=== PATIENT | female | born 1935 | race Two or more races ===

== ENCOUNTER 2018-06-14 17:21 | Inpatient (IN) | payer MEDICARE, OTHER ==
[~2018-06-14] VITALS: Ht 165.1 cm; Wt 88.5 kg
[2018-06-14] VITALS (10 sets, daily range): BP systolic 94–133; BP diastolic 38–110
[2018-06-14] MEDS ORDERED: ACETAMINOPHEN325 M1 ORAL (17:32)
[2018-06-14] MEDS ORDERED: TAMSULOSIN HCL0.4 MG ORAL (17:38)
[2018-06-14] MEDS ORDERED: ASPIR 8181 MG ORAL (17:38)
[2018-06-14] MEDS ORDERED: COLACE100 MG ORAL (17:38)
[2018-06-14] MEDS ORDERED: CATAPRES0.1 MG ORAL (17:38)
[2018-06-14] MEDS ORDERED: FLONASE ALLERG9.9 ML NS (17:38)
[2018-06-14] MEDS ORDERED: DICLOFENAC SODI75 MG ORAL (17:38)
[2018-06-14] MEDS ORDERED: AMLODIPINE-BEN1 EAC4 ORAL (17:38)
[2018-06-14] MEDS ORDERED: GABAPENTIN300 MG ORAL (17:38)
[2018-06-14] MEDS ORDERED: FOSAMAX70 MG ORAL (17:38)
[2018-06-14] MEDS ORDERED: PRILOSEC OTC20 MG ORAL (17:42)
[2018-06-14] MEDS ORDERED: TRAMADOL HCL50 MG ORAL (17:42)
[2018-06-14] MEDS ORDERED: GLUCOSAMINE CH1 EAC2 PO (17:42)
[2018-06-14] MEDS ORDERED: REQUIP0.25 MG ORAL (17:42)
[2018-06-14] MEDS ORDERED: MIRALAX17 G2 ORAL (17:42)
[2018-06-14] MEDS ORDERED: SIMETHICONE80 MG ORAL (17:42)
[2018-06-14 17:51] LABS: HEMATOCRIT 40.8 % (37.0-47.0); HEMOGLOBIN 12.9 G/DL (12.0-16.0); MEAN CORPUSCULAR VOLUME 91 FL (80-99); PLATELET COUNT 473 K/UL (150-450); RED BLOOD COUNT 4.46 M/UL (4.20-5.40); RED CELL DISTRIBUTION WIDTH 16.2 % (11.6-14.8)
[2018-06-14 17:54] LABS: WHITE BLOOD COUNT 25.4 K/UL (4.8-10.8)
[2018-06-14 17:59] LABS: APPEARANCE,URINE CLEAR; BILIRUBIN, URINE NEGATIVE (NEGATIVE); GLUCOSE, URINE (UA) NEGATIVE (NEGATIVE); KETONES,URINE NEGATIVE (NEGATIVE); LEUKOCYTE ESTERASE ,URINE 1+ (NEGATIVE); NITRITE,URINE NEGATIVE (NEGATIVE); PH,URINE 6 (4.5-8.0); PROTEIN,URINE NEGATIVE (NEGATIVE); UROBILINOGEN,URINE NORMAL MG/DL (0.0-1.0)
[2018-06-14] MEDS ORDERED: Albuterol/Ipratropium 3ml neb HHN ONE (18:00)
[2018-06-14 18:01] LABS: COLOR,URINE YELLOW
[2018-06-14] MEDS ORDERED: SENOKOT8.6 MG PO (18:36)
[2018-06-14 18:53] LABS: ALANINE AMINOTRANSFERASE 29 U/L (12-78); ALBUMIN 3.5 G/DL (3.4-5.0); ALBUMIN/GLOBULIN RATIO 0.9 (1.0-2.7); ALKALINE PHOSPHATASE 125 U/L (46-116); ANION GAP 1 mmol/L (5-15); ASPARTATE AMINO TRANSFERASE 16 U/L (15-37); BILIRUBIN,TOTAL 0.2 MG/DL (0.2-1.0); BLOOD UREA NITROGEN 50 mg/dL (7-18); CALCIUM 9.2 MG/DL (8.5-10.1); CARBON DIOXIDE 35 MMOL/L (21-32); CHLORIDE 102 MMOL/L (98-107); CKMB 1.6 NG/ML (0.0-3.6); CREATINE KINASE 51 U/L (26-308); CREATININE 1.1 MG/DL (0.55-1.30); SODIUM 139 MMOL/L (136-145)
[2018-06-14 18:56] LABS: POTASSIUM 6.4 MMOL/L (3.5-5.1)
[2018-06-14] MEDS ORDERED: Lidocaine 1% MPF 10mg/ml 5ml ONE ×2 (19:11→19:15)
[2018-06-14] MEDS ORDERED: Midazolam/D5W 100ml 100 ML IVPB SCH (19:15)
[2018-06-14] MEDS ORDERED: Isovue-370 150ml vial INJ PRN (19:15)
--- NOTE | 2018-06-14 19:41 | Emergency Room Report ---
History of Present Illness General Chief Complaint: Dyspnea/Respdistress Source: Family Member, EMS Present Illness HPI Patient is an 83-year-old female who presented after increased shortness of breath. The patient noted have desaturation nursing facility. Patient prior history of pulmonary fibrosis. She also had prior recent hospitalization at [facility]. Patient had been noted have increased respiratory distress was started on CPAP by EMS.The patient had recent hospitalization in which she had to receive epidural treatment for the cervical spine stenosis as well as back pain. The patient been hospitalized for approximately one week after a fall Allergies: Coded Allergies: ACETAMINOPHEN (Verified Allergy, Unknown, 06/14/18) CHLORPHENIRAMINE (Verified Allergy, Unknown, 06/14/18) CODEINE (Verified Allergy, Unknown, 06/14/18) HYDROCODONE (Verified Allergy, Unknown, 06/14/18) PENICILLINS (Verified Allergy, Unknown, 06/14/18) Patient History Past Medical History: see triage record Reviewed Nursing Documentation: PMH: Agreed; PSxH: Agreed Nursing Documentation-PMH Hx Hypertension: Yes Hx COPD: Yes - pulmonary Fibrosis Hx Cerebrovascular Accident: Yes Review of Systems All Other Systems: limited - by acuity Physical Exam Vital Signs Date Time Temp Pulse Resp B/P (MAP) Pulse Ox O2 Delivery O2 Flow Rate FiO2 06/14/18 17:23 104 28 136/84 88 Bi-pap 15.0 06/14/18 17:25 97.5 70 97.5 Sp02 EP Interpretation: reviewed, normal General Appearance: normal inspection, alert, lethargic, Chronically Ill Head: atraumatic ENT: normal ENT inspection, hearing grossly normal, normal voice Neck: normal inspection, supple, no bony tend, limited range of motion Respiratory: normal inspection, no retraction, respiratory distress, crackles Cardiovascular #1: regular rate, rhythm, no edema Gastrointestinal: normal inspection, normal bowel sounds, non tender, soft, no guarding, no hernia Genitourinary: no CVA tenderness Musculoskeletal: normal inspection, back normal, normal range of motion Neurologic: responsive, speech normal Psychiatric: judgement/insight normal, mood/affect normal Skin: normal inspection, normal color, no rash Procedures Critical Care Time Critical Care Time Patient had a critical medical condition which untreated could potentially result in life or limb threatening injury. Total critical care time excluding procedures approximately 45 minutes. Central Line Central Line : Consent: Emergent Central Line Lumen: triple Maximal Sterile Barrier Tech: yes cap, yes mask, yes sterile gown, yes sterile gloves, yes large sterile sheet, yes hand hygiene, yes chlorhexidine prep Central Line Postion: internal jugular (R) Anesthesia: Lidocaine cc's of anesthesia: 3 Complications: none Central Line Post Position: sutured, good blood return, position confirmed w / CXR Attempts: One Patient Tolerated: Well Complications: None Intubation Intubation : Consent: Emergent Intubation Method: orotracheal Tube Size (cm): 7.0 Medications: Etomidate, Rocuronium Breath Sounds after Intubation: equal Intubation Complications: no complications Post Intubation Xray: Yes Attempts: One Patient Tolerated: Well Complications: None Medical Decision Making Diagnostic Impression: Primary Impression: Pulmonary embolism Additional Impression: Pulmonary fibrosis, unspecified ER Course Patient presented for shortness of breath. Differential included but was not limited to anemia, pneumonia, pneumothorax, myocardial infarction, pericardial effusion, congestive heart failure, acidosis. Because of complexity of patient' s case laboratory testing and imaging studies were ordered. The patient was noted to have the severe shortness of breath. She was started on BiPAP.The patient was noted to have elevated white blood count. The patient initially had noted to have some elevation of her CO2 on BiPAP. The patient was supplied started on mechanical ventilation after discussion with family. Per my discussion with the family the patient will be given a trial of the mechanical ventilation. The patient reportedly did not want to remain on a ventilator in a prolonged vegetative state. The patient will be made DO NOT RESUSCITATE but other interventions are currently okay by family. The patient was intubated for the respiratory failure.The placenta intubation chest x-ray showed adequate line placement with the bilateral infiltrates. The CT chest read by radiology showed large right-sided pulmonary embolism. The CT imaging of the chest read by radiology showed the right-sided pulmonary embolism. The patient was noted to be normotensive. Dr. Umang Contreras was contacted for inpatient management. Repeat blood gas showed persistent hypoxia. Dr. Piedra was contacted for pulmonary consult and stated he would inform his partner is covering Labs Test 06/14/18 17:30 06/14/18 17:50 06/14/18 17:59 White Blood Count 25.4 K/UL (4.8-10.8) Red Blood Count 4.46 M/UL (4.20-5.40) Hemoglobin 12.9 G/DL (12.0-16.0) Hematocrit 40.8 % (37.0-47.0) Mean Corpuscular Volume 91 FL (80-99) Mean Corpuscular Hemoglobin 29.0 PG (27.0-31.0) Mean Corpuscular Hemoglobin Concent 31.7 G/DL (32.0-36.0) Red Cell Distribution Width 16.2 % (11.6-14.8) Platelet Count 473 K/UL (150-450) Mean Platelet Volume 8.6 FL (6.5-10.1) Neutrophils (%) (Auto) % (45.0-75.0) Lymphocytes (%) (Auto) % (20.0-45.0) Monocytes (%) (Auto) % (1.0-10.0) Eosinophils (%) (Auto) % (0.0-3.0) Basophils (%) (Auto) % (0.0-2.0) Differential Total Cells Counted 100 Neutrophils % (Manual) 84 % (45-75) Lymphocytes % (Manual) 3 % (20-45) Monocytes % (Manual) 13 % (1-10) Eosinophils % (Manual) 0 % (0-3) Basophils % (Manual) 0 % (0-2) Band Neutrophils 0 % (0-8) Platelet Estimate Increased Platelet Morphology Normal Hypochromasia 1+ Anisocytosis 1+ Activated Partial Thromboplast Time 28 SEC (23-33) Sodium Level 139 MMOL/L (136-145) Potassium Level 6.4 MMOL/L (3.5-5.1) Chloride Level 102 MMOL/L (98-107) Carbon Dioxide Level 35 MMOL/L (21-32) Anion Gap 1 mmol/L (5-15) Blood Urea Nitrogen 50 mg/dL (7-18) Creatinine 1.1 MG/DL (0.55-1.30) Estimat Glomerular Filtration Rate mL/min (>60) Glucose Level 176 MG/DL (74-106) Lactic Acid Level 1.30 mmol/L (0.4-2.0) Calcium Level 9.2 MG/DL (8.5-10.1) Total Bilirubin 0.2 MG/DL (0.2-1.0) Aspartate Amino Transf (AST/SGOT) 16 U/L (15-37) Alanine Aminotransferase (ALT/SGPT) 29 U/L (12-78) Alkaline Phosphatase 125 U/L (46-116) Total Creatine Kinase 51 U/L (26-308) Creatine Kinase MB 1.6 NG/ML (0.0-3.6) Creatine Kinase MB Relative Index 3.1 Troponin I 0.209 ng/mL (0.000-0.056) Pro-B-Type Natriuretic Peptide 574 pg/mL (0-125) Total Protein 7.5 G/DL (6.4-8.2) Albumin 3.5 G/DL (3.4-5.0) Globulin 4.0 g/dL Albumin/Globulin Ratio 0.9 (1.0-2.7) Urine Color Yellow Urine Appearance Clear Urine pH 6 (4.5-8.0) Urine Specific Hanna 1.010 (1.005-1.035) Urine Protein Negative (NEGATIVE) Urine Glucose (UA) Negative (NEGATIVE) Urine Ketones Negative (NEGATIVE) Urine Blood Negative (NEGATIVE) Urine Nitrite Negative (NEGATIVE) Urine Bilirubin Negative (NEGATIVE) Urine Urobilinogen Normal MG/DL (0.0-1.0) Urine Leukocyte Esterase 1+ (NEGATIVE) Urine RBC 0 /HPF (0 - 2) Urine WBC 0-2 /HPF (0 - 2) Urine Squamous Epithelial Cells Occasional /LPF Urine Bacteria Few /HPF (NONE) Arterial Blood pH 7.210 (7.350-7.450) Arterial Blood Partial Pressure CO2 94.0 mmHg (35.0-45.0) Arterial Blood Partial Pressure O2 60.6 mmHg (75.0-100.0) Arterial Blood HCO3 37.0 mmol/L (22.0-26.0) Arterial Blood Oxygen Saturation 86.7 % (95-100) Arterial Blood Base Excess 5.9 (-2-2) Zane Test Positive EKG Diagnostic Results Rate: normal Rhythm: NSR ST Segments: no acute changes Rhythm Strip Diag. Results EP Interpretation: yes Rhythm: NSR, no PVC's, no ectopy Last Vital Signs Date Time Temp Pulse Resp B/P (MAP) Pulse Ox O2 Delivery O2 Flow Rate FiO2 06/14/18 19:12 105 20 100 06/14/18 18:38 89 Bi-pap 06/14/18 17:25 97.5 102/38 15.0 97.5 Status: unchanged Disposition: ADMITTED INPATIENT Condition: Critical Referrals: Umang Contreras MD (PCP) Cory Nunez MD Jun 14, 2018 19:41
[2018-06-14] MEDS ORDERED: Lidocaine 1% MPF 10mg/ml 5ml IM ONE ×2 (19:45)
[2018-06-14] MEDS ORDERED: Heparin 5000 units/ml inj IV ONE (20:45)
[2018-06-14] MEDS ORDERED: Heparin 25,000u/D5W 500ml 500 ML IV SCH (20:45)
[2018-06-14] MEDS ORDERED: Precose 50mg tab ORAL SCH (23:30)
--- NOTE | 2018-06-14 23:30 | History & Physical ---
History and Physical History & Physicial H&P dictated [id number] Code status -0 DNR/ ok to intubate Umang Contreras MD Jun 14, 2018 23:30
[2018-06-14] MEDS ORDERED: Precose 50mg tab ORAL ONE (23:45)
[2018-06-15] VITALS (33 sets, daily range): BP systolic 87–152; BP diastolic 51–93
--- NOTE | 2018-06-15 02:45 | History and Physical Report ---
DATE OF ADMISSION: 06/14/2018 CHIEF COMPLAINT: Shortness of breath. HISTORY OF PRESENT ILLNESS: This is an 83-year-old female with past medical history significant for pulmonary fibrosis on two liters of oxygen when lying down and four liters of oxygen with exertion, cervical disk degenerative disease status post interbody fusion C3-C4, C4-C5, C5-C6 and C6-C7, bilateral shoulder osteoarthritis, who was recently hospitalized at [facility] from 05/24/2018 to 06/01/2018 with findings of severe central spinal stenosis of L3-L4 and T5/L2 compression fractures, who was discharged to a long term facility, and earlier today found to be hypoxic. She was found to have altered mental status earlier today. Her O2 sats are 77% on two liters earlier today. She was then put on non-rebreather with oxygen going up to 92%. Upon arrival to the emergency room, the patient was taken for CT angiogram of her lungs with findings of a right pulmonary artery embolism. The patient was not intubated in the field. PAST MEDICAL HISTORY: Includes pulmonary fibrosis, severe central stenosis L3-L4 and L4-L5, old compression fracture of T5 and L2, thrombocytosis, leukocytosis likely secondary to prednisone, interbody fusion at C3-C4, C4-C5 and, C5-C6 and C6-C7, and mechanical falls. PAST SURGICAL HISTORY: Interbody fusion at C3-C4, C4-C5, C5-C6, and C6-C7. SOCIAL HISTORY: The patient is not a smoker. She does not use any drugs. She does not drink alcohol. She is currently living in the rehab center at [facility]. ALLERGIES: To penicillin, Cosamax, codeine, and [place]. MEDICATIONS: Reviewed in [place]. REVIEW OF SYSTEMS: Not possible as the patient is intubated. PHYSICAL EXAMINATION: VITAL SIGNS: Temperature is 98.1, pulse 86, respiratory rate 20, and blood pressure 116/58. O2 saturation is 99% on 100% FiO2. GENERAL: The patient is intubated. She is sedated. HEENT: Normocephalic/atraumatic. NECK: Patient has a right IJ. There is no JVD noted. LUNGS: Decreased breath sounds bilaterally. Some crackles. CARDIOVASCULAR: Tachycardic. Regular rhythm. ABDOMEN: Soft, nontender. EXTREMITIES: No clubbing, cyanosis, or edema. LABORATORY DATA: CBC - white count of 25.4, hemoglobin 12.9, and platelet count 473,000. BMP - sodium 139, potassium 6.4, chloride 102, CO2 35, BUN 50, creatinine is 1.1. Glucose 176. Alkaline phosphatase 125. Troponin is 0.209. BNP is 574. ABG - pH 7.2, pCO2 94, pO2 60, bicarb 37, and O2 saturation 86%. Repeat ABG after intubation 7.3/58/52/32. CT chest shows right pulmonary artery embolism. ASSESSMENT AND PLAN: 1. Acute hypoxic/hypercapnic respiratory failure secondary to right pulmonary artery embolism. 2. Pulmonary fibrosis. 3. Severe central spinal stenosis of L3-L4 and L4-L5. 4. Leukocytosis-unclear etiology. The patient was being tapered off prednisone recently. 5. History of old compression fractures of T5 and L2. 6. History of thrombocytosis. PLAN: 1. Patient is admitted to ICU. 2. We will titrate FiO2 to keep O2 saturation 92% or higher. 3. Started on heparin drip. 4. TTE ordered. 5. Pulmonary consult with . . 6. NG tube placed and can start tube feeds tomorrow. 7. Versed drip for sedation. 8. Follow up blood cultures. Umang Contreras MD DR: JENN JOB#: [id number] CC:
[2018-06-15 04:29] LABS: HEMATOCRIT 38.9 % (37.0-47.0); HEMOGLOBIN 12.4 G/DL (12.0-16.0); MEAN CORPUSCULAR VOLUME 88 FL (80-99); PLATELET COUNT 484 K/UL (150-450); RED BLOOD COUNT 4.44 M/UL (4.20-5.40)
[2018-06-15 04:33] LABS: WHITE BLOOD COUNT 25.1 K/UL (4.8-10.8)
[2018-06-15 04:36] LABS: ALANINE AMINOTRANSFERASE 29 U/L (12-78); ALBUMIN 3.3 G/DL (3.4-5.0); ALBUMIN/GLOBULIN RATIO 0.9 (1.0-2.7); ALKALINE PHOSPHATASE 109 U/L (46-116); ANION GAP 3 mmol/L (5-15); ASPARTATE AMINO TRANSFERASE 28 U/L (15-37); BILIRUBIN,TOTAL 0.2 MG/DL (0.2-1.0); BLOOD UREA NITROGEN 48 mg/dL (7-18); CALCIUM 8.6 MG/DL (8.5-10.1); CARBON DIOXIDE 33 MMOL/L (21-32); CHLORIDE 100 MMOL/L (98-107); CREATININE 1.2 MG/DL (0.55-1.30); POTASSIUM 5.7 MMOL/L (3.5-5.1); SODIUM 136 MMOL/L (136-145)
[2018-06-15] MEDS ORDERED: Heparin 25,000u/D5W 500ml 500 ML IV SCH ×4 (05:00→21:00)
--- NOTE | 2018-06-15 08:26 | Diagnostic Imaging Report ---
Indication: Shortness of breath Technique: One view of the chest Comparison: none Findings: Patient is slightly rotated to the left. The heart is borderline enlarged. There is equivocal mild interstitial congestion. There may be some retrocardiac consolidation and/or atelectasis. Aorta is elongated tortuous and calcified Impression: Borderline cardiomegaly with equivocal mild interstitial congestion. Correlate with clinical findings
--- NOTE | 2018-06-15 08:46 | Diagnostic Imaging Report ---
Indication: Status post endotracheal intubation and central line placement Technique: One view of the chest Comparison: 2 hours earlier Findings: Interim endotracheal intubation, endotracheal tube tip in good position projecting approximately 3 cm above the johnna. Right jugular central venous catheter is in place, tip at the cavoatrial junction. There is equivocally some parenchymal disease at the left lateral lung base and retrocardiac region. Lungs and pleural spaces are otherwise largely clear. There is no evidence of pneumothorax. Unusual metallic densities project over the anterior neck. Impression: Satisfactory endotracheal intubation Satisfactory right jugular central venous catheter placement. No radiographically evident complication Possible retrocardiac and left lateral basilar parenchymal disease
--- NOTE | 2018-06-15 09:01 | Diagnostic Imaging Report ---
ndication: Chest pain Technique: IV administration nonionic contrast. Spiral acquisitions obtained from the lung bases to the lung apices. Multiplanar and 3-D reconstructions were generated. Total dose length product 838.48 mGycm. CTDIvol(s) 24.7 mGy. Dose reduction achieved using automated exposure control Comparison: none Findings: Large pulmonary embolus is seen in the distal right main pulmonary artery, extending into the upper and lower lobe branches. Smaller linear emboli are also seen in the middle lobe branches. There is equivocal evidence of some isolated dilatation of the right ventricle. The main pulmonary arteries are not dilated, however. No evidence of thoracic aortic aneurysm or dissection. Normal classic branching anatomy of the great neck vessels. Patent nonstenotic proximal abdominal visceral vessels. There is considerable volume loss of the left lung, with atelectatic changes of both the upper and lower lobes. There may be some consolidation as well. Generalized interstitial septal thickening is seen in the aerated left lung, as well as throughout the right lung. There are some posterior atelectatic changes of the right lower lobe as well as linear scarring or atelectasis at the right lung base. No effusions. There is a right jugular venous catheter in good position. Small amount of gas around the insertion site presumably relates to the placement procedure. There is an endotracheal tube in good position in the distal trachea above the johnna. No mediastinal or hilar mass or adenopathy. The heart is mildly enlarged. The included upper abdominal anatomy demonstrates multiple left renal cysts which are incompletely visualized. There is an 8 mm left adrenal nodule which demonstrates low-attenuation The bones demonstrate degenerative spondylosis changes. There is a wedge compression fracture deformity of the T5 vertebral body. This demonstrates considerable sclerosis. There is also minimal loss of height of T6.. Surgical hardware is seen in the lower cervical spine on the highest cuts Impression: Extensive right lung pulmonary emboli. Equivocal right ventricular dilatation in the setting of generalized cardiomegaly could indicate right heart strain although this is uncertain Extensive left lung volume loss and possible consolidation Nonspecific bilateral interstitial septal thickening Right jugular venous catheter and endotracheal tube in good position Multiple vertebral body compression fractures. Age indeterminate 8 millimeter left adrenal adenoma This agrees with the preliminary interpretation provided overnight by Dr. Dye The CT scanner at [facility] is accredited by the [employer] and the scans are performed using protocols designed to limit radiation exposure to as low as reasonably achievable to attain images of sufficient resolution adequate for diagnostic evaluation.
--- NOTE | 2018-06-15 10:17 | Consultation ---
History of Present Illness General Date patient seen: Jun 15, 2018 Time patient seen: 09:00 Chief Complaint: Dyspnea/Respdistress Referring physician: Dr. Umang Contreras Reason for Consultation: Respiratory failure Present Illness HPI 83 y/o female w/ hx of pulmonary fibrosis on chronic oyxgen therapy, cervical disk degenerative disease status post interbody fusion C3-C4, C4-C5, C5-C6 and C6-C7, bilateral shoulder osteoarthritis, who was recently hospitalized at [facility] from 05/24/2018 to 06/01/2018 with findings of severe central spinal stenosis of L3-L4 and T5/L2 compression fractures, who was discharged to a fpc facility, and yesterday found to be hypoxic. She was found to have altered mental status as well and taken to [place] for further evaluation. Noted to need nonrebreather and was noted with respiratory acidosis. She was intubated. CT angio reveled extensive R-sided pulmonary emboli. She was started on a heparin gtt and transferred to the ICU. Hemodynamics have been stable with low PO2. Noted leukocytosis but no fevers. There is questionable consolidation on CT chest but unclear etiology. No secretions per RN. No further history is available. Allergies: Coded Allergies: ACETAMINOPHEN (Verified Allergy, Unknown, 06/14/18) CHLORPHENIRAMINE (Verified Allergy, Unknown, 06/14/18) CODEINE (Verified Allergy, Unknown, 06/14/18) HYDROCODONE (Verified Allergy, Unknown, 06/14/18) PENICILLINS (Verified Allergy, Unknown, 06/14/18) Medication History Scheduled Alendronate Sodium* (Fosamax*), 70 MG ORAL ONCE A WEEK, (Reported) Amlodipine Besylate/Benazepril 5-20 Mg* (Amlodipine-Benazepril 5-20 Mg*), 1 CAP ORAL DAILY, (Reported) Aspirin* (Aspir 81*), 81 MG ORAL DAILY, (Reported) Diclofenac Sod* (Voltaren*), 75 MG ORAL BID, (Reported) Fluticasone Propionate (Flonase Allergy Relief), 50 MCG NS DAILY, (Reported) Gabapentin* (Gabapentin*), 300 MG ORAL THREE TIMES A DAY, (Reported) Gluc Perez/Chondro Perez A/Vit C/Mn (Glucosamine Chondroitin Tab), 2 EACH PO BID, ( Reported) Omeprazole Magnesium (Prilosec Otc), 20 MG ORAL BEFORE LUNCH, (Reported) Ropinirole Hcl* (Requip*), 0.25 MG ORAL HS, (Reported) Sennosides (Senokot), 17.2 MG PO BEDTIME, (Reported) Tamsulosin Hcl (Tamsulosin Hcl*), 0.4 MG ORAL DAILY, (Reported) Scheduled PRN Acetaminophen* (Acetaminophen 325MG Tablet*), 1,000 MG ORAL Q8HR PRN for Prn Headache/Temp > 101, (Reported) Clonidine Hcl* (Catapres*), 0.1 MG ORAL EVERY 6 HOURS PRN for SBP>160, (Reported ) Docusate Sodium* (Colace*), 100 MG ORAL DAILY PRN for Constipation, (Reported) Polyethylene Glycol 3350* (Miralax*), 17 GM ORAL DAILY PRN for Constipation, ( Reported) Simethicone* (Simethicone*), 80 MG ORAL Q8H PRN for GAS PAIN, (Reported) Tramadol Hcl* (Ultram*), 50 MG ORAL Q6H PRN for For Pain, (Reported) Patient History Limited by: medical condition History Provided By: Medical Record, PMD Healthcare decision maker Daughter, Deven Bertrand Resuscitation status Do Not Resuscitate Advanced Directive on File No Patient History Narrative PAST MEDICAL HISTORY: Includes pulmonary fibrosis, severe central stenosis L3-L4 and L4-L5, old compression fracture of T5 and L2, thrombocytosis, interbody fusion at C3-C4, C4-C5 and, C5-C6 and C6-C7, and mechanical falls. PAST SURGICAL HISTORY: Interbody fusion at C3-C4, C4-C5, C5-C6, and C6-C7. Review of Systems ROS Narrative Unable to obtain due to patient factors: Intubated, sedated Physical Exam General Appearance: no apparent distress, other - intubated, sedated Lines, tubes and drains: central line, endotracheal tube HEENT: atraumatic, mucous membranes moist Neck: normal inspection Respiratory/Chest: other - Rales bilateral bases Cardiovascular/Chest: normal rate, regular rhythm Abdomen: non tender, soft Extremities: no edema Neurologic: unresponsiveness Last 24 Hour Vital Signs Date Time Temp Pulse Resp B/P (MAP) Pulse Ox O2 Delivery O2 Flow Rate FiO2 06/15/18 10:00 78 20 134/64 (87) 95 06/15/18 09:24 76 20 60 06/15/18 09:00 82 20 127/65 (85) 95 06/15/18 08:00 70 06/15/18 08:00 98.0 87 18 121/67 (85) 96 98.0 06/15/18 08:00 Mechanical Ventilator 06/15/18 08:00 82 06/15/18 07:28 84 20 70 06/15/18 07:00 80 20 130/55 (80) 95 06/15/18 06:30 78 20 137/59 (85) 95 06/15/18 06:00 77 20 146/56 (86) 96 06/15/18 06:00 20 Mechanical Ventilator 70 06/15/18 05:30 75 20 148/58 (88) 95 06/15/18 05:27 73 20 70 06/15/18 05:00 80 20 131/58 (82) 95 06/15/18 05:00 20 Mechanical Ventilator 70 06/15/18 04:30 83 20 133/62 (85) 98 06/15/18 04:00 Mechanical Ventilator 06/15/18 04:00 98.0 87 18 132/67 (88) 96 98.0 06/15/18 04:00 18 Mechanical Ventilator 06/15/18 04:00 87 06/15/18 04:00 70 06/15/18 03:30 81 20 135/52 (79) 97 06/15/18 03:23 78 20 70 06/15/18 03:00 83 19 87/56 (66) 96 06/15/18 03:00 19 Mechanical Ventilator 06/15/18 02:30 82 20 116/71 (86) 95 06/15/18 02:00 78 20 120/62 (81) 96 06/15/18 02:00 20 Mechanical Ventilator 06/15/18 01:30 76 20 113/63 (80) 96 06/15/18 01:01 75 21 70 06/15/18 01:00 20 Mechanical Ventilator 70 06/15/18 01:00 79 20 122/67 (85) 96 06/15/18 00:30 98.0 76 20 117/51 (73) 95 98.0 06/15/18 00:00 Mechanical Ventilator 06/15/18 00:00 70 06/15/18 00:00 76 20 118/55 (76) 93 06/15/18 00:00 20 Mechanical Ventilator 70 06/15/18 00:00 80 06/14/18 23:30 78 20 115/54 (74) 95 06/14/18 23:03 77 20 70 06/14/18 23:00 80 20 109/56 (73) 98 06/14/18 23:00 20 Mechanical Ventilator 70 06/14/18 22:30 84 20 94/65 (75) 96 06/14/18 22:16 100 06/14/18 22:11 98.1 86 20 116/58 (77) 99 98.1 06/14/18 22:10 86 06/14/18 22:10 97.5 84 20 116/65 92 Mechanical Ventilator 100 97.5 06/14/18 22:08 98.1 92 20 110/56 92 Mechanical Ventilator 15.0 100 98.1 06/14/18 22:08 100 06/14/18 22:00 Mechanical Ventilator 06/14/18 22:00 20 Mechanical Ventilator 100 06/14/18 21:38 20 Mechanical Ventilator 100 06/14/18 21:25 97 20 101/54 94 Mechanical Ventilator 100 06/14/18 21:23 20 Mechanical Ventilator 100 06/14/18 21:08 20 Mechanical Ventilator 100 06/14/18 20:54 96 20 100 06/14/18 20:53 20 Mechanical Ventilator 93 06/14/18 20:38 20 Mechanical Ventilator 100 06/14/18 20:25 99 20 126/66 95 Mechanical Ventilator 100 06/14/18 20:23 20 Mechanical Ventilator 97 06/14/18 20:08 20 Mechanical Ventilator 97 06/14/18 20:08 98.1 06/14/18 19:53 17 Mechanical Ventilator 100 06/14/18 19:38 22 Mechanical Ventilator 100 06/14/18 19:25 101 17 133/110 97 Mechanical Ventilator 100 06/14/18 19:12 105 20 100 06/14/18 19:00 100 06/14/18 18:38 95 25 89 Bi-pap 70 06/14/18 18:25 98 21 131/85 96 Bi-pap 15.0 70 06/14/18 18:18 98 30 93 Bi-pap 70 06/14/18 18:13 70 06/14/18 17:45 98 30 Bi-pap 70 06/14/18 17:40 98 30 93 Facial 70 06/14/18 17:25 97 28 Bi-pap 70 06/14/18 17:25 97.5 97 26 102/38 92 Bi-pap 15.0 70 97.5 06/14/18 17:23 104 28 136/84 88 Bi-pap 15.0 Intake and Output 06/14/18 06/15/18 19:00 07:00 Intake Total 691.950 ml Output Total 1440 ml Balance -748.050 ml Intake Oral 0 ml IV Total 691.950 ml Output Urine Total 1440 ml Laboratory Tests Test 06/14/18 17:30 06/14/18 17:50 06/14/18 17:59 06/14/18 21:33 White Blood Count 25.4 K/UL (4.8-10.8) *H Red Blood Count 4.46 M/UL (4.20-5.40) Hemoglobin 12.9 G/DL (12.0-16.0) Hematocrit 40.8 % (37.0-47.0) Mean Corpuscular Volume 91 FL (80-99) Mean Corpuscular Hemoglobin 29.0 PG (27.0-31.0) Mean Corpuscular Hemoglobin Concent 31.7 G/DL (32.0-36.0) L Red Cell Distribution Width 16.2 % (11.6-14.8) H Platelet Count 473 K/UL (150-450) H Mean Platelet Volume 8.6 FL (6.5-10.1) Neutrophils (%) (Auto) % (45.0-75.0) Lymphocytes (%) (Auto) % (20.0-45.0) Monocytes (%) (Auto) % (1.0-10.0) Eosinophils (%) (Auto) % (0.0-3.0) Basophils (%) (Auto) % (0.0-2.0) Differential Total Cells Counted 100 Neutrophils % (Manual) 84 % (45-75) H Lymphocytes % (Manual) 3 % (20-45) L Monocytes % (Manual) 13 % (1-10) H Eosinophils % (Manual) 0 % (0-3) Basophils % (Manual) 0 % (0-2) Band Neutrophils 0 % (0-8) Platelet Estimate Increased H Platelet Morphology Normal Hypochromasia 1+ Anisocytosis 1+ Activated Partial Thromboplast Time 28 SEC (23-33) Sodium Level 139 MMOL/L (136-145) Potassium Level 6.4 MMOL/L (3.5-5.1) *H Chloride Level 102 MMOL/L (98-107) Carbon Dioxide Level 35 MMOL/L (21-32) H Anion Gap 1 mmol/L (5-15) L Blood Urea Nitrogen 50 mg/dL (7-18) H Creatinine 1.1 MG/DL (0.55-1.30) Estimat Glomerular Filtration Rate mL/min (>60) Glucose Level 176 MG/DL (74-106) H Lactic Acid Level 1.30 mmol/L (0.4-2.0) Calcium Level 9.2 MG/DL (8.5-10.1) Total Bilirubin 0.2 MG/DL (0.2-1.0) Aspartate Amino Transf (AST/SGOT) 16 U/L (15-37) Alanine Aminotransferase (ALT/SGPT) 29 U/L (12-78) Alkaline Phosphatase 125 U/L (46-116) H Total Creatine Kinase 51 U/L (26-308) Creatine Kinase MB 1.6 NG/ML (0.0-3.6) Creatine Kinase MB Relative Index 3.1 Troponin I 0.209 ng/mL (0.000-0.056) Pro-B-Type Natriuretic Peptide 574 pg/mL (0-125) H Total Protein 7.5 G/DL (6.4-8.2) Albumin 3.5 G/DL (3.4-5.0) Globulin 4.0 g/dL Albumin/Globulin Ratio 0.9 (1.0-2.7) L Urine Color Yellow Urine Appearance Clear Urine pH 6 (4.5-8.0) Urine Specific [place] 1.010 (1.005-1.035) Urine Protein Negative (NEGATIVE) Urine Glucose (UA) Negative (NEGATIVE) Urine Ketones Negative (NEGATIVE) Urine Blood Negative (NEGATIVE) Urine Nitrite Negative (NEGATIVE) Urine Bilirubin Negative (NEGATIVE) Urine Urobilinogen Normal MG/DL (0.0-1.0) Urine Leukocyte Esterase 1+ (NEGATIVE) H Urine RBC 0 /HPF (0 - 2) Urine WBC 0-2 /HPF (0 - 2) Urine Squamous Epithelial Cells Occasional /LPF Urine Bacteria Few /HPF (NONE) Arterial Blood pH 7.210 (7.350-7.450) 7.364 (7.350-7.450) Arterial Blood Partial Pressure CO2 94.0 mmHg (35.0-45.0) *H 58.2 mmHg (35.0-45.0) *H Arterial Blood Partial Pressure O2 60.6 mmHg (75.0-100.0) L 52.5 mmHg (75.0-100.0) L Arterial Blood HCO3 37.0 mmol/L (22.0-26.0) H 32.4 mmol/L (22.0-26.0) H Arterial Blood Oxygen Saturation 86.7 % (95-100) *L 87.2 % (95-100) *L Arterial Blood Base Excess 5.9 (-2-2) H 5.5 (-2-2) H Zane Test Positive Positive Test 06/15/18 03:00 06/15/18 08:05 White Blood Count 25.1 K/UL (4.8-10.8) *H Red Blood Count 4.44 M/UL (4.20-5.40) Hemoglobin 12.4 G/DL (12.0-16.0) Hematocrit 38.9 % (37.0-47.0) Mean Corpuscular Volume 88 FL (80-99) Mean Corpuscular Hemoglobin 28.0 PG (27.0-31.0) Mean Corpuscular Hemoglobin Concent 31.9 G/DL (32.0-36.0) L Red Cell Distribution Width 16.0 % (11.6-14.8) H Platelet Count 484 K/UL (150-450) H Mean Platelet Volume 8.6 FL (6.5-10.1) Neutrophils (%) (Auto) % (45.0-75.0) Lymphocytes (%) (Auto) % (20.0-45.0) Monocytes (%) (Auto) % (1.0-10.0) Eosinophils (%) (Auto) % (0.0-3.0) Basophils (%) (Auto) % (0.0-2.0) Differential Total Cells Counted 100 Neutrophils % (Manual) 64 % (45-75) Lymphocytes % (Manual) 9 % (20-45) L Monocytes % (Manual) 27 % (1-10) H Eosinophils % (Manual) 0 % (0-3) Basophils % (Manual) 0 % (0-2) Band Neutrophils 0 % (0-8) Platelet Estimate Adequate Platelet Morphology Normal Red Blood Cell Morphology Normal Activated Partial Thromboplast Time 121 SEC (23-33) H Sodium Level 136 MMOL/L (136-145) Potassium Level 5.7 MMOL/L (3.5-5.1) H Chloride Level 100 MMOL/L (98-107) Carbon Dioxide Level 33 MMOL/L (21-32) H Anion Gap 3 mmol/L (5-15) L Blood Urea Nitrogen 48 mg/dL (7-18) H Creatinine 1.2 MG/DL (0.55-1.30) Estimat Glomerular Filtration Rate mL/min (>60) Glucose Level 201 MG/DL (74-106) H Calcium Level 8.6 MG/DL (8.5-10.1) Total Bilirubin 0.2 MG/DL (0.2-1.0) Aspartate Amino Transf (AST/SGOT) 28 U/L (15-37) Alanine Aminotransferase (ALT/SGPT) 29 U/L (12-78) Alkaline Phosphatase 109 U/L (46-116) Troponin I 0.896 ng/mL (0.000-0.056) Total Protein 6.9 G/DL (6.4-8.2) Albumin 3.3 G/DL (3.4-5.0) L Globulin 3.6 g/dL Albumin/Globulin Ratio 0.9 (1.0-2.7) L Arterial Blood pH 7.467 (7.350-7.450) Arterial Blood Partial Pressure CO2 47.6 mmHg (35.0-45.0) H Arterial Blood Partial Pressure O2 77.3 mmHg (75.0-100.0) Arterial Blood HCO3 33.6 mmol/L (22.0-26.0) H Arterial Blood Oxygen Saturation 95.6 % (95-100) Arterial Blood Base Excess 8.7 (-2-2) H Zane Test Positive Height (Feet): 5 Height (Inches): 5.00 Weight (Pounds): 189 Medications Current Medications Medications (Trade) Dose Ordered Sig/Missy Route PRN Reason Start Time Stop Time Status Last Admin Dose Admin Acetaminophen (Tylenol) 650 mg Q4H PRN ORAL Mild Pain (Pain Scale 1-3) 06/14/18 23:15 07/14/18 23:14 Dextrose 1,000 ml @ 75 mls/hr [id number] IV 06/15/18 10:00 07/15/18 09:59 06/14/18 23:41 Dextrose (Dextrose 50%) 25 ml Q30M PRN IV Hypoglycemia 06/14/18 23:15 07/14/18 23:14 Dextrose (Dextrose 50%) 50 ml Q30M PRN IV Hypoglycemia 06/14/18 23:15 07/14/18 23:14 Heparin Sodium/ Dextrose 500 ml @ 25.175 mls/ hr ADJUST PER PROTOCOL IV 06/15/18 05:00 07/14/18 20:44 06/15/18 06:23 Iopamidol (Isovue-370 150ml) 150 ml NOW PRN INJ Radiology Procedure 06/14/18 19:15 06/16/18 19:02 Midazolam HCl 100 ml @ 0 mls/hr Q24H IVPB 06/14/18 19:15 06/21/18 19:14 06/14/18 19:38 Sodium Polystyrene Sulfonate (Kayexalate) 30 gm ONCE ORAL 06/15/18 10:30 06/15/18 12:00 Objective Narrative Findings: Large pulmonary embolus is seen in the distal right main pulmonary artery, extending into the upper and lower lobe branches. Smaller linear emboli are also seen in the middle lobe branches. There is equivocal evidence of some isolated dilatation of the right ventricle. The main pulmonary arteries are not dilated, however. No evidence of thoracic aortic aneurysm or dissection. Normal classic branching anatomy of the great neck vessels. Patent nonstenotic proximal abdominal visceral vessels. There is considerable volume loss of the left lung, with atelectatic changes of both the upper and lower lobes. There may be some consolidation as well. Generalized interstitial septal thickening is seen in the aerated left lung, as well as throughout the right lung. There are some posterior atelectatic changes of the right lower lobe as well as linear scarring or atelectasis at the right lung base. No effusions. There is a right jugular venous catheter in good position. Small amount of gas around the insertion site presumably relates to the placement procedure. There is an endotracheal tube in good position in the distal trachea above the johnna. No mediastinal or hilar mass or adenopathy. The heart is mildly enlarged. The included upper abdominal anatomy demonstrates multiple left renal cysts which are incompletely visualized. There is an 8 mm left adrenal nodule which demonstrates low-attenuation The bones demonstrate degenerative spondylosis changes. There is a wedge compression fracture deformity of the T5 vertebral body. This demonstrates considerable sclerosis. There is also minimal loss of height of T6.. Surgical hardware is seen in the lower cervical spine on the highest cuts Impression: Extensive right lung pulmonary emboli. Equivocal right ventricular dilatation in the setting of generalized cardiomegaly could indicate right heart strain although this is uncertain Extensive left lung volume loss and possible consolidation Nonspecific bilateral interstitial septal thickening Right jugular venous catheter and endotracheal tube in good position Multiple vertebral body compression fractures. Age indeterminate 8 millimeter left adrenal adenoma Assessment/Plan Assessment/Plan Assessment: 83 y/o female w/ pulmonary fibrosis, cervical spinal stenosis with compression fractures and hx of fusion admitted with acute on chronic hypoxemic respiratory failure and acute hypercapnic respiratory failure due to large R- sided pulmonary embolism. Noted leukocytosis and potential consolidation on CT but may be difficult to ascertain from her pulmonary fibrosis. No fevers. Will need respiratory support and close monitoring of hemodynamics and low threshold to treat with antibiotics. Problem List: 1. Acute on chronic hypoxemic and acute hypercapnic respiratory failure 2. Large R-sided pulmonary emboli 3. Potential consolidation LLL 4. Leukocytosis 5. Idiopathic pulmonary fibrosis 6. Hyperkalemia 7. Cervical spinal stenosis with compression fractures Plan: -cont mechanical ventilatory support -lower tidal volume to 450 cc -ABG in AM -wean sedation as tolerated -wean Fio2 and PEEP as tolerated -Heparin gtt for now, monitor hemodynamics, currently stable -2D Echo -Check duplex b/l LE eval for DVT -Monitor leukocytosis, low threshold to start antibiotics -Monitor volumes -kayexelate for hyperkalemia -code status has now been changed to DNAR CC Time: 95 minutes Case d/w Gautam Ventura MD Jun 15, 2018 10:17
[2018-06-15] MEDS ORDERED: Sodium Polystyrene Sulfonate 15gm Powder ORAL SCH (10:30)
[2018-06-15] MEDS ORDERED: Midazolam/D5W 100ml 100 ML IVPB PRN (11:45)
[2018-06-15] MEDS: Morphine Sulfate 2mg/ml Inj IVP PRN (13:34)
--- NOTE | 2018-06-15 14:24 | Cardiology Report ---
APPROVED REPORT EXAM: Two-dimensional and M-mode echocardiogram with Doppler and color Doppler. INDICATION STABLE ANGINA M-Mode DIMENSIONS IVSd0.9 (0.7-1.1cm)Left Atrium (MM)2.8 (1.6-4.0cm) LVDd5.5 (3.5-5.6cm)Aortic Root3.6 (2.0-3.7cm) PWd1.3 (0.7-1.1cm)Aortic Cusp Exc.2.0 (1.5-2.0cm) IVSs1.4 cm LVDs3.5 (2.5-4.0cm) PWs2.0 cm Technically difficult study due to pts position . Normal left ventricular chamber size, systolic function and wall motion as well visualized Left ventricular ejection fraction estimated to be 60-65%. Mild left ventricular hypertrophy by 2-D. No evidence of pericardial effusion. Large pleural efuusion present . All other cardiac chamber sizes are within normal limits. Focal aortic valve sclerosis with adequate cusp excursion. Thickened mitral valve leaflets with normal excursion. Mitral annulus and aortic root calcification. Pulmonic valve not well visualized. Normal tricuspid valve structure. IVC at size 1.8 cm without physiologic collapse, suggestive of increased RA pressure. A color flow and spectral Doppler study was performed and revealed: No aortic regurgitation. Trace mitral regurgitation. Mitral diastolic velocities suggest reduced left ventricular relaxation c/w mild LV diastolic dysfunction (Grade I ). Mild tricuspid regurgitation. Tricuspid systolic velocities suggests peak right ventricular systolic pressure of 33mmHg.
--- NOTE | 2018-06-15 16:18 | Consultation ---
History of Present Illness General Chief Complaint: Dyspnea/Respdistress Referring physician: Dr. Umang Contreras Reason for Consultation: Respiratory failure Present Illness Allergies: Coded Allergies: ACETAMINOPHEN (Verified Allergy, Unknown, 06/14/18) CHLORPHENIRAMINE (Verified Allergy, Unknown, 06/14/18) CODEINE (Verified Allergy, Unknown, 06/14/18) HYDROCODONE (Verified Allergy, Unknown, 06/14/18) PENICILLINS (Verified Allergy, Unknown, 06/14/18) Medication History Scheduled Alendronate Sodium* (Fosamax*), 70 MG ORAL ONCE A WEEK, (Reported) Amlodipine Besylate/Benazepril 5-20 Mg* (Amlodipine-Benazepril 5-20 Mg*), 1 CAP ORAL DAILY, (Reported) Aspirin* (Aspir 81*), 81 MG ORAL DAILY, (Reported) Diclofenac Sod* (Voltaren*), 75 MG ORAL BID, (Reported) Fluticasone Propionate (Flonase Allergy Relief), 50 MCG NS DAILY, (Reported) Gabapentin* (Gabapentin*), 300 MG ORAL THREE TIMES A DAY, (Reported) Gluc Perez/Chondro Perez A/Vit C/Mn (Glucosamine Chondroitin Tab), 2 EACH PO BID, ( Reported) Omeprazole Magnesium (Prilosec Otc), 20 MG ORAL BEFORE LUNCH, (Reported) Ropinirole Hcl* (Requip*), 0.25 MG ORAL HS, (Reported) Sennosides (Senokot), 17.2 MG PO BEDTIME, (Reported) Tamsulosin Hcl (Tamsulosin Hcl*), 0.4 MG ORAL DAILY, (Reported) Scheduled PRN Acetaminophen* (Acetaminophen 325MG Tablet*), 1,000 MG ORAL Q8HR PRN for Prn Headache/Temp > 101, (Reported) Clonidine Hcl* (Catapres*), 0.1 MG ORAL EVERY 6 HOURS PRN for SBP>160, (Reported ) Docusate Sodium* (Colace*), 100 MG ORAL DAILY PRN for Constipation, (Reported) Polyethylene Glycol 3350* (Miralax*), 17 GM ORAL DAILY PRN for Constipation, ( Reported) Simethicone* (Simethicone*), 80 MG ORAL Q8H PRN for GAS PAIN, (Reported) Tramadol Hcl* (Ultram*), 50 MG ORAL Q6H PRN for For Pain, (Reported) Patient History Healthcare decision maker Daughter, Deven Bertrand Resuscitation status Do Not Resuscitate Advanced Directive on File No Physical Exam Last 24 Hour Vital Signs Date Time Temp Pulse Resp B/P (MAP) Pulse Ox O2 Delivery O2 Flow Rate FiO2 06/15/18 15:01 85 20 55 06/15/18 14:04 98.2 06/15/18 13:34 98.2 06/15/18 12:53 89 21 55 06/15/18 12:30 88 20 152/89 (110) 94 06/15/18 12:00 87 20 146/74 (98) 94 06/15/18 12:00 80 06/15/18 11:00 80 20 135/66 (89) 94 06/15/18 10:49 85 21 55 06/15/18 10:30 86 20 152/75 (100) 94 06/15/18 10:00 78 20 134/64 (87) 95 06/15/18 09:24 76 20 60 06/15/18 09:00 82 20 127/65 (85) 95 06/15/18 08:00 70 06/15/18 08:00 98.0 87 18 121/67 (85) 96 98.0 06/15/18 08:00 Mechanical Ventilator 06/15/18 08:00 82 06/15/18 07:28 84 20 70 06/15/18 07:00 80 20 130/55 (80) 95 06/15/18 06:30 78 20 137/59 (85) 95 06/15/18 06:00 77 20 146/56 (86) 96 06/15/18 06:00 20 Mechanical Ventilator 70 06/15/18 05:30 75 20 148/58 (88) 95 06/15/18 05:27 73 20 70 06/15/18 05:00 80 20 131/58 (82) 95 06/15/18 05:00 20 Mechanical Ventilator 70 06/15/18 04:30 83 20 133/62 (85) 98 06/15/18 04:00 Mechanical Ventilator 06/15/18 04:00 98.0 87 18 132/67 (88) 96 98.0 06/15/18 04:00 18 Mechanical Ventilator 06/15/18 04:00 87 06/15/18 04:00 70 06/15/18 03:30 81 20 135/52 (79) 97 06/15/18 03:23 78 20 70 06/15/18 03:00 83 19 87/56 (66) 96 06/15/18 03:00 19 Mechanical Ventilator 06/15/18 02:30 82 20 116/71 (86) 95 06/15/18 02:00 78 20 120/62 (81) 96 06/15/18 02:00 20 Mechanical Ventilator 06/15/18 01:30 76 20 113/63 (80) 96 06/15/18 01:01 75 21 70 06/15/18 01:00 20 Mechanical Ventilator 70 06/15/18 01:00 79 20 122/67 (85) 96 06/15/18 00:30 98.0 76 20 117/51 (73) 95 98.0 06/15/18 00:00 Mechanical Ventilator 06/15/18 00:00 70 06/15/18 00:00 76 20 118/55 (76) 93 06/15/18 00:00 20 Mechanical Ventilator 70 06/15/18 00:00 80 06/14/18 23:30 78 20 115/54 (74) 95 06/14/18 23:03 77 20 70 06/14/18 23:00 80 20 109/56 (73) 98 06/14/18 23:00 20 Mechanical Ventilator 70 06/14/18 22:30 84 20 94/65 (75) 96 06/14/18 22:16 100 06/14/18 22:11 98.1 86 20 116/58 (77) 99 98.1 06/14/18 22:10 86 06/14/18 22:10 97.5 84 20 116/65 92 Mechanical Ventilator 100 97.5 06/14/18 22:08 98.1 92 20 110/56 92 Mechanical Ventilator 15.0 100 98.1 06/14/18 22:08 100 06/14/18 22:00 Mechanical Ventilator 06/14/18 22:00 20 Mechanical Ventilator 100 06/14/18 21:38 20 Mechanical Ventilator 100 06/14/18 21:25 97 20 101/54 94 Mechanical Ventilator 100 06/14/18 21:23 20 Mechanical Ventilator 100 06/14/18 21:08 20 Mechanical Ventilator 100 06/14/18 20:54 96 20 100 06/14/18 20:53 20 Mechanical Ventilator 93 06/14/18 20:38 20 Mechanical Ventilator 100 06/14/18 20:25 99 20 126/66 95 Mechanical Ventilator 100 06/14/18 20:23 20 Mechanical Ventilator 97 06/14/18 20:08 20 Mechanical Ventilator 97 06/14/18 20:08 98.1 06/14/18 19:53 17 Mechanical Ventilator 100 06/14/18 19:38 22 Mechanical Ventilator 100 06/14/18 19:25 101 17 133/110 97 Mechanical Ventilator 100 06/14/18 19:12 105 20 100 06/14/18 19:00 100 06/14/18 18:38 95 25 89 Bi-pap 70 06/14/18 18:25 98 21 131/85 96 Bi-pap 15.0 70 06/14/18 18:18 98 30 93 Bi-pap 70 06/14/18 18:13 70 06/14/18 17:45 98 30 Bi-pap 70 06/14/18 17:40 98 30 93 Facial 70 06/14/18 17:25 97 28 Bi-pap 70 06/14/18 17:25 97.5 97 26 102/38 92 Bi-pap 15.0 70 97.5 06/14/18 17:23 104 28 136/84 88 Bi-pap 15.0 Intake and Output 06/14/18 06/15/18 19:00 07:00 Intake Total 691.950 ml Output Total 1440 ml Balance -748.050 ml Intake Oral 0 ml IV Total 691.950 ml Output Urine Total 1440 ml Laboratory Tests Test 06/14/18 17:30 06/14/18 17:50 06/14/18 17:59 06/14/18 21:33 White Blood Count 25.4 K/UL (4.8-10.8) *H Red Blood Count 4.46 M/UL (4.20-5.40) Hemoglobin 12.9 G/DL (12.0-16.0) Hematocrit 40.8 % (37.0-47.0) Mean Corpuscular Volume 91 FL (80-99) Mean Corpuscular Hemoglobin 29.0 PG (27.0-31.0) Mean Corpuscular Hemoglobin Concent 31.7 G/DL (32.0-36.0) L Red Cell Distribution Width 16.2 % (11.6-14.8) H Platelet Count 473 K/UL (150-450) H Mean Platelet Volume 8.6 FL (6.5-10.1) Neutrophils (%) (Auto) % (45.0-75.0) Lymphocytes (%) (Auto) % (20.0-45.0) Monocytes (%) (Auto) % (1.0-10.0) Eosinophils (%) (Auto) % (0.0-3.0) Basophils (%) (Auto) % (0.0-2.0) Differential Total Cells Counted 100 Neutrophils % (Manual) 84 % (45-75) H Lymphocytes % (Manual) 3 % (20-45) L Monocytes % (Manual) 13 % (1-10) H Eosinophils % (Manual) 0 % (0-3) Basophils % (Manual) 0 % (0-2) Band Neutrophils 0 % (0-8) Platelet Estimate Increased H Platelet Morphology Normal Hypochromasia 1+ Anisocytosis 1+ Activated Partial Thromboplast Time 28 SEC (23-33) Sodium Level 139 MMOL/L (136-145) Potassium Level 6.4 MMOL/L (3.5-5.1) *H Chloride Level 102 MMOL/L (98-107) Carbon Dioxide Level 35 MMOL/L (21-32) H Anion Gap 1 mmol/L (5-15) L Blood Urea Nitrogen 50 mg/dL (7-18) H Creatinine 1.1 MG/DL (0.55-1.30) Estimat Glomerular Filtration Rate mL/min (>60) Glucose Level 176 MG/DL (74-106) H Lactic Acid Level 1.30 mmol/L (0.4-2.0) Calcium Level 9.2 MG/DL (8.5-10.1) Total Bilirubin 0.2 MG/DL (0.2-1.0) Aspartate Amino Transf (AST/SGOT) 16 U/L (15-37) Alanine Aminotransferase (ALT/SGPT) 29 U/L (12-78) Alkaline Phosphatase 125 U/L (46-116) H Total Creatine Kinase 51 U/L (26-308) Creatine Kinase MB 1.6 NG/ML (0.0-3.6) Creatine Kinase MB Relative Index 3.1 Troponin I 0.209 ng/mL (0.000-0.056) Pro-B-Type Natriuretic Peptide 574 pg/mL (0-125) H Total Protein 7.5 G/DL (6.4-8.2) Albumin 3.5 G/DL (3.4-5.0) Globulin 4.0 g/dL Albumin/Globulin Ratio 0.9 (1.0-2.7) L Urine Color Yellow Urine Appearance Clear Urine pH 6 (4.5-8.0) Urine Specific Hardy 1.010 (1.005-1.035) Urine Protein Negative (NEGATIVE) Urine Glucose (UA) Negative (NEGATIVE) Urine Ketones Negative (NEGATIVE) Urine Blood Negative (NEGATIVE) Urine Nitrite Negative (NEGATIVE) Urine Bilirubin Negative (NEGATIVE) Urine Urobilinogen Normal MG/DL (0.0-1.0) Urine Leukocyte Esterase 1+ (NEGATIVE) H Urine RBC 0 /HPF (0 - 2) Urine WBC 0-2 /HPF (0 - 2) Urine Squamous Epithelial Cells Occasional /LPF Urine Bacteria Few /HPF (NONE) Arterial Blood pH 7.210 (7.350-7.450) 7.364 (7.350-7.450) Arterial Blood Partial Pressure CO2 94.0 mmHg (35.0-45.0) *H 58.2 mmHg (35.0-45.0) *H Arterial Blood Partial Pressure O2 60.6 mmHg (75.0-100.0) L 52.5 mmHg (75.0-100.0) L Arterial Blood HCO3 37.0 mmol/L (22.0-26.0) H 32.4 mmol/L (22.0-26.0) H Arterial Blood Oxygen Saturation 86.7 % (95-100) *L 87.2 % (95-100) *L Arterial Blood Base Excess 5.9 (-2-2) H 5.5 (-2-2) H Zane Test Positive Positive Test 06/15/18 03:00 06/15/18 08:05 06/15/18 12:30 White Blood Count 25.1 K/UL (4.8-10.8) *H Red Blood Count 4.44 M/UL (4.20-5.40) Hemoglobin 12.4 G/DL (12.0-16.0) Hematocrit 38.9 % (37.0-47.0) Mean Corpuscular Volume 88 FL (80-99) Mean Corpuscular Hemoglobin 28.0 PG (27.0-31.0) Mean Corpuscular Hemoglobin Concent 31.9 G/DL (32.0-36.0) L Red Cell Distribution Width 16.0 % (11.6-14.8) H Platelet Count 484 K/UL (150-450) H Mean Platelet Volume 8.6 FL (6.5-10.1) Neutrophils (%) (Auto) % (45.0-75.0) Lymphocytes (%) (Auto) % (20.0-45.0) Monocytes (%) (Auto) % (1.0-10.0) Eosinophils (%) (Auto) % (0.0-3.0) Basophils (%) (Auto) % (0.0-2.0) Differential Total Cells Counted 100 Neutrophils % (Manual) 64 % (45-75) Lymphocytes % (Manual) 9 % (20-45) L Monocytes % (Manual) 27 % (1-10) H Eosinophils % (Manual) 0 % (0-3) Basophils % (Manual) 0 % (0-2) Band Neutrophils 0 % (0-8) Platelet Estimate Adequate Platelet Morphology Normal Red Blood Cell Morphology Normal Activated Partial Thromboplast Time 121 SEC (23-33) H 104 SEC (23-33) H Sodium Level 136 MMOL/L (136-145) Potassium Level 5.7 MMOL/L (3.5-5.1) H Chloride Level 100 MMOL/L (98-107) Carbon Dioxide Level 33 MMOL/L (21-32) H Anion Gap 3 mmol/L (5-15) L Blood Urea Nitrogen 48 mg/dL (7-18) H Creatinine 1.2 MG/DL (0.55-1.30) Estimat Glomerular Filtration Rate mL/min (>60) Glucose Level 201 MG/DL (74-106) H Calcium Level 8.6 MG/DL (8.5-10.1) Total Bilirubin 0.2 MG/DL (0.2-1.0) Aspartate Amino Transf (AST/SGOT) 28 U/L (15-37) Alanine Aminotransferase (ALT/SGPT) 29 U/L (12-78) Alkaline Phosphatase 109 U/L (46-116) Troponin I 0.896 ng/mL (0.000-0.056) 1.231 ng/mL (0.000-0.056) Total Protein 6.9 G/DL (6.4-8.2) Albumin 3.3 G/DL (3.4-5.0) L Globulin 3.6 g/dL Albumin/Globulin Ratio 0.9 (1.0-2.7) L Arterial Blood pH 7.467 (7.350-7.450) Arterial Blood Partial Pressure CO2 47.6 mmHg (35.0-45.0) H Arterial Blood Partial Pressure O2 77.3 mmHg (75.0-100.0) Arterial Blood HCO3 33.6 mmol/L (22.0-26.0) H Arterial Blood Oxygen Saturation 95.6 % (95-100) Arterial Blood Base Excess 8.7 (-2-2) H Zane Test Positive Height (Feet): 5 Height (Inches): 5.00 Weight (Pounds): 189 Medications Current Medications Medications (Trade) Dose Ordered Sig/Missy Route PRN Reason Start Time Stop Time Status Last Admin Dose Admin Acetaminophen (Tylenol) 650 mg Q4H PRN ORAL Mild Pain (Pain Scale 1-3) 06/14/18 23:15 07/14/18 23:14 Dextrose 1,000 ml @ 75 mls/hr [id number] IV 06/15/18 10:00 07/15/18 09:59 06/14/18 23:41 Dextrose (Dextrose 50%) 25 ml Q30M PRN IV Hypoglycemia 06/14/18 23:15 07/14/18 23:14 Dextrose (Dextrose 50%) 50 ml Q30M PRN IV Hypoglycemia 06/14/18 23:15 07/14/18 23:14 Heparin Sodium/ Dextrose 500 ml @ 22.356 mls/ hr ADJUST PER PROTOCOL IV 06/15/18 13:15 07/15/18 13:14 06/15/18 13:19 Iopamidol (Isovue-370 150ml) 150 ml NOW PRN INJ Radiology Procedure 06/14/18 19:15 06/16/18 19:02 Midazolam HCl 100 ml @ 0 mls/hr Q24H PRN IVPB Restlessness 06/15/18 11:45 06/22/18 11:44 Morphine Sulfate (Morphine Sulfate) 2 mg Q4H PRN IVP Severe Pain (Pain Scale 7-10) 06/15/18 11:45 06/22/18 11:44 06/15/18 13:34 Tramadol HCl (Ultram) 50 mg Q6H PRN ORAL Moderate Pain (Pain Scale 4-6) 06/15/18 11:45 06/22/18 11:44 Christine Vela MD Jun 15, 2018 16:18
[2018-06-15] MEDS: traMADol 50mg tab ORAL PRN (18:58)
--- NOTE | 2018-06-15 19:17 | Internal Med Progress Note ---
Subjective Physician Name Umang Contreras Attending Physician Umang Contreras MD Current Medications Medications (Trade) Dose Ordered Sig/Missy Route PRN Reason Start Time Stop Time Status Last Admin Dose Admin Acetaminophen (Tylenol) 650 mg Q4H PRN ORAL Mild Pain (Pain Scale 1-3) 06/14/18 23:15 07/14/18 23:14 Dextrose 1,000 ml @ 75 mls/hr [id number] IV 06/15/18 10:00 07/15/18 09:59 06/14/18 23:41 Dextrose (Dextrose 50%) 25 ml Q30M PRN IV Hypoglycemia 06/14/18 23:15 07/14/18 23:14 Dextrose (Dextrose 50%) 50 ml Q30M PRN IV Hypoglycemia 06/14/18 23:15 07/14/18 23:14 Heparin Sodium/ Dextrose 500 ml @ 22.356 mls/ hr ADJUST PER PROTOCOL IV 06/15/18 13:15 07/15/18 13:14 06/15/18 13:19 Iopamidol (Isovue-370 150ml) 150 ml NOW PRN INJ Radiology Procedure 06/14/18 19:15 06/16/18 19:02 Lorazepam (Ativan 2mg/ml 1ml) 1 mg Q4H PRN IV for agitation 06/15/18 19:13 06/22/18 19:12 Morphine Sulfate (Morphine Sulfate) 2 mg Q4H PRN IVP Severe Pain (Pain Scale 7-10) 06/15/18 11:45 06/22/18 11:44 06/15/18 13:34 Tramadol HCl (Ultram) 50 mg Q6H PRN ORAL Moderate Pain (Pain Scale 4-6) 06/15/18 11:45 06/22/18 11:44 06/15/18 18:58 Allergies: Coded Allergies: ACETAMINOPHEN (Verified Allergy, Unknown, 06/14/18) CHLORPHENIRAMINE (Verified Allergy, Unknown, 06/14/18) CODEINE (Verified Allergy, Unknown, 06/14/18) HYDROCODONE (Verified Allergy, Unknown, 06/14/18) PENICILLINS (Verified Allergy, Unknown, 06/14/18) Objective Last Vital Signs Date Time Temp Pulse Resp B/P (MAP) Pulse Ox O2 Delivery O2 Flow Rate FiO2 06/15/18 19:00 80 20 135/70 (91) 94 06/15/18 18:58 98.2 06/15/18 17:24 55 06/15/18 16:00 Mechanical Ventilator 06/14/18 22:08 15.0 Laboratory Tests Test 06/14/18 21:33 06/15/18 03:00 06/15/18 08:05 06/15/18 12:30 Arterial Blood pH 7.364 (7.350-7.450) 7.467 (7.350-7.450) Arterial Blood Partial Pressure CO2 58.2 mmHg (35.0-45.0) *H 47.6 mmHg (35.0-45.0) H Arterial Blood Partial Pressure O2 52.5 mmHg (75.0-100.0) L 77.3 mmHg (75.0-100.0) Arterial Blood HCO3 32.4 mmol/L (22.0-26.0) H 33.6 mmol/L (22.0-26.0) H Arterial Blood Oxygen Saturation 87.2 % (95-100) *L 95.6 % (95-100) Arterial Blood Base Excess 5.5 (-2-2) H 8.7 (-2-2) H Zane Test Positive Positive White Blood Count 25.1 K/UL (4.8-10.8) *H Red Blood Count 4.44 M/UL (4.20-5.40) Hemoglobin 12.4 G/DL (12.0-16.0) Hematocrit 38.9 % (37.0-47.0) Mean Corpuscular Volume 88 FL (80-99) Mean Corpuscular Hemoglobin 28.0 PG (27.0-31.0) Mean Corpuscular Hemoglobin Concent 31.9 G/DL (32.0-36.0) L Red Cell Distribution Width 16.0 % (11.6-14.8) H Platelet Count 484 K/UL (150-450) H Mean Platelet Volume 8.6 FL (6.5-10.1) Neutrophils (%) (Auto) % (45.0-75.0) Lymphocytes (%) (Auto) % (20.0-45.0) Monocytes (%) (Auto) % (1.0-10.0) Eosinophils (%) (Auto) % (0.0-3.0) Basophils (%) (Auto) % (0.0-2.0) Differential Total Cells Counted 100 Neutrophils % (Manual) 64 % (45-75) Lymphocytes % (Manual) 9 % (20-45) L Monocytes % (Manual) 27 % (1-10) H Eosinophils % (Manual) 0 % (0-3) Basophils % (Manual) 0 % (0-2) Band Neutrophils 0 % (0-8) Platelet Estimate Adequate Platelet Morphology Normal Red Blood Cell Morphology Normal Activated Partial Thromboplast Time 121 SEC (23-33) H 104 SEC (23-33) H Sodium Level 136 MMOL/L (136-145) Potassium Level 5.7 MMOL/L (3.5-5.1) H Chloride Level 100 MMOL/L (98-107) Carbon Dioxide Level 33 MMOL/L (21-32) H Anion Gap 3 mmol/L (5-15) L Blood Urea Nitrogen 48 mg/dL (7-18) H Creatinine 1.2 MG/DL (0.55-1.30) Estimat Glomerular Filtration Rate mL/min (>60) Glucose Level 201 MG/DL (74-106) H Calcium Level 8.6 MG/DL (8.5-10.1) Total Bilirubin 0.2 MG/DL (0.2-1.0) Aspartate Amino Transf (AST/SGOT) 28 U/L (15-37) Alanine Aminotransferase (ALT/SGPT) 29 U/L (12-78) Alkaline Phosphatase 109 U/L (46-116) Troponin I 0.896 ng/mL (0.000-0.056) 1.231 ng/mL (0.000-0.056) Total Protein 6.9 G/DL (6.4-8.2) Albumin 3.3 G/DL (3.4-5.0) L Globulin 3.6 g/dL Albumin/Globulin Ratio 0.9 (1.0-2.7) L Test 06/15/18 17:23 Activated Partial Thromboplast Time 59 SEC (23-33) H Intake and Output 06/14/18 06/15/18 19:00 07:00 Intake Total 691.950 ml Output Total 1440 ml Balance -748.050 ml Intake Oral 0 ml IV Total 691.950 ml Output Urine Total 1440 ml Assessment/Plan Assessment/Plan ASSESSMENT AND PLAN: 1. Acute hypoxic/hypercapnic respiratory failure secondary to right pulmonary artery embolism. 2. Pulmonary fibrosis. 3. Severe central spinal stenosis of L3-L4 and L4-L5. 4. Leukocytosis-unclear etiology. The patient was being tapered off prednisone recently. 5. History of old compression fractures of T5 and L2. 6. History of thrombocytosis. 7. elevated troponin 2/2 R ventricular strain 8. Leukocytosis - no infectious source identified PLAN: 1. ICU 2. We will titrate FiO2 and PEEP to keep O2 saturation 92% or higher. 3. heparin drip. 4. TTE reviewed. no R ventricular dilation 5. Pulmonary consult 6. NG tube 7. Weaning per ICU team 8. Follow up blood cultures. check procalcitonin Umang Contreras MD Jun 15, 2018 19:17
[2018-06-15] MEDS: LORazepam Inj 2mg/ml 1ml IV PRN (20:06)
[2018-06-15] MEDS ORDERED: Heparin 5000 units/ml inj IV SCH (20:52)
[2018-06-16] VITALS (24 sets, daily range): BP systolic 107–158; BP diastolic 52–126
[2018-06-16 03:38] LABS: ANION GAP 4 mmol/L (5-15); BLOOD UREA NITROGEN 26 mg/dL (7-18); CALCIUM 8.1 MG/DL (8.5-10.1); CARBON DIOXIDE 31 MMOL/L (21-32); CHLORIDE 97 MMOL/L (98-107); CREATININE 0.7 MG/DL (0.55-1.30); POTASSIUM 4.2 MMOL/L (3.5-5.1); SODIUM 132 MMOL/L (136-145)
[2018-06-16] MEDS ORDERED: Heparin 25,000u/D5W 500ml 500 ML IV SCH (04:00)
[2018-06-16] MEDS ORDERED: Heparin 5000 units/ml inj IV ONE (04:00)
[2018-06-16 06:47] LABS: HEMOGLOBIN 11.4 G/DL (12.0-16.0); MEAN CORPUSCULAR VOLUME 85 FL (80-99); PLATELET COUNT 521 K/UL (150-450); RED BLOOD COUNT 4.11 M/UL (4.20-5.40)
[2018-06-16 06:51] LABS: WHITE BLOOD COUNT 29.2 K/UL (4.8-10.8)
[2018-06-16] MEDS ORDERED: NS 275ml ONE (10:49)
[2018-06-16] MEDS ORDERED: Tubing IV Secondary IV ONE (10:49)
[2018-06-16] MEDS: Vancomycin 1gm/D5W 275ml IVPB SCH ×2 (11:05)
[2018-06-16] MEDS: Heparin 25,000u/D5W 500ml 500 ML IV SCH (11:35)
--- NOTE | 2018-06-16 11:45 | Infectious Diseases Prog Note ---
Assessment/Plan Assessment/Plan Full consult to follow: possible sepsis and gram + bacteremia possible pna PE leukocytosis respiratory failure vancomycin, cefepime and flagyl check cultures monitor labs monitor chest x-ray thank you Subjective Allergies: Coded Allergies: ACETAMINOPHEN (Verified Allergy, Unknown, 06/14/18) CHLORPHENIRAMINE (Verified Allergy, Unknown, 06/14/18) CODEINE (Verified Allergy, Unknown, 06/14/18) HYDROCODONE (Verified Allergy, Unknown, 06/14/18) PENICILLINS (Verified Allergy, Unknown, 06/14/18) Objective Vital Signs Last 24 Hour Vital Signs Date Time Temp Pulse Resp B/P (MAP) Pulse Ox O2 Delivery O2 Flow Rate FiO2 06/16/18 11:15 81 34 50 06/16/18 11:00 97 24 158/78 (104) 95 06/16/18 10:00 82 21 112/94 (100) 95 06/16/18 09:55 98 06/16/18 09:52 82 19 50 06/16/18 09:00 80 21 115/89 (98) 95 06/16/18 08:00 55 06/16/18 08:00 73 06/16/18 08:00 99.1 85 25 133/66 (88) 96 99.1 06/16/18 08:00 Mechanical Ventilator 06/16/18 07:51 80 20 55 06/16/18 07:00 68 20 130/59 (82) 96 06/16/18 06:00 84 20 135/80 (98) 96 06/16/18 05:05 76 20 55 06/16/18 05:00 75 20 128/53 (78) 96 06/16/18 04:00 84 06/16/18 04:00 98.9 84 21 139/77 (97) 95 98.9 06/16/18 04:00 55 06/16/18 04:00 Mechanical Ventilator 06/16/18 03:05 82 21 55 06/16/18 03:00 85 21 144/79 (100) 96 06/16/18 02:00 75 20 123/61 (81) 95 06/16/18 01:11 78 20 55 06/16/18 01:00 75 20 115/55 (75) 95 06/16/18 00:00 99.8 80 20 116/58 (77) 96 99.8 06/16/18 00:00 55 06/16/18 00:00 Mechanical Ventilator 06/16/18 00:00 80 06/15/18 23:15 85 20 55 06/15/18 23:00 89 21 125/81 (96) 94 06/15/18 22:00 85 21 112/93 (99) 94 06/15/18 21:15 80 20 55 06/15/18 21:00 80 24 119/57 (77) 94 06/15/18 20:00 55 06/15/18 20:00 99.1 91 21 143/78 (99) 94 99.1 06/15/18 20:00 99.1 91 21 143/78 (99) 94 99.1 06/15/18 20:00 84 06/15/18 20:00 Mechanical Ventilator 06/15/18 19:29 98.2 06/15/18 19:15 86 20 55 06/15/18 19:00 80 20 135/70 (91) 94 06/15/18 18:58 98.2 06/15/18 18:00 85 20 145/71 (95) 94 06/15/18 17:24 88 20 55 06/15/18 17:00 79 20 142/73 (96) 94 06/15/18 16:00 55 06/15/18 16:00 Mechanical Ventilator 06/15/18 16:00 87 06/15/18 16:00 88 20 140/70 (93) 94 06/15/18 15:01 85 20 55 06/15/18 15:00 80 20 129/80 (96) 94 06/15/18 14:04 98.2 06/15/18 14:00 88 20 137/77 (97) 94 06/15/18 13:34 98.2 06/15/18 13:00 98.0 85 18 133/67 (89) 96 98.0 06/15/18 12:53 89 21 55 06/15/18 12:30 88 20 152/89 (110) 94 06/15/18 12:00 Mechanical Ventilator 06/15/18 12:00 87 20 146/74 (98) 94 06/15/18 12:00 80 06/15/18 12:00 55 Height (Feet): 5 Height (Inches): 5.00 Weight (Pounds): 190 Microbiology Date/Time Source Procedure Growth Status 06/14/18 17:30 Blood Blood Culture - Preliminary NO GROWTH AFTER 24 HOURS Resulted 06/14/18 17:30 Blood Blood Culture - Preliminary Gram Positive Cocci Resulted 06/14/18 21:00 Nasal Nares MRSA Culture - Final NO METHICILLIN RESISTANT STAPH AUREUS... Complete 06/14/18 21:00 Rectum VRE Culture - Final NO VANCOMYCIN RESISTANT ENTEROCOCCUS ... Resulted 06/14/18 21:00 Rectum Pending Resulted Laboratory Tests Test 06/15/18 12:30 06/15/18 17:23 06/15/18 20:08 06/16/18 03:15 Activated Partial Thromboplast Time 104 SEC (23-33) H 59 SEC (23-33) H 52 SEC (23-33) H 56 SEC (23-33) H Troponin I 1.231 ng/mL (0.000-0.056) Sodium Level 132 MMOL/L (136-145) L Potassium Level 4.2 MMOL/L (3.5-5.1) Chloride Level 97 MMOL/L (98-107) L Carbon Dioxide Level 31 MMOL/L (21-32) Anion Gap 4 mmol/L (5-15) L Blood Urea Nitrogen 26 mg/dL (7-18) H Creatinine 0.7 MG/DL (0.55-1.30) Estimat Glomerular Filtration Rate mL/min (>60) Glucose Level 136 MG/DL (74-106) H Calcium Level 8.1 MG/DL (8.5-10.1) L Test 06/16/18 06:12 06/16/18 08:18 06/16/18 10:30 06/16/18 11:10 White Blood Count 29.2 K/UL (4.8-10.8) *H Red Blood Count 4.11 M/UL (4.20-5.40) L Hemoglobin 11.4 G/DL (12.0-16.0) L Hematocrit 35.0 % (37.0-47.0) L Mean Corpuscular Volume 85 FL (80-99) Mean Corpuscular Hemoglobin 27.7 PG (27.0-31.0) Mean Corpuscular Hemoglobin Concent 32.5 G/DL (32.0-36.0) Red Cell Distribution Width 16.0 % (11.6-14.8) H Platelet Count 521 K/UL (150-450) H Mean Platelet Volume 8.5 FL (6.5-10.1) Neutrophils (%) (Auto) % (45.0-75.0) Lymphocytes (%) (Auto) % (20.0-45.0) Monocytes (%) (Auto) % (1.0-10.0) Eosinophils (%) (Auto) % (0.0-3.0) Basophils (%) (Auto) % (0.0-2.0) Differential Total Cells Counted 100 Neutrophils % (Manual) 57 % (45-75) Lymphocytes % (Manual) 15 % (20-45) L Monocytes % (Manual) 28 % (1-10) H Eosinophils % (Manual) 0 % (0-3) Basophils % (Manual) 0 % (0-2) Band Neutrophils 0 % (0-8) Platelet Estimate Adequate Platelet Morphology Normal Hypochromasia 1+ Anisocytosis 1+ Arterial Blood pH 7.482 (7.350-7.450) 7.406 (7.350-7.450) Arterial Blood Partial Pressure CO2 42.3 mmHg (35.0-45.0) 56.1 mmHg (35.0-45.0) *H Arterial Blood Partial Pressure O2 74.9 mmHg (75.0-100.0) L 56.1 mmHg (75.0-100.0) L Arterial Blood HCO3 30.9 mmol/L (22.0-26.0) H 80.1 mmol/L (22.0-26.0) *H Arterial Blood Oxygen Saturation 95.1 % (95-100) 94.9 % (95-100) L Arterial Blood Base Excess 6.8 (-2-2) H 8.1 (-2-2) H Zane Test Positive Positive Activated Partial Thromboplast Time 104 SEC (23-33) H Current Medications Medications (Trade) Dose Ordered Sig/Missy Route PRN Reason Start Time Stop Time Status Last Admin Dose Admin Acetaminophen (Tylenol) 650 mg Q4H PRN ORAL Mild Pain (Pain Scale 1-3) 06/14/18 23:15 07/14/18 23:14 Chlorhexidine Gluconate (Maria Elena-Hex 2%) 1 applic [id number]@1999 TOPIC 06/16/18 20:00 07/16/18 19:59 Dextrose 1,000 ml @ 75 mls/hr [id number] IV 06/15/18 10:00 07/15/18 09:59 06/16/18 11:05 Dextrose (Dextrose 50%) 25 ml Q30M PRN IV Hypoglycemia 06/14/18 23:15 07/14/18 23:14 Dextrose (Dextrose 50%) 50 ml Q30M PRN IV Hypoglycemia 06/14/18 23:15 07/14/18 23:14 Heparin Sodium/ Dextrose 500 ml @ 25.795 mls/ hr ADJUST PER PROTOCOL IV 06/16/18 11:30 07/16/18 11:29 06/16/18 11:35 Iopamidol (Isovue-370 150ml) 150 ml NOW PRN INJ Radiology Procedure 06/14/18 19:15 06/16/18 19:02 Lorazepam (Ativan 2mg/ml 1ml) 1 mg Q4H PRN IV for agitation 06/15/18 19:13 06/22/18 19:12 06/15/18 20:06 Morphine Sulfate (Morphine Sulfate) 2 mg Q4H PRN IVP Severe Pain (Pain Scale 7-10) 06/15/18 11:45 06/22/18 11:44 06/15/18 13:34 Tramadol HCl (Ultram) 50 mg Q6H PRN ORAL Moderate Pain (Pain Scale 4-6) 06/15/18 11:45 06/22/18 11:44 06/15/18 18:58 Vancomycin HCl (Vanco rx to dose) 1 ea DAILY PRN MISC Per rx protocol 06/16/18 07:45 07/16/18 07:44 Vancomycin HCl 1 gm/Dextrose 275 ml @ 183.708 mls/hr Q24H IVPB 06/16/18 08:30 06/21/18 08:29 06/16/18 11:05 Artur Rodriguez MD Jun 16, 2018 11:45
[2018-06-16] MEDS: Aztreonam Inj 1 GM in D5W 55 ML IVPB SCH ×2 (14:00→21:01)
--- NOTE | 2018-06-16 15:14 | General Progress Note ---
Assessment/Plan Problem List: (1) Pulmonary embolism ICD Codes: I26.99 - Other pulmonary embolism without acute cor pulmonale SNOMED: 32990528 (2) Pulmonary fibrosis, unspecified ICD Codes: J84.10 - Pulmonary fibrosis, unspecified SNOMED: 28529627 (3) Acute respiratory failure with hypoxemia ICD Codes: J96.01 - Acute respiratory failure with hypoxia SNOMED: 272622382 Assessment/Plan abxs IV Heparin Vent support follow labs Subjective Allergies: Coded Allergies: ACETAMINOPHEN (Verified Allergy, Unknown, 06/14/18) CHLORPHENIRAMINE (Verified Allergy, Unknown, 06/14/18) CODEINE (Verified Allergy, Unknown, 06/14/18) HYDROCODONE (Verified Allergy, Unknown, 06/14/18) PENICILLINS (Verified Allergy, Unknown, 06/14/18) Subjective Intubated Objective Last 24 Hour Vital Signs Date Time Temp Pulse Resp B/P (MAP) Pulse Ox O2 Delivery O2 Flow Rate FiO2 06/16/18 14:41 99 28 50 06/16/18 13:07 84 31 50 06/16/18 12:00 50 06/16/18 12:00 Mechanical Ventilator 06/16/18 12:00 81 06/16/18 12:00 99.2 78 25 124/99 (107) 96 99.2 06/16/18 11:20 50 06/16/18 11:15 81 34 50 06/16/18 11:00 97 24 158/78 (104) 95 06/16/18 10:00 82 21 112/94 (100) 95 06/16/18 09:55 98 06/16/18 09:52 82 19 50 06/16/18 09:00 80 21 115/89 (98) 95 06/16/18 08:00 55 06/16/18 08:00 73 06/16/18 08:00 99.1 85 25 133/66 (88) 96 99.1 06/16/18 08:00 Mechanical Ventilator 06/16/18 07:51 80 20 55 06/16/18 07:00 68 20 130/59 (82) 96 06/16/18 06:00 84 20 135/80 (98) 96 06/16/18 05:05 76 20 55 06/16/18 05:00 75 20 128/53 (78) 96 06/16/18 04:00 84 06/16/18 04:00 98.9 84 21 139/77 (97) 95 98.9 06/16/18 04:00 55 06/16/18 04:00 Mechanical Ventilator 06/16/18 03:05 82 21 55 06/16/18 03:00 85 21 144/79 (100) 96 06/16/18 02:00 75 20 123/61 (81) 95 06/16/18 01:11 78 20 55 06/16/18 01:00 75 20 115/55 (75) 95 06/16/18 00:00 99.8 80 20 116/58 (77) 96 99.8 06/16/18 00:00 55 06/16/18 00:00 Mechanical Ventilator 06/16/18 00:00 80 06/15/18 23:15 85 20 55 06/15/18 23:00 89 21 125/81 (96) 94 06/15/18 22:00 85 21 112/93 (99) 94 06/15/18 21:15 80 20 55 06/15/18 21:00 80 24 119/57 (77) 94 06/15/18 20:00 55 06/15/18 20:00 99.1 91 21 143/78 (99) 94 99.1 06/15/18 20:00 99.1 91 21 143/78 (99) 94 99.1 06/15/18 20:00 84 06/15/18 20:00 Mechanical Ventilator 06/15/18 19:29 98.2 06/15/18 19:15 86 20 55 06/15/18 19:00 80 20 135/70 (91) 94 06/15/18 18:58 98.2 06/15/18 18:00 85 20 145/71 (95) 94 06/15/18 17:24 88 20 55 06/15/18 17:00 79 20 142/73 (96) 94 06/15/18 16:00 55 06/15/18 16:00 Mechanical Ventilator 06/15/18 16:00 87 06/15/18 16:00 88 20 140/70 (93) 94 Intake and Output 06/15/18 06/16/18 19:00 07:00 Intake Total 614.424 ml 884.800 ml Output Total 540 ml 575 ml Balance 74.424 ml 309.800 ml Intake Oral 0 ml 0 ml IV Total 614.424 ml 884.800 ml Output Urine Total 540 ml 575 ml Laboratory Tests 06/15/18 17:23: Activated Partial Thromboplast Time 59H 06/15/18 20:08: Activated Partial Thromboplast Time 52H 06/16/18 03:15: Activated Partial Thromboplast Time 56H, Sodium Level 132L, Potassium Level 4.2 , Chloride Level 97L, Carbon Dioxide Level 31, Anion Gap 4L, Blood Urea Nitrogen 26H, Creatinine 0.7, Estimat Glomerular Filtration Rate , Glucose Level 136H, Calcium Level 8.1L 06/16/18 06:12: White Blood Count 29.2*H, Red Blood Count 4.11L, Hemoglobin 11.4L, Hematocrit 35.0L, Mean Corpuscular Volume 85, Mean Corpuscular Hemoglobin 27.7, Mean Corpuscular Hemoglobin Concent 32.5, Red Cell Distribution Width 16.0H, Platelet Count 521H, Mean Platelet Volume 8.5, Neutrophils (%) (Auto) , Lymphocytes (%) (Auto) , Monocytes (%) (Auto) , Eosinophils (%) (Auto) , Basophils (%) (Auto) , Differential Total Cells Counted 100, Neutrophils % ( Manual) 57, Lymphocytes % (Manual) 15L, Monocytes % (Manual) 28H, Eosinophils % (Manual) 0, Basophils % (Manual) 0, Band Neutrophils 0, Platelet Estimate Adequate, Platelet Morphology Normal, Hypochromasia 1+, Anisocytosis 1+ 06/16/18 08:18: Arterial Blood pH 7.482H, Arterial Blood Partial Pressure CO2 42.3, Arterial Blood Partial Pressure O2 74.9L, Arterial Blood HCO3 30.9H, Arterial Blood Oxygen Saturation 95.1, Arterial Blood Base Excess 6.8H, Zane Test Positive 06/16/18 10:30: Activated Partial Thromboplast Time 104H 06/16/18 11:10: Arterial Blood pH 7.406, Arterial Blood Partial Pressure CO2 56.1*H, Arterial Blood Partial Pressure O2 56.1L, Arterial Blood HCO3 80.1*H, Arterial Blood Oxygen Saturation 94.9L, Arterial Blood Base Excess 8.1H, Zane Test Positive Height (Feet): 5 Height (Inches): 5.00 Weight (Pounds): 190 Cardiovascular: normal rate Respiratory/Chest: rhonchi - bilaterally Edema: 1+ Generalized Cristobal Humphrey MD Jun 16, 2018 15:14
[2018-06-16] MEDS: Dyna-Hex 2% Top Sol 2oz TOPIC SCH (20:11)
[2018-06-16] MEDS: Pantoprazole Inj IVP SCH (21:00)
[2018-06-16] MEDS: LORazepam Inj 2mg/ml 1ml IV PRN (21:01)
--- NOTE | 2018-06-16 21:37 | Pulmonolgy Critical Care Note ---
Critical Care - Asmt/Plan Assessment/Plan: Assessment/Plan Assessment: 83 y/o female w/ pulmonary fibrosis, cervical spinal stenosis with compression fractures and hx of fusion admitted with acute on chronic hypoxemic respiratory failure and acute hypercapnic respiratory failure due to large R- sided pulmonary embolism. Noted leukocytosis and potential consolidation on CT but may be difficult to ascertain from her pulmonary fibrosis. No fevers. Will need respiratory support and close monitoring of hemodynamics and low threshold to treat with antibiotics. Problem List: 1. Acute on chronic hypoxemic and acute hypercapnic respiratory failure 2. Large R-sided pulmonary emboli 3. Potential consolidation LLL 4. Leukocytosis 5. Idiopathic pulmonary fibrosis 6. Hyperkalemia 7. Cervical spinal stenosis with compression fractures Plan: -cont mechanical ventilatory support, FU ABG in am -Heparin gtt for now, monitor hemodynamics, monitor for bleedin -Monitor leukocytosis, low threshold to start antibiotics -Monitor volumes -Duplex and echo not done -check labs -code status has now been changed to DNAR CC Time: 65 minutes Respiratory: CXR, ABG Cardiac: continue to monitor HR/BP Renal: F/U I&O, keep IV fluid Infectious Disease: check cultures, continue antibiotics Gastrointestinal: hold feedings Disposition: keep in ICU Time Spent (Minutes): 50 Discussed with: nurses, consultants Critical Care - Objective Last 24 Hour Vital Signs Date Time Temp Pulse Resp B/P (MAP) Pulse Ox O2 Delivery O2 Flow Rate FiO2 06/16/18 20:41 81 25 45 06/16/18 18:51 81 26 45 06/16/18 18:00 84 24 138/65 (89) 96 06/16/18 17:32 88 28 45 06/16/18 17:00 67 24 132/52 (78) 96 06/16/18 16:00 98.8 84 25 139/84 (102) 96 98.8 06/16/18 16:00 85 06/16/18 16:00 50 06/16/18 16:00 Mechanical Ventilator 06/16/18 15:00 83 24 107/77 (87) 96 06/16/18 14:41 99 28 50 06/16/18 14:00 90 24 115/90 (98) 95 06/16/18 13:07 84 31 50 06/16/18 13:00 87 24 117/68 (84) 96 06/16/18 12:00 50 06/16/18 12:00 Mechanical Ventilator 06/16/18 12:00 81 06/16/18 12:00 99.2 78 25 124/99 (107) 96 99.2 06/16/18 11:20 50 06/16/18 11:15 81 34 50 06/16/18 11:00 97 24 158/78 (104) 95 06/16/18 10:00 82 21 112/94 (100) 95 06/16/18 09:55 98 06/16/18 09:52 82 19 50 06/16/18 09:00 80 21 115/89 (98) 95 06/16/18 08:00 55 06/16/18 08:00 73 06/16/18 08:00 99.1 85 25 133/66 (88) 96 99.1 06/16/18 08:00 Mechanical Ventilator 06/16/18 07:51 80 20 55 06/16/18 07:00 68 20 130/59 (82) 96 06/16/18 06:00 84 20 135/80 (98) 96 06/16/18 05:05 76 20 55 06/16/18 05:00 75 20 128/53 (78) 96 06/16/18 04:00 84 06/16/18 04:00 98.9 84 21 139/77 (97) 95 98.9 06/16/18 04:00 55 06/16/18 04:00 Mechanical Ventilator 06/16/18 03:05 82 21 55 06/16/18 03:00 85 21 144/79 (100) 96 06/16/18 02:00 75 20 123/61 (81) 95 06/16/18 01:11 78 20 55 06/16/18 01:00 75 20 115/55 (75) 95 06/16/18 00:00 99.8 80 20 116/58 (77) 96 99.8 06/16/18 00:00 55 06/16/18 00:00 Mechanical Ventilator 06/16/18 00:00 80 06/15/18 23:15 85 20 55 06/15/18 23:00 89 21 125/81 (96) 94 06/15/18 22:00 85 21 112/93 (99) 94 Status: awake Condition: critical Lungs: rales Heart: HR/BP unstable Abdomen: soft, active bowel sounds Extremities: edema Micro: Microbiology Date/Time Source Procedure Growth Status 06/14/18 17:30 Blood Blood Culture - Preliminary NO GROWTH AFTER 24 HOURS Resulted 06/14/18 17:30 Blood Blood Culture - Preliminary Gram Positive Cocci Resulted 06/14/18 21:00 Nasal Nares MRSA Culture - Final NO METHICILLIN RESISTANT STAPH AUREUS... Complete 06/14/18 21:00 Rectum VRE Culture - Final NO VANCOMYCIN RESISTANT ENTEROCOCCUS ... Resulted 06/14/18 21:00 Rectum Pending Resulted Critical Care - Subjective ROS Limited/Unobtainable: Yes Condition: critical FI02: 45 Vent Support Breath Rate: 20 Vent Support Mode: AC Vent Tidal Volume: 450 Sputum Amount: Small PEEP: 7.0 PIP: 37 I&O: Intake and Output 06/15/18 06/16/18 19:00 07:00 Intake Total 614.424 ml 914.035 ml Output Total 540 ml 575 ml Balance 74.424 ml 339.035 ml Intake Oral 0 ml 0 ml IV Total 614.424 ml 914.035 ml Output Urine Total 540 ml 575 ml Subjective: awake on the vent no distress tolerating tf no fever noted positive uop no bleeding CXR: n new cxr ET-Tube: 7.0 ET Position: 21 Labs: no new labs Patricia Colmenares DO Jun 16, 2018 21:37
[2018-06-16] MEDS: Morphine Sulfate 2mg/ml Inj IVP PRN (22:31)
[2018-06-17] VITALS (24 sets, daily range): BP systolic 97–151; BP diastolic 35–111
[2018-06-17] MEDS ORDERED: LORazepam Inj 2mg/ml 1ml ONE ×2 (01:13→01:15)
[2018-06-17] MEDS: LORazepam Inj 2mg/ml 1ml IV PRN ×4 (01:17→23:11)
[2018-06-17] MEDS: Morphine Sulfate 2mg/ml Inj IVP PRN (02:50)
[2018-06-17] MEDS: Aztreonam Inj 1 GM in D5W 55 ML IVPB SCH ×3 (04:58→21:04)
[2018-06-17] MEDS: traMADol 50mg tab ORAL PRN (05:03)
[2018-06-17 05:37] LABS: HEMATOCRIT 34.3 % (37.0-47.0); HEMOGLOBIN 11.3 G/DL (12.0-16.0); MEAN CORPUSCULAR VOLUME 85 FL (80-99); PLATELET COUNT 512 K/UL (150-450); RED BLOOD COUNT 4.03 M/UL (4.20-5.40); RED CELL DISTRIBUTION WIDTH 15.6 % (11.6-14.8)
[2018-06-17 05:39] LABS: WHITE BLOOD COUNT 28.2 K/UL (4.8-10.8)
[2018-06-17 05:42] LABS: ANION GAP 5 mmol/L (5-15); BLOOD UREA NITROGEN 13 mg/dL (7-18); CALCIUM 7.8 MG/DL (8.5-10.1); CARBON DIOXIDE 31 MMOL/L (21-32); CHLORIDE 95 MMOL/L (98-107); CREATININE 0.7 MG/DL (0.55-1.30); POTASSIUM 3.5 MMOL/L (3.5-5.1); SODIUM 131 MMOL/L (136-145)
[2018-06-17] MEDS: Vancomycin 1gm/D5W 275ml IVPB SCH ×2 (08:31)
[2018-06-17] MEDS: Pantoprazole Inj IVP SCH (08:32)
[2018-06-17] MEDS: Heparin 25,000u/D5W 500ml 500 ML IV SCH (08:38)
[2018-06-17] MEDS ORDERED: Pantoprazole Inj IVP SCH (09:00)
[2018-06-17] MEDS ORDERED: NS 275ml ONE (15:21)
[2018-06-17] MEDS ORDERED: Tubing IV Secondary IV ONE (15:21)
--- NOTE | 2018-06-17 17:34 | General Progress Note ---
Assessment/Plan Problem List: (1) Pulmonary embolism ICD Codes: I26.99 - Other pulmonary embolism without acute cor pulmonale SNOMED: 15214131 (2) Pulmonary fibrosis, unspecified ICD Codes: J84.10 - Pulmonary fibrosis, unspecified SNOMED: 12066360 (3) Acute respiratory failure with hypoxemia ICD Codes: J96.01 - Acute respiratory failure with hypoxia SNOMED: 486706541 Assessment/Plan abxs IV Heparin would wean as tolerated follow labs Discussed with RN start tube feeding Subjective Allergies: Coded Allergies: ACETAMINOPHEN (Verified Allergy, Unknown, 06/14/18) CHLORPHENIRAMINE (Verified Allergy, Unknown, 06/14/18) CODEINE (Verified Allergy, Unknown, 06/14/18) HYDROCODONE (Verified Allergy, Unknown, 06/14/18) PENICILLINS (Verified Allergy, Unknown, 06/14/18) Subjective Intubated Objective Last 24 Hour Vital Signs Date Time Temp Pulse Resp B/P (MAP) Pulse Ox O2 Delivery O2 Flow Rate FiO2 06/17/18 17:01 73 29 65 06/17/18 17:00 72 21 148/64 (92) 97 06/17/18 16:00 65 06/17/18 16:00 65 06/17/18 16:00 Mechanical Ventilator 06/17/18 16:00 75 21 102/39 (60) 97 06/17/18 16:00 70 06/17/18 15:16 74 24 65 06/17/18 15:00 77 20 103/35 (57) 97 06/17/18 14:00 76 20 125/55 (78) 95 06/17/18 13:25 75 22 65 06/17/18 13:00 74 22 125/55 (78) 95 06/17/18 12:00 98.9 63 20 119/63 (81) 96 98.9 06/17/18 12:00 Mechanical Ventilator 06/17/18 12:00 58 06/17/18 12:00 65 06/17/18 11:19 70 20 65 06/17/18 11:00 87 24 151/73 (99) 95 06/17/18 10:00 58 20 100/39 (59) 95 06/17/18 09:00 80 19 143/70 (94) 93 06/17/18 08:53 61 20 65 06/17/18 08:00 45 06/17/18 08:00 98.6 67 20 126/50 (75) 95 98.6 06/17/18 08:00 60 06/17/18 08:00 Mechanical Ventilator 06/17/18 07:05 77 28 65 06/17/18 07:00 71 19 118/60 (79) 94 06/17/18 06:00 77 20 97/84 (88) 91 06/17/18 05:07 71 21 65 06/17/18 05:00 72 20 134/61 (85) 93 06/17/18 04:00 Mechanical Ventilator 06/17/18 04:00 61 06/17/18 04:00 45 06/17/18 04:00 98.7 61 20 111/46 (67) 93 98.7 06/17/18 03:09 65 06/17/18 03:05 86 29 45 06/17/18 03:00 70 20 124/56 (78) 94 06/17/18 02:00 55 20 117/48 (71) 94 06/17/18 01:00 78 22 138/111 (120) 96 06/17/18 00:50 63 20 45 06/17/18 00:00 45 06/17/18 00:00 99.0 83 21 136/67 (90) 94 99.0 06/17/18 00:00 Mechanical Ventilator 06/17/18 00:00 83 06/16/18 23:00 84 23 134/65 (88) 93 06/16/18 22:57 84 26 45 06/16/18 22:00 84 17 137/108 (118) 95 06/16/18 21:00 73 20 133/62 (85) 95 06/16/18 20:41 81 25 45 06/16/18 20:00 Mechanical Ventilator 06/16/18 20:00 82 06/16/18 20:00 45 06/16/18 20:00 99.4 82 22 150/126 (134) 96 99.4 06/16/18 19:00 82 24 145/63 (90) 96 06/16/18 18:51 81 26 45 06/16/18 18:00 84 24 138/65 (89) 96 Intake and Output 06/16/18 06/17/18 19:00 07:00 Intake Total 1419.9210 ml 1318.745 ml Output Total 645 ml 1130 ml Balance 774.9210 ml 188.745 ml Intake Oral 0 ml 0 ml IV Total 1419.9210 ml 1318.745 ml Output Urine Total 645 ml 980 ml Gastric Drainage Total 150 ml Laboratory Tests 06/16/18 17:40: Activated Partial Thromboplast Time 69H 06/17/18 05:10: Activated Partial Thromboplast Time 90H, White Blood Count 28.2*H, Red Blood Count 4.03L, Hemoglobin 11.3L, Hematocrit 34.3L, Mean Corpuscular Volume 85, Mean Corpuscular Hemoglobin 27.9, Mean Corpuscular Hemoglobin Concent 32.9, Red Cell Distribution Width 15.6H, Platelet Count 512H, Mean Platelet Volume 9.0, Neutrophils (%) (Auto) , Lymphocytes (%) (Auto) , Monocytes (%) (Auto) , Eosinophils (%) (Auto) , Basophils (%) (Auto) , Differential Total Cells Counted 100, Neutrophils % (Manual) 68, Lymphocytes % (Manual) 13L, Monocytes % (Manual) 18H, Eosinophils % (Manual) 0, Basophils % (Manual) 0, Band Neutrophils 1, Platelet Estimate IncreasedH, Platelet Morphology Normal, Anisocytosis 2+, Sodium Level 131L, Potassium Level 3.5, Chloride Level 95L, Carbon Dioxide Level 31, Anion Gap 5, Blood Urea Nitrogen 13, Creatinine 0.7, Estimat Glomerular Filtration Rate , Glucose Level 134H, Calcium Level 7.8L Height (Feet): 5 Height (Inches): 5.00 Weight (Pounds): 200 Cardiovascular: normal rate Respiratory/Chest: rhonchi - bilaterally Edema: 1+ Generalized Cristobal Humphrey MD Jun 17, 2018 17:34
--- NOTE | 2018-06-17 17:48 | Pulmonolgy Critical Care Note ---
Critical Care - Asmt/Plan Assessment/Plan: Assessment/Plan Assessment: 83 y/o female w/ pulmonary fibrosis, cervical spinal stenosis with compression fractures and hx of fusion admitted with acute on chronic hypoxemic respiratory failure and acute hypercapnic respiratory failure due to large R- sided pulmonary embolism. Noted leukocytosis and potential consolidation on CT but may be difficult to ascertain from her pulmonary fibrosis. No fevers. Will need respiratory support and close monitoring of hemodynamics and low threshold to treat with antibiotics. Problem List: 1. Acute on chronic hypoxemic and acute hypercapnic respiratory failure 2. Large R-sided pulmonary emboli 3. Potential consolidation LLL 4. Leukocytosis 5. Idiopathic pulmonary fibrosis 6. Hyperkalemia 7. Cervical spinal stenosis with compression fractures 8. 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 Critical Care - Objective Last 24 Hour Vital Signs Date Time Temp Pulse Resp B/P (MAP) Pulse Ox O2 Delivery O2 Flow Rate FiO2 06/17/18 17:01 73 29 65 06/17/18 17:00 72 21 148/64 (92) 97 06/17/18 16:00 65 06/17/18 16:00 65 06/17/18 16:00 Mechanical Ventilator 06/17/18 16:00 75 21 102/39 (60) 97 06/17/18 16:00 70 06/17/18 15:16 74 24 65 06/17/18 15:00 77 20 103/35 (57) 97 06/17/18 14:00 76 20 125/55 (78) 95 06/17/18 13:25 75 22 65 06/17/18 13:00 74 22 125/55 (78) 95 06/17/18 12:00 98.9 63 20 119/63 (81) 96 98.9 06/17/18 12:00 Mechanical Ventilator 06/17/18 12:00 58 06/17/18 12:00 65 06/17/18 11:19 70 20 65 06/17/18 11:00 87 24 151/73 (99) 95 06/17/18 10:00 58 20 100/39 (59) 95 06/17/18 09:00 80 19 143/70 (94) 93 06/17/18 08:53 61 20 65 06/17/18 08:00 45 06/17/18 08:00 98.6 67 20 126/50 (75) 95 98.6 06/17/18 08:00 60 06/17/18 08:00 Mechanical Ventilator 06/17/18 07:05 77 28 65 06/17/18 07:00 71 19 118/60 (79) 94 06/17/18 06:00 77 20 97/84 (88) 91 06/17/18 05:07 71 21 65 06/17/18 05:00 72 20 134/61 (85) 93 06/17/18 04:00 Mechanical Ventilator 06/17/18 04:00 61 06/17/18 04:00 45 06/17/18 04:00 98.7 61 20 111/46 (67) 93 98.7 06/17/18 03:09 65 06/17/18 03:05 86 29 45 06/17/18 03:00 70 20 124/56 (78) 94 06/17/18 02:00 55 20 117/48 (71) 94 06/17/18 01:00 78 22 138/111 (120) 96 06/17/18 00:50 63 20 45 06/17/18 00:00 45 06/17/18 00:00 99.0 83 21 136/67 (90) 94 99.0 06/17/18 00:00 Mechanical Ventilator 06/17/18 00:00 83 06/16/18 23:00 84 23 134/65 (88) 93 06/16/18 22:57 84 26 45 06/16/18 22:00 84 17 137/108 (118) 95 06/16/18 21:00 73 20 133/62 (85) 95 06/16/18 20:41 81 25 45 06/16/18 20:00 Mechanical Ventilator 06/16/18 20:00 82 06/16/18 20:00 45 06/16/18 20:00 99.4 82 22 150/126 (134) 96 99.4 06/16/18 19:00 82 24 145/63 (90) 96 06/16/18 18:51 81 26 45 06/16/18 18:00 84 24 138/65 (89) 96 Status: awake Lungs: rhonchi Heart: HR/BP stable Abdomen: soft, non-tender Extremities: edema Decubiti: stage Micro: Microbiology Date/Time Source Procedure Growth Status 06/16/18 12:05 Blood Blood Culture - Preliminary Resulted 06/16/18 15:10 Sputum Induced Gram Stain - Final Resulted 06/16/18 15:10 Sputum Induced Sputum Culture Pending Resulted 06/14/18 21:00 Nasal Nares MRSA Culture - Final NO METHICILLIN RESISTANT STAPH AUREUS... Complete 06/16/18 13:10 Indwelling Cath Urine Culture - Preliminary Gram Negative Bacillus 1 Resulted 06/14/18 21:00 Rectum VRE Culture - Final NO VANCOMYCIN RESISTANT ENTEROCOCCUS ... Complete 06/14/18 21:00 Rectum - Final NO CARBAPENEM-RESISTANT ENTEROBACTERI... Complete Critical Care - Subjective ROS Limited/Unobtainable: Yes Condition: critical FI02: 65 Vent Support Breath Rate: 20 Vent Support Mode: AC Vent Tidal Volume: 450 Sputum Amount: Scant PEEP: 7.0 PIP: 36 I&O: Intake and Output 06/16/18 06/17/18 19:00 07:00 Intake Total 1419.9210 ml 1318.745 ml Output Total 645 ml 1130 ml Balance 774.9210 ml 188.745 ml Intake Oral 0 ml 0 ml IV Total 1419.9210 ml 1318.745 ml Output Urine Total 645 ml 980 ml Gastric Drainage Total 150 ml Subjective: awake on the vent no distress did no wean today, 2 hours yeasterday BC positive today and elevated WBC tolerating tf positive uop no bleeding ET-Tube: 7.0 ET Position: 21 Labs: Laboratory Tests Test 06/17/18 05:10 White Blood Count 28.2 K/UL (4.8-10.8) *H Red Blood Count 4.03 M/UL (4.20-5.40) L Hemoglobin 11.3 G/DL (12.0-16.0) L Hematocrit 34.3 % (37.0-47.0) L Mean Corpuscular Volume 85 FL (80-99) Mean Corpuscular Hemoglobin 27.9 PG (27.0-31.0) Mean Corpuscular Hemoglobin Concent 32.9 G/DL (32.0-36.0) Red Cell Distribution Width 15.6 % (11.6-14.8) H Platelet Count 512 K/UL (150-450) H Mean Platelet Volume 9.0 FL (6.5-10.1) Neutrophils (%) (Auto) % (45.0-75.0) Lymphocytes (%) (Auto) % (20.0-45.0) Monocytes (%) (Auto) % (1.0-10.0) Eosinophils (%) (Auto) % (0.0-3.0) Basophils (%) (Auto) % (0.0-2.0) Differential Total Cells Counted 100 Neutrophils % (Manual) 68 % (45-75) Lymphocytes % (Manual) 13 % (20-45) L Monocytes % (Manual) 18 % (1-10) H Eosinophils % (Manual) 0 % (0-3) Basophils % (Manual) 0 % (0-2) Band Neutrophils 1 % (0-8) Platelet Estimate Increased H Platelet Morphology Normal Anisocytosis 2+ Activated Partial Thromboplast Time 90 SEC (23-33) H Sodium Level 131 MMOL/L (136-145) L Potassium Level 3.5 MMOL/L (3.5-5.1) Chloride Level 95 MMOL/L (98-107) L Carbon Dioxide Level 31 MMOL/L (21-32) Anion Gap 5 mmol/L (5-15) Blood Urea Nitrogen 13 mg/dL (7-18) Creatinine 0.7 MG/DL (0.55-1.30) Estimat Glomerular Filtration Rate mL/min (>60) Glucose Level 134 MG/DL (74-106) H Calcium Level 7.8 MG/DL (8.5-10.1) Patricia Panda DO Jun 17, 2018 17:48
--- NOTE | 2018-06-17 19:33 | Infectious Diseases Prog Note ---
Assessment/Plan Assessment/Plan Full consult to follow: possible sepsis and gram + bacteremia - 2 sets + central line new possible pna PE leukocytosis respiratory failure vancomycin, aztreonam, and flagyl check cultures monitor labs monitor chest x-ray check echo allergies - severe pcn allergy d/w daughter Subjective Allergies: Coded Allergies: ACETAMINOPHEN (Verified Allergy, Unknown, 06/14/18) CHLORPHENIRAMINE (Verified Allergy, Unknown, 06/14/18) CODEINE (Verified Allergy, Unknown, 06/14/18) HYDROCODONE (Verified Allergy, Unknown, 06/14/18) PENICILLINS (Verified Allergy, Unknown, 06/14/18) Objective Vital Signs Last 24 Hour Vital Signs Date Time Temp Pulse Resp B/P (MAP) Pulse Ox O2 Delivery O2 Flow Rate FiO2 06/17/18 19:16 69 20 65 06/17/18 18:00 98.6 74 22 132/85 (101) 95 98.6 06/17/18 17:01 73 29 65 06/17/18 17:00 72 21 148/64 (92) 97 06/17/18 16:00 65 06/17/18 16:00 65 06/17/18 16:00 Mechanical Ventilator 06/17/18 16:00 75 21 102/39 (60) 97 06/17/18 16:00 70 06/17/18 15:16 74 24 65 06/17/18 15:00 77 20 103/35 (57) 97 06/17/18 14:00 76 20 125/55 (78) 95 06/17/18 13:25 75 22 65 06/17/18 13:00 74 22 125/55 (78) 95 06/17/18 12:00 98.9 63 20 119/63 (81) 96 98.9 06/17/18 12:00 Mechanical Ventilator 06/17/18 12:00 58 06/17/18 12:00 65 06/17/18 11:19 70 20 65 06/17/18 11:00 87 24 151/73 (99) 95 06/17/18 10:00 58 20 100/39 (59) 95 06/17/18 09:00 80 19 143/70 (94) 93 06/17/18 08:53 61 20 65 06/17/18 08:00 45 06/17/18 08:00 98.6 67 20 126/50 (75) 95 98.6 06/17/18 08:00 60 06/17/18 08:00 Mechanical Ventilator 06/17/18 07:05 77 28 65 06/17/18 07:00 71 19 118/60 (79) 94 06/17/18 06:00 77 20 97/84 (88) 91 06/17/18 05:07 71 21 65 06/17/18 05:00 72 20 134/61 (85) 93 06/17/18 04:00 Mechanical Ventilator 06/17/18 04:00 61 06/17/18 04:00 45 06/17/18 04:00 98.7 61 20 111/46 (67) 93 98.7 06/17/18 03:09 65 06/17/18 03:05 86 29 45 06/17/18 03:00 70 20 124/56 (78) 94 06/17/18 02:00 55 20 117/48 (71) 94 06/17/18 01:00 78 22 138/111 (120) 96 06/17/18 00:50 63 20 45 06/17/18 00:00 45 06/17/18 00:00 99.0 83 21 136/67 (90) 94 99.0 06/17/18 00:00 Mechanical Ventilator 06/17/18 00:00 83 06/16/18 23:00 84 23 134/65 (88) 93 06/16/18 22:57 84 26 45 06/16/18 22:00 84 17 137/108 (118) 95 06/16/18 21:00 73 20 133/62 (85) 95 06/16/18 20:41 81 25 45 06/16/18 20:00 Mechanical Ventilator 06/16/18 20:00 82 06/16/18 20:00 45 06/16/18 20:00 99.4 82 22 150/126 (134) 96 99.4 Height (Feet): 5 Height (Inches): 5.00 Weight (Pounds): 200 Microbiology Date/Time Source Procedure Growth Status 06/16/18 12:05 Blood Blood Culture - Preliminary Resulted 06/16/18 15:10 Sputum Induced Gram Stain - Final Resulted 06/16/18 15:10 Sputum Induced Sputum Culture Pending Resulted 06/14/18 21:00 Nasal Nares MRSA Culture - Final NO METHICILLIN RESISTANT STAPH AUREUS... Complete 06/16/18 13:10 Indwelling Cath Urine Culture - Preliminary Gram Negative Bacillus 1 Resulted 06/14/18 21:00 Rectum VRE Culture - Final NO VANCOMYCIN RESISTANT ENTEROCOCCUS ... Complete 06/14/18 21:00 Rectum - Final NO CARBAPENEM-RESISTANT ENTEROBACTERI... Complete Laboratory Tests Test 06/17/18 05:10 White Blood Count 28.2 K/UL (4.8-10.8) *H Red Blood Count 4.03 M/UL (4.20-5.40) L Hemoglobin 11.3 G/DL (12.0-16.0) L Hematocrit 34.3 % (37.0-47.0) L Mean Corpuscular Volume 85 FL (80-99) Mean Corpuscular Hemoglobin 27.9 PG (27.0-31.0) Mean Corpuscular Hemoglobin Concent 32.9 G/DL (32.0-36.0) Red Cell Distribution Width 15.6 % (11.6-14.8) H Platelet Count 512 K/UL (150-450) H Mean Platelet Volume 9.0 FL (6.5-10.1) Neutrophils (%) (Auto) % (45.0-75.0) Lymphocytes (%) (Auto) % (20.0-45.0) Monocytes (%) (Auto) % (1.0-10.0) Eosinophils (%) (Auto) % (0.0-3.0) Basophils (%) (Auto) % (0.0-2.0) Differential Total Cells Counted 100 Neutrophils % (Manual) 68 % (45-75) Lymphocytes % (Manual) 13 % (20-45) L Monocytes % (Manual) 18 % (1-10) H Eosinophils % (Manual) 0 % (0-3) Basophils % (Manual) 0 % (0-2) Band Neutrophils 1 % (0-8) Platelet Estimate Increased H Platelet Morphology Normal Anisocytosis 2+ Activated Partial Thromboplast Time 90 SEC (23-33) H Sodium Level 131 MMOL/L (136-145) L Potassium Level 3.5 MMOL/L (3.5-5.1) Chloride Level 95 MMOL/L (98-107) L Carbon Dioxide Level 31 MMOL/L (21-32) Anion Gap 5 mmol/L (5-15) Blood Urea Nitrogen 13 mg/dL (7-18) Creatinine 0.7 MG/DL (0.55-1.30) Estimat Glomerular Filtration Rate mL/min (>60) Glucose Level 134 MG/DL (74-106) H Calcium Level 7.8 MG/DL (8.5-10.1) L Current Medications Medications (Trade) Dose Ordered Sig/Missy Route PRN Reason Start Time Stop Time Status Last Admin Dose Admin Acetaminophen (Tylenol) 650 mg Q4H PRN ORAL Mild Pain (Pain Scale 1-3) 06/14/18 23:15 07/14/18 23:14 Aztreonam 1 gm/ Dextrose 55 ml @ 110 mls/hr Q8H IVPB 06/16/18 13:00 06/23/18 12:59 06/17/18 13:28 Chlorhexidine Gluconate (Maria Elena-Hex 2%) 1 applic DAILY@2000 TOPIC 06/16/18 20:00 07/16/18 19:59 06/16/18 20:11 Dextrose 1,000 ml @ 75 mls/hr [id number] IV 06/15/18 10:00 07/15/18 09:59 06/17/18 14:53 Dextrose (Dextrose 50%) 25 ml Q30M PRN IV Hypoglycemia 06/14/18 23:15 07/14/18 23:14 Dextrose (Dextrose 50%) 50 ml Q30M PRN IV Hypoglycemia 06/14/18 23:15 07/14/18 23:14 Heparin Sodium/ Dextrose 500 ml @ 25.795 mls/ hr ADJUST PER PROTOCOL IV 06/16/18 11:30 07/16/18 11:29 06/17/18 08:38 Lorazepam (Ativan 2mg/ml 1ml) 1 mg Q4H PRN IV for agitation 06/15/18 19:13 06/22/18 19:12 06/17/18 18:35 Metronidazole 100 ml @ 100 mls/hr Q8HR IVPB 06/16/18 14:00 06/23/18 13:59 06/17/18 13:28 Morphine Sulfate (Morphine Sulfate) 2 mg Q4H PRN IVP Severe Pain (Pain Scale 7-10) 06/15/18 11:45 06/22/18 11:44 06/17/18 02:50 Ondansetron HCl (Zofran) 4 mg Q4H PRN IVP Nausea & Vomiting 06/16/18 17:45 07/16/18 17:44 06/17/18 18:35 Pantoprazole (Protonix) 40 mg DAILY IVP 06/16/18 21:00 07/17/18 08:59 06/17/18 08:32 Tramadol HCl (Ultram) 50 mg Q6H PRN ORAL Moderate Pain (Pain Scale 4-6) 06/15/18 11:45 06/22/18 11:44 06/17/18 05:03 Vancomycin HCl (Vanco rx to dose) 1 ea DAILY PRN MISC Per rx protocol 06/16/18 07:45 07/16/18 07:44 Vancomycin HCl 1 gm/Dextrose 275 ml @ 183.708 mls/hr Q24H IVPB 06/16/18 08:30 06/21/18 08:29 06/17/18 08:31 Artur Rodriguez MD Jun 17, 2018 19:33
[2018-06-17] MEDS ORDERED: Amikacin Rx to dose MISC PRN (19:45)
[2018-06-17] MEDS: Dyna-Hex 2% Top Sol 2oz TOPIC SCH (20:15)
[2018-06-17] MEDS ORDERED: Amikacin 500 MG in NS 110 ML IV SCH (21:00)
[2018-06-18] VITALS (24 sets, daily range): BP systolic 92–151; BP diastolic 34–91
[2018-06-18] MEDS: Heparin 25,000u/D5W 500ml 500 ML IV SCH ×2 (04:35→23:45)
[2018-06-18 04:57] LABS: HEMATOCRIT 31.8 % (37.0-47.0); HEMOGLOBIN 10.7 G/DL (12.0-16.0); MEAN CORPUSCULAR VOLUME 85 FL (80-99); PLATELET COUNT 371 K/UL (150-450); RED BLOOD COUNT 3.75 M/UL (4.20-5.40); RED CELL DISTRIBUTION WIDTH 16.1 % (11.6-14.8)
[2018-06-18 05:01] LABS: ANION GAP 5 mmol/L (5-15); BLOOD UREA NITROGEN 9 mg/dL (7-18); CALCIUM 7.7 MG/DL (8.5-10.1); CARBON DIOXIDE 31 MMOL/L (21-32); CHLORIDE 97 MMOL/L (98-107); CREATININE 0.8 MG/DL (0.55-1.30); SODIUM 133 MMOL/L (136-145)
[2018-06-18 05:10] LABS: WHITE BLOOD COUNT 26.9 K/UL (4.8-10.8)
[2018-06-18] MEDS: Aztreonam Inj 1 GM in D5W 55 ML IVPB SCH (05:24)
[2018-06-18] MEDS: LORazepam Inj 2mg/ml 1ml IV PRN ×4 (05:51→22:28)
[2018-06-18] MEDS: Pantoprazole Inj IVP SCH (09:55)
[2018-06-18] MEDS: Vancomycin 1250mg/D5W 250ml IVPB SCH ×2 (09:55→21:05)
[2018-06-18] MEDS: Morphine Sulfate 2mg/ml Inj IVP PRN (09:57)
--- NOTE | 2018-06-18 11:05 | Diagnostic Imaging Report ---
Indication: Dyspnea Technique: One view of the chest Comparison: 06/14/2018 Findings: Stable satisfactory positions of endotracheal and nasogastric tubes, right jugular central venous catheter. Retrocardiac atelectatic changes or scarring are again demonstrated. There is slight blunting of left costophrenic sulcus, likely representing small amount of pleural fluid. Right lung and pleural space remain clear. Pleural fluid appears decreased. Other findings appear unchanged Impression: Slightly decreased left pleural effusion. 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
--- NOTE | 2018-06-18 13:23 | Pulmonolgy Critical Care Note ---
Critical Care - Asmt/Plan Problems: (1) Acute respiratory failure with hypoxemia (2) Pulmonary embolism (3) Respiratory distress (4) Pulmonary fibrosis, unspecified Assessment/Plan: Assessment/Plan Assessment: 83 y/o female w/ pulmonary fibrosis, cervical spinal stenosis with compression fractures and hx of fusion admitted with acute on chronic hypoxemic respiratory failure and acute hypercapnic respiratory failure due to large R- sided pulmonary embolism. Noted leukocytosis and potential consolidation on CT but may be difficult to ascertain from her pulmonary fibrosis. No fevers. Will need respiratory support and close monitoring of hemodynamics and low threshold to treat with antibiotics. Problem List: 1. Acute on chronic hypoxemic and acute hypercapnic respiratory failure 2. Large R-sided pulmonary emboli & R fem DVT 3. Potential consolidation LLL 4. Leukocytosis 5. Idiopathic pulmonary fibrosis 6. Hyperkalemia 7. Cervical spinal stenosis with compression fractures 8. bacteremia Plan: -cont mechanical ventilatory support --> repeat SBT in am -Titrate down FiO2 and PEEP as able -Heparin gtt for now, monitor hemodynamics, monitor for bleeding -Monitor leukocytosis -Abx per ID, F/U Cx's -Monitor volumes, D/C IVF --> SLIV -Continue TF's, hold in am for SBT -DNAR CC Time: 65 minutes Critical Care - Objective Last 24 Hour Vital Signs Date Time Temp Pulse Resp B/P (MAP) Pulse Ox O2 Delivery O2 Flow Rate FiO2 06/18/18 12:00 98.9 88 23 126/50 (75) 93 98.9 06/18/18 12:00 40 06/18/18 11:20 72 22 50 06/18/18 11:00 74 24 122/49 (73) 94 06/18/18 10:00 82 22 120/51 (74) 93 06/18/18 10:00 40 06/18/18 09:10 68 21 50 06/18/18 09:00 88 25 117/49 (71) 94 06/18/18 08:00 50 06/18/18 08:00 99.5 69 21 114/47 (69) 93 99.5 06/18/18 07:40 76 25 50 06/18/18 07:00 78 23 127/49 (75) 97 06/18/18 06:00 65 21 117/34 (61) 96 06/18/18 05:10 82 29 65 06/18/18 05:00 79 20 92/39 (56) 96 06/18/18 04:00 75 06/18/18 04:00 Mechanical Ventilator 06/18/18 04:00 98.7 61 20 111/46 (67) 96 98.7 06/18/18 04:00 65 06/18/18 03:15 79 25 65 06/18/18 03:00 77 23 132/49 (76) 96 06/18/18 02:00 78 23 129/49 (75) 96 06/18/18 01:01 78 30 65 06/18/18 01:00 65 21 151/67 (95) 97 06/18/18 00:00 65 06/18/18 00:00 80 06/18/18 00:00 Mechanical Ventilator 06/18/18 00:00 98.5 62 21 151/61 (91) 97 98.5 06/17/18 23:23 73 20 65 06/17/18 23:00 65 21 135/67 (89) 97 06/17/18 22:00 60 21 144/67 (92) 97 06/17/18 21:15 78 27 65 06/17/18 21:00 76 22 127/82 (97) 95 06/17/18 20:00 65 06/17/18 20:00 99.0 75 22 145/60 (88) 95 99.0 06/17/18 20:00 Mechanical Ventilator 06/17/18 20:00 76 06/17/18 19:16 69 20 65 06/17/18 19:00 98.6 75 22 130/85 (100) 95 98.6 06/17/18 18:00 98.6 74 22 132/85 (101) 95 98.6 06/17/18 17:01 73 29 65 06/17/18 17:00 72 21 148/64 (92) 97 06/17/18 16:00 65 06/17/18 16:00 65 06/17/18 16:00 Mechanical Ventilator 06/17/18 16:00 75 21 102/39 (60) 97 06/17/18 16:00 70 06/17/18 15:16 74 24 65 06/17/18 15:00 77 20 103/35 (57) 97 06/17/18 14:00 76 20 125/55 (78) 95 06/17/18 13:25 75 22 65 06/17/18 13:00 74 22 125/55 (78) 95 Status: awake, other - intubated Condition: improving HEENT: atraumatic, normocephalic Lungs: chest wall tender, rhonchi Heart: HR/BP stable Abdomen: soft, non-tender, active bowel sounds Extremities: no C/C/E Micro: Microbiology Date/Time Source Procedure Growth Status 06/16/18 12:20 Blood Blood Culture - Preliminary NO GROWTH AFTER 24 HOURS Resulted 06/16/18 12:05 Blood Blood Culture - Preliminary Staphylococcus Sp Coag Neg Resulted 06/16/18 15:10 Sputum Induced Gram Stain - Final Complete 06/16/18 15:10 Sputum Induced Sputum Culture - Final NORMAL UPPER RESPIRATORY SOO PRESENT Complete 06/16/18 13:10 Indwelling Cath Urine Culture - Preliminary Pseudomonas Aeruginosa Streptococcus Species Resulted Blood Sugars: BS controlled Critical Care - Subjective ROS Limited/Unobtainable: Yes ICU Day: 5 Intubation Day: 5 Interval Events: Failed SBT Fio2 40/5 No sig secretions MS waxes and wanes Condition: improving IV Access: central - R IJ EKG Rhythm: Sinus Rhythm FI02: 40 Vent Support Breath Rate: 20 Vent Support Mode: AC Vent Tidal Volume: 250 Sputum Amount: Small PEEP: 7.0 PIP: 24 Fluids: D5W@75 Drips: IVUH Tube Feeding Amount: 55 I&O: Intake and Output 06/17/18 06/18/18 19:00 07:00 Intake Total 1533.285 ml 1354.665 ml Output Total 1210 ml 1380 ml Balance 323.285 ml -25.335 ml Intake Oral 0 ml 0 ml IV Total 1533.285 ml 1184.665 ml Tube Feeding 170 ml Output Urine Total 1210 ml 1380 ml Subjective: RYLIE ET-Tube: 5.0 ET Position: 21 Labs: Laboratory Tests Test 06/18/18 04:22 06/18/18 07:55 06/18/18 11:20 White Blood Count 26.9 K/UL (4.8-10.8) *H Red Blood Count 3.75 M/UL (4.20-5.40) L Hemoglobin 10.7 G/DL (12.0-16.0) L Hematocrit 31.8 % (37.0-47.0) L Mean Corpuscular Volume 85 FL (80-99) Mean Corpuscular Hemoglobin 28.5 PG (27.0-31.0) Mean Corpuscular Hemoglobin Concent 33.7 G/DL (32.0-36.0) Red Cell Distribution Width 16.1 % (11.6-14.8) H Platelet Count 371 K/UL (150-450) Mean Platelet Volume 8.6 FL (6.5-10.1) Neutrophils (%) (Auto) % (45.0-75.0) Lymphocytes (%) (Auto) % (20.0-45.0) Monocytes (%) (Auto) % (1.0-10.0) Eosinophils (%) (Auto) % (0.0-3.0) Basophils (%) (Auto) % (0.0-2.0) Differential Total Cells Counted 100 Neutrophils % (Manual) 66 % (45-75) Lymphocytes % (Manual) 11 % (20-45) L Monocytes % (Manual) 21 % (1-10) H Eosinophils % (Manual) 2 % (0-3) Basophils % (Manual) 0 % (0-2) Band Neutrophils 0 % (0-8) Platelet Estimate Platelet Morphology Normal Giant Platelets Occasional Hypochromasia 1+ Anisocytosis 1+ Activated Partial Thromboplast Time 83 SEC (23-33) H Sodium Level 133 MMOL/L (136-145) L Potassium Level 3.0 MMOL/L (3.5-5.1) L Chloride Level 97 MMOL/L (98-107) L Carbon Dioxide Level 31 MMOL/L (21-32) Anion Gap 5 mmol/L (5-15) Blood Urea Nitrogen 9 mg/dL (7-18) Creatinine 0.8 MG/DL (0.55-1.30) Estimat Glomerular Filtration Rate mL/min (>60) Glucose Level 120 MG/DL (74-106) H Calcium Level 7.7 MG/DL (8.5-10.1) L Lactic Acid Level 1.80 mmol/L (0.4-2.0) Vancomycin Level Trough 3.5 ug/mL (5.0-12.0) L Arterial Blood pH 7.454 (7.350-7.450) Arterial Blood Partial Pressure CO2 40.6 mmHg (35.0-45.0) Arterial Blood Partial Pressure O2 77.6 mmHg (75.0-100.0) Arterial Blood HCO3 27.8 mmol/L (22.0-26.0) H Arterial Blood Oxygen Saturation 95.5 % (95-100) Arterial Blood Base Excess 3.6 (-2-2) H Zane Test Positive José Luis Piedra MD Jun 18, 2018 13:23
--- NOTE | 2018-06-18 14:05 | Internal Med Progress Note ---
Subjective Physician Name Umang Contreras Attending Physician Umang Contreras MD Current Medications Medications (Trade) Dose Ordered Sig/Missy Route PRN Reason Start Time Stop Time Status Last Admin Dose Admin Acetaminophen (Tylenol) 650 mg Q4H PRN ORAL Mild Pain (Pain Scale 1-3) 06/14/18 23:15 07/14/18 23:14 06/18/18 02:17 Amikacin Protocol (Amikacin pharmacy to dose) 1 ea DAILY PRN MISC Per rx protocol 06/17/18 19:45 07/17/18 19:44 Amikacin Sulfate 1250 mg/Sodium Chloride 115 ml @ 115 mls/hr ONCE IV 06/18/18 21:00 06/18/18 23:59 Chlorhexidine Gluconate (Maria Elena-Hex 2%) 1 applic DAILY@2000 TOPIC 06/16/18 20:00 07/16/18 19:59 06/17/18 20:15 Ciprofloxacin 200 ml @ 200 mls/hr Q12HR IV 06/18/18 21:00 06/25/18 20:59 Dextrose (Dextrose 50%) 25 ml Q30M PRN IV Hypoglycemia 06/14/18 23:15 07/14/18 23:14 Dextrose (Dextrose 50%) 50 ml Q30M PRN IV Hypoglycemia 06/14/18 23:15 07/14/18 23:14 Heparin Sodium/ Dextrose 500 ml @ 25.795 mls/ hr ADJUST PER PROTOCOL IV 06/16/18 11:30 07/16/18 11:29 06/18/18 04:35 Lorazepam (Ativan 2mg/ml 1ml) 1 mg Q4H PRN IV for agitation 06/15/18 19:13 06/22/18 19:12 06/18/18 12:40 Metronidazole 100 ml @ 100 mls/hr Q8HR IVPB 06/16/18 14:00 06/23/18 13:59 06/18/18 05:50 Morphine Sulfate (Morphine Sulfate) 2 mg Q4H PRN IVP Severe Pain (Pain Scale 7-10) 06/15/18 11:45 06/22/18 11:44 06/18/18 09:57 Ondansetron HCl (Zofran) 4 mg Q4H PRN IVP Nausea & Vomiting 06/16/18 17:45 07/16/18 17:44 06/18/18 09:57 Pantoprazole (Protonix) 40 mg DAILY IVP 06/16/18 21:00 07/17/18 08:59 06/18/18 09:55 Tramadol HCl (Ultram) 50 mg Q6H PRN ORAL Moderate Pain (Pain Scale 4-6) 06/15/18 11:45 06/22/18 11:44 06/17/18 05:03 Vancomycin HCl (Vanco rx to dose) 1 ea DAILY PRN MISC Per rx protocol 06/16/18 07:45 07/16/18 07:44 Vancomycin HCl/ Dextrose 250 ml @ 166.667 mls/hr Q12H IVPB 06/18/18 09:00 06/23/18 08:59 06/18/18 09:55 Allergies: Coded Allergies: ACETAMINOPHEN (Verified Allergy, Unknown, 06/14/18) CHLORPHENIRAMINE (Verified Allergy, Unknown, 06/14/18) CODEINE (Verified Allergy, Unknown, 06/14/18) HYDROCODONE (Verified Allergy, Unknown, 06/14/18) PENICILLINS (Verified Allergy, Unknown, 06/14/18) Subjective intubated on fiO2 40% PEEP 5 son at bedside afebrile restraints bc trying to pull NGT failed weaning today bc hyperventillation ROS unobtainable Objective Last Vital Signs Date Time Temp Pulse Resp B/P (MAP) Pulse Ox O2 Delivery O2 Flow Rate FiO2 06/18/18 13:08 88 24 50 06/18/18 12:00 98.9 126/50 (75) 93 98.9 06/18/18 04:00 Mechanical Ventilator 06/14/18 22:08 15.0 Laboratory Tests Test 06/18/18 04:22 06/18/18 07:55 06/18/18 11:20 White Blood Count 26.9 K/UL (4.8-10.8) *H Red Blood Count 3.75 M/UL (4.20-5.40) L Hemoglobin 10.7 G/DL (12.0-16.0) L Hematocrit 31.8 % (37.0-47.0) L Mean Corpuscular Volume 85 FL (80-99) Mean Corpuscular Hemoglobin 28.5 PG (27.0-31.0) Mean Corpuscular Hemoglobin Concent 33.7 G/DL (32.0-36.0) Red Cell Distribution Width 16.1 % (11.6-14.8) H Platelet Count 371 K/UL (150-450) Mean Platelet Volume 8.6 FL (6.5-10.1) Neutrophils (%) (Auto) % (45.0-75.0) Lymphocytes (%) (Auto) % (20.0-45.0) Monocytes (%) (Auto) % (1.0-10.0) Eosinophils (%) (Auto) % (0.0-3.0) Basophils (%) (Auto) % (0.0-2.0) Differential Total Cells Counted 100 Neutrophils % (Manual) 66 % (45-75) Lymphocytes % (Manual) 11 % (20-45) L Monocytes % (Manual) 21 % (1-10) H Eosinophils % (Manual) 2 % (0-3) Basophils % (Manual) 0 % (0-2) Band Neutrophils 0 % (0-8) Platelet Estimate Platelet Morphology Normal Giant Platelets Occasional Hypochromasia 1+ Anisocytosis 1+ Activated Partial Thromboplast Time 83 SEC (23-33) H Sodium Level 133 MMOL/L (136-145) L Potassium Level 3.0 MMOL/L (3.5-5.1) L Chloride Level 97 MMOL/L (98-107) L Carbon Dioxide Level 31 MMOL/L (21-32) Anion Gap 5 mmol/L (5-15) Blood Urea Nitrogen 9 mg/dL (7-18) Creatinine 0.8 MG/DL (0.55-1.30) Estimat Glomerular Filtration Rate mL/min (>60) Glucose Level 120 MG/DL (74-106) H Calcium Level 7.7 MG/DL (8.5-10.1) L Lactic Acid Level 1.80 mmol/L (0.4-2.0) Vancomycin Level Trough 3.5 ug/mL (5.0-12.0) L Arterial Blood pH 7.454 (7.350-7.450) Arterial Blood Partial Pressure CO2 40.6 mmHg (35.0-45.0) Arterial Blood Partial Pressure O2 77.6 mmHg (75.0-100.0) Arterial Blood HCO3 27.8 mmol/L (22.0-26.0) H Arterial Blood Oxygen Saturation 95.5 % (95-100) Arterial Blood Base Excess 3.6 (-2-2) H Zane Test Positive Microbiology Date/Time Source Procedure Growth Status 06/16/18 12:20 Blood Blood Culture - Preliminary NO GROWTH AFTER 24 HOURS Resulted 06/16/18 12:05 Blood Blood Culture - Preliminary Staphylococcus Sp Coag Neg Resulted 06/16/18 15:10 Sputum Induced Gram Stain - Final Complete 06/16/18 15:10 Sputum Induced Sputum Culture - Final NORMAL UPPER RESPIRATORY SOO PRESENT Complete 06/16/18 13:10 Indwelling Cath Urine Culture - Preliminary Pseudomonas Aeruginosa Streptococcus Species Resulted Intake and Output 06/17/18 06/18/18 19:00 07:00 Intake Total 1533.285 ml 1354.665 ml Output Total 1210 ml 1380 ml Balance 323.285 ml -25.335 ml Intake Oral 0 ml 0 ml IV Total 1533.285 ml 1184.665 ml Tube Feeding 170 ml Output Urine Total 1210 ml 1380 ml Objective GENERAL: The patient is intubated. She is awake. HEENT: Normocephalic/atraumatic. NGT NECK: Patient has a right IJ. There is no JVD noted. LUNGS: Decreased breath sounds bilaterally. Some crackles. CARDIOVASCULAR: Tachycardic. Regular rhythm. ABDOMEN: Soft, nontender. EXTREMITIES: No clubbing, cyanosis, or edema. Assessment/Plan Assessment/Plan ASSESSMENT AND PLAN: 1. Acute hypoxic/hypercapnic respiratory failure secondary to right pulmonary artery embolism. 2. Pulmonary fibrosis. 3. Severe central spinal stenosis of L3-L4 and L4-L5. 4. Leukocytosis-unclear etiology. The patient was being tapered off prednisone recently. 5. History of old compression fractures of T5 and L2. 6. History of thrombocytosis. 7. elevated troponin 2/2 R ventricular strain 8. Leukocytosis 9. UTI PLAN: 1. ICU 2. weaning trials 3. heparin drip 4. TTE reviewed. no R ventricular dilation 5. Pulmonary consult 6. NG tube ; continue tube feeds 7. Weaning per ICU team 8. Follow up blood cultures 9. abx - aztreonam, fluconazole and Vanco 10. ID consult DNR DVT px - Heparin g++ Umang Contreras MD Jun 18, 2018 14:05
--- NOTE | 2018-06-18 15:08 | Diagnostic Imaging Report ---
APPROVED REPORT CPT Code: 33294 Present Symptoms Shortness of breath Past History Pulmonary Embolism RIGHT LEG: Venous imaging reveals acute thrombus in the superficial femoral to popliteal veins. Remainder of the deep venous system within normal limits. No evidence of thrombus in the common femoral and calf veins. Greater saphenous vein also within normal limits. LEFT LEG: Venous imaging reveals a patent deep venous system. There is no evidence of thrombus within the femoral, popliteal or tibial segments. The greater saphenous vein is also within normal limits. Doppler indicates normal spontaneous flow within these segments. SYBIL Hung was notified of abnormal results at 1235 hours.
[2018-06-18] MEDS ORDERED: NS 275ml ONE (16:58)
[2018-06-18] MEDS: Dyna-Hex 2% Top Sol 2oz TOPIC SCH (19:37)
[2018-06-18] MEDS ORDERED: [UNRECOGNIZED DRUG - OTHER] IV SCH (21:00)
--- NOTE | 2018-06-18 22:45 | Consultation ---
DATE OF CONSULTATION: NOTE: CANCELRUBIN DICTATION Artur Rodriguez M.D. DR: RHIANNA JOB#: [id number] CC:
--- NOTE | 2018-06-18 23:45 | Consultation ---
DATE OF CONSULTATION: 06/17/2018 INFECTIOUS DISEASE CONSULTATION CONSULTING PHYSICIAN: Artur Rodriguez M.D. ATTENDING PHYSICIAN: Umang Contreras M.D. REFERRING PHYSICIAN: Umang Contreras M.D. REASON FOR CONSULTATION: Sepsis, elevated white count, gram-positive bacteremia, pneumonia, and possible UTI. CHIEF COMPLAINT: The patient's chief complaint coming in to the hospital is shortness of breath and diagnosis of pulmonary embolism. HISTORY OF PRESENT ILLNESS: This is an 83-year-old female, who has history of pulmonary fibrosis, who came in to [facility] with shortness of breath. The patient is status post cervical spine surgery at [facility] in May. The patient was discharged to [facility] and presents to [place] with hypoxia. CT angiogram was consistent with pulmonary embolism. The patient had a white count consistently high initially at 25.4. The patient had mild fever with low-grade temperature. Infectious Disease consultation was requested for antibiotic management. The patient was placed on vancomycin, aztreonam, and Flagyl. Culture so far shows that the patient has gram-negative in the urine. The patient has possible pneumonia and positive blood cultures. Infectious Disease consultation was requested for antibiotic management. The patient is in the ICU and intubated. Case was discussed with the patient's daughter at the bedside and the RN. MAR was noted. Orders were noted. Notes and records were reviewed. The patient will be continued on vancomycin, aztreonam, and Flagyl for now. PAST MEDICAL HISTORY: The patient's past medical history includes the following: The patient has history of pulmonary fibrosis, history of cervical spine surgery, and also history of central stenosis of the lumbar spine, history of fractures, history of thrombocytosis, history of prednisone and leukocytosis, history of surgery at the cervical spine level. It looks like no history of diabetes or hypertension mentioned. Per the other records though, however, there is a history with pulmonary fibrosis, COPD, and also what looks like hypertension. Also, there is a mention of CVA, but not clear on this. MEDICATIONS: Upon reviewing the MAR, she is on the following medications. She is on vancomycin, aztreonam, and Flagyl. She is currently not on pressures. She is on pantoprazole. She has history of being on prednisone, chlorhexidine, Zofran, heparin, tramadol, morphine, and intravenous fluids. Outside medication noted and reconciliated. ALLERGIES: Include acetaminophen, chlorpheniramine, codeine, and hydrocodone. Antibiotic allergies include penicillin. SOCIAL HISTORY: Negative for smoking, alcohol, or drug abuse. FAMILY HISTORY: Noncontributory. Negative for exposure to tuberculosis or cancer. REVIEW OF SYSTEMS: CONSTITUTIONAL: The patient is weak and intubated on a vent. No pressors currently. She does have a Mckeon. Her FiO2 is 65% and no pressors, but on a vent. Denies fatigue and weakness. She is sedated currently. HEAD AND NECK: She is orally intubated. CARDIAC: No pressors. GASTROINTESTINAL: No nausea, vomiting, or diarrhea. GENITOURINARY: She has a Mckeon. PULMONARY: On a vent. Some secretions. SKIN: No new rash. NEUROLOGIC: No seizures. Otherwise, review of systems is limited in this patient. PHYSICAL EXAM: VITAL SIGNS: Temperature 98.9, pulse rate 62, respiratory rate 20, blood pressure went 119/63, FiO2 65%, and saturation 96%, and T-max 99.8. He is currently not on pressors. GENERAL: Sedated. HEAD AND NECK: Orally intubated. Eye exam, no icterus. Normocephalic. LUNGS: Bilateral rhonchi and rales. HEART: Regular. No obvious gallop or murmur. ABDOMEN: Soft. Positive bowel sounds. Nontender. SKIN: No rash. MUSCULOSKELETAL: No effusion. Legs are without cellulitis. PERIPHERAL VASCULAR: No cyanosis or gangrene. GENITOURINARY: She has a Mckeon. Urine is clear. LINE SITES: Without phlebitis. NEUROLOGIC: Generalized weakness and poorly responsive. Confused and sedated currently. LABORATORY AND DIAGNOSTIC DATA: Laboratory data is as follows: White count 28.2 and hemoglobin 11.3. Creatinine 0.7. CULTURES: Blood cultures grew gram-positive organisms. Identification is pending. Urine culture grew gram-negative. Sputum culture is pending. IMAGING STUDIES: Chest x-ray from 06/14/2018 showed retrocardiac and left lateral basal parenchymal disease. A CT angio was consistent with pulmonary embolism. ASSESSMENT AND PLAN: 1. The patient has possible sepsis and elevated white count with low-grade fevers. Certainly, much of this leukocytosis could be a reaction to the pulmonary embolism or reactive leukocytosis. Blood cultures are positive for gram-positive organisms, unclear if she has a bacteremia versus contaminant. Echo did not show vegetations upon review. She also has possible pneumonia. She is certainly at a risk for aspiration and healthcare-acquired pneumonia in addition to community-acquired pneumonia. She also has possible gram-negative urinary tract infection. She is currently on vancomycin, aztreonam, and Flagyl. She is allergic to penicillin and discussed with daughter its severe reaction where the patient swells up. We will continue antibiotics and add amikacin for upgrading that gram-negative coverage pending all the culture results. Once the culture results are back, we will adjust antibiotics. Continue antibiotics. Check followup labs and chest x-ray for possible sepsis, pneumonia, urinary tract infection, and bacteremia. Continue vent support and Pulmonary followup. 2. Pulmonary fibrosis. 3. Respiratory failure, on vent. 4. Intensive care unit. 5. History of spinal surgery. 6. Cervical and lumbar spine disc disease. 7. History of prednisone use in the past. 8. History of hypertension per the records. 9. Questionable history of cerebrovascular accident per the records. 10. Past medical history is noted. 11. Allergies to acetaminophen, codeine, hydrocodone, and penicillins and otherwise, medication is chlorpheniramine. 12. Family history is noncontributory. 13. Social history is negative. 14. MAR was noted. 15. Case was discussed with RN. 16. ICU care. 17. Continue treatment per primary consultants. Artur Rodriguez M.D. DR: RHIANNA JOB#: [id number] CC:
[2018-06-19] VITALS (24 sets, daily range): BP systolic 101–127; BP diastolic 44–90
[2018-06-19] MEDS: Morphine Sulfate 2mg/ml Inj IVP PRN (01:51)
[2018-06-19 04:44] LABS: HEMATOCRIT 33.3 % (37.0-47.0); HEMOGLOBIN 10.9 G/DL (12.0-16.0); MEAN CORPUSCULAR VOLUME 85 FL (80-99); PLATELET COUNT 543 K/UL (150-450); RED CELL DISTRIBUTION WIDTH 16.1 % (11.6-14.8)
[2018-06-19 05:01] LABS: ANION GAP 6 mmol/L (5-15); BLOOD UREA NITROGEN 12 mg/dL (7-18); CALCIUM 8.1 MG/DL (8.5-10.1); CARBON DIOXIDE 29 MMOL/L (21-32); CHLORIDE 101 MMOL/L (98-107); CREATININE 0.8 MG/DL (0.55-1.30); SODIUM 136 MMOL/L (136-145)
[2018-06-19] MEDS: LORazepam Inj 2mg/ml 1ml IV PRN ×2 (05:06→13:28)
[2018-06-19] MEDS ORDERED: Heparin 5000 units/ml inj IV SCH ×2 (05:30)
[2018-06-19] MEDS ORDERED: Heparin 25,000u/D5W 500ml 500 ML IV SCH (05:30)
[2018-06-19] MEDS: Pantoprazole Inj IVP SCH (09:00)
[2018-06-19] MEDS: Vancomycin 1250mg/D5W 250ml IVPB SCH ×3 (09:00→21:00)
--- NOTE | 2018-06-19 09:49 | Diagnostic Imaging Report ---
Indication: Dyspnea Technique: One view of the chest Comparison: 06/18/2018 Findings: Stable satisfactory positions of endotracheal and nasogastric tubes. Right jugular central venous catheter remains in stable satisfactory position. Linear opacities at the left lung base are stable. No definite infiltrates or congestion. Blunting of left costophrenic sulcus is stable, could indicate a small pleural effusion. Degenerative changes of both shoulders again noted. Impression: Unchanged, over one day, findings as above.
--- NOTE | 2018-06-19 10:59 | Pulmonolgy Critical Care Note ---
Critical Care - Asmt/Plan Problems: (1) Acute respiratory failure with hypoxemia (2) Pulmonary embolism (3) Respiratory distress (4) Pulmonary fibrosis, unspecified Assessment/Plan: Assessment/Plan Assessment: 83 y/o female w/ pulmonary fibrosis, cervical spinal stenosis with compression fractures and hx of fusion admitted with acute on chronic hypoxemic respiratory failure and acute hypercapnic respiratory failure due to large R- sided pulmonary embolism. Noted leukocytosis and potential consolidation on CT but may be difficult to ascertain from her pulmonary fibrosis. No fevers. Will need respiratory support and close monitoring of hemodynamics and low threshold to treat with antibiotics. Problem List: 1. Acute on chronic hypoxemic and acute hypercapnic respiratory failure 2. Large R-sided pulmonary emboli & R fem DVT 3. Potential consolidation LLL 4. Leukocytosis 5. Idiopathic pulmonary fibrosis 6. Hyperkalemia 7. Cervical spinal stenosis with compression fractures 8. bacteremia Plan: -PS 8, can return to AC if fatigues. Possible extubation later today -Titrate down FiO2 and PEEP as able -Heparin gtt for now, monitor hemodynamics, monitor for bleeding -Monitor leukocytosis -Abx per ID, F/U Cx's -Monitor volumes, SLIV, lasix 40 IV x 1 -Hold TF's for SBT, will resume if not extubated -F/U final duplex -DNAR CC Time: 45 minutes Critical Care - Objective Last 24 Hour Vital Signs Date Time Temp Pulse Resp B/P (MAP) Pulse Ox O2 Delivery O2 Flow Rate FiO2 06/19/18 10:00 85 23 118/55 (76) 95 06/19/18 09:07 86 27 40 06/19/18 09:00 82 23 120/54 (76) 95 06/19/18 08:25 90 30 40 06/19/18 08:25 94 06/19/18 08:06 87 37 40 06/19/18 08:00 98.5 76 17 112/54 (73) 94 98.5 06/19/18 08:00 Mechanical Ventilator 06/19/18 08:00 82 06/19/18 08:00 40 06/19/18 07:57 89 24 40 06/19/18 07:55 87 48 40 06/19/18 07:15 74 21 40 06/19/18 07:00 85 23 120/54 (76) 95 06/19/18 06:00 71 21 118/45 (69) 95 06/19/18 05:15 68 20 40 06/19/18 05:00 70 20 116/55 (75) 94 06/19/18 04:00 40 06/19/18 04:00 88 06/19/18 04:00 99.9 76 17 117/54 (75) 94 99.9 06/19/18 04:00 Mechanical Ventilator 06/19/18 03:00 76 20 121/54 (76) 94 06/19/18 02:50 75 20 40 06/19/18 02:44 98.7 06/19/18 02:00 87 23 124/46 (72) 94 06/19/18 01:51 98.7 06/19/18 01:05 81 25 40 06/19/18 01:00 88 26 125/50 (75) 93 06/19/18 00:00 Mechanical Ventilator 06/19/18 00:00 88 06/19/18 00:00 40 06/19/18 00:00 98.7 86 20 101/44 (63) 94 98.7 06/18/18 23:00 68 20 40 06/18/18 23:00 86 20 132/48 (76) 94 06/18/18 22:00 100 25 133/91 (105) 94 06/18/18 21:05 99 26 40 06/18/18 21:00 99 25 133/65 (87) 96 06/18/18 20:00 Mechanical Ventilator 06/18/18 20:00 40 06/18/18 20:00 101 06/18/18 20:00 98.0 97 24 149/88 (108) 95 98.0 06/18/18 19:54 99 28 40 06/18/18 19:00 91 24 134/56 (82) 95 06/18/18 18:00 93 16 131/60 (83) 100 06/18/18 17:11 84 21 50 06/18/18 17:00 94 26 100/42 (61) 100 06/18/18 16:00 86 06/18/18 16:00 98.2 78 21 96/38 (57) 100 98.2 06/18/18 16:00 Mechanical Ventilator 06/18/18 16:00 40 06/18/18 15:00 78 21 92/39 (56) 100 06/18/18 14:59 81 20 50 06/18/18 14:00 75 21 96/36 (56) 100 06/18/18 13:08 88 24 50 06/18/18 13:00 76 19 97/35 (55) 100 06/18/18 12:00 98.9 88 23 126/50 (75) 93 98.9 06/18/18 12:00 Mechanical Ventilator 06/18/18 12:00 81 06/18/18 12:00 40 06/18/18 11:20 72 22 50 06/18/18 11:00 74 24 122/49 (73) 94 Status: awake - intubated on vent Condition: improving HEENT: atraumatic, normocephalic Lungs: rales - at base Heart: HR/BP stable Abdomen: soft, non-tender, active bowel sounds Extremities: no C/C/E Micro: Microbiology Date/Time Source Procedure Growth Status 06/17/18 21:20 Blood Blood Culture - Preliminary NO GROWTH AFTER 24 HOURS Resulted 06/17/18 21:20 Blood Blood Culture - Preliminary NO GROWTH AFTER 24 HOURS Resulted 06/16/18 12:20 Blood Blood Culture - Preliminary NO GROWTH AFTER 48 HOURS Resulted 06/16/18 12:05 Blood Blood Culture - Final Staph Hominis Ssp Hominis Complete 06/16/18 15:10 Sputum Induced Gram Stain - Final Complete 06/16/18 15:10 Sputum Induced Sputum Culture - Final NORMAL UPPER RESPIRATORY SOO PRESENT Complete 06/16/18 13:10 Indwelling Cath Urine Culture - Final Pseudomonas Aeruginosa Enterococcus Faecalis Complete Blood Sugars: BS controlled Critical Care - Subjective ROS Limited/Unobtainable: Yes ICU Day: 6 Intubation Day: 6 Interval Events: Failed SBT yesterday, no sig secretions, CXR stable, WCt 31, awake Condition: improving IV Access: central - R IJ DVD EKG Rhythm: Sinus Rhythm FI02: 40 Vent Support Breath Rate: 20 Vent Support Mode: AC Vent Tidal Volume: 450 Sputum Amount: Small PEEP: 5.0 PIP: 34 Secretions: No sig Fluids: SLIV Drips: IVUH Tube Feeding Amount: 55 I&O: Intake and Output 06/18/18 06/19/18 19:00 07:00 Intake Total 1887.754 ml 1862.1845 ml Output Total 1270 ml 1100 ml Balance 617.754 ml 762.1845 ml Free Water 100 ml IV Total 1167.754 ml 1102.1845 ml Tube Feeding 620 ml 660 ml Other 100 ml Output Urine Total 1270 ml 1100 ml Subjective: RYLIE CXR: ETT, BiB atx ET-Tube: 7.0 ET Position: 21 Labs: Laboratory Tests Test 06/18/18 11:20 06/18/18 14:45 06/19/18 04:06 Arterial Blood pH 7.454 (7.350-7.450) Arterial Blood Partial Pressure CO2 40.6 mmHg (35.0-45.0) Arterial Blood Partial Pressure O2 77.6 mmHg (75.0-100.0) Arterial Blood HCO3 27.8 mmol/L (22.0-26.0) H Arterial Blood Oxygen Saturation 95.5 % (95-100) Arterial Blood Base Excess 3.6 (-2-2) H Zane Test Positive Troponin I 0.401 ng/mL (0.000-0.056) White Blood Count 31.0 K/UL (4.8-10.8) *H Red Blood Count 3.90 M/UL (4.20-5.40) L Hemoglobin 10.9 G/DL (12.0-16.0) L Hematocrit 33.3 % (37.0-47.0) L Mean Corpuscular Volume 85 FL (80-99) Mean Corpuscular Hemoglobin 28.0 PG (27.0-31.0) Mean Corpuscular Hemoglobin Concent 32.8 G/DL (32.0-36.0) Red Cell Distribution Width 16.1 % (11.6-14.8) H Platelet Count 543 K/UL (150-450) H Mean Platelet Volume 10.0 FL (6.5-10.1) Neutrophils (%) (Auto) % (45.0-75.0) Lymphocytes (%) (Auto) % (20.0-45.0) Monocytes (%) (Auto) % (1.0-10.0) Eosinophils (%) (Auto) % (0.0-3.0) Basophils (%) (Auto) % (0.0-2.0) Differential Total Cells Counted 100 Neutrophils % (Manual) 70 % (45-75) Lymphocytes % (Manual) 5 % (20-45) L Monocytes % (Manual) 23 % (1-10) H Eosinophils % (Manual) 1 % (0-3) Basophils % (Manual) 0 % (0-2) Band Neutrophils 1 % (0-8) Platelet Estimate Increased H Platelet Morphology Normal Hypochromasia 1+ Anisocytosis 1+ Activated Partial Thromboplast Time 38 SEC (23-33) H Sodium Level 136 MMOL/L (136-145) Potassium Level 4.0 MMOL/L (3.5-5.1) Chloride Level 101 MMOL/L (98-107) Carbon Dioxide Level 29 MMOL/L (21-32) Anion Gap 6 mmol/L (5-15) Blood Urea Nitrogen 12 mg/dL (7-18) Creatinine 0.8 MG/DL (0.55-1.30) Estimat Glomerular Filtration Rate mL/min (>60) Glucose Level 130 MG/DL (74-106) H Calcium Level 8.1 MG/DL (8.5-10.1) L Random Amikacin Level 17.9 ug/mL José Luis Piedra MD Jun 19, 2018 10:59
--- NOTE | 2018-06-19 12:23 | Internal Med Progress Note ---
Subjective Physician Name Umang Contreras Attending Physician Umang Contreras MD Current Medications Medications (Trade) Dose Ordered Sig/Missy Route PRN Reason Start Time Stop Time Status Last Admin Dose Admin Acetaminophen (Tylenol) 650 mg Q4H PRN ORAL Mild Pain (Pain Scale 1-3) 06/14/18 23:15 07/14/18 23:14 06/18/18 02:17 Amikacin Protocol (Amikacin pharmacy to dose) 1 ea DAILY PRN MISC Per rx protocol 06/17/18 19:45 07/17/18 19:44 Amikacin Sulfate 1000 mg/Sodium Chloride 114 ml @ 114 mls/hr Q24H IV 06/19/18 21:00 06/26/18 20:59 Chlorhexidine Gluconate (Maria Elena-Hex 2%) 1 applic DAILY@2000 TOPIC 06/16/18 20:00 07/16/18 19:59 06/18/18 19:37 Ciprofloxacin 200 ml @ 200 mls/hr Q12HR IV 06/18/18 21:00 06/25/18 20:59 06/19/18 09:00 Dextrose (Dextrose 50%) 25 ml Q30M PRN IV Hypoglycemia 06/14/18 23:15 07/14/18 23:14 Dextrose (Dextrose 50%) 50 ml Q30M PRN IV Hypoglycemia 06/14/18 23:15 07/14/18 23:14 Heparin Sodium/ Dextrose 500 ml @ 32.674 mls/ hr ADJUST PER PROTOCOL IV 06/19/18 05:30 07/16/18 11:29 06/19/18 05:30 Lorazepam (Ativan 2mg/ml 1ml) 1 mg Q4H PRN IV for agitation 06/15/18 19:13 06/22/18 19:12 06/19/18 05:06 Metronidazole 100 ml @ 100 mls/hr Q8HR IVPB 06/16/18 14:00 06/23/18 13:59 06/19/18 05:34 Morphine Sulfate (Morphine Sulfate) 2 mg Q4H PRN IVP Severe Pain (Pain Scale 7-10) 06/15/18 11:45 06/22/18 11:44 06/19/18 01:51 Ondansetron HCl (Zofran) 4 mg Q4H PRN IVP Nausea & Vomiting 06/16/18 17:45 07/16/18 17:44 06/18/18 09:57 Pantoprazole (Protonix) 40 mg DAILY IVP 06/16/18 21:00 07/17/18 08:59 06/19/18 09:00 Tramadol HCl (Ultram) 50 mg Q6H PRN ORAL Moderate Pain (Pain Scale 4-6) 06/15/18 11:45 06/22/18 11:44 06/17/18 05:03 Vancomycin HCl (Vanco rx to dose) 1 ea DAILY PRN MISC Per rx protocol 06/16/18 07:45 07/16/18 07:44 Vancomycin HCl/ Dextrose 250 ml @ 166.667 mls/hr Q12H IVPB 06/18/18 09:00 06/23/18 08:59 06/19/18 09:00 Allergies: Coded Allergies: ACETAMINOPHEN (Verified Allergy, Unknown, 06/14/18) CHLORPHENIRAMINE (Verified Allergy, Unknown, 06/14/18) CODEINE (Verified Allergy, Unknown, 06/14/18) HYDROCODONE (Verified Allergy, Unknown, 06/14/18) PENICILLINS (Verified Allergy, Unknown, 06/14/18) Subjective intubated on fiO2 40% PEEP 5 failed weaning on PS 8 after 5 minutes afebrile restraints bc trying to pull NGT agitated last night ROS unobtainable Objective Last Vital Signs Date Time Temp Pulse Resp B/P (MAP) Pulse Ox O2 Delivery O2 Flow Rate FiO2 06/19/18 11:02 68 23 40 06/19/18 10:00 118/55 (76) 95 06/19/18 08:00 98.5 98.5 06/19/18 08:00 Mechanical Ventilator 06/14/18 22:08 15.0 Laboratory Tests Test 06/18/18 14:45 06/19/18 04:06 06/19/18 11:40 Troponin I 0.401 ng/mL (0.000-0.056) White Blood Count 31.0 K/UL (4.8-10.8) *H Red Blood Count 3.90 M/UL (4.20-5.40) L Hemoglobin 10.9 G/DL (12.0-16.0) L Hematocrit 33.3 % (37.0-47.0) L Mean Corpuscular Volume 85 FL (80-99) Mean Corpuscular Hemoglobin 28.0 PG (27.0-31.0) Mean Corpuscular Hemoglobin Concent 32.8 G/DL (32.0-36.0) Red Cell Distribution Width 16.1 % (11.6-14.8) H Platelet Count 543 K/UL (150-450) H Mean Platelet Volume 10.0 FL (6.5-10.1) Neutrophils (%) (Auto) % (45.0-75.0) Lymphocytes (%) (Auto) % (20.0-45.0) Monocytes (%) (Auto) % (1.0-10.0) Eosinophils (%) (Auto) % (0.0-3.0) Basophils (%) (Auto) % (0.0-2.0) Differential Total Cells Counted 100 Neutrophils % (Manual) 70 % (45-75) Lymphocytes % (Manual) 5 % (20-45) L Monocytes % (Manual) 23 % (1-10) H Eosinophils % (Manual) 1 % (0-3) Basophils % (Manual) 0 % (0-2) Band Neutrophils 1 % (0-8) Platelet Estimate Increased H Platelet Morphology Normal Hypochromasia 1+ Anisocytosis 1+ Activated Partial Thromboplast Time 38 SEC (23-33) H Pending Sodium Level 136 MMOL/L (136-145) Potassium Level 4.0 MMOL/L (3.5-5.1) Chloride Level 101 MMOL/L (98-107) Carbon Dioxide Level 29 MMOL/L (21-32) Anion Gap 6 mmol/L (5-15) Blood Urea Nitrogen 12 mg/dL (7-18) Creatinine 0.8 MG/DL (0.55-1.30) Estimat Glomerular Filtration Rate mL/min (>60) Glucose Level 130 MG/DL (74-106) H Calcium Level 8.1 MG/DL (8.5-10.1) L Random Amikacin Level 17.9 ug/mL Microbiology Date/Time Source Procedure Growth Status 06/17/18 21:20 Blood Blood Culture - Preliminary NO GROWTH AFTER 24 HOURS Resulted 06/17/18 21:20 Blood Blood Culture - Preliminary NO GROWTH AFTER 24 HOURS Resulted 06/16/18 15:10 Sputum Induced Gram Stain - Final Complete 06/16/18 15:10 Sputum Induced Sputum Culture - Final NORMAL UPPER RESPIRATORY SOO PRESENT Complete 06/16/18 13:10 Indwelling Cath Urine Culture - Final Pseudomonas Aeruginosa Enterococcus Faecalis Complete Intake and Output 06/18/18 06/19/18 19:00 07:00 Intake Total 1887.754 ml 1862.1845 ml Output Total 1270 ml 1100 ml Balance 617.754 ml 762.1845 ml Free Water 100 ml IV Total 1167.754 ml 1102.1845 ml Tube Feeding 620 ml 660 ml Other 100 ml Output Urine Total 1270 ml 1100 ml Objective GENERAL: The patient is intubated. She is awake. HEENT: Normocephalic/atraumatic. NGT NECK: Patient has a right IJ. There is no JVD noted. LUNGS: Decreased breath sounds bilaterally. Some crackles. CARDIOVASCULAR: Tachycardic. Regular rhythm. ABDOMEN: Soft, nontender. EXTREMITIES: No clubbing, cyanosis, or edema. Assessment/Plan Assessment/Plan ASSESSMENT AND PLAN: 1. Acute hypoxic/hypercapnic respiratory failure secondary to right pulmonary artery embolism. 2. Pulmonary fibrosis. 3. Severe central spinal stenosis of L3-L4 and L4-L5. 4. Leukocytosis-unclear etiology. The patient was being tapered off prednisone recently. 5. History of old compression fractures of T5 and L2. 6. History of thrombocytosis. 7. elevated troponin 2/2 R ventricular strain 8. Leukocytosis 9. UTI, Psuedomonas 10. Staph hominis Bacteremia PLAN: 1. ICU 2. weaning trials ; hold TF while on wean trials 3. heparin drip 4. TTE reviewed. no R ventricular dilation 5. Pulmonary consult 6. NG tube ; continue tube feeds 7. Weaning per ICU team 8. Follow up cultures 9. abx - amikacin, cipro fluconazole and Vanco 10. ID consult DNR DVT px - Heparin g++ Umang Contreras MD Jun 19, 2018 12:23
[2018-06-19] MEDS: Heparin 25,000u/D5W 500ml 500 ML IV SCH ×2 (14:56→21:23)
--- NOTE | 2018-06-19 15:03 | Infectious Diseases Prog Note ---
Assessment/Plan Assessment/Plan ASSESSMENT AND PLAN: 1. 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 pna, pseudomonas/ enterococcus uti, PE, ? reactive leukocytosis - vancomycin, ciprofloxacin and flagyl - f/u labs and cultures - monitor chest x-ray - icu, supportive care - d/w RN - doubt endocarditis, echo without vegetation mentioned - d/w Dr. Contreras yesterday 2. Pulmonary fibrosis. 3. Respiratory failure, on vent. 4. Intensive care unit. 5. History of spinal surgery. 6. Cervical and lumbar spine disc disease. 7. History of prednisone use in the past. 8. History of hypertension per the records. 9. Questionable history of cerebrovascular accident per the records. 10. Past medical history is noted. 11. Allergies to acetaminophen, codeine, hydrocodone, and penicillins and other medication is chlorpheniramine. 12. Family history is noncontributory. 13. Social history is negative. 14. MAR was noted. 15. Case was discussed with RN. 16. ICU care. 17. Continue treatment per primary consultants. Subjective Constitutional: Reports: fatigue, other - on vent , more alert ; Denies: fever HEENT: Reports: congestion Respiratory: Reports: shortness of breath Cardiovascular: Reports: other - no pressors ; Denies: chest pain Gastrointestinal/Abdominal: Denies: nausea, vomiting, diarrhea Genitourinary: Reports: other - + wilson Neurologic: Denies: headache Psychiatric: Denies: depression Skin: Denies: rash Hematologic: Denies: bleeding Musculoskeletal: Denies: pain Allergies: Coded Allergies: ACETAMINOPHEN (Verified Allergy, Unknown, 06/14/18) CHLORPHENIRAMINE (Verified Allergy, Unknown, 06/14/18) CODEINE (Verified Allergy, Unknown, 06/14/18) HYDROCODONE (Verified Allergy, Unknown, 06/14/18) PENICILLINS (Verified Allergy, Unknown, 06/14/18) Objective Vital Signs Last 24 Hour Vital Signs Date Time Temp Pulse Resp B/P (MAP) Pulse Ox O2 Delivery O2 Flow Rate FiO2 06/19/18 14:15 89 31 40 06/19/18 14:02 83 40 40 06/19/18 13:37 81 34 40 06/19/18 13:30 74 21 40 06/19/18 11:02 68 23 40 06/19/18 10:00 85 23 118/55 (76) 95 06/19/18 09:07 86 27 40 06/19/18 09:00 82 23 120/54 (76) 95 06/19/18 08:25 90 30 40 06/19/18 08:25 94 06/19/18 08:06 87 37 40 06/19/18 08:00 98.5 76 17 112/54 (73) 94 98.5 06/19/18 08:00 Mechanical Ventilator 06/19/18 08:00 82 06/19/18 08:00 40 06/19/18 07:57 89 24 40 06/19/18 07:55 87 48 40 06/19/18 07:15 74 21 40 06/19/18 07:00 85 23 120/54 (76) 95 06/19/18 06:00 71 21 118/45 (69) 95 06/19/18 05:15 68 20 40 06/19/18 05:00 70 20 116/55 (75) 94 06/19/18 04:00 40 06/19/18 04:00 88 06/19/18 04:00 99.9 76 17 117/54 (75) 94 99.9 06/19/18 04:00 Mechanical Ventilator 06/19/18 03:00 76 20 121/54 (76) 94 06/19/18 02:50 75 20 40 06/19/18 02:44 98.7 06/19/18 02:00 87 23 124/46 (72) 94 06/19/18 01:51 98.7 06/19/18 01:05 81 25 40 06/19/18 01:00 88 26 125/50 (75) 93 06/19/18 00:00 Mechanical Ventilator 06/19/18 00:00 88 06/19/18 00:00 40 06/19/18 00:00 98.7 86 20 101/44 (63) 94 98.7 06/18/18 23:00 68 20 40 06/18/18 23:00 86 20 132/48 (76) 94 06/18/18 22:00 100 25 133/91 (105) 94 06/18/18 21:05 99 26 40 06/18/18 21:00 99 25 133/65 (87) 96 06/18/18 20:00 Mechanical Ventilator 06/18/18 20:00 40 06/18/18 20:00 101 06/18/18 20:00 98.0 97 24 149/88 (108) 95 98.0 06/18/18 19:54 99 28 40 06/18/18 19:00 91 24 134/56 (82) 95 06/18/18 18:00 93 16 131/60 (83) 100 06/18/18 17:11 84 21 50 06/18/18 17:00 94 26 100/42 (61) 100 06/18/18 16:00 86 06/18/18 16:00 98.2 78 21 96/38 (57) 100 98.2 06/18/18 16:00 Mechanical Ventilator 06/18/18 16:00 40 06/18/18 15:00 78 21 92/39 (56) 100 06/18/18 14:59 81 20 50 Height (Feet): 5 Height (Inches): 5.00 Weight (Pounds): 192 General Appearance: no acute distress HEENT: normocephalic, atraumatic, anicteric, mucous membranes moist, EOMI, no JVD, other - oral - intubated Respiratory/Chest: crackles/rales, rhonchi - bilaterally Cardiovascular: normal rate, regular rhythm, no gallop/murmur, no JVD Abdomen: normal bowel sounds, soft, non tender, no organomegaly, non distended Genitourinary: other - + wilson - urine clear Extremities: no cyanosis Skin: no rash Neurologic/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 Equivocal right ventricular dilatation in the setting of generalized cardiomegaly could indicate right heart strain although this is uncertain Extensive left lung volume loss and possible consolidation Nonspecific bilateral interstitial septal thickening Right jugular venous catheter and endotracheal tube in good position Multiple vertebral body compression fractures. Age indeterminate 8 millimeter left adrenal adenoma Chest x-ray - 06/19 - Findings: Stable satisfactory positions of endotracheal and nasogastric tubes. Right jugular central venous catheter remains in stable satisfactory position. Linear opacities at the left lung base are stable. No definite infiltrates or congestion. Blunting of left costophrenic sulcus is stable, could indicate a small pleural effusion. Degenerative changes of both shoulders again noted. Impression: Unchanged, over one day, findings as above. Microbiology Date/Time Source Procedure Growth Status 06/17/18 21:20 Blood Blood Culture - Preliminary NO GROWTH AFTER 24 HOURS Resulted 06/16/18 15:10 Sputum Induced Gram Stain - Final Complete 06/16/18 15:10 Sputum Induced Sputum Culture - Final NORMAL UPPER RESPIRATORY SOO PRESENT Complete 06/16/18 13:10 Indwelling Cath Urine Culture - Final Pseudomonas Aeruginosa Enterococcus Faecalis Complete 06/14/18 21:00 Rectum VRE Culture - Final NO VANCOMYCIN RESISTANT ENTEROCOCCUS ... Complete 06/14/18 21:00 Rectum - Final NO CARBAPENEM-RESISTANT ENTEROBACTERI... Complete Microbiology Date/Time Source Procedure Growth Status 06/17/18 21:20 Blood Blood Culture - Preliminary NO GROWTH AFTER 24 HOURS Resulted 06/17/18 21:20 Blood Blood Culture - Preliminary NO GROWTH AFTER 24 HOURS Resulted 06/16/18 15:10 Sputum Induced Gram Stain - Final Complete 06/16/18 15:10 Sputum Induced Sputum Culture - Final NORMAL UPPER RESPIRATORY SOO PRESENT Complete Laboratory Tests Test 06/19/18 04:06 06/19/18 11:40 White Blood Count 31.0 K/UL (4.8-10.8) *H Red Blood Count 3.90 M/UL (4.20-5.40) L Hemoglobin 10.9 G/DL (12.0-16.0) L Hematocrit 33.3 % (37.0-47.0) L Mean Corpuscular Volume 85 FL (80-99) Mean Corpuscular Hemoglobin 28.0 PG (27.0-31.0) Mean Corpuscular Hemoglobin Concent 32.8 G/DL (32.0-36.0) Red Cell Distribution Width 16.1 % (11.6-14.8) H Platelet Count 543 K/UL (150-450) H Mean Platelet Volume 10.0 FL (6.5-10.1) Neutrophils (%) (Auto) % (45.0-75.0) Lymphocytes (%) (Auto) % (20.0-45.0) Monocytes (%) (Auto) % (1.0-10.0) Eosinophils (%) (Auto) % (0.0-3.0) Basophils (%) (Auto) % (0.0-2.0) Differential Total Cells Counted 100 Neutrophils % (Manual) 70 % (45-75) Lymphocytes % (Manual) 5 % (20-45) L Monocytes % (Manual) 23 % (1-10) H Eosinophils % (Manual) 1 % (0-3) Basophils % (Manual) 0 % (0-2) Band Neutrophils 1 % (0-8) Platelet Estimate Increased H Platelet Morphology Normal Hypochromasia 1+ Anisocytosis 1+ Activated Partial Thromboplast Time 38 SEC (23-33) H > 150 SEC (23-33) *H Sodium Level 136 MMOL/L (136-145) Potassium Level 4.0 MMOL/L (3.5-5.1) Chloride Level 101 MMOL/L (98-107) Carbon Dioxide Level 29 MMOL/L (21-32) Anion Gap 6 mmol/L (5-15) Blood Urea Nitrogen 12 mg/dL (7-18) Creatinine 0.8 MG/DL (0.55-1.30) Estimat Glomerular Filtration Rate mL/min (>60) Glucose Level 130 MG/DL (74-106) H Calcium Level 8.1 MG/DL (8.5-10.1) L Random Amikacin Level 17.9 ug/mL Current Medications Medications (Trade) Dose Ordered Sig/Missy Route PRN Reason Start Time Stop Time Status Last Admin Dose Admin Acetaminophen (Tylenol) 650 mg Q4H PRN ORAL Mild Pain (Pain Scale 1-3) 06/14/18 23:15 07/14/18 23:14 06/18/18 02:17 Chlorhexidine Gluconate (Maria Elena-Hex 2%) 1 applic DAILY@2000 TOPIC 06/16/18 20:00 07/16/18 19:59 06/18/18 19:37 Ciprofloxacin 200 ml @ 200 mls/hr Q12HR IV 06/18/18 21:00 06/25/18 20:59 06/19/18 09:00 Dextrose (Dextrose 50%) 25 ml Q30M PRN IV Hypoglycemia 06/14/18 23:15 07/14/18 23:14 Dextrose (Dextrose 50%) 50 ml Q30M PRN IV Hypoglycemia 06/14/18 23:15 07/14/18 23:14 Heparin Sodium/ Dextrose 500 ml @ 25.795 mls/ hr ADJUST PER PROTOCOL IV 06/19/18 14:30 07/19/18 14:29 Lorazepam (Ativan 2mg/ml 1ml) 1 mg Q4H PRN IV for agitation 06/15/18 19:13 06/22/18 19:12 06/19/18 13:28 Metronidazole 100 ml @ 100 mls/hr Q8HR IVPB 06/16/18 14:00 06/23/18 13:59 06/19/18 05:34 Morphine Sulfate (Morphine Sulfate) 2 mg Q4H PRN IVP Severe Pain (Pain Scale 7-10) 06/15/18 11:45 06/22/18 11:44 06/19/18 01:51 Ondansetron HCl (Zofran) 4 mg Q4H PRN IVP Nausea & Vomiting 06/16/18 17:45 07/16/18 17:44 06/18/18 09:57 Pantoprazole (Protonix) 40 mg DAILY IVP 06/16/18 21:00 07/17/18 08:59 06/19/18 09:00 Tramadol HCl (Ultram) 50 mg Q6H PRN ORAL Moderate Pain (Pain Scale 4-6) 06/15/18 11:45 06/22/18 11:44 06/17/18 05:03 Vancomycin HCl (Vanco rx to dose) 1 ea DAILY PRN MISC Per rx protocol 06/16/18 07:45 07/16/18 07:44 Vancomycin HCl/ Dextrose 250 ml @ 166.667 mls/hr Q12H IVPB 06/18/18 09:00 06/23/18 08:59 06/19/18 09:00 Artur Rodriguez MD Jun 19, 2018 15:03
--- NOTE | 2018-06-19 16:41 | Diagnostic Imaging Report ---
Indication: Abdominal pain Technique: Supine view of the abdomen Comparison: none Findings: There is a nasogastric tube in place. Bowel gas pattern is unremarkable. No gaseous distention of large or small bowel. Left buttock injection granulomata are noted. Degenerative changes of the pubic symphysis and bilateral sacral iliac joints are noted. Impression: No acute process
[2018-06-19] MEDS: Dyna-Hex 2% Top Sol 2oz TOPIC SCH (20:09)
[2018-06-19] MEDS: traMADol 50mg tab ORAL PRN (20:11)
[2018-06-19] MEDS ORDERED: Amikacin 1,000 MG in NS 110 ML IV SCH (21:00)
[2018-06-20] VITALS (24 sets, daily range): BP systolic 100–177; BP diastolic 39–98
[2018-06-20 05:07] LABS: HEMOGLOBIN 10.4 G/DL (12.0-16.0); MEAN CORPUSCULAR VOLUME 86 FL (80-99); PLATELET COUNT 353 K/UL (150-450); RED BLOOD COUNT 3.74 M/UL (4.20-5.40); RED CELL DISTRIBUTION WIDTH 16.1 % (11.6-14.8)
[2018-06-20 05:20] LABS: WHITE BLOOD COUNT 29.6 K/UL (4.8-10.8)
[2018-06-20 05:29] LABS: ANION GAP 5 mmol/L (5-15); BLOOD UREA NITROGEN 17 mg/dL (7-18); CALCIUM 8.2 MG/DL (8.5-10.1); CARBON DIOXIDE 32 MMOL/L (21-32); CHLORIDE 97 MMOL/L (98-107); CREATININE 0.8 MG/DL (0.55-1.30); SODIUM 133 MMOL/L (136-145)
[2018-06-20] MEDS ORDERED: Heparin 25,000u/D5W 500ml 500 ML IV SCH (06:15)
[2018-06-20] MEDS ORDERED: Heparin 5000 units/ml inj IV SCH ×2 (06:15→14:19)
[2018-06-20] MEDS: Pantoprazole Inj IVP SCH (08:00)
[2018-06-20] MEDS: Vancomycin 1250mg/D5W 250ml IVPB SCH (09:08)
--- NOTE | 2018-06-20 11:48 | Pulmonolgy Critical Care Note ---
Critical Care - Asmt/Plan Problems: (1) Acute respiratory failure with hypoxemia (2) Pulmonary embolism (3) Respiratory distress (4) Pulmonary fibrosis, unspecified Assessment/Plan: Assessment/Plan Assessment: 83 y/o female w/ pulmonary fibrosis, cervical spinal stenosis with compression fractures and hx of fusion admitted with acute on chronic hypoxemic respiratory failure and acute hypercapnic respiratory failure due to large R- sided pulmonary embolism. Noted leukocytosis and potential consolidation on CT but may be difficult to ascertain from her pulmonary fibrosis. No fevers. Will need respiratory support and close monitoring of hemodynamics and low threshold to treat with antibiotics. Problem List: 1. Acute on chronic hypoxemic and acute hypercapnic respiratory failure 2. Large R-sided pulmonary emboli & R fem DVT 3. Potential consolidation LLL 4. Leukocytosis 5. Idiopathic pulmonary fibrosis 6. Hyperkalemia 7. Cervical spinal stenosis with compression fractures 8. bacteremia Plan: -Decrease PS to 8, if tolerating may extubate in 30 min -Titrate down FiO2 and PEEP as able -Heparin gtt for now, monitor hemodynamics, monitor for bleeding -Monitor leukocytosis -Abx per ID, F/U Cx's -Monitor volumes, SLIV, lasix 40 IV x 1 again today -Hold TF's for SBT, will resume if not extubate -DNAR CC Time: 35 minutes Critical Care - Objective Last 24 Hour Vital Signs Date Time Temp Pulse Resp B/P (MAP) Pulse Ox O2 Delivery O2 Flow Rate FiO2 06/20/18 11:11 82 40 40 06/20/18 11:09 78 27 40 06/20/18 09:20 91 24 40 06/20/18 08:00 Mechanical Ventilator 06/20/18 08:00 40 06/20/18 08:00 89 06/20/18 08:00 98.8 78 16 127/64 (85) 96 98.8 06/20/18 07:20 85 27 40 06/20/18 07:00 89 23 107/90 (96) 96 06/20/18 06:00 79 20 106/44 (64) 96 06/20/18 05:00 80 22 121/80 (94) 96 06/20/18 04:43 63 20 40 06/20/18 04:00 Mechanical Ventilator 06/20/18 04:00 81 06/20/18 04:00 99.4 79 20 127/51 (76) 94 99.4 06/20/18 04:00 40 06/20/18 03:15 78 23 40 06/20/18 03:00 79 20 129/98 (108) 95 06/20/18 02:00 80 20 126/63 (84) 96 06/20/18 01:03 90 26 40 06/20/18 01:00 81 18 104/57 (73) 94 06/20/18 00:00 99.0 66 20 100/43 (62) 95 99.0 06/20/18 00:00 40 06/20/18 00:00 Mechanical Ventilator 06/20/18 00:00 67 06/19/18 23:02 87 23 40 06/19/18 23:00 79 20 119/55 (76) 94 06/19/18 22:00 81 20 109/90 (96) 94 06/19/18 21:14 86 25 40 06/19/18 21:00 82 20 124/56 (78) 95 06/19/18 20:00 40 06/19/18 20:00 99.3 83 22 127/63 (84) 94 99.3 06/19/18 20:00 Mechanical Ventilator 06/19/18 20:00 83 06/19/18 19:25 76 20 40 06/19/18 19:00 81 22 119/66 (83) 95 06/19/18 18:00 85 23 122/52 (75) 95 06/19/18 17:16 76 20 40 06/19/18 17:00 88 23 118/55 (76) 95 06/19/18 16:00 87 06/19/18 16:00 Mechanical Ventilator 06/19/18 16:00 40 06/19/18 16:00 98.7 76 17 126/69 (88) 96 98.7 06/19/18 15:25 79 30 40 06/19/18 15:00 80 23 119/62 (81) 95 06/19/18 14:15 89 31 40 06/19/18 14:02 83 40 40 06/19/18 14:00 85 23 118/55 (76) 98 06/19/18 13:37 81 34 40 06/19/18 13:30 74 21 40 06/19/18 13:00 89 23 115/60 (78) 95 06/19/18 12:00 40 06/19/18 12:00 Mechanical Ventilator 06/19/18 12:00 98.1 76 17 113/55 (42) 96 98.1 06/19/18 12:00 90 Status: awake, other - obese, on vent Condition: improving HEENT: atraumatic, normocephalic Lungs: clear Heart: HR/BP stable Abdomen: soft, non-tender, active bowel sounds Extremities: no C/C/E Micro: Microbiology Date/Time Source Procedure Growth Status 06/17/18 21:20 Blood Blood Culture - Preliminary NO GROWTH AFTER 48 HOURS Resulted 06/17/18 21:20 Blood Blood Culture - Preliminary NO GROWTH AFTER 48 HOURS Resulted 06/19/18 18:45 Indwelling Cath Urine Culture - Preliminary NO GROWTH Resulted Critical Care - Subjective ROS Limited/Unobtainable: Yes ICU Day: 7 Intubation Day: 7 Interval Events: Failed SBT yesterday Now stable on PS 10 good volumes Periods of agitation Secretions better Condition: improving IV Access: central EKG Rhythm: Sinus Rhythm FI02: 40 Vent Support Breath Rate: 20 Vent Support Mode: CPAP Vent Tidal Volume: 450 Sputum Amount: Small PEEP: 5.0 PIP: 19 Fluids: SLIV Drips: IVUH Tube Feeding Amount: 55 I&O: Intake and Output 06/19/18 06/20/18 19:00 07:00 Intake Total 1177.539 ml 1317.950 ml Output Total 1910 ml 920 ml Balance -732.461 ml 397.950 ml IV Total 517.539 ml 657.950 ml Tube Feeding 660 ml 660 ml Output Urine Total 1910 ml 920 ml # Bowel Movements 2 Subjective: RYLIE ET-Tube: 7.0 ET Position: 21 Labs: Laboratory Tests Test 06/19/18 20:32 06/19/18 21:55 06/20/18 04:00 Activated Partial Thromboplast Time 71 SEC (23-33) H 42 SEC (23-33) H Vancomycin Level Trough 31.3 ug/mL (5.0-12.0) H White Blood Count 29.6 K/UL (4.8-10.8) *H Red Blood Count 3.74 M/UL (4.20-5.40) L Hemoglobin 10.4 G/DL (12.0-16.0) L Hematocrit 32.0 % (37.0-47.0) L Mean Corpuscular Volume 86 FL (80-99) Mean Corpuscular Hemoglobin 27.8 PG (27.0-31.0) Mean Corpuscular Hemoglobin Concent 32.5 G/DL (32.0-36.0) Red Cell Distribution Width 16.1 % (11.6-14.8) H Platelet Count 353 K/UL (150-450) Mean Platelet Volume 10.5 FL (6.5-10.1) H Neutrophils (%) (Auto) % (45.0-75.0) Lymphocytes (%) (Auto) % (20.0-45.0) Monocytes (%) (Auto) % (1.0-10.0) Eosinophils (%) (Auto) % (0.0-3.0) Basophils (%) (Auto) % (0.0-2.0) Differential Total Cells Counted 100 Neutrophils % (Manual) 67 % (45-75) Lymphocytes % (Manual) 4 % (20-45) L Monocytes % (Manual) 25 % (1-10) H Eosinophils % (Manual) 2 % (0-3) Basophils % (Manual) 1 % (0-2) Band Neutrophils 1 % (0-8) Platelet Estimate Adequate Platelet Morphology Normal Clumped Platelets 2+ Anisocytosis 1+ Sodium Level 133 MMOL/L (136-145) L Potassium Level 4.0 MMOL/L (3.5-5.1) Chloride Level 97 MMOL/L (98-107) L Carbon Dioxide Level 32 MMOL/L (21-32) Anion Gap 5 mmol/L (5-15) Blood Urea Nitrogen 17 mg/dL (7-18) Creatinine 0.8 MG/DL (0.55-1.30) Estimat Glomerular Filtration Rate mL/min (>60) Glucose Level 137 MG/DL (74-106) H Calcium Level 8.2 MG/DL (8.5-10.1) José Luis Duarte MD Jun 20, 2018 11:48
[2018-06-20] MEDS: Heparin 25,000u/D5W 500ml 500 ML IV SCH ×2 (14:48→23:40)
[2018-06-20] MEDS: Dyna-Hex 2% Top Sol 2oz TOPIC SCH (20:07)
[2018-06-20] MEDS: Morphine Sulfate 2mg/ml Inj IVP PRN (20:08)
--- NOTE | 2018-06-20 20:08 | Internal Med Progress Note ---
Subjective Physician Name Umang Contreras Attending Physician Umang Contreras MD Current Medications Medications (Trade) Dose Ordered Sig/Missy Route PRN Reason Start Time Stop Time Status Last Admin Dose Admin Acetaminophen (Tylenol) 650 mg Q4H PRN ORAL Mild Pain (Pain Scale 1-3) 06/14/18 23:15 07/14/18 23:14 06/18/18 02:17 Chlorhexidine Gluconate (Maria Elena-Hex 2%) 1 applic DAILY@2000 TOPIC 06/16/18 20:00 07/16/18 19:59 06/19/18 20:09 Ciprofloxacin 200 ml @ 200 mls/hr Q12HR IV 06/18/18 21:00 06/25/18 20:59 06/20/18 08:00 Dextrose (Dextrose 50%) 25 ml Q30M PRN IV Hypoglycemia 06/14/18 23:15 07/14/18 23:14 Dextrose (Dextrose 50%) 50 ml Q30M PRN IV Hypoglycemia 06/14/18 23:15 07/14/18 23:14 Heparin Sodium/ Dextrose 500 ml @ 36.834 mls/ hr ADJUST PER PROTOCOL IV 06/20/18 14:21 07/20/18 14:20 06/20/18 14:48 Lorazepam (Ativan 2mg/ml 1ml) 1 mg Q4H PRN IV for agitation 06/15/18 19:13 06/22/18 19:12 06/19/18 13:28 Metronidazole 100 ml @ 100 mls/hr Q8HR IVPB 06/16/18 14:00 06/23/18 13:59 06/20/18 13:25 Morphine Sulfate (Morphine Sulfate) 2 mg Q4H PRN IVP Severe Pain (Pain Scale 7-10) 06/15/18 11:45 06/22/18 11:44 06/19/18 01:51 Ondansetron HCl (Zofran) 4 mg Q4H PRN IVP Nausea & Vomiting 06/16/18 17:45 07/16/18 17:44 06/18/18 09:57 Pantoprazole (Protonix) 40 mg DAILY IVP 06/16/18 21:00 07/17/18 08:59 06/20/18 08:00 Tramadol HCl (Ultram) 50 mg Q6H PRN ORAL Moderate Pain (Pain Scale 4-6) 06/15/18 11:45 06/22/18 11:44 06/19/18 20:11 Vancomycin HCl (Vanco rx to dose) 1 ea DAILY PRN MISC Per rx protocol 06/16/18 07:45 07/16/18 07:44 Vancomycin HCl/ Dextrose 250 ml @ 166.667 mls/hr Q24H IVPB 06/20/18 09:00 06/25/18 08:59 06/20/18 09:08 Allergies: Coded Allergies: ACETAMINOPHEN (Verified Allergy, Unknown, 06/14/18) CHLORPHENIRAMINE (Verified Allergy, Unknown, 06/14/18) CODEINE (Verified Allergy, Unknown, 06/14/18) HYDROCODONE (Verified Allergy, Unknown, 06/14/18) PENICILLINS (Verified Allergy, Unknown, 06/14/18) Subjective intubated on fiO2 40% PEEP 5 failed weaning PS8 after 30 min bc P > 100 and RR>30 tmax 101 afebrile restraints bc trying to pull NGT agitated last night ROS unobtainable Objective Last Vital Signs Date Time Temp Pulse Resp B/P (MAP) Pulse Ox O2 Delivery O2 Flow Rate FiO2 06/20/18 19:19 100 25 40 06/20/18 19:00 101.2 154/63 (93) 96 101.2 06/20/18 16:00 Mechanical Ventilator 06/14/18 22:08 15.0 Laboratory Tests Test 06/19/18 20:32 06/19/18 21:55 06/20/18 04:00 06/20/18 13:30 Activated Partial Thromboplast Time 71 SEC (23-33) H 42 SEC (23-33) H 53 SEC (23-33) H Vancomycin Level Trough 31.3 ug/mL (5.0-12.0) H White Blood Count 29.6 K/UL (4.8-10.8) *H Red Blood Count 3.74 M/UL (4.20-5.40) L Hemoglobin 10.4 G/DL (12.0-16.0) L Hematocrit 32.0 % (37.0-47.0) L Mean Corpuscular Volume 86 FL (80-99) Mean Corpuscular Hemoglobin 27.8 PG (27.0-31.0) Mean Corpuscular Hemoglobin Concent 32.5 G/DL (32.0-36.0) Red Cell Distribution Width 16.1 % (11.6-14.8) H Platelet Count 353 K/UL (150-450) Mean Platelet Volume 10.5 FL (6.5-10.1) H Neutrophils (%) (Auto) % (45.0-75.0) Lymphocytes (%) (Auto) % (20.0-45.0) Monocytes (%) (Auto) % (1.0-10.0) Eosinophils (%) (Auto) % (0.0-3.0) Basophils (%) (Auto) % (0.0-2.0) Differential Total Cells Counted 100 Neutrophils % (Manual) 67 % (45-75) Lymphocytes % (Manual) 4 % (20-45) L Monocytes % (Manual) 25 % (1-10) H Eosinophils % (Manual) 2 % (0-3) Basophils % (Manual) 1 % (0-2) Band Neutrophils 1 % (0-8) Platelet Estimate Adequate Platelet Morphology Normal Clumped Platelets 2+ Anisocytosis 1+ Sodium Level 133 MMOL/L (136-145) L Potassium Level 4.0 MMOL/L (3.5-5.1) Chloride Level 97 MMOL/L (98-107) L Carbon Dioxide Level 32 MMOL/L (21-32) Anion Gap 5 mmol/L (5-15) Blood Urea Nitrogen 17 mg/dL (7-18) Creatinine 0.8 MG/DL (0.55-1.30) Estimat Glomerular Filtration Rate mL/min (>60) Glucose Level 137 MG/DL (74-106) H Calcium Level 8.2 MG/DL (8.5-10.1) L Microbiology Date/Time Source Procedure Growth Status 06/17/18 21:20 Blood Blood Culture - Preliminary NO GROWTH AFTER 48 HOURS Resulted 06/17/18 21:20 Blood Blood Culture - Preliminary NO GROWTH AFTER 48 HOURS Resulted 06/19/18 18:45 Indwelling Cath Urine Culture - Preliminary NO GROWTH Resulted Intake and Output 06/19/18 06/20/18 19:00 07:00 Intake Total 1177.539 ml 1350.624 ml Output Total 1910 ml 920 ml Balance -732.461 ml 430.624 ml IV Total 517.539 ml 690.624 ml Tube Feeding 660 ml 660 ml Output Urine Total 1910 ml 920 ml # Bowel Movements 2 Objective GENERAL: The patient is intubated. She is awake. HEENT: Normocephalic/atraumatic. NGT NECK: Patient has a right IJ. There is no JVD noted. LUNGS: Decreased breath sounds bilaterally. Some crackles. CARDIOVASCULAR: Tachycardic. Regular rhythm. ABDOMEN: Soft, nontender. EXTREMITIES: No clubbing, cyanosis, or edema. Assessment/Plan Assessment/Plan ASSESSMENT AND PLAN: 1. Acute hypoxic/hypercapnic respiratory failure secondary to right pulmonary artery embolism. 2. Pulmonary fibrosis. 3. Severe central spinal stenosis of L3-L4 and L4-L5. 4. Leukocytosis-unclear etiology. The patient was being tapered off prednisone recently. 5. History of old compression fractures of T5 and L2. 6. History of thrombocytosis. 7. elevated troponin 2/2 R ventricular strain 8. Leukocytosis 9. UTI, Psuedomonas 10. Staph hominis Bacteremia PLAN: 1. ICU 2. weaning trials ; hold TF while on wean trials 3. heparin drip 4. TTE reviewed. no R ventricular dilation 5. Pulmonary consult 6. NG tube ; continue tube feeds 7. Weaning per ICU team 8. Follow up cultures 9. abx - cipro fluconazole and Vanco 10. ID consult DNR DVT px - Heparin g++ Umang Contreras MD Jun 20, 2018 20:08
[2018-06-20] MEDS ORDERED: Isovue-300 100ml vial INJ PRN (21:30)
[2018-06-20] MEDS: LORazepam Inj 2mg/ml 1ml IV PRN (22:05)
[2018-06-20 22:51] LABS: APPEARANCE,URINE SLIGHTLY CLOUDY; BILIRUBIN, URINE NEGATIVE (NEGATIVE); COLOR,URINE PALE YELLOW; GLUCOSE, URINE (UA) NEGATIVE (NEGATIVE); KETONES,URINE NEGATIVE (NEGATIVE); LEUKOCYTE ESTERASE ,URINE 1+ (NEGATIVE); NITRITE,URINE NEGATIVE (NEGATIVE); PH,URINE 6.5 (4.5-8.0); PROTEIN,URINE 1+ (NEGATIVE); UROBILINOGEN,URINE NORMAL MG/DL (0.0-1.0)
[2018-06-21] VITALS (24 sets, daily range): BP systolic 100–149; BP diastolic 39–87
[2018-06-21 05:13] LABS: HEMATOCRIT 33.5 % (37.0-47.0); HEMOGLOBIN 10.9 G/DL (12.0-16.0); MEAN CORPUSCULAR VOLUME 85 FL (80-99); PLATELET COUNT 452 K/UL (150-450); RED BLOOD COUNT 3.96 M/UL (4.20-5.40); RED CELL DISTRIBUTION WIDTH 15.7 % (11.6-14.8)
[2018-06-21 05:15] LABS: WHITE BLOOD COUNT 26.9 K/UL (4.8-10.8)
[2018-06-21 05:16] LABS: ALANINE AMINOTRANSFERASE 31 U/L (12-78); ALBUMIN 2.5 G/DL (3.4-5.0); ALBUMIN/GLOBULIN RATIO 0.7 (1.0-2.7); ALKALINE PHOSPHATASE 90 U/L (46-116); ANION GAP 6 mmol/L (5-15); ASPARTATE AMINO TRANSFERASE 18 U/L (15-37); BILIRUBIN,TOTAL 0.3 MG/DL (0.2-1.0); BLOOD UREA NITROGEN 17 mg/dL (7-18); CALCIUM 8.4 MG/DL (8.5-10.1); CARBON DIOXIDE 33 MMOL/L (21-32); CHLORIDE 95 MMOL/L (98-107); CREATININE 0.8 MG/DL (0.55-1.30); POTASSIUM 3.7 MMOL/L (3.5-5.1); SODIUM 133 MMOL/L (136-145)
[2018-06-21] MEDS ORDERED: Heparin 25,000u/D5W 500ml 500 ML IV SCH ×2 (07:00→21:30)
[2018-06-21] MEDS: Pantoprazole Inj IVP SCH (08:06)
[2018-06-21] MEDS: Morphine Sulfate 2mg/ml Inj IVP PRN ×2 (08:07→20:27)
[2018-06-21] MEDS: Vancomycin 1250mg/D5W 250ml IVPB SCH (09:42)
--- NOTE | 2018-06-21 11:05 | Diagnostic Imaging Report ---
Indication: Dyspnea Comparison: June 19, 2018 A single view chest radiograph was obtained. Findings: Interstitial prominence again demonstrated. Cardiomegaly is again demonstrated unchanged. Tubes and lines are stable. IMPRESSION: No change from the prior exam. No acute findings
--- NOTE | 2018-06-21 12:11 | Diagnostic Imaging Report ---
Indication: Abdominal pain Technique: Continuous helical transaxial imaging of the abdomen and pelvis was obtained from the lung bases to the pubic symphysis during intravenous contrast administration. Coronal 2-D reformats were also obtained. Study obtained in a Siemens sensation [address] Automatic Exposure Control was utilized. Total Dose length Product (DLP): 1194.[address] Dose Index Volume (CTDIvol): 19.07,19.75 mGy Comparison: None Findings: There is a bandlike focus of atelectasis or scarring at the left lung base. Minimal dependent type atelectasis also noted at both lung bases. There is a hiatal hernia. The gallbladder is unremarkable. There is no biliary ductal dilatation appreciated. The pancreas shows no definite abnormalities. The spleen shows no definite abnormalities. There are multiple cysts within both kidneys of varying size. A small umbilical hernia is noted containing fat. There are diverticula throughout the colon especially in the sigmoid region without definite evidence of diverticulitis. The appendix is not definitely seen. There are no secondary signs of acute appendicitis. There is no free fluid or free air. The uterus is atrophic. Mckeon catheter noted in good position within the urinary bladder. There is a moderate amount of feces the retention in the rectum. There is narrowing of intervertebral discs and accompanying endplate osteophyte formation. Hypertrophied facet joints also demonstrated.. Bones are osteopenic in keeping with the patient's advanced age. There is an L2 vertebral fracture which is probably old. IMPRESSION: Extensive diverticulosis of the colon. No definite acute diverticulitis appreciated. Multiple bilateral renal cysts. Atherosclerotic vascular disease Left basilar atelectasis versus scarring. Small umbilical hernia containing fat Mckeon catheter in good position. NG tube in good position Old L2 vertebral fracture. Generalized spondylosis and osteopenia. The CT scanner at [facility] is accredited by the [employer] and the scans are performed using dose optimization techniques as appropriate to a performed exam including Automatic Exposure control.
[2018-06-21] MEDS ORDERED: Heparin 5000 units/ml inj IV SCH (14:15)
[2018-06-21] MEDS: Heparin 25,000u/D5W 500ml 500 ML IV SCH ×2 (14:29→18:17)
--- NOTE | 2018-06-21 15:40 | Infectious Diseases Prog Note ---
Assessment/Plan Assessment/Plan ASSESSMENT AND PLAN: 1. 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 pna, pseudomonas/ enterococcus uti, PE, ? reactive leukocytosis - vancomycin, ciprofloxacin and flagyl - day # 5 antibiotics - CT abdomen and pelvis - no abscess or obvious infection - f/u labs and cultures - monitor chest x-ray - icu, supportive care - d/w RN - doubt endocarditis, echo without vegetation mentioned - surveillance blood cultures negative - communicated with Dr. Contreras 2. Pulmonary fibrosis. 3. Respiratory failure, on vent. 4. Intensive care unit. 5. History of spinal surgery. 6. Cervical and lumbar spine disc disease. 7. History of prednisone use in the past. 8. History of hypertension per the records. 9. Questionable history of cerebrovascular accident per the records. 10. Past medical history is noted. 11. Allergies to acetaminophen, codeine, hydrocodone, and penicillins and other medication is chlorpheniramine. 12. Family history is noncontributory. 13. Social history is negative. 14. MAR was noted. 15. Case was discussed with RN. 16. ICU care. 17. Continue treatment per primary consultants. Subjective Constitutional: Reports: fever, fatigue, other - on a vent, s/p C, more alert and responsive HEENT: Reports: congestion Respiratory: Reports: shortness of breath Cardiovascular: Reports: other; Denies: chest pain Genitourinary: Reports: other - + wilson Neurologic: Denies: headache Psychiatric: Denies: depression Skin: Denies: rash Hematologic: Denies: bleeding Musculoskeletal: Denies: pain Allergies: Coded Allergies: ACETAMINOPHEN (Verified Allergy, Unknown, 06/14/18) CHLORPHENIRAMINE (Verified Allergy, Unknown, 06/14/18) CODEINE (Verified Allergy, Unknown, 06/14/18) HYDROCODONE (Verified Allergy, Unknown, 06/14/18) PENICILLINS (Verified Allergy, Unknown, 06/14/18) Objective Vital Signs Last 24 Hour Vital Signs Date Time Temp Pulse Resp B/P (MAP) Pulse Ox O2 Delivery O2 Flow Rate FiO2 06/21/18 15:00 77 22 100/61 (74) 93 06/21/18 14:00 72 20 103/39 (60) 92 75 06/21/18 13:19 77 20 40 06/21/18 13:00 75 19 121/52 (75) 93 75 06/21/18 12:00 Mechanical Ventilator 06/21/18 12:00 99.0 77 20 125/54 (77) 92 99.0 77 06/21/18 11:48 79 06/21/18 11:00 86 22 128/51 (76) 92 86 06/21/18 10:35 40 06/21/18 10:35 80 29 40 06/21/18 10:00 86 28 130/56 (80) 93 86 06/21/18 09:06 98 06/21/18 09:05 40 06/21/18 09:02 72 20 40 06/21/18 09:00 74 20 130/49 (76) 95 74 06/21/18 08:00 Mechanical Ventilator 06/21/18 08:00 98.5 89 20 138/51 (80) 95 98.5 89 06/21/18 08:00 40 06/21/18 07:57 84 06/21/18 07:01 81 20 40 06/21/18 07:00 89 18 130/52 (78) 100 06/21/18 06:00 85 20 125/55 (78) 100 06/21/18 05:28 87 31 40 06/21/18 05:00 79 20 145/80 (101) 100 06/21/18 04:00 75 06/21/18 04:00 40 06/21/18 04:00 Mechanical Ventilator 06/21/18 04:00 99.4 79 20 111/50 (70) 100 99.4 06/21/18 03:27 65 20 40 06/21/18 03:00 79 20 138/54 (82) 96 06/21/18 02:00 81 20 120/51 (74) 96 06/21/18 01:19 63 20 40 06/21/18 01:00 65 20 110/48 (68) 94 06/21/18 00:00 99.1 85 22 146/63 (90) 100 99.1 06/21/18 00:00 83 06/21/18 00:00 Mechanical Ventilator 06/20/18 23:00 99.8 73 18 124/49 (74) 100 99.8 06/20/18 22:53 69 20 40 06/20/18 22:00 99.8 78 25 177/62 (100) 96 99.8 06/20/18 21:09 86 17 40 06/20/18 21:00 81 20 127/72 (90) 96 06/20/18 20:38 100.9 06/20/18 20:08 101.2 06/20/18 20:00 Mechanical Ventilator 06/20/18 20:00 94 06/20/18 20:00 88 26 147/62 (90) 93 06/20/18 20:00 40 06/20/18 19:19 100 25 40 06/20/18 19:00 101.2 94 20 154/63 (93) 96 101.2 06/20/18 18:00 89 15 123/62 (82) 93 06/20/18 17:18 94 25 40 06/20/18 17:00 91 19 134/76 (95) 93 06/20/18 16:00 97.1 85 19 116/73 (87) 93 97.1 06/20/18 16:00 40 06/20/18 16:00 Mechanical Ventilator 06/20/18 16:00 82 Height (Feet): 5 Height (Inches): 5.00 Weight (Pounds): 189 General Appearance: no acute distress HEENT: normocephalic, atraumatic, anicteric, no JVD, other - oral - intubated Respiratory/Chest: crackles/rales, rhonchi - bilaterally Cardiovascular: normal rate, regular rhythm, no gallop/murmur, no JVD Abdomen: normal bowel sounds, soft, non tender, no organomegaly Genitourinary: other - + wilson - uirne clear Extremities: no cyanosis Skin: no rash 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 Equivocal right ventricular dilatation in the setting of generalized cardiomegaly could indicate right heart strain although this is uncertain Extensive left lung volume loss and possible consolidation Nonspecific bilateral interstitial septal thickening Right jugular venous catheter and endotracheal tube in good position Multiple vertebral body compression fractures. Age indeterminate 8 millimeter left adrenal adenoma Chest x-ray - 06/19 - Findings: Stable satisfactory positions of endotracheal and nasogastric tubes. Right jugular central venous catheter remains in stable satisfactory position. Linear opacities at the left lung base are stable. No definite infiltrates or congestion. Blunting of left costophrenic sulcus is stable, could indicate a small pleural effusion. Degenerative changes of both shoulders again noted. Impression: Unchanged, over one day, findings as above. CT - abdomen and pelvis: IMPRESSION: Extensive diverticulosis of the colon. No definite acute diverticulitis appreciated. Multiple bilateral renal cysts. Atherosclerotic vascular disease Left basilar atelectasis versus scarring. Small umbilical hernia containing fat Wilson catheter in good position. NG tube in good position Old L2 vertebral fracture. Generalized spondylosis and osteopenia. Chest -x -ray - Findings: Interstitial prominence again demonstrated. Cardiomegaly is again demonstrated unchanged. Tubes and lines are stable. IMPRESSION: No change from the prior exam. No acute findings Microbiology Date/Time Source Procedure Growth Status 06/17/18 21:20 Blood Blood Culture - Preliminary NO GROWTH AFTER 72 HOURS Resulted 06/16/18 15:10 Sputum Induced Gram Stain - Final Complete 06/16/18 15:10 Sputum Induced Sputum Culture - Final NORMAL UPPER RESPIRATORY SOO PRESENT Complete 06/19/18 18:45 Indwelling Cath Urine Culture - Preliminary NO GROWTH AFTER 24 HOURS Resulted 06/14/18 21:00 Rectum VRE Culture - Final NO VANCOMYCIN RESISTANT ENTEROCOCCUS ... Complete 06/14/18 21:00 Rectum - Final NO CARBAPENEM-RESISTANT ENTEROBACTERI... Complete Microbiology Date/Time Source Procedure Growth Status 06/19/18 18:45 Indwelling Cath Urine Culture - Preliminary NO GROWTH AFTER 24 HOURS Resulted Laboratory Tests Test 06/20/18 21:00 06/20/18 22:00 06/21/18 04:02 06/21/18 08:10 Activated Partial Thromboplast Time 107 SEC (23-33) H 106 SEC (23-33) H Urine Color Pale yellow Urine Appearance Slightly cloudy Urine pH 6.5 (4.5-8.0) Urine Specific Mckean 1.005 (1.005-1.035) Urine Protein 1+ (NEGATIVE) H Urine Glucose (UA) Negative (NEGATIVE) Urine Ketones Negative (NEGATIVE) Urine Blood 1+ (NEGATIVE) H Urine Nitrite Negative (NEGATIVE) Urine Bilirubin Negative (NEGATIVE) Urine Urobilinogen Normal MG/DL (0.0-1.0) Urine Leukocyte Esterase 1+ (NEGATIVE) H Urine RBC 0-2 /HPF (0 - 2) Urine WBC 2-4 /HPF (0 - 2) Urine Squamous Epithelial Cells Few /LPF (NONE/OCC) Urine Bacteria Few /HPF (NONE) Urine Yeast Few /HPF (NONE) H White Blood Count 26.9 K/UL (4.8-10.8) *H Red Blood Count 3.96 M/UL (4.20-5.40) L Hemoglobin 10.9 G/DL (12.0-16.0) L Hematocrit 33.5 % (37.0-47.0) L Mean Corpuscular Volume 85 FL (80-99) Mean Corpuscular Hemoglobin 27.5 PG (27.0-31.0) Mean Corpuscular Hemoglobin Concent 32.6 G/DL (32.0-36.0) Red Cell Distribution Width 15.7 % (11.6-14.8) H Platelet Count 452 K/UL (150-450) H Mean Platelet Volume 10.1 FL (6.5-10.1) Neutrophils (%) (Auto) % (45.0-75.0) Lymphocytes (%) (Auto) % (20.0-45.0) Monocytes (%) (Auto) % (1.0-10.0) Eosinophils (%) (Auto) % (0.0-3.0) Basophils (%) (Auto) % (0.0-2.0) Differential Total Cells Counted 100 Neutrophils % (Manual) 58 % (45-75) Lymphocytes % (Manual) 6 % (20-45) L Monocytes % (Manual) 33 % (1-10) H Eosinophils % (Manual) 3 % (0-3) Basophils % (Manual) 0 % (0-2) Band Neutrophils 0 % (0-8) Platelet Estimate Adequate Platelet Morphology Normal Hypochromasia 1+ Anisocytosis 1+ Sodium Level 133 MMOL/L (136-145) L Potassium Level 3.7 MMOL/L (3.5-5.1) Chloride Level 95 MMOL/L (98-107) L Carbon Dioxide Level 33 MMOL/L (21-32) H Anion Gap 6 mmol/L (5-15) Blood Urea Nitrogen 17 mg/dL (7-18) Creatinine 0.8 MG/DL (0.55-1.30) Estimat Glomerular Filtration Rate mL/min (>60) Glucose Level 119 MG/DL (74-106) H Calcium Level 8.4 MG/DL (8.5-10.1) L Total Bilirubin 0.3 MG/DL (0.2-1.0) Aspartate Amino Transf (AST/SGOT) 18 U/L (15-37) Alanine Aminotransferase (ALT/SGPT) 31 U/L (12-78) Alkaline Phosphatase 90 U/L (46-116) Total Protein 6.2 G/DL (6.4-8.2) L Albumin 2.5 G/DL (3.4-5.0) L Globulin 3.7 g/dL Albumin/Globulin Ratio 0.7 (1.0-2.7) L Vancomycin Level Trough 14.8 ug/mL (5.0-12.0) H Test 06/21/18 13:00 Activated Partial Thromboplast Time 59 SEC (23-33) H Current Medications Medications (Trade) Dose Ordered Sig/Missy Route PRN Reason Start Time Stop Time Status Last Admin Dose Admin Acetaminophen (Tylenol) 650 mg Q4H PRN ORAL Mild Pain (Pain Scale 1-3) 06/14/18 23:15 07/14/18 23:14 06/21/18 13:26 Barium Sulfate (Readi-Cat 2) 450 ml NOW PRN ORAL Radiology Procedure 06/20/18 21:30 06/22/18 21:22 Chlorhexidine Gluconate (Maria Elena-Hex 2%) 1 applic DAILY@2000 TOPIC 06/16/18 20:00 07/16/18 19:59 06/20/18 20:07 Ciprofloxacin 200 ml @ 200 mls/hr Q12HR IV 06/18/18 21:00 06/25/18 20:59 06/21/18 08:06 Dextrose (Dextrose 50%) 25 ml Q30M PRN IV Hypoglycemia 06/14/18 23:15 07/14/18 23:14 Dextrose (Dextrose 50%) 50 ml Q30M PRN IV Hypoglycemia 06/14/18 23:15 07/14/18 23:14 Heparin Sodium/ Dextrose 500 ml @ 29.818 mls/ hr ADJUST PER PROTOCOL IV 06/21/18 14:15 07/21/18 14:14 06/21/18 14:29 Iopamidol (Isovue-300 100ml) 100 ml NOW PRN INJ Radiology Procedure 06/20/18 21:30 06/22/18 21:29 Lorazepam (Ativan 2mg/ml 1ml) 1 mg Q4H PRN IV for agitation 06/15/18 19:13 06/22/18 19:12 06/20/18 22:05 Metronidazole 100 ml @ 100 mls/hr Q8HR IVPB 06/21/18 22:00 06/28/18 21:59 Morphine Sulfate (Morphine Sulfate) 2 mg Q4H PRN IVP Severe Pain (Pain Scale 7-10) 06/15/18 11:45 06/22/18 11:44 06/21/18 08:07 Ondansetron HCl (Zofran) 4 mg Q4H PRN IVP Nausea & Vomiting 06/16/18 17:45 07/16/18 17:44 06/18/18 09:57 Pantoprazole (Protonix) 40 mg DAILY IVP 06/16/18 21:00 07/17/18 08:59 06/21/18 08:06 Tramadol HCl (Ultram) 50 mg Q6H PRN ORAL Moderate Pain (Pain Scale 4-6) 06/15/18 11:45 06/22/18 11:44 06/19/18 20:11 Vancomycin HCl (Vanco rx to dose) 1 ea DAILY PRN MISC Per rx protocol 06/16/18 07:45 07/16/18 07:44 Vancomycin HCl/ Dextrose 250 ml @ 166.667 mls/hr Q24H IVPB 06/20/18 09:00 06/25/18 08:59 06/21/18 09:42 Artur Rodriguez MD Jun 21, 2018 15:40
[2018-06-21] MEDS ORDERED: NS 275ml ONE (16:32)
[2018-06-21] MEDS ORDERED: Tubing IV Secondary IV ONE (16:32)
[2018-06-21] MEDS ORDERED: Sterile Water Irrig 1000ml IRRIG ONE (16:32)
--- NOTE | 2018-06-21 16:46 | Internal Med Progress Note ---
Subjective Physician Name Umang Contreras Attending Physician Umang Contreras MD Current Medications Medications (Trade) Dose Ordered Sig/Missy Route PRN Reason Start Time Stop Time Status Last Admin Dose Admin Acetaminophen (Tylenol) 650 mg Q4H PRN ORAL Mild Pain (Pain Scale 1-3) 06/14/18 23:15 07/14/18 23:14 06/21/18 13:26 Barium Sulfate (Readi-Cat 2) 450 ml NOW PRN ORAL Radiology Procedure 06/20/18 21:30 06/22/18 21:22 Chlorhexidine Gluconate (Maria Elena-Hex 2%) 1 applic DAILY@2000 TOPIC 06/16/18 20:00 07/16/18 19:59 06/20/18 20:07 Ciprofloxacin 200 ml @ 200 mls/hr Q12HR IV 06/18/18 21:00 06/25/18 20:59 06/21/18 08:06 Dextrose (Dextrose 50%) 25 ml Q30M PRN IV Hypoglycemia 06/14/18 23:15 07/14/18 23:14 Dextrose (Dextrose 50%) 50 ml Q30M PRN IV Hypoglycemia 06/14/18 23:15 07/14/18 23:14 Heparin Sodium/ Dextrose 500 ml @ 29.818 mls/ hr ADJUST PER PROTOCOL IV 06/21/18 14:15 07/21/18 14:14 06/21/18 14:29 Iopamidol (Isovue-300 100ml) 100 ml NOW PRN INJ Radiology Procedure 06/20/18 21:30 06/22/18 21:29 Lorazepam (Ativan 2mg/ml 1ml) 1 mg Q4H PRN IV for agitation 06/15/18 19:13 06/22/18 19:12 06/20/18 22:05 Metronidazole 100 ml @ 100 mls/hr Q8HR IVPB 06/21/18 22:00 06/28/18 21:59 Morphine Sulfate (Morphine Sulfate) 2 mg Q4H PRN IVP Severe Pain (Pain Scale 7-10) 06/15/18 11:45 06/22/18 11:44 06/21/18 08:07 Ondansetron HCl (Zofran) 4 mg Q4H PRN IVP Nausea & Vomiting 06/16/18 17:45 07/16/18 17:44 06/18/18 09:57 Pantoprazole (Protonix) 40 mg DAILY IVP 06/16/18 21:00 07/17/18 08:59 06/21/18 08:06 Tramadol HCl (Ultram) 50 mg Q6H PRN ORAL Moderate Pain (Pain Scale 4-6) 06/15/18 11:45 06/22/18 11:44 06/19/18 20:11 Vancomycin HCl (Vanco rx to dose) 1 ea DAILY PRN MISC Per rx protocol 06/16/18 07:45 07/16/18 07:44 Vancomycin HCl/ Dextrose 250 ml @ 166.667 mls/hr Q24H IVPB 06/20/18 09:00 06/25/18 08:59 06/21/18 09:42 Allergies: Coded Allergies: ACETAMINOPHEN (Verified Allergy, Unknown, 06/14/18) CHLORPHENIRAMINE (Verified Allergy, Unknown, 06/14/18) CODEINE (Verified Allergy, Unknown, 06/14/18) HYDROCODONE (Verified Allergy, Unknown, 06/14/18) PENICILLINS (Verified Allergy, Unknown, 06/14/18) Subjective intubated on fiO2 40% PEEP 5 failed weaning SIMV15 and PS8 after 90min then RR> 30 on tube feeds anxious earlier afebrile restraints bc trying to pull NGT agitated last night ROS unobtainable Objective Last Vital Signs Date Time Temp Pulse Resp B/P (MAP) Pulse Ox O2 Delivery O2 Flow Rate FiO2 06/21/18 16:00 40 06/21/18 15:51 74 06/21/18 15:19 35 06/21/18 15:00 100/61 (74) 93 06/21/18 12:00 Mechanical Ventilator 06/21/18 12:00 99.0 99.0 06/14/18 22:08 15.0 Laboratory Tests Test 06/20/18 21:00 06/20/18 22:00 06/21/18 04:02 06/21/18 08:10 Activated Partial Thromboplast Time 107 SEC (23-33) H 106 SEC (23-33) H Urine Color Pale yellow Urine Appearance Slightly cloudy Urine pH 6.5 (4.5-8.0) Urine Specific Villalba 1.005 (1.005-1.035) Urine Protein 1+ (NEGATIVE) H Urine Glucose (UA) Negative (NEGATIVE) Urine Ketones Negative (NEGATIVE) Urine Blood 1+ (NEGATIVE) H Urine Nitrite Negative (NEGATIVE) Urine Bilirubin Negative (NEGATIVE) Urine Urobilinogen Normal MG/DL (0.0-1.0) Urine Leukocyte Esterase 1+ (NEGATIVE) H Urine RBC 0-2 /HPF (0 - 2) Urine WBC 2-4 /HPF (0 - 2) Urine Squamous Epithelial Cells Few /LPF (NONE/OCC) Urine Bacteria Few /HPF (NONE) Urine Yeast Few /HPF (NONE) H White Blood Count 26.9 K/UL (4.8-10.8) *H Red Blood Count 3.96 M/UL (4.20-5.40) L Hemoglobin 10.9 G/DL (12.0-16.0) L Hematocrit 33.5 % (37.0-47.0) L Mean Corpuscular Volume 85 FL (80-99) Mean Corpuscular Hemoglobin 27.5 PG (27.0-31.0) Mean Corpuscular Hemoglobin Concent 32.6 G/DL (32.0-36.0) Red Cell Distribution Width 15.7 % (11.6-14.8) H Platelet Count 452 K/UL (150-450) H Mean Platelet Volume 10.1 FL (6.5-10.1) Neutrophils (%) (Auto) % (45.0-75.0) Lymphocytes (%) (Auto) % (20.0-45.0) Monocytes (%) (Auto) % (1.0-10.0) Eosinophils (%) (Auto) % (0.0-3.0) Basophils (%) (Auto) % (0.0-2.0) Differential Total Cells Counted 100 Neutrophils % (Manual) 58 % (45-75) Lymphocytes % (Manual) 6 % (20-45) L Monocytes % (Manual) 33 % (1-10) H Eosinophils % (Manual) 3 % (0-3) Basophils % (Manual) 0 % (0-2) Band Neutrophils 0 % (0-8) Platelet Estimate Adequate Platelet Morphology Normal Hypochromasia 1+ Anisocytosis 1+ Sodium Level 133 MMOL/L (136-145) L Potassium Level 3.7 MMOL/L (3.5-5.1) Chloride Level 95 MMOL/L (98-107) L Carbon Dioxide Level 33 MMOL/L (21-32) H Anion Gap 6 mmol/L (5-15) Blood Urea Nitrogen 17 mg/dL (7-18) Creatinine 0.8 MG/DL (0.55-1.30) Estimat Glomerular Filtration Rate mL/min (>60) Glucose Level 119 MG/DL (74-106) H Calcium Level 8.4 MG/DL (8.5-10.1) L Total Bilirubin 0.3 MG/DL (0.2-1.0) Aspartate Amino Transf (AST/SGOT) 18 U/L (15-37) Alanine Aminotransferase (ALT/SGPT) 31 U/L (12-78) Alkaline Phosphatase 90 U/L (46-116) Total Protein 6.2 G/DL (6.4-8.2) L Albumin 2.5 G/DL (3.4-5.0) L Globulin 3.7 g/dL Albumin/Globulin Ratio 0.7 (1.0-2.7) L Vancomycin Level Trough 14.8 ug/mL (5.0-12.0) H Test 06/21/18 13:00 Activated Partial Thromboplast Time 59 SEC (23-33) H Microbiology Date/Time Source Procedure Growth Status 06/19/18 18:45 Indwelling Cath Urine Culture - Preliminary NO GROWTH AFTER 24 HOURS Resulted Intake and Output 06/20/18 06/21/18 19:00 07:00 Intake Total 1676.054 ml 1576.244 ml Output Total 1645 ml 1085 ml Balance 31.054 ml 491.244 ml Free Water 90 ml 300 ml IV Total 926.054 ml 726.244 ml Tube Feeding 660 ml 550 ml Output Urine Total 1645 ml 1085 ml # Bowel Movements 1 Objective GENERAL: The patient is intubated. She is awake. HEENT: Normocephalic/atraumatic. NGT NECK: Patient has a right IJ. There is no JVD noted. LUNGS: Decreased breath sounds bilaterally. Some crackles. CARDIOVASCULAR: Tachycardic. Regular rhythm. ABDOMEN: Soft, nontender. EXTREMITIES: No clubbing, cyanosis, or edema. Assessment/Plan Assessment/Plan ASSESSMENT AND PLAN: 1. Acute hypoxic/hypercapnic respiratory failure secondary to right pulmonary artery embolism. 2. Pulmonary fibrosis. 3. Severe central spinal stenosis of L3-L4 and L4-L5. 4. Leukocytosis-unclear etiology. The patient was being tapered off prednisone recently. 5. History of old compression fractures of T5 and L2. 6. History of thrombocytosis. 7. elevated troponin 2/2 R ventricular strain 8. Leukocytosis - possibly secondary to acute 9. UTI, Psuedomonas 10. Staph hominis Bacteremia PLAN: 1. ICU 2. weaning trials ; hold TF while on wean trials 3. heparin drip 4. TTE reviewed. no R ventricular dilation 5. Pulmonary consult 6. NG tube ; continue tube feeds 7. Weaning per ICU team 8. Follow up cultures 9. abx - cipro, fluconazole and Vanco 10. ID consult 11. POLST completed - DNR (no Chest compressions, intubation and pressors ok). discussed with daughter > 30 minutes over the phone. 12. CT Abdomen Pelvis w/Contrast (06/20) - reviewed. no acute process. diverticulosis. DNR DVT px - Heparin g++ Umang Contreras MD Jun 21, 2018 16:46
[2018-06-21] MEDS: Dyna-Hex 2% Top Sol 2oz TOPIC SCH (20:02)
[2018-06-21] MEDS: rOPINIRole 0.25mg tab ORAL SCH (20:26)
--- NOTE | 2018-06-21 22:26 | Pulmonolgy Critical Care Note ---
Critical Care - Asmt/Plan Assessment/Plan: Critical Care - Asmt/Plan Problems: (1) Acute respiratory failure with hypoxemia (2) Pulmonary embolism (3) Respiratory distress (4) Pulmonary fibrosis, unspecified Assessment/Plan: Assessment/Plan Assessment: 83 y/o female w/ pulmonary fibrosis, cervical spinal stenosis with compression fractures and hx of fusion admitted with acute on chronic hypoxemic respiratory failure and acute hypercapnic respiratory failure due to large R- sided pulmonary embolism. Noted leukocytosis and potential consolidation on CT but may be difficult to ascertain from her pulmonary fibrosis. No fevers. Will need respiratory support and close monitoring of hemodynamics and low threshold to treat with antibiotics. Did not tolerate SIMV wean today, CXR noted Problem List: 1. Acute on chronic hypoxemic and acute hypercapnic respiratory failure 2. Large R-sided pulmonary emboli & R fem DVT 3. Potential consolidation LLL 4. Leukocytosis 5. Idiopathic pulmonary fibrosis 6. Hyperkalemia 7. Cervical spinal stenosis with compression fractures 8. bacteremia Plan: -Decrease PS to 8, if tolerating may extubate in 30 min -Titrate down FiO2 and PEEP as able -Heparin gtt for now, monitor hemodynamics, monitor for bleeding -Monitor leukocytosis -Abx per ID, F/U Cx's -Monitor volumes, SLIV, lasix 40 IV x 1 again today -Hold TF's for SBT, will resume if not extubate -DNAR CC Time: 35 minutes Critical Care - Objective Last 24 Hour Vital Signs Date Time Temp Pulse Resp B/P (MAP) Pulse Ox O2 Delivery O2 Flow Rate FiO2 06/20/18 11:11 82 40 40 06/20/18 11:09 78 27 40 06/20/18 09:20 91 24 40 06/20/18 08:00 Mechanical Ventilator 06/20/18 08:00 40 06/20/18 08:00 89 06/20/18 08:00 98.8 78 16 127/64 (85) 96 98.8 06/20/18 07:20 85 27 40 06/20/18 07:00 89 23 107/90 (96) 96 06/20/18 06:00 79 20 106/44 (64) 96 06/20/18 05:00 80 22 121/80 (94) 96 06/20/18 04:43 63 20 40 06/20/18 04:00 Mechanical Ventilator 06/20/18 04:00 81 06/20/18 04:00 99.4 79 20 127/51 (76) 94 99.4 06/20/18 04:00 40 06/20/18 03:15 78 23 40 06/20/18 03:00 79 20 129/98 (108) 95 06/20/18 02:00 80 20 126/63 (84) 96 06/20/18 01:03 90 26 40 06/20/18 01:00 81 18 104/57 (73) 94 06/20/18 00:00 99.0 66 20 100/43 (62) 95 99.0 06/20/18 00:00 40 06/20/18 00:00 Mechanical Ventilator 06/20/18 00:00 67 06/19/18 23:02 87 23 40 06/19/18 23:00 79 20 119/55 (76) 94 06/19/18 22:00 81 20 109/90 (96) 94 06/19/18 21:14 86 25 40 06/19/18 21:00 82 20 124/56 (78) 95 06/19/18 20:00 40 06/19/18 20:00 99.3 83 22 127/63 (84) 94 99.3 06/19/18 20:00 Mechanical Ventilator 06/19/18 20:00 83 06/19/18 19:25 76 20 40 06/19/18 19:00 81 22 119/66 (83) 95 06/19/18 18:00 85 23 122/52 (75) 95 06/19/18 17:16 76 20 40 06/19/18 17:00 88 23 118/55 (76) 95 06/19/18 16:00 87 06/19/18 16:00 Mechanical Ventilator 06/19/18 16:00 40 06/19/18 16:00 98.7 76 17 126/69 (88) 96 98.7 06/19/18 15:25 79 30 40 06/19/18 15:00 80 23 119/62 (81) 95 06/19/18 14:15 89 31 40 06/19/18 14:02 83 40 40 06/19/18 14:00 85 23 118/55 (76) 98 06/19/18 13:37 81 34 40 06/19/18 13:30 74 21 40 06/19/18 13:00 89 23 115/60 (78) 95 06/19/18 12:00 40 06/19/18 12:00 Mechanical Ventilator 06/19/18 12:00 98.1 76 17 113/55 (74) 96 98.1 06/19/18 12:00 90 Status: awake, other - obese, on vent Condition: improving HEENT: atraumatic, normocephalic Lungs: clear Heart: HR/BP stable Abdomen: soft, non-tender, active bowel sounds Extremities: no C/C/E Micro: Microbiology Date/Time Source Procedure Growth Status 06/17/18 21:20 Blood Blood Culture - Preliminary NO GROWTH AFTER 48 HOURS Resulted 06/17/18 21:20 Blood Blood Culture - Preliminary NO GROWTH AFTER 48 HOURS Resulted 06/19/18 18:45 Indwelling Cath Urine Culture - Preliminary NO GROWTH Resulted Critical Care - Subjective ROS Limited/Unobtainable: Yes ICU Day: 7 Intubation Day: 7 Interval Events: Failed SBT yesterday Now stable on PS 10 good volumes Periods of agitation Secretions better Condition: improving IV Access: central EKG Rhythm: Sinus Rhythm FI02: 40 Vent Support Breath Rate: 20 Vent Support Mode: CPAP Vent Tidal Volume: 450 Sputum Amount: Small PEEP: 5.0 PIP: 19 Fluids: SLIV Drips: IVUH Tube Feeding Amount: 55 I&O: Intake and Output 06/19/18 06/20/18 19:00 07:00 Intake Total 1177.539 ml 1317.950 ml Output Total 1910 ml 920 ml Balance -732.461 ml 397.950 ml IV Total 517.539 ml 657.950 ml Tube Feeding 660 ml 660 ml Output Urine Total 1910 ml 920 ml # Bowel Movements 2 Subjective: RYLIE ET-Tube: 7.0 ET Position: 21 Labs: Laboratory Tests Test 06/19/18 20:32 06/19/18 21:55 06/20/18 04:00 Activated Partial Thromboplast Time 71 SEC (23-33) H 42 SEC (23-33) H Vancomycin Level Trough 31.3 ug/mL (5.0-12.0) H White Blood Count 29.6 K/UL (4.8-10.8) *H Red Blood Count 3.74 M/UL (4.20-5.40) L Hemoglobin 10.4 G/DL (12.0-16.0) L Hematocrit 32.0 % (37.0-47.0) L Mean Corpuscular Volume 86 FL (80-99) Mean Corpuscular Hemoglobin 27.8 PG (27.0-31.0) Mean Corpuscular Hemoglobin Concent 32.5 G/DL (32.0-36.0) Red Cell Distribution Width 16.1 % (11.6-14.8) H Platelet Count 353 K/UL (150-450) Mean Platelet Volume 10.5 FL (6.5-10.1) H Neutrophils (%) (Auto) % (45.0-75.0) Lymphocytes (%) (Auto) % (20.0-45.0) Monocytes (%) (Auto) % (1.0-10.0) Eosinophils (%) (Auto) % (0.0-3.0) Basophils (%) (Auto) % (0.0-2.0) Differential Total Cells Counted 100 Neutrophils % (Manual) 67 % (45-75) Lymphocytes % (Manual) 4 % (20-45) L Monocytes % (Manual) 25 % (1-10) H Eosinophils % (Manual) 2 % (0-3) Basophils % (Manual) 1 % (0-2) Band Neutrophils 1 % (0-8) Platelet Estimate Adequate Platelet Morphology Normal Clumped Platelets 2+ Anisocytosis 1+ Sodium Level 133 MMOL/L (136-145) L Potassium Level 4.0 MMOL/L (3.5-5.1) Chloride Level 97 MMOL/L (98-107) L Carbon Dioxide Level 32 MMOL/L (21-32) Anion Gap 5 mmol/L (5-15) Blood Urea Nitrogen 17 mg/dL (7-18) Creatinine 0.8 MG/DL (0.55-1.30) Estimat Glomerular Filtration Rate mL/min (>60) Glucose Level 137 MG/DL (74-106) H Calcium Level 8.2 MG/DL (8.5-10.1) L Critical Care - Objective Last 24 Hour Vital Signs Date Time Temp Pulse Resp B/P (MAP) Pulse Ox O2 Delivery O2 Flow Rate FiO2 06/21/18 20:47 78 26 40 06/21/18 19:22 76 28 40 06/21/18 19:00 75 26 115/87 (96) 98 06/21/18 18:00 78 21 118/74 (89) 95 06/21/18 17:15 74 27 40 06/21/18 17:00 73 21 121/51 (74) 96 06/21/18 16:00 40 06/21/18 16:00 Mechanical Ventilator 06/21/18 16:00 98.0 67 20 108/45 (66) 96 98.0 06/21/18 15:51 74 06/21/18 15:19 74 35 40 06/21/18 15:00 77 22 100/61 (74) 93 06/21/18 14:00 72 20 103/39 (60) 92 75 06/21/18 13:19 77 20 40 06/21/18 13:00 75 19 121/52 (75) 93 75 06/21/18 12:00 Mechanical Ventilator 06/21/18 12:00 99.0 77 20 125/54 (77) 92 99.0 77 06/21/18 11:48 79 06/21/18 11:00 86 22 128/51 (76) 92 86 06/21/18 10:35 40 06/21/18 10:35 80 29 40 06/21/18 10:00 86 28 130/56 (80) 93 86 06/21/18 09:06 98 06/21/18 09:05 40 06/21/18 09:02 72 20 40 06/21/18 09:00 74 20 130/49 (76) 95 74 06/21/18 08:00 Mechanical Ventilator 06/21/18 08:00 98.5 89 20 138/51 (80) 95 98.5 89 06/21/18 08:00 40 06/21/18 07:57 84 06/21/18 07:01 81 20 40 06/21/18 07:00 89 18 130/52 (78) 100 06/21/18 06:00 85 20 125/55 (78) 100 06/21/18 05:28 87 31 40 06/21/18 05:00 79 20 145/80 (101) 100 06/21/18 04:00 75 06/21/18 04:00 40 06/21/18 04:00 Mechanical Ventilator 06/21/18 04:00 99.4 79 20 111/50 (70) 100 99.4 06/21/18 03:27 65 20 40 06/21/18 03:00 79 20 138/54 (82) 96 06/21/18 02:00 81 20 120/51 (74) 96 06/21/18 01:19 63 20 40 06/21/18 01:00 65 20 110/48 (68) 94 06/21/18 00:00 99.1 85 22 146/63 (90) 100 99.1 06/21/18 00:00 83 06/21/18 00:00 Mechanical Ventilator 06/20/18 23:00 99.8 73 18 124/49 (74) 100 99.8 06/20/18 22:53 69 20 40 Micro: Microbiology Date/Time Source Procedure Growth Status 06/19/18 18:45 Indwelling Cath Urine Culture - Preliminary NO GROWTH AFTER 24 HOURS Resulted Critical Care - Subjective ROS Limited/Unobtainable: No FI02: 40 Vent Support Breath Rate: 20 Vent Support Mode: AC Vent Tidal Volume: 450 Sputum Amount: Scant PEEP: 5.0 PIP: 27 Tube Feeding Amount: 55 I&O: Intake and Output 06/20/18 06/21/18 19:00 07:00 Intake Total 1676.054 ml 1576.244 ml Output Total 1645 ml 1085 ml Balance 31.054 ml 491.244 ml Free Water 90 ml 300 ml IV Total 926.054 ml 726.244 ml Tube Feeding 660 ml 550 ml Output Urine Total 1645 ml 1085 ml # Bowel Movements 1 ET-Tube: 7.0 ET Position: 21 Umang Boothe MD Jun 21, 2018 22:26
[2018-06-22] VITALS (24 sets, daily range): BP systolic 98–156; BP diastolic 46–107
[2018-06-22] MEDS: LORazepam Inj 2mg/ml 1ml IV PRN (01:33)
[2018-06-22 04:42] LABS: HEMATOCRIT 32.7 % (37.0-47.0); HEMOGLOBIN 10.5 G/DL (12.0-16.0); MEAN CORPUSCULAR VOLUME 84 FL (80-99); PLATELET COUNT 474 K/UL (150-450); RED CELL DISTRIBUTION WIDTH 15.3 % (11.6-14.8)
[2018-06-22 05:02] LABS: WHITE BLOOD COUNT 23.1 K/UL (4.8-10.8)
[2018-06-22 05:03] LABS: ANION GAP 4 mmol/L (5-15); BLOOD UREA NITROGEN 17 mg/dL (7-18); CALCIUM 8.4 MG/DL (8.5-10.1); CARBON DIOXIDE 32 MMOL/L (21-32); CHLORIDE 99 MMOL/L (98-107); POTASSIUM 3.8 MMOL/L (3.5-5.1); SODIUM 135 MMOL/L (136-145)
[2018-06-22] MEDS ORDERED: Heparin 5000 units/ml inj IV ONE (05:45)
[2018-06-22] MEDS ORDERED: Heparin 25,000u/D5W 500ml 500 ML IV SCH ×2 (05:45→14:20)
[2018-06-22] MEDS: Pantoprazole Inj IVP SCH (08:50)
[2018-06-22] MEDS: Vancomycin 1250mg/D5W 250ml IVPB SCH (08:50)
--- NOTE | 2018-06-22 10:20 | Diagnostic Imaging Report ---
Indication: Nasogastric tube placement Technique: Supine view of the upper abdomen Comparison: 06/19/2018 Findings: Nasogastric tube appears slightly advanced as compared to prior study, in good position, tip and proximal port in the gastric body visualized bowel gas appears unremarkable. There is degenerative spondylosis Impression: Satisfactory position of nasogastric tube
--- NOTE | 2018-06-22 15:55 | Cardiology Report ---
APPROVED REPORT EKG Measurement Heart [id number] Normal sinus rhythm Minimal voltage criteria for LVH, may be normal variant Inferior infarct, age undetermined Anterolateral infarct, age undetermined Abnormal ECG
--- NOTE | 2018-06-22 18:52 | Internal Med Progress Note ---
Subjective Physician Name Umang Contreras Attending Physician Umang Contreras MD Current Medications Medications (Trade) Dose Ordered Sig/Missy Route PRN Reason Start Time Stop Time Status Last Admin Dose Admin Acetaminophen (Tylenol) 650 mg Q4H PRN ORAL Mild Pain (Pain Scale 1-3) 06/14/18 23:15 07/14/18 23:14 06/21/18 13:26 Barium Sulfate (Readi-Cat 2) 450 ml NOW PRN ORAL Radiology Procedure 06/20/18 21:30 06/22/18 21:22 Chlorhexidine Gluconate (Maria Elena-Hex 2%) 1 applic DAILY@2000 TOPIC 06/16/18 20:00 07/16/18 19:59 06/21/18 20:02 Ciprofloxacin 200 ml @ 200 mls/hr Q12HR IV 06/18/18 21:00 06/25/18 20:59 06/22/18 08:50 Dextrose (Dextrose 50%) 25 ml Q30M PRN IV Hypoglycemia 06/14/18 23:15 07/14/18 23:14 Dextrose (Dextrose 50%) 50 ml Q30M PRN IV Hypoglycemia 06/14/18 23:15 07/14/18 23:14 Fluconazole/ Sodium Chloride 100 ml @ 100 mls/hr Q24H IV 06/21/18 18:00 06/28/18 17:59 06/22/18 18:04 Heparin Sodium/ Dextrose 500 ml @ 24.012 mls/ hr ADJUST PER PROTOCOL IV 06/22/18 14:20 07/22/18 14:19 06/22/18 14:26 Iopamidol (Isovue-300 100ml) 100 ml NOW PRN INJ Radiology Procedure 06/20/18 21:30 06/22/18 21:29 Lorazepam (Ativan 2mg/ml 1ml) 1 mg Q4H PRN IV for agitation 06/15/18 19:13 06/22/18 19:12 06/22/18 01:33 Metronidazole 100 ml @ 100 mls/hr Q8HR IVPB 06/21/18 22:00 06/28/18 21:59 06/22/18 14:25 Ondansetron HCl (Zofran) 4 mg Q4H PRN IVP Nausea & Vomiting 06/16/18 17:45 07/16/18 17:44 06/18/18 09:57 Pantoprazole (Protonix) 40 mg DAILY IVP 06/16/18 21:00 07/17/18 08:59 06/22/18 08:50 Ropinirole HCl (Requip) 0.25 mg BEDTIME ORAL 06/21/18 21:00 07/21/18 20:59 06/21/18 20:26 Vancomycin HCl (Vanco rx to dose) 1 ea DAILY PRN MISC Per rx protocol 06/16/18 07:45 07/16/18 07:44 Vancomycin HCl/ Dextrose 250 ml @ 166.667 mls/hr Q24H IVPB 06/20/18 09:00 06/25/18 08:59 06/22/18 08:50 Allergies: Coded Allergies: ACETAMINOPHEN (Verified Allergy, Unknown, 06/14/18) CHLORPHENIRAMINE (Verified Allergy, Unknown, 06/14/18) CODEINE (Verified Allergy, Unknown, 06/14/18) HYDROCODONE (Verified Allergy, Unknown, 06/14/18) PENICILLINS (Verified Allergy, Unknown, 06/14/18) Subjective intubated on fiO2 40% PEEP 5 failed weaning SIMV15 and PS8 after 3 hours became tachypneic on tube feeds anxious earlier afebrile restraints bc trying to pull NGT agitated last night ROS unobtainable Objective Last Vital Signs Date Time Temp Pulse Resp B/P (MAP) Pulse Ox O2 Delivery O2 Flow Rate FiO2 06/22/18 18:00 85 26 146/69 (94) 98 06/22/18 16:51 40 06/22/18 16:00 Mechanical Ventilator 06/22/18 16:00 97.8 97.8 06/14/18 22:08 15.0 Laboratory Tests Test 06/21/18 20:04 06/22/18 03:30 06/22/18 12:10 Activated Partial Thromboplast Time 127 SEC (23-33) H 48 SEC (23-33) H > 150 SEC (23-33) *H White Blood Count 23.1 K/UL (4.8-10.8) *H Red Blood Count 3.90 M/UL (4.20-5.40) L Hemoglobin 10.5 G/DL (12.0-16.0) L Hematocrit 32.7 % (37.0-47.0) L Mean Corpuscular Volume 84 FL (80-99) Mean Corpuscular Hemoglobin 27.0 PG (27.0-31.0) Mean Corpuscular Hemoglobin Concent 32.2 G/DL (32.0-36.0) Red Cell Distribution Width 15.3 % (11.6-14.8) H Platelet Count 474 K/UL (150-450) H Mean Platelet Volume 9.8 FL (6.5-10.1) Neutrophils (%) (Auto) % (45.0-75.0) Lymphocytes (%) (Auto) % (20.0-45.0) Monocytes (%) (Auto) % (1.0-10.0) Eosinophils (%) (Auto) % (0.0-3.0) Basophils (%) (Auto) % (0.0-2.0) Differential Total Cells Counted 100 Neutrophils % (Manual) 61 % (45-75) Lymphocytes % (Manual) 7 % (20-45) L Monocytes % (Manual) 31 % (1-10) H Eosinophils % (Manual) 0 % (0-3) Basophils % (Manual) 1 % (0-2) Band Neutrophils 0 % (0-8) Platelet Estimate Increased H Platelet Morphology See comment Giant Platelets 3+ Polychromasia Occasional Anisocytosis 2+ Sodium Level 135 MMOL/L (136-145) L Potassium Level 3.8 MMOL/L (3.5-5.1) Chloride Level 99 MMOL/L (98-107) Carbon Dioxide Level 32 MMOL/L (21-32) Anion Gap 4 mmol/L (5-15) L Blood Urea Nitrogen 17 mg/dL (7-18) Creatinine 1.0 MG/DL (0.55-1.30) Estimat Glomerular Filtration Rate mL/min (>60) Glucose Level 145 MG/DL (74-106) H Calcium Level 8.4 MG/DL (8.5-10.1) L Microbiology Date/Time Source Procedure Growth Status 06/20/18 22:00 Blood Blood Culture - Preliminary NO GROWTH AFTER 24 HOURS Resulted 06/20/18 22:00 Blood Blood Culture - Preliminary NO GROWTH AFTER 24 HOURS Resulted 06/20/18 22:00 Urine,Clean Catch Urine Culture - Preliminary NO GROWTH AFTER 24 HOURS Resulted Intake and Output 06/21/18 06/22/18 19:00 07:00 Intake Total 1643.695 ml 1459.235 ml Output Total 1535 ml 1220 ml Balance 108.695 ml 239.235 ml Free Water 50 ml IV Total 858.695 ml 799.235 ml Tube Feeding 385 ml 660 ml Other 350 ml Output Urine Total 1535 ml 1220 ml # Bowel Movements 2 4 Objective GENERAL: The patient is intubated. She is awake. HEENT: Normocephalic/atraumatic. NGT NECK: Patient has a right IJ. There is no JVD noted. LUNGS: Decreased breath sounds bilaterally. Some crackles. CARDIOVASCULAR: Tachycardic. Regular rhythm. ABDOMEN: Soft, nontender. EXTREMITIES: No clubbing, cyanosis, or edema. Assessment/Plan Assessment/Plan ASSESSMENT AND PLAN: 1. Acute hypoxic/hypercapnic respiratory failure secondary to right pulmonary artery embolism. 2. Pulmonary fibrosis. 3. Severe central spinal stenosis of L3-L4 and L4-L5. 4. Leukocytosis-unclear etiology. The patient was being tapered off prednisone recently. 5. History of old compression fractures of T5 and L2. 6. History of thrombocytosis. 7. elevated troponin 2/2 R ventricular strain 8. Leukocytosis - possibly secondary to acute 9. UTI, Psuedomonas 10. Staph hominis Bacteremia PLAN: 1. ICU 2. weaning trials ; hold TF while on wean trials 3. heparin drip 4. TTE reviewed. no R ventricular dilation 5. Pulmonary consult 6. NG tube ; continue tube feeds 7. Weaning per ICU team 8. Follow up cultures 9. abx - cipro, fluconazole and Vanco 10. ID consult 11. POLST completed - DNR (no Chest compressions, intubation and pressors ok). discussed with daughter > 30 minutes over the phone. 12. CT Abdomen Pelvis w/Contrast (06/20) - reviewed. no acute process. diverticulosis. DNR DVT px - Heparin g++ DR LAMA COVERING 06/23-06/24 Umang Contreras MD Jun 22, 2018 18:52
[2018-06-22] MEDS: Dyna-Hex 2% Top Sol 2oz TOPIC SCH (20:03)
--- NOTE | 2018-06-22 21:13 | Pulmonolgy Critical Care Note ---
Critical Care - Asmt/Plan Assessment/Plan: Critical Care - Asmt/Plan Problems: (1) Acute respiratory failure with hypoxemia (2) Pulmonary embolism (3) Respiratory distress (4) Pulmonary fibrosis, unspecified Assessment/Plan: Assessment/Plan Assessment: 83 y/o female w/ pulmonary fibrosis, cervical spinal stenosis with compression fractures and hx of fusion admitted with acute on chronic hypoxemic respiratory failure and acute hypercapnic respiratory failure due to large R- sided pulmonary embolism. Noted leukocytosis and potential consolidation on CT but may be difficult to ascertain from her pulmonary fibrosis. No fevers. Will need respiratory support and close monitoring of hemodynamics and low threshold to treat with antibiotics. Did not tolerate SIMV wean today, CXR noted Problem List: 1. Acute on chronic hypoxemic and acute hypercapnic respiratory failure 2. Large R-sided pulmonary emboli & R fem DVT 3. Potential consolidation LLL 4. Leukocytosis 5. Idiopathic pulmonary fibrosis 6. Hyperkalemia 7. Cervical spinal stenosis with compression fractures 8. bacteremia Plan: -Decrease PS to 8, if tolerating may extubate in 30 min -Titrate down FiO2 and PEEP as able -Heparin gtt for now, monitor hemodynamics, monitor for bleeding -Monitor leukocytosis -Abx per ID, F/U Cx's -Monitor volumes, SLIV, lasix 40 IV x 1 again today -Hold TF's for SBT, will resume if not extubate -DNAR CC Time: 35 minutes Critical Care - Objective Last 24 Hour Vital Signs Date Time Temp Pulse Resp B/P (MAP) Pulse Ox O2 Delivery O2 Flow Rate FiO2 06/20/18 11:11 82 40 40 06/20/18 11:09 78 27 40 06/20/18 09:20 91 24 40 06/20/18 08:00 Mechanical Ventilator 06/20/18 08:00 40 06/20/18 08:00 89 06/20/18 08:00 98.8 78 16 127/64 (85) 96 98.8 06/20/18 07:20 85 27 40 06/20/18 07:00 89 23 107/90 (96) 96 06/20/18 06:00 79 20 106/44 (64) 96 06/20/18 05:00 80 22 121/80 (94) 96 06/20/18 04:43 63 20 40 06/20/18 04:00 Mechanical Ventilator 06/20/18 04:00 81 06/20/18 04:00 99.4 79 20 127/51 (76) 94 99.4 06/20/18 04:00 40 06/20/18 03:15 78 23 40 06/20/18 03:00 79 20 129/98 (108) 95 06/20/18 02:00 80 20 126/63 (84) 96 06/20/18 01:03 90 26 40 06/20/18 01:00 81 18 104/57 (73) 94 06/20/18 00:00 99.0 66 20 100/43 (62) 95 99.0 06/20/18 00:00 40 06/20/18 00:00 Mechanical Ventilator 06/20/18 00:00 67 06/19/18 23:02 87 23 40 06/19/18 23:00 79 20 119/55 (76) 94 06/19/18 22:00 81 20 109/90 (96) 94 06/19/18 21:14 86 25 40 06/19/18 21:00 82 20 124/56 (78) 95 06/19/18 20:00 40 06/19/18 20:00 99.3 83 22 127/63 (84) 94 99.3 06/19/18 20:00 Mechanical Ventilator 06/19/18 20:00 83 06/19/18 19:25 76 20 40 06/19/18 19:00 81 22 119/66 (83) 95 06/19/18 18:00 85 23 122/52 (75) 95 06/19/18 17:16 76 20 40 06/19/18 17:00 88 23 118/55 (76) 95 06/19/18 16:00 87 06/19/18 16:00 Mechanical Ventilator 06/19/18 16:00 40 06/19/18 16:00 98.7 76 17 126/69 (88) 96 98.7 06/19/18 15:25 79 30 40 06/19/18 15:00 80 23 119/62 (81) 95 06/19/18 14:15 89 31 40 06/19/18 14:02 83 40 40 06/19/18 14:00 85 23 118/55 (76) 98 06/19/18 13:37 81 34 40 06/19/18 13:30 74 21 40 06/19/18 13:00 89 23 115/60 (78) 95 06/19/18 12:00 40 06/19/18 12:00 Mechanical Ventilator 06/19/18 12:00 98.1 76 17 113/55 (74) 96 98.1 06/19/18 12:00 90 Status: awake, other - obese, on vent Condition: improving HEENT: atraumatic, normocephalic Lungs: clear Heart: HR/BP stable Abdomen: soft, non-tender, active bowel sounds Extremities: no C/C/E Micro: Microbiology Date/Time Source Procedure Growth Status 06/17/18 21:20 Blood Blood Culture - Preliminary NO GROWTH AFTER 48 HOURS Resulted 06/17/18 21:20 Blood Blood Culture - Preliminary NO GROWTH AFTER 48 HOURS Resulted 06/19/18 18:45 Indwelling Cath Urine Culture - Preliminary NO GROWTH Resulted Critical Care - Subjective ROS Limited/Unobtainable: Yes ICU Day: 7 Intubation Day: 7 Interval Events: Failed SBT yesterday Now stable on PS 10 good volumes Periods of agitation Secretions better Condition: improving IV Access: central EKG Rhythm: Sinus Rhythm FI02: 40 Vent Support Breath Rate: 20 Vent Support Mode: CPAP Vent Tidal Volume: 450 Sputum Amount: Small PEEP: 5.0 PIP: 19 Fluids: SLIV Drips: IVUH Tube Feeding Amount: 55 I&O: Intake and Output 06/19/18 06/20/18 19:00 07:00 Intake Total 1177.539 ml 1317.950 ml Output Total 1910 ml 920 ml Balance -732.461 ml 397.950 ml IV Total 517.539 ml 657.950 ml Tube Feeding 660 ml 660 ml Output Urine Total 1910 ml 920 ml # Bowel Movements 2 Subjective: RYLIE ET-Tube: 7.0 ET Position: 21 Labs: Laboratory Tests Test 06/19/18 20:32 06/19/18 21:55 06/20/18 04:00 Activated Partial Thromboplast Time 71 SEC (23-33) H 42 SEC (23-33) H Vancomycin Level Trough 31.3 ug/mL (5.0-12.0) H White Blood Count 29.6 K/UL (4.8-10.8) *H Red Blood Count 3.74 M/UL (4.20-5.40) L Hemoglobin 10.4 G/DL (12.0-16.0) L Hematocrit 32.0 % (37.0-47.0) L Mean Corpuscular Volume 86 FL (80-99) Mean Corpuscular Hemoglobin 27.8 PG (27.0-31.0) Mean Corpuscular Hemoglobin Concent 32.5 G/DL (32.0-36.0) Red Cell Distribution Width 16.1 % (11.6-14.8) H Platelet Count 353 K/UL (150-450) Mean Platelet Volume 10.5 FL (6.5-10.1) H Neutrophils (%) (Auto) % (45.0-75.0) Lymphocytes (%) (Auto) % (20.0-45.0) Monocytes (%) (Auto) % (1.0-10.0) Eosinophils (%) (Auto) % (0.0-3.0) Basophils (%) (Auto) % (0.0-2.0) Differential Total Cells Counted 100 Neutrophils % (Manual) 67 % (45-75) Lymphocytes % (Manual) 4 % (20-45) L Monocytes % (Manual) 25 % (1-10) H Eosinophils % (Manual) 2 % (0-3) Basophils % (Manual) 1 % (0-2) Band Neutrophils 1 % (0-8) Platelet Estimate Adequate Platelet Morphology Normal Clumped Platelets 2+ Anisocytosis 1+ Sodium Level 133 MMOL/L (136-145) L Potassium Level 4.0 MMOL/L (3.5-5.1) Chloride Level 97 MMOL/L (98-107) L Carbon Dioxide Level 32 MMOL/L (21-32) Anion Gap 5 mmol/L (5-15) Blood Urea Nitrogen 17 mg/dL (7-18) Creatinine 0.8 MG/DL (0.55-1.30) Estimat Glomerular Filtration Rate mL/min (>60) Glucose Level 137 MG/DL (74-106) H Calcium Level 8.2 MG/DL (8.5-10.1) L Critical Care - Objective Last 24 Hour Vital Signs Date Time Temp Pulse Resp B/P (MAP) Pulse Ox O2 Delivery O2 Flow Rate FiO2 06/22/18 20:00 40 06/22/18 20:00 98.0 87 27 155/73 (100) 98 98.0 06/22/18 20:00 Mechanical Ventilator 06/22/18 19:00 87 27 155/71 (99) 98 06/22/18 18:00 85 26 146/69 (94) 98 06/22/18 17:00 82 23 135/62 (86) 96 06/22/18 16:51 78 31 40 06/22/18 16:00 Mechanical Ventilator 06/22/18 16:00 77 06/22/18 16:00 40 06/22/18 16:00 97.8 74 25 129/66 (87) 96 97.8 06/22/18 15:48 85 24 40 06/22/18 15:00 73 19 126/65 (85) 96 06/22/18 14:00 84 22 125/80 (95) 99 06/22/18 13:22 86 27 40 06/22/18 13:00 78 22 98/84 (89) 99 06/22/18 12:00 40 06/22/18 12:00 77 06/22/18 12:00 Mechanical Ventilator 06/22/18 12:00 98.4 79 25 109/67 (81) 97 98.4 06/22/18 11:00 86 24 147/58 (87) 97 06/22/18 10:46 85 38 40 06/22/18 10:00 88 24 146/71 (96) 97 06/22/18 09:07 95 06/22/18 09:05 80 27 40 06/22/18 09:00 82 24 146/59 (88) 97 06/22/18 08:00 Mechanical Ventilator 06/22/18 08:00 40 06/22/18 08:00 77 06/22/18 08:00 98.6 86 25 126/72 (90) 97 98.6 06/22/18 07:18 76 20 40 06/22/18 07:00 78 22 134/46 (75) 97 06/22/18 06:00 90 22 137/63 (87) 97 06/22/18 05:00 98.6 93 30 127/51 (76) 83 98.6 06/22/18 05:00 91 25 40 06/22/18 04:00 87 06/22/18 04:00 90 22 130/56 (80) 06/22/18 04:00 Mechanical Ventilator 06/22/18 04:00 40 06/22/18 03:00 92 14 116/66 (83) 97 06/22/18 02:45 84 25 40 06/22/18 02:00 86 28 125/51 (75) 96 06/22/18 01:15 86 23 40 06/22/18 01:00 84 28 111/73 (86) 96 06/22/18 00:00 40 06/22/18 00:00 Mechanical Ventilator 06/22/18 00:00 87 27 101/85 (90) 95 06/22/18 00:00 85 06/21/18 23:08 85 23 40 06/21/18 23:00 88 24 149/63 (91) 96 06/21/18 22:00 98.5 85 26 128/66 (86) 97 98.5 Micro: Microbiology Date/Time Source Procedure Growth Status 06/20/18 22:00 Blood Blood Culture - Preliminary NO GROWTH AFTER 24 HOURS Resulted 06/20/18 22:00 Blood Blood Culture - Preliminary NO GROWTH AFTER 24 HOURS Resulted 06/20/18 22:00 Urine,Clean Catch Urine Culture - Preliminary NO GROWTH AFTER 24 HOURS Resulted Critical Care - Subjective ROS Limited/Unobtainable: No FI02: 40 Vent Support Breath Rate: 20 Vent Support Mode: AC Vent Tidal Volume: 450 Sputum Amount: Small PEEP: 5.0 PIP: 22 Tube Feeding Amount: 55 I&O: Intake and Output 06/21/18 06/22/18 19:00 07:00 Intake Total 1643.695 ml 1459.235 ml Output Total 1535 ml 1220 ml Balance 108.695 ml 239.235 ml Free Water 50 ml IV Total 858.695 ml 799.235 ml Tube Feeding 385 ml 660 ml Other 350 ml Output Urine Total 1535 ml 1220 ml # Bowel Movements 2 4 ET-Tube: 7.0 ET Position: 21 Umang Boothe MD Jun 22, 2018 21:13
[2018-06-22] MEDS ORDERED: Heparin 5000 units/ml inj IV SCH (21:15)
[2018-06-22] MEDS: rOPINIRole 0.25mg tab ORAL SCH (21:21)
[2018-06-22] MEDS: Heparin 25,000u/D5W 500ml 500 ML IV SCH (21:23)
[2018-06-23] VITALS (24 sets, daily range): BP systolic 106–147; BP diastolic 43–111
[2018-06-23 05:38] LABS: ANION GAP 5 mmol/L (5-15); BLOOD UREA NITROGEN 19 mg/dL (7-18); CARBON DIOXIDE 30 MMOL/L (21-32); CHLORIDE 100 MMOL/L (98-107); CREATININE 0.9 MG/DL (0.55-1.30); POTASSIUM 3.6 MMOL/L (3.5-5.1); SODIUM 135 MMOL/L (136-145)
[2018-06-23] MEDS: Vancomycin 1250mg/D5W 250ml IVPB SCH (08:09)
[2018-06-23] MEDS: Pantoprazole Inj IVP SCH (08:10)
[2018-06-23] MEDS: Heparin 25,000u/D5W 500ml 500 ML IV SCH (11:46)
--- NOTE | 2018-06-23 14:52 | Infectious Diseases Prog Note ---
Assessment/Plan Assessment/Plan ASSESSMENT AND PLAN: 1. 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 head esthetician bacteremia, line new, fevers, ? pna, pseudomonas/ enterococcus uti, PE, ? reactive leukocytosis - vancomycin, ciprofloxacin and flagyl - day # 7 antibiotics - day # 3 diflucan for possible fungemia - leukocytosis improved, patient more alert - CT abdomen and pelvis - no abscess or obvious infection - f/u labs and cultures - monitor chest x-ray - icu, supportive care - d/w RN - doubt endocarditis, echo without vegetation mentioned - surveillance blood cultures negative 2. Pulmonary fibrosis. 3. Respiratory failure, on vent. 4. Intensive care unit. 5. History of spinal surgery. 6. Cervical and lumbar spine disc disease. 7. History of prednisone use in the past. 8. History of hypertension per the records. 9. Questionable history of cerebrovascular accident per the records. 10. Past medical history is noted. 11. Allergies to acetaminophen, codeine, hydrocodone, and penicillins and other medication is chlorpheniramine. 12. Family history is noncontributory. 13. Social history is negative. 14. MAR was noted. 15. Case was discussed with RN. 16. ICU care. 17. Continue treatment per primary consultants. Subjective Constitutional: Reports: fatigue, other - on vent, more alert and responsive ; Denies: fever HEENT: Reports: congestion Respiratory: Reports: shortness of breath Cardiovascular: Denies: chest pain Gastrointestinal/Abdominal: Denies: nausea, vomiting, diarrhea Genitourinary: Reports: other - + wilson Neurologic: Denies: headache Psychiatric: Denies: depression Skin: Denies: rash Hematologic: Denies: bleeding Musculoskeletal: Denies: pain Allergies: Coded Allergies: ACETAMINOPHEN (Verified Allergy, Unknown, 06/14/18) CHLORPHENIRAMINE (Verified Allergy, Unknown, 06/14/18) CODEINE (Verified Allergy, Unknown, 06/14/18) HYDROCODONE (Verified Allergy, Unknown, 06/14/18) PENICILLINS (Verified Allergy, Unknown, 06/14/18) Objective Vital Signs Last 24 Hour Vital Signs Date Time Temp Pulse Resp B/P (MAP) Pulse Ox O2 Delivery O2 Flow Rate FiO2 06/23/18 14:00 61 27 110/43 (65) 98 06/23/18 13:00 76 27 111/65 (80) 98 06/23/18 12:50 72 23 40 06/23/18 12:00 40 06/23/18 12:00 86 06/23/18 12:00 98.6 70 22 117/46 (69) 97 98.6 06/23/18 12:00 Mechanical Ventilator 06/23/18 11:00 81 24 122/66 (84) 98 06/23/18 10:22 98 06/23/18 10:22 73 21 40 06/23/18 10:00 77 20 126/54 (78) 93 06/23/18 09:00 87 20 127/45 (72) 95 06/23/18 08:50 80 24 40 06/23/18 08:00 Mechanical Ventilator 06/23/18 08:00 40 06/23/18 08:00 99.4 78 24 145/72 (96) 96 99.4 06/23/18 08:00 81 06/23/18 07:05 85 28 40 06/23/18 07:00 82 20 120/91 (101) 95 06/23/18 06:00 99.2 78 23 130/80 (97) 95 99.2 06/23/18 05:00 81 20 127/108 (114) 95 06/23/18 04:51 76 25 40 06/23/18 04:00 40 06/23/18 04:00 86 06/23/18 04:00 81 22 145/63 (90) 95 06/23/18 04:00 Mechanical Ventilator 06/23/18 03:00 81 23 144/87 (106) 93 06/23/18 02:50 82 28 40 06/23/18 02:00 81 25 145/66 (92) 96 06/23/18 01:01 87 30 40 06/23/18 01:00 83 20 131/70 (90) 96 06/23/18 00:00 Mechanical Ventilator 06/23/18 00:00 98.0 83 22 139/111 (120) 96 98.0 06/23/18 00:00 85 06/23/18 00:00 40 06/22/18 23:00 87 17 128/107 (114) 90 06/22/18 22:56 86 28 40 06/22/18 22:00 85 25 118/69 (85) 95 06/22/18 21:00 85 20 156/65 (95) 99 06/22/18 20:54 85 33 40 06/22/18 20:00 40 06/22/18 20:00 76 06/22/18 20:00 98.0 87 27 155/73 (100) 98 98.0 06/22/18 20:00 Mechanical Ventilator 06/22/18 19:15 79 30 40 06/22/18 19:00 87 27 155/71 (99) 98 06/22/18 18:00 85 26 146/69 (94) 98 06/22/18 17:00 82 23 135/62 (86) 96 06/22/18 16:51 78 31 40 06/22/18 16:00 Mechanical Ventilator 06/22/18 16:00 77 06/22/18 16:00 40 06/22/18 16:00 97.8 74 25 129/66 (87) 96 97.8 06/22/18 15:48 85 24 40 06/22/18 15:00 73 19 126/65 (85) 96 Height (Feet): 5 Height (Inches): 5.00 Weight (Pounds): 192 General Appearance: other - on vent but more alert and responsive HEENT: normocephalic, atraumatic, anicteric, EOMI, no JVD Respiratory/Chest: crackles/rales, rhonchi - bilaterally Cardiovascular: normal rate, regular rhythm, no gallop/murmur Abdomen: normal bowel sounds, soft, non tender, no organomegaly, non distended Genitourinary: other - + wilson - urine clear Extremities: no cyanosis Skin: no rash Neurologic/Psychiatric: partner 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 Equivocal right ventricular dilatation in the setting of generalized cardiomegaly could indicate right heart strain although this is uncertain Extensive left lung volume loss and possible consolidation Nonspecific bilateral interstitial septal thickening Right jugular venous catheter and endotracheal tube in good position Multiple vertebral body compression fractures. Age indeterminate 8 millimeter left adrenal adenoma Chest x-ray - 06/19 - Findings: Stable satisfactory positions of endotracheal and nasogastric tubes. Right jugular central venous catheter remains in stable satisfactory position. Linear opacities at the left lung base are stable. No definite infiltrates or congestion. Blunting of left costophrenic sulcus is stable, could indicate a small pleural effusion. Degenerative changes of both shoulders again noted. Impression: Unchanged, over one day, findings as above. CT - abdomen and pelvis: IMPRESSION: Extensive diverticulosis of the colon. No definite acute diverticulitis appreciated. Multiple bilateral renal cysts. Atherosclerotic vascular disease Left basilar atelectasis versus scarring. Small umbilical hernia containing fat Wilson catheter in good position. NG tube in good position Old L2 vertebral fracture. Generalized spondylosis and osteopenia. Chest -x -ray - Findings: Interstitial prominence again demonstrated. Cardiomegaly is again demonstrated unchanged. Tubes and lines are stable. IMPRESSION: No change from the prior exam. No acute findings Microbiology Date/Time Source Procedure Growth Status 06/20/18 22:00 Blood Blood Culture - Preliminary NO GROWTH AFTER 48 HOURS Resulted 06/16/18 15:10 Sputum Induced Gram Stain - Final Complete 06/16/18 15:10 Sputum Induced Sputum Culture - Final NORMAL UPPER RESPIRATORY SOO PRESENT Complete 06/20/18 22:00 Urine,Clean Catch Urine Culture - Final NO GROWTH AFTER 48 HOURS Complete 06/14/18 21:00 Rectum VRE Culture - Final NO VANCOMYCIN RESISTANT ENTEROCOCCUS ... Complete 06/14/18 21:00 Rectum - Final NO CARBAPENEM-RESISTANT ENTEROBACTERI... Complete Microbiology Date/Time Source Procedure Growth Status 06/20/18 22:00 Blood Blood Culture - Preliminary NO GROWTH AFTER 48 HOURS Resulted 06/20/18 22:00 Blood Blood Culture - Preliminary NO GROWTH AFTER 48 HOURS Resulted 06/20/18 22:00 Urine,Clean Catch Urine Culture - Final NO GROWTH AFTER 48 HOURS Complete Labs Test 06/20/18 21:00 06/20/18 22:00 06/21/18 04:02 06/21/18 08:10 Activated Partial Thromboplast Time 107 SEC (23-33) 106 SEC (23-33) Urine Color Pale yellow Urine Appearance Slightly cloudy Urine pH 6.5 (4.5-8.0) Urine Specific [place] 1.005 (1.005-1.035) Urine Protein 1+ (NEGATIVE) Urine Glucose (UA) Negative (NEGATIVE) Urine Ketones Negative (NEGATIVE) Urine Blood 1+ (NEGATIVE) Urine Nitrite Negative (NEGATIVE) Urine Bilirubin Negative (NEGATIVE) Urine Urobilinogen Normal MG/DL (0.0-1.0) Urine Leukocyte Esterase 1+ (NEGATIVE) Urine RBC 0-2 /HPF (0 - 2) Urine WBC 2-4 /HPF (0 - 2) Urine Squamous Epithelial Cells Few /LPF (NONE/OCC) Urine Bacteria Few /HPF (NONE) Urine Yeast Few /HPF (NONE) White Blood Count 26.9 K/UL (4.8-10.8) Red Blood Count 3.96 M/UL (4.20-5.40) Hemoglobin 10.9 G/DL (12.0-16.0) Hematocrit 33.5 % (37.0-47.0) Mean Corpuscular Volume 85 FL (80-99) Mean Corpuscular Hemoglobin 27.5 PG (27.0-31.0) Mean Corpuscular Hemoglobin Concent 32.6 G/DL (32.0-36.0) Red Cell Distribution Width 15.7 % (11.6-14.8) Platelet Count 452 K/UL (150-450) Mean Platelet Volume 10.1 FL (6.5-10.1) Neutrophils (%) (Auto) % (45.0-75.0) Lymphocytes (%) (Auto) % (20.0-45.0) Monocytes (%) (Auto) % (1.0-10.0) Eosinophils (%) (Auto) % (0.0-3.0) Basophils (%) (Auto) % (0.0-2.0) Differential Total Cells Counted 100 Neutrophils % (Manual) 58 % (45-75) Lymphocytes % (Manual) 6 % (20-45) Monocytes % (Manual) 33 % (1-10) Eosinophils % (Manual) 3 % (0-3) Basophils % (Manual) 0 % (0-2) Band Neutrophils 0 % (0-8) Platelet Estimate Adequate Platelet Morphology Normal Hypochromasia 1+ Anisocytosis 1+ Sodium Level 133 MMOL/L (136-145) Potassium Level 3.7 MMOL/L (3.5-5.1) Chloride Level 95 MMOL/L (98-107) Carbon Dioxide Level 33 MMOL/L (21-32) Anion Gap 6 mmol/L (5-15) Blood Urea Nitrogen 17 mg/dL (7-18) Creatinine 0.8 MG/DL (0.55-1.30) Estimat Glomerular Filtration Rate mL/min (>60) Glucose Level 119 MG/DL (74-106) Calcium Level 8.4 MG/DL (8.5-10.1) Total Bilirubin 0.3 MG/DL (0.2-1.0) Aspartate Amino Transf (AST/SGOT) 18 U/L (15-37) Alanine Aminotransferase (ALT/SGPT) 31 U/L (12-78) Alkaline Phosphatase 90 U/L (46-116) Total Protein 6.2 G/DL (6.4-8.2) Albumin 2.5 G/DL (3.4-5.0) Globulin 3.7 g/dL Albumin/Globulin Ratio 0.7 (1.0-2.7) Vancomycin Level Trough 14.8 ug/mL (5.0-12.0) Test 06/21/18 13:00 06/21/18 20:04 06/22/18 03:30 06/22/18 12:10 Activated Partial Thromboplast Time 59 SEC (23-33) 127 SEC (23-33) 48 SEC (23-33) > 150 SEC (23-33) White Blood Count 23.1 K/UL (4.8-10.8) Red Blood Count 3.90 M/UL (4.20-5.40) Hemoglobin 10.5 G/DL (12.0-16.0) Hematocrit 32.7 % (37.0-47.0) Mean Corpuscular Volume 84 FL (80-99) Mean Corpuscular Hemoglobin 27.0 PG (27.0-31.0) Mean Corpuscular Hemoglobin Concent 32.2 G/DL (32.0-36.0) Red Cell Distribution Width 15.3 % (11.6-14.8) Platelet Count 474 K/UL (150-450) Mean Platelet Volume 9.8 FL (6.5-10.1) Neutrophils (%) (Auto) % (45.0-75.0) Lymphocytes (%) (Auto) % (20.0-45.0) Monocytes (%) (Auto) % (1.0-10.0) Eosinophils (%) (Auto) % (0.0-3.0) Basophils (%) (Auto) % (0.0-2.0) Differential Total Cells Counted 100 Neutrophils % (Manual) 61 % (45-75) Lymphocytes % (Manual) 7 % (20-45) Monocytes % (Manual) 31 % (1-10) Eosinophils % (Manual) 0 % (0-3) Basophils % (Manual) 1 % (0-2) Band Neutrophils 0 % (0-8) Platelet Estimate Increased Platelet Morphology See comment Giant Platelets 3+ Polychromasia Occasional Anisocytosis 2+ Sodium Level 135 MMOL/L (136-145) Potassium Level 3.8 MMOL/L (3.5-5.1) Chloride Level 99 MMOL/L (98-107) Carbon Dioxide Level 32 MMOL/L (21-32) Anion Gap 4 mmol/L (5-15) Blood Urea Nitrogen 17 mg/dL (7-18) Creatinine 1.0 MG/DL (0.55-1.30) Estimat Glomerular Filtration Rate mL/min (>60) Glucose Level 145 MG/DL (74-106) Calcium Level 8.4 MG/DL (8.5-10.1) Test 06/22/18 20:20 06/23/18 03:50 06/23/18 07:45 Activated Partial Thromboplast Time 57 SEC (23-33) 91 SEC (23-33) Sodium Level 135 MMOL/L (136-145) Potassium Level 3.6 MMOL/L (3.5-5.1) Chloride Level 100 MMOL/L (98-107) Carbon Dioxide Level 30 MMOL/L (21-32) Anion Gap 5 mmol/L (5-15) Blood Urea Nitrogen 19 mg/dL (7-18) Creatinine 0.9 MG/DL (0.55-1.30) Estimat Glomerular Filtration Rate mL/min (>60) Glucose Level 141 MG/DL (74-106) Calcium Level 8.0 MG/DL (8.5-10.1) Vancomycin Level Trough 12.2 ug/mL (5.0-12.0) Laboratory Tests Test 06/22/18 20:20 06/23/18 03:50 06/23/18 07:45 Activated Partial Thromboplast Time 57 SEC (23-33) H 91 SEC (23-33) H Sodium Level 135 MMOL/L (136-145) L Potassium Level 3.6 MMOL/L (3.5-5.1) Chloride Level 100 MMOL/L (98-107) Carbon Dioxide Level 30 MMOL/L (21-32) Anion Gap 5 mmol/L (5-15) Blood Urea Nitrogen 19 mg/dL (7-18) H Creatinine 0.9 MG/DL (0.55-1.30) Estimat Glomerular Filtration Rate mL/min (>60) Glucose Level 141 MG/DL (74-106) H Calcium Level 8.0 MG/DL (8.5-10.1) L Vancomycin Level Trough 12.2 ug/mL (5.0-12.0) H Current Medications Medications (Trade) Dose Ordered Sig/Missy Route PRN Reason Start Time Stop Time Status Last Admin Dose Admin Acetaminophen (Tylenol) 650 mg Q4H PRN ORAL Mild Pain (Pain Scale 1-3) 06/14/18 23:15 07/14/18 23:14 06/21/18 13:26 Chlorhexidine Gluconate (Maria Elena-Hex 2%) 1 applic DAILY@2000 TOPIC 06/16/18 20:00 07/16/18 19:59 06/22/18 20:03 Ciprofloxacin 200 ml @ 200 mls/hr Q12HR IV 06/18/18 21:00 06/25/18 20:59 06/23/18 08:09 Dextrose (Dextrose 50%) 25 ml Q30M PRN IV Hypoglycemia 06/14/18 23:15 07/14/18 23:14 Dextrose (Dextrose 50%) 50 ml Q30M PRN IV Hypoglycemia 06/14/18 23:15 07/14/18 23:14 Fluconazole/ Sodium Chloride 100 ml @ 100 mls/hr Q24H IV 06/21/18 18:00 06/28/18 17:59 06/22/18 18:04 Heparin Sodium/ Dextrose 500 ml @ 27.442 mls/ hr ADJUST PER PROTOCOL IV 06/22/18 21:15 07/22/18 21:14 06/23/18 11:46 Metronidazole 100 ml @ 100 mls/hr Q8HR IVPB 06/21/18 22:00 06/28/18 21:59 06/23/18 14:09 Ondansetron HCl (Zofran) 4 mg Q4H PRN IVP Nausea & Vomiting 06/16/18 17:45 07/16/18 17:44 06/18/18 09:57 Pantoprazole (Protonix) 40 mg DAILY IVP 06/16/18 21:00 07/17/18 08:59 06/23/18 08:10 Ropinirole HCl (Requip) 0.25 mg BEDTIME ORAL 06/21/18 21:00 07/21/18 20:59 06/22/18 21:21 Vancomycin HCl (Vanco rx to dose) 1 ea DAILY PRN MISC Per rx protocol 06/16/18 07:45 07/16/18 07:44 Vancomycin HCl/ Dextrose 250 ml @ 125 mls/hr Q24H IVPB 06/24/18 06:00 06/29/18 05:59 Artur Rodriguez MD Jun 23, 2018 14:52
--- NOTE | 2018-06-23 14:55 | General Progress Note ---
Assessment/Plan Problem List: (1) Pulmonary embolism ICD Codes: I26.99 - Other pulmonary embolism without acute cor pulmonale SNOMED: 30491621 (2) Pulmonary fibrosis, unspecified ICD Codes: J84.10 - Pulmonary fibrosis, unspecified SNOMED: 71568613 (3) Acute respiratory failure with hypoxemia ICD Codes: J96.01 - Acute respiratory failure with hypoxia SNOMED: 388368790 Assessment/Plan abxs would wean as tolerated follow labs Discussed with RN Subjective Allergies: Coded Allergies: ACETAMINOPHEN (Verified Allergy, Unknown, 06/14/18) CHLORPHENIRAMINE (Verified Allergy, Unknown, 06/14/18) CODEINE (Verified Allergy, Unknown, 06/14/18) HYDROCODONE (Verified Allergy, Unknown, 06/14/18) PENICILLINS (Verified Allergy, Unknown, 06/14/18) Subjective Intubated Objective Last 24 Hour Vital Signs Date Time Temp Pulse Resp B/P (MAP) Pulse Ox O2 Delivery O2 Flow Rate FiO2 06/23/18 14:00 61 27 110/43 (65) 98 06/23/18 13:00 76 27 111/65 (80) 98 06/23/18 12:50 72 23 40 06/23/18 12:00 40 06/23/18 12:00 86 06/23/18 12:00 98.6 70 22 117/46 (69) 97 98.6 06/23/18 12:00 Mechanical Ventilator 06/23/18 11:00 81 24 122/66 (84) 98 06/23/18 10:22 98 06/23/18 10:22 73 21 40 06/23/18 10:00 77 20 126/54 (78) 93 06/23/18 09:00 87 20 127/45 (72) 95 06/23/18 08:50 80 24 40 06/23/18 08:00 Mechanical Ventilator 06/23/18 08:00 40 06/23/18 08:00 99.4 78 24 145/72 (96) 96 99.4 06/23/18 08:00 81 06/23/18 07:05 85 28 40 06/23/18 07:00 82 20 120/91 (101) 95 06/23/18 06:00 99.2 78 23 130/80 (97) 95 99.2 06/23/18 05:00 81 20 127/108 (114) 95 06/23/18 04:51 76 25 40 06/23/18 04:00 40 06/23/18 04:00 86 06/23/18 04:00 81 22 145/63 (90) 95 06/23/18 04:00 Mechanical Ventilator 06/23/18 03:00 81 23 144/87 (106) 93 06/23/18 02:50 82 28 40 06/23/18 02:00 81 25 145/66 (92) 96 06/23/18 01:01 87 30 40 06/23/18 01:00 83 20 131/70 (90) 96 06/23/18 00:00 Mechanical Ventilator 06/23/18 00:00 98.0 83 22 139/111 (120) 96 98.0 06/23/18 00:00 85 06/23/18 00:00 40 06/22/18 23:00 87 17 128/107 (114) 90 06/22/18 22:56 86 28 40 06/22/18 22:00 85 25 118/69 (85) 95 06/22/18 21:00 85 20 156/65 (95) 99 06/22/18 20:54 85 33 40 06/22/18 20:00 40 06/22/18 20:00 76 06/22/18 20:00 98.0 87 27 155/73 (100) 98 98.0 06/22/18 20:00 Mechanical Ventilator 06/22/18 19:15 79 30 40 06/22/18 19:00 87 27 155/71 (99) 98 06/22/18 18:00 85 26 146/69 (94) 98 06/22/18 17:00 82 23 135/62 (86) 96 06/22/18 16:51 78 31 40 06/22/18 16:00 Mechanical Ventilator 06/22/18 16:00 77 06/22/18 16:00 40 06/22/18 16:00 97.8 74 25 129/66 (87) 96 97.8 06/22/18 15:48 85 24 40 06/22/18 15:00 73 19 126/65 (85) 96 Intake and Output 06/22/18 06/23/18 19:00 07:00 Intake Total 1321.546 ml 1325.273 ml Output Total 1100 ml 1020 ml Balance 221.546 ml 305.273 ml IV Total 881.546 ml 665.273 ml Tube Feeding 440 ml 660 ml Output Urine Total 1100 ml 1020 ml # Bowel Movements 4 3 Laboratory Tests 06/22/18 20:20: Activated Partial Thromboplast Time 57H 06/23/18 03:50: Activated Partial Thromboplast Time 91H, Sodium Level 135L, Potassium Level 3.6 , Chloride Level 100, Carbon Dioxide Level 30, Anion Gap 5, Blood Urea Nitrogen 19H, Creatinine 0.9, Estimat Glomerular Filtration Rate , Glucose Level 141H, Calcium Level 8.0L 06/23/18 07:45: Vancomycin Level Trough 12.2H Height (Feet): 5 Height (Inches): 5.00 Weight (Pounds): 192 Cardiovascular: normal rate Respiratory/Chest: rhonchi - bilaterally Edema: no edema noted Generalized Cristobal Humphrey MD Jun 23, 2018 14:55
[2018-06-23] MEDS ORDERED: 1/2 NS 1000ml IV ONE (15:11)
[2018-06-23] MEDS ORDERED: Sterile Water For Irrig 2000ml IRRIG ONE (15:11)
[2018-06-23] MEDS ORDERED: Tubing IV Secondary IV ONE (15:11)
[2018-06-23] MEDS ORDERED: NS 275ml ONE (15:11)
--- NOTE | 2018-06-23 15:50 | Pulmonolgy Critical Care Note ---
Critical Care - Asmt/Plan Assessment/Plan: Critical Care - Asmt/Plan Problems: (1) Acute respiratory failure with hypoxemia (2) Pulmonary embolism (3) Respiratory distress (4) Pulmonary fibrosis, unspecified Assessment/Plan: Assessment/Plan Assessment: 83 y/o female w/ pulmonary fibrosis, cervical spinal stenosis with compression fractures and hx of fusion admitted with acute on chronic hypoxemic respiratory failure and acute hypercapnic respiratory failure due to large R- sided pulmonary embolism. Noted leukocytosis and potential consolidation on CT but may be difficult to ascertain from her pulmonary fibrosis. No fevers. Will need respiratory support and close monitoring of hemodynamics and low threshold to treat with antibiotics. Did not tolerate SIMV wean today, CXR noted Problem List: 1. Acute on chronic hypoxemic and acute hypercapnic respiratory failure 2. Large R-sided pulmonary emboli & R fem DVT 3. Potential consolidation LLL 4. Leukocytosis 5. Idiopathic pulmonary fibrosis 6. Hyperkalemia 7. Cervical spinal stenosis with compression fractures 8. bacteremia Plan: -Decrease PS to 8, if tolerating may extubate in 30 min -Titrate down FiO2 and PEEP as able -Heparin gtt for now, monitor hemodynamics, monitor for bleeding -Monitor leukocytosis -Abx per ID, F/U Cx's -Monitor volumes, SLIV, lasix 40 IV x 1 again today -Hold TF's for SBT, will resume if not extubate -DNAR CC Time: 35 minutes Critical Care - Objective Last 24 Hour Vital Signs Date Time Temp Pulse Resp B/P (MAP) Pulse Ox O2 Delivery O2 Flow Rate FiO2 06/20/18 11:11 82 40 40 06/20/18 11:09 78 27 40 06/20/18 09:20 91 24 40 06/20/18 08:00 Mechanical Ventilator 06/20/18 08:00 40 06/20/18 08:00 89 06/20/18 08:00 98.8 78 16 127/64 (85) 96 98.8 06/20/18 07:20 85 27 40 06/20/18 07:00 89 23 107/90 (96) 96 06/20/18 06:00 79 20 106/44 (64) 96 06/20/18 05:00 80 22 121/80 (94) 96 06/20/18 04:43 63 20 40 06/20/18 04:00 Mechanical Ventilator 06/20/18 04:00 81 06/20/18 04:00 99.4 79 20 127/51 (76) 94 99.4 06/20/18 04:00 40 06/20/18 03:15 78 23 40 06/20/18 03:00 79 20 129/98 (108) 95 06/20/18 02:00 80 20 126/63 (84) 96 06/20/18 01:03 90 26 40 06/20/18 01:00 81 18 104/57 (73) 94 06/20/18 00:00 99.0 66 20 100/43 (62) 95 99.0 06/20/18 00:00 40 06/20/18 00:00 Mechanical Ventilator 06/20/18 00:00 67 06/19/18 23:02 87 23 40 06/19/18 23:00 79 20 119/55 (76) 94 06/19/18 22:00 81 20 109/90 (96) 94 06/19/18 21:14 86 25 40 06/19/18 21:00 82 20 124/56 (78) 95 06/19/18 20:00 40 06/19/18 20:00 99.3 83 22 127/63 (84) 94 99.3 06/19/18 20:00 Mechanical Ventilator 06/19/18 20:00 83 06/19/18 19:25 76 20 40 06/19/18 19:00 81 22 119/66 (83) 95 06/19/18 18:00 85 23 122/52 (75) 95 06/19/18 17:16 76 20 40 06/19/18 17:00 88 23 118/55 (76) 95 06/19/18 16:00 87 06/19/18 16:00 Mechanical Ventilator 06/19/18 16:00 40 06/19/18 16:00 98.7 76 17 126/69 (88) 96 98.7 06/19/18 15:25 79 30 40 06/19/18 15:00 80 23 119/62 (81) 95 06/19/18 14:15 89 31 40 06/19/18 14:02 83 40 40 06/19/18 14:00 85 23 118/55 (76) 98 06/19/18 13:37 81 34 40 06/19/18 13:30 74 21 40 06/19/18 13:00 89 23 115/60 (78) 95 06/19/18 12:00 40 06/19/18 12:00 Mechanical Ventilator 06/19/18 12:00 98.1 76 17 113/55 (74) 96 98.1 06/19/18 12:00 90 Status: awake, other - obese, on vent Condition: improving HEENT: atraumatic, normocephalic Lungs: clear Heart: HR/BP stable Abdomen: soft, non-tender, active bowel sounds Extremities: no C/C/E Micro: Microbiology Date/Time Source Procedure Growth Status 06/17/18 21:20 Blood Blood Culture - Preliminary NO GROWTH AFTER 48 HOURS Resulted 06/17/18 21:20 Blood Blood Culture - Preliminary NO GROWTH AFTER 48 HOURS Resulted 06/19/18 18:45 Indwelling Cath Urine Culture - Preliminary NO GROWTH Resulted Critical Care - Subjective ROS Limited/Unobtainable: Yes ICU Day: 7 Intubation Day: 7 Interval Events: Failed SBT yesterday Now stable on PS 10 good volumes Periods of agitation Secretions better Condition: improving IV Access: central EKG Rhythm: Sinus Rhythm FI02: 40 Vent Support Breath Rate: 20 Vent Support Mode: CPAP Vent Tidal Volume: 450 Sputum Amount: Small PEEP: 5.0 PIP: 19 Fluids: SLIV Drips: IVUH Tube Feeding Amount: 55 I&O: Intake and Output 06/19/18 06/20/18 19:00 07:00 Intake Total 1177.539 ml 1317.950 ml Output Total 1910 ml 920 ml Balance -732.461 ml 397.950 ml IV Total 517.539 ml 657.950 ml Tube Feeding 660 ml 660 ml Output Urine Total 1910 ml 920 ml # Bowel Movements 2 Subjective: RYLIE ET-Tube: 7.0 ET Position: 21 Labs: Laboratory Tests Test 06/19/18 20:32 06/19/18 21:55 06/20/18 04:00 Activated Partial Thromboplast Time 71 SEC (23-33) H 42 SEC (23-33) H Vancomycin Level Trough 31.3 ug/mL (5.0-12.0) H White Blood Count 29.6 K/UL (4.8-10.8) *H Red Blood Count 3.74 M/UL (4.20-5.40) L Hemoglobin 10.4 G/DL (12.0-16.0) L Hematocrit 32.0 % (37.0-47.0) L Mean Corpuscular Volume 86 FL (80-99) Mean Corpuscular Hemoglobin 27.8 PG (27.0-31.0) Mean Corpuscular Hemoglobin Concent 32.5 G/DL (32.0-36.0) Red Cell Distribution Width 16.1 % (11.6-14.8) H Platelet Count 353 K/UL (150-450) Mean Platelet Volume 10.5 FL (6.5-10.1) H Neutrophils (%) (Auto) % (45.0-75.0) Lymphocytes (%) (Auto) % (20.0-45.0) Monocytes (%) (Auto) % (1.0-10.0) Eosinophils (%) (Auto) % (0.0-3.0) Basophils (%) (Auto) % (0.0-2.0) Differential Total Cells Counted 100 Neutrophils % (Manual) 67 % (45-75) Lymphocytes % (Manual) 4 % (20-45) L Monocytes % (Manual) 25 % (1-10) H Eosinophils % (Manual) 2 % (0-3) Basophils % (Manual) 1 % (0-2) Band Neutrophils 1 % (0-8) Platelet Estimate Adequate Platelet Morphology Normal Clumped Platelets 2+ Anisocytosis 1+ Sodium Level 133 MMOL/L (136-145) L Potassium Level 4.0 MMOL/L (3.5-5.1) Chloride Level 97 MMOL/L (98-107) L Carbon Dioxide Level 32 MMOL/L (21-32) Anion Gap 5 mmol/L (5-15) Blood Urea Nitrogen 17 mg/dL (7-18) Creatinine 0.8 MG/DL (0.55-1.30) Estimat Glomerular Filtration Rate mL/min (>60) Glucose Level 137 MG/DL (74-106) H Calcium Level 8.2 MG/DL (8.5-10.1) L Critical Care - Objective Last 24 Hour Vital Signs Date Time Temp Pulse Resp B/P (MAP) Pulse Ox O2 Delivery O2 Flow Rate FiO2 06/23/18 15:24 75 25 40 06/23/18 15:00 75 28 134/58 (83) 96 06/23/18 14:00 61 27 110/43 (65) 98 06/23/18 13:00 76 27 111/65 (80) 98 06/23/18 12:50 72 23 40 06/23/18 12:00 40 06/23/18 12:00 86 06/23/18 12:00 98.6 70 22 117/46 (69) 97 98.6 06/23/18 12:00 Mechanical Ventilator 06/23/18 11:00 81 24 122/66 (84) 98 06/23/18 10:22 98 06/23/18 10:22 73 21 40 06/23/18 10:00 77 20 126/54 (78) 93 06/23/18 09:00 87 20 127/45 (72) 95 06/23/18 08:50 80 24 40 06/23/18 08:00 Mechanical Ventilator 06/23/18 08:00 40 06/23/18 08:00 99.4 78 24 145/72 (96) 96 99.4 06/23/18 08:00 81 06/23/18 07:05 85 28 40 06/23/18 07:00 82 20 120/91 (101) 95 06/23/18 06:00 99.2 78 23 130/80 (97) 95 99.2 06/23/18 05:00 81 20 127/108 (114) 95 06/23/18 04:51 76 25 40 06/23/18 04:00 40 06/23/18 04:00 86 06/23/18 04:00 81 22 145/63 (90) 95 06/23/18 04:00 Mechanical Ventilator 06/23/18 03:00 81 23 144/87 (106) 93 06/23/18 02:50 82 28 40 06/23/18 02:00 81 25 145/66 (92) 96 06/23/18 01:01 87 30 40 06/23/18 01:00 83 20 131/70 (90) 96 06/23/18 00:00 Mechanical Ventilator 06/23/18 00:00 98.0 83 22 139/111 (120) 96 98.0 06/23/18 00:00 85 06/23/18 00:00 40 06/22/18 23:00 87 17 128/107 (114) 90 06/22/18 22:56 86 28 40 06/22/18 22:00 85 25 118/69 (85) 95 06/22/18 21:00 85 20 156/65 (95) 99 06/22/18 20:54 85 33 40 06/22/18 20:00 40 06/22/18 20:00 76 06/22/18 20:00 98.0 87 27 155/73 (100) 98 98.0 06/22/18 20:00 Mechanical Ventilator 06/22/18 19:15 79 30 40 06/22/18 19:00 87 27 155/71 (99) 98 06/22/18 18:00 85 26 146/69 (94) 98 06/22/18 17:00 82 23 135/62 (86) 96 06/22/18 16:51 78 31 40 06/22/18 16:00 Mechanical Ventilator 06/22/18 16:00 77 06/22/18 16:00 40 06/22/18 16:00 97.8 74 25 129/66 (87) 96 97.8 Micro: Microbiology Date/Time Source Procedure Growth Status 06/20/18 22:00 Blood Blood Culture - Preliminary NO GROWTH AFTER 48 HOURS Resulted 06/20/18 22:00 Blood Blood Culture - Preliminary NO GROWTH AFTER 48 HOURS Resulted 06/20/18 22:00 Urine,Clean Catch Urine Culture - Final NO GROWTH AFTER 48 HOURS Complete Critical Care - Subjective ROS Limited/Unobtainable: Yes FI02: 40 Vent Support Breath Rate: 12 Vent Support Mode: IMV/SIMV Vent Tidal Volume: 450 Sputum Amount: Small PEEP: 5.0 PIP: 24 Tube Feeding Amount: 55 I&O: Intake and Output 06/22/18 06/23/18 19:00 07:00 Intake Total 1321.546 ml 1325.273 ml Output Total 1100 ml 1020 ml Balance 221.546 ml 305.273 ml IV Total 881.546 ml 665.273 ml Tube Feeding 440 ml 660 ml Output Urine Total 1100 ml 1020 ml # Bowel Movements 4 3 ET-Tube: 7.0 ET Position: 21 Umang Boothe MD Jun 23, 2018 15:50
[2018-06-23] MEDS: Dyna-Hex 2% Top Sol 2oz TOPIC SCH (19:40)
[2018-06-23] MEDS: rOPINIRole 0.25mg tab ORAL SCH (21:15)
[2018-06-24] VITALS (24 sets, daily range): BP systolic 97–168; BP diastolic 47–98
[2018-06-24] MEDS: Heparin 25,000u/D5W 500ml 500 ML IV SCH (03:23)
[2018-06-24 04:43] LABS: HEMATOCRIT 29.7 % (37.0-47.0); HEMOGLOBIN 9.8 G/DL (12.0-16.0); MEAN CORPUSCULAR VOLUME 85 FL (80-99); PLATELET COUNT 447 K/UL (150-450); RED BLOOD COUNT 3.51 M/UL (4.20-5.40); RED CELL DISTRIBUTION WIDTH 16.2 % (11.6-14.8); WHITE BLOOD COUNT 18.3 K/UL (4.8-10.8)
[2018-06-24 04:57] LABS: ANION GAP 4 mmol/L (5-15); BLOOD UREA NITROGEN 20 mg/dL (7-18); CALCIUM 8.2 MG/DL (8.5-10.1); CARBON DIOXIDE 30 MMOL/L (21-32); CHLORIDE 102 MMOL/L (98-107); POTASSIUM 3.6 MMOL/L (3.5-5.1); SODIUM 136 MMOL/L (136-145)
[2018-06-24] MEDS ORDERED: Heparin 25,000u/D5W 500ml 500 ML IV SCH ×3 (05:30→23:10)
[2018-06-24] MEDS: Vancomycin 1.5 GM/D5W 250ML IVPB SCH (05:31)
[2018-06-24] MEDS: Pantoprazole Inj IVP SCH (09:12)
[2018-06-24] MEDS ORDERED: Heparin 5000 units/ml inj IV SCH (13:17)
--- NOTE | 2018-06-24 14:50 | General Progress Note ---
Assessment/Plan Problem List: (1) Pulmonary embolism ICD Codes: I26.99 - Other pulmonary embolism without acute cor pulmonale SNOMED: 52950155 (2) Pulmonary fibrosis, unspecified ICD Codes: J84.10 - Pulmonary fibrosis, unspecified SNOMED: 43525885 (3) Acute respiratory failure with hypoxemia ICD Codes: J96.01 - Acute respiratory failure with hypoxia SNOMED: 767416073 Assessment/Plan stools for c diff abxs wean as tolerated follow labs Discussed with RN Subjective Allergies: Coded Allergies: ACETAMINOPHEN (Verified Allergy, Unknown, 06/14/18) CHLORPHENIRAMINE (Verified Allergy, Unknown, 06/14/18) CODEINE (Verified Allergy, Unknown, 06/14/18) HYDROCODONE (Verified Allergy, Unknown, 06/14/18) PENICILLINS (Verified Allergy, Unknown, 06/14/18) Subjective has diarrhea Intubated Objective Last 24 Hour Vital Signs Date Time Temp Pulse Resp B/P (MAP) Pulse Ox O2 Delivery O2 Flow Rate FiO2 06/24/18 14:00 76 19 135/59 (84) 98 06/24/18 13:05 69 27 40 06/24/18 13:00 79 19 110/75 (87) 98 06/24/18 12:00 99.2 77 19 110/81 (91) 98 99.2 06/24/18 12:00 40 06/24/18 12:00 Mechanical Ventilator 06/24/18 11:15 71 26 40 06/24/18 11:00 77 19 106/77 (87) 98 06/24/18 10:00 68 19 137/62 (87) 98 06/24/18 09:10 96 06/24/18 09:10 70 28 40 06/24/18 09:00 82 19 135/90 (105) 98 06/24/18 08:00 65 06/24/18 08:00 Mechanical Ventilator 06/24/18 08:00 40 06/24/18 08:00 99.3 67 20 135/56 (82) 97 99.3 06/24/18 07:14 67 25 40 06/24/18 07:00 68 20 143/55 (84) 97 06/24/18 06:00 70 20 127/84 (98) 94 06/24/18 05:00 69 22 130/66 (87) 97 06/24/18 04:53 71 22 40 06/24/18 04:00 40 06/24/18 04:00 99.3 71 23 135/65 (88) 100 99.3 06/24/18 04:00 Mechanical Ventilator 06/24/18 03:31 69 23 40 06/24/18 03:14 70 06/24/18 03:00 69 23 139/47 (77) 97 06/24/18 02:00 69 21 142/52 (82) 95 06/24/18 01:07 77 27 40 06/24/18 01:00 73 29 97/78 (84) 95 06/24/18 00:00 Mechanical Ventilator 06/24/18 00:00 98.8 73 26 129/98 (108) 97 98.8 06/24/18 00:00 40 06/23/18 23:36 72 28 40 06/23/18 23:12 73 06/23/18 23:00 74 26 144/75 (98) 96 06/23/18 22:00 72 25 147/60 (89) 99 06/23/18 21:09 74 28 40 06/23/18 21:00 75 25 128/88 (101) 96 06/23/18 20:00 Mechanical Ventilator 06/23/18 20:00 99.6 75 25 120/66 (84) 97 99.6 06/23/18 20:00 40 06/23/18 19:20 72 06/23/18 19:09 71 28 40 06/23/18 19:00 71 25 145/58 (87) 98 06/23/18 19:00 40 06/23/18 18:00 62 27 127/58 (81) 98 06/23/18 17:40 76 34 40 06/23/18 17:00 76 27 115/55 (75) 96 06/23/18 16:00 74 06/23/18 16:00 40 06/23/18 16:00 Mechanical Ventilator 06/23/18 16:00 98.4 84 24 106/74 (85) 97 98.4 06/23/18 15:24 75 25 40 06/23/18 15:00 75 28 134/58 (83) 96 Intake and Output 06/23/18 06/24/18 19:00 07:00 Intake Total 1038.7225 ml 1572.363 ml Output Total 980 ml 815 ml Balance 58.7225 ml 757.363 ml IV Total 708.7225 ml 822.363 ml Tube Feeding 330 ml 660 ml Other 90 ml Output Urine Total 980 ml 815 ml # Bowel Movements 4 Laboratory Tests 06/24/18 04:00: White Blood Count 18.3H, Red Blood Count 3.51L, Hemoglobin 9.8L, Hematocrit 29.7L, Mean Corpuscular Volume 85, Mean Corpuscular Hemoglobin 27.9, Mean Corpuscular Hemoglobin Concent 33.0, Red Cell Distribution Width 16.2H, Platelet Count 447, Mean Platelet Volume 10.1, Neutrophils (%) (Auto) , Lymphocytes (%) (Auto) , Monocytes (%) (Auto) , Eosinophils (%) (Auto) , Basophils (%) (Auto) , Differential Total Cells Counted 100, Neutrophils % ( Manual) 52, Lymphocytes % (Manual) 14L, Monocytes % (Manual) 31H, Eosinophils % (Manual) 1, Basophils % (Manual) 0, Band Neutrophils 2, Platelet Estimate Adequate, Platelet Morphology , Giant Platelets Occasional, Hypochromasia 1+, Anisocytosis 2+, Activated Partial Thromboplast Time 98H, Sodium Level 136, Potassium Level 3.6, Chloride Level 102, Carbon Dioxide Level 30, Anion Gap 4L, Blood Urea Nitrogen 20H, Creatinine 1.0, Estimat Glomerular Filtration Rate , Glucose Level 132H, Calcium Level 8.2L 06/24/18 12:00: Activated Partial Thromboplast Time 39H Height (Feet): 5 Height (Inches): 5.00 Weight (Pounds): 198 Cardiovascular: normal rate Respiratory/Chest: rhonchi - bilaterally Edema: no edema noted Generalized Cristobal Humphrey MD Jun 24, 2018 14:50
--- NOTE | 2018-06-24 15:05 | Pulmonolgy Critical Care Note ---
Critical Care - Asmt/Plan Assessment/Plan: Critical Care - Asmt/Plan Problems: (1) Acute respiratory failure with hypoxemia (2) Pulmonary embolism (3) Respiratory distress (4) Pulmonary fibrosis, unspecified Assessment/Plan Assessment: 83 y/o female w/ pulmonary fibrosis, cervical spinal stenosis with compression fractures and hx of fusion admitted with acute on chronic hypoxemic respiratory failure and acute hypercapnic respiratory failure due to large R- sided pulmonary embolism. Noted leukocytosis and potential consolidation on CT but may be difficult to ascertain from her pulmonary fibrosis. No fevers. Will need respiratory support and close monitoring of hemodynamics and low threshold to treat with antibiotics. Did not tolerate SIMV wean today, CXR noted Problem List: 1. Acute on chronic hypoxemic and acute hypercapnic respiratory failure 2. Large R-sided pulmonary emboli & R fem DVT 3. Potential consolidation LLL 4. Leukocytosis 5. Idiopathic pulmonary fibrosis 6. Hyperkalemia 7. Cervical spinal stenosis with compression fractures 8. bacteremia Plan: -Decrease PS to 8, if tolerating may extubate in 30 min -Titrate down FiO2 and PEEP as able -Heparin gtt for now, monitor hemodynamics, monitor for bleeding -Monitor leukocytosis -Abx per ID, F/U Cx's -Monitor volumes, SLIV, lasix 40 IV x 1 again today -Hold TF's for SBT, will resume if not extubate -DNAR CC Time: 35 minutes Critical Care - Objective Last 24 Hour Vital Signs Date Time Temp Pulse Resp B/P (MAP) Pulse Ox O2 Delivery O2 Flow Rate FiO2 06/20/18 11:11 82 40 40 06/20/18 11:09 78 27 40 06/20/18 09:20 91 24 40 06/20/18 08:00 Mechanical Ventilator 06/20/18 08:00 40 06/20/18 08:00 89 06/20/18 08:00 98.8 78 16 127/64 (85) 96 98.8 06/20/18 07:20 85 27 40 06/20/18 07:00 89 23 107/90 (96) 96 06/20/18 06:00 79 20 106/44 (64) 96 06/20/18 05:00 80 22 121/80 (94) 96 06/20/18 04:43 63 20 40 06/20/18 04:00 Mechanical Ventilator 06/20/18 04:00 81 06/20/18 04:00 99.4 79 20 127/51 (76) 94 99.4 06/20/18 04:00 40 06/20/18 03:15 78 23 40 06/20/18 03:00 79 20 129/98 (108) 95 06/20/18 02:00 80 20 126/63 (84) 96 06/20/18 01:03 90 26 40 06/20/18 01:00 81 18 104/57 (73) 94 06/20/18 00:00 99.0 66 20 100/43 (62) 95 99.0 06/20/18 00:00 40 06/20/18 00:00 Mechanical Ventilator 06/20/18 00:00 67 06/19/18 23:02 87 23 40 06/19/18 23:00 79 20 119/55 (76) 94 06/19/18 22:00 81 20 109/90 (96) 94 06/19/18 21:14 86 25 40 06/19/18 21:00 82 20 124/56 (78) 95 06/19/18 20:00 40 06/19/18 20:00 99.3 83 22 127/63 (84) 94 99.3 06/19/18 20:00 Mechanical Ventilator 06/19/18 20:00 83 06/19/18 19:25 76 20 40 06/19/18 19:00 81 22 119/66 (83) 95 06/19/18 18:00 85 23 122/52 (75) 95 06/19/18 17:16 76 20 40 06/19/18 17:00 88 23 118/55 (76) 95 06/19/18 16:00 87 06/19/18 16:00 Mechanical Ventilator 06/19/18 16:00 40 06/19/18 16:00 98.7 76 17 126/69 (88) 96 98.7 06/19/18 15:25 79 30 40 06/19/18 15:00 80 23 119/62 (81) 95 06/19/18 14:15 89 31 40 06/19/18 14:02 83 40 40 06/19/18 14:00 85 23 118/55 (76) 98 06/19/18 13:37 81 34 40 06/19/18 13:30 74 21 40 06/19/18 13:00 89 23 115/60 (78) 95 06/19/18 12:00 40 06/19/18 12:00 Mechanical Ventilator 06/19/18 12:00 98.1 76 17 113/55 (74) 96 98.1 06/19/18 12:00 90 Status: awake, other - obese, on vent Condition: improving HEENT: atraumatic, normocephalic Lungs: clear Heart: HR/BP stable Abdomen: soft, non-tender, active bowel sounds Extremities: no C/C/E Micro: Microbiology Date/Time Source Procedure Growth Status 06/17/18 21:20 Blood Blood Culture - Preliminary NO GROWTH AFTER 48 HOURS Resulted 06/17/18 21:20 Blood Blood Culture - Preliminary NO GROWTH AFTER 48 HOURS Resulted 06/19/18 18:45 Indwelling Cath Urine Culture - Preliminary NO GROWTH Resulted Critical Care - Subjective ROS Limited/Unobtainable: Yes ICU Day: 7 Intubation Day: 7 Interval Events: Failed SBT yesterday Now stable on PS 10 good volumes Periods of agitation Secretions better Condition: improving IV Access: central EKG Rhythm: Sinus Rhythm FI02: 40 Vent Support Breath Rate: 20 Vent Support Mode: CPAP Vent Tidal Volume: 450 Sputum Amount: Small PEEP: 5.0 PIP: 19 Fluids: SLIV Drips: IVUH Tube Feeding Amount: 55 I&O: Intake and Output 06/19/18 06/20/18 19:00 07:00 Intake Total 1177.539 ml 1317.950 ml Output Total 1910 ml 920 ml Balance -732.461 ml 397.950 ml IV Total 517.539 ml 657.950 ml Tube Feeding 660 ml 660 ml Output Urine Total 1910 ml 920 ml # Bowel Movements 2 Subjective: RYLIE ET-Tube: 7.0 ET Position: 21 Labs: Laboratory Tests Test 06/19/18 20:32 06/19/18 21:55 06/20/18 04:00 Activated Partial Thromboplast Time 71 SEC (23-33) H 42 SEC (23-33) H Vancomycin Level Trough 31.3 ug/mL (5.0-12.0) H White Blood Count 29.6 K/UL (4.8-10.8) *H Red Blood Count 3.74 M/UL (4.20-5.40) L Hemoglobin 10.4 G/DL (12.0-16.0) L Hematocrit 32.0 % (37.0-47.0) L Mean Corpuscular Volume 86 FL (80-99) Mean Corpuscular Hemoglobin 27.8 PG (27.0-31.0) Mean Corpuscular Hemoglobin Concent 32.5 G/DL (32.0-36.0) Red Cell Distribution Width 16.1 % (11.6-14.8) H Platelet Count 353 K/UL (150-450) Mean Platelet Volume 10.5 FL (6.5-10.1) H Neutrophils (%) (Auto) % (45.0-75.0) Lymphocytes (%) (Auto) % (20.0-45.0) Monocytes (%) (Auto) % (1.0-10.0) Eosinophils (%) (Auto) % (0.0-3.0) Basophils (%) (Auto) % (0.0-2.0) Differential Total Cells Counted 100 Neutrophils % (Manual) 67 % (45-75) Lymphocytes % (Manual) 4 % (20-45) L Monocytes % (Manual) 25 % (1-10) H Eosinophils % (Manual) 2 % (0-3) Basophils % (Manual) 1 % (0-2) Band Neutrophils 1 % (0-8) Platelet Estimate Adequate Platelet Morphology Normal Clumped Platelets 2+ Anisocytosis 1+ Sodium Level 133 MMOL/L (136-145) L Potassium Level 4.0 MMOL/L (3.5-5.1) Chloride Level 97 MMOL/L (98-107) L Carbon Dioxide Level 32 MMOL/L (21-32) Anion Gap 5 mmol/L (5-15) Blood Urea Nitrogen 17 mg/dL (7-18) Creatinine 0.8 MG/DL (0.55-1.30) Estimat Glomerular Filtration Rate mL/min (>60) Glucose Level 137 MG/DL (74-106) H Calcium Level 8.2 MG/DL (8.5-10.1) L Critical Care - Objective Last 24 Hour Vital Signs Date Time Temp Pulse Resp B/P (MAP) Pulse Ox O2 Delivery O2 Flow Rate FiO2 06/24/18 14:00 76 19 135/59 (84) 98 06/24/18 13:05 69 27 40 06/24/18 13:00 79 19 110/75 (87) 98 06/24/18 12:00 99.2 77 19 110/81 (91) 98 99.2 06/24/18 12:00 40 06/24/18 12:00 Mechanical Ventilator 06/24/18 11:15 71 26 40 06/24/18 11:00 77 19 106/77 (87) 98 06/24/18 10:00 68 19 137/62 (87) 98 06/24/18 09:10 96 06/24/18 09:10 70 28 40 06/24/18 09:00 82 19 135/90 (105) 98 06/24/18 08:00 65 06/24/18 08:00 Mechanical Ventilator 06/24/18 08:00 40 06/24/18 08:00 99.3 67 20 135/56 (82) 97 99.3 06/24/18 07:14 67 25 40 06/24/18 07:00 68 20 143/55 (84) 97 06/24/18 06:00 70 20 127/84 (98) 94 06/24/18 05:00 69 22 130/66 (87) 97 06/24/18 04:53 71 22 40 06/24/18 04:00 40 06/24/18 04:00 99.3 71 23 135/65 (88) 100 99.3 06/24/18 04:00 Mechanical Ventilator 06/24/18 03:31 69 23 40 06/24/18 03:14 70 06/24/18 03:00 69 23 139/47 (77) 97 06/24/18 02:00 69 21 142/52 (82) 95 06/24/18 01:07 77 27 40 06/24/18 01:00 73 29 97/78 (84) 95 06/24/18 00:00 Mechanical Ventilator 06/24/18 00:00 98.8 73 26 129/98 (108) 97 98.8 06/24/18 00:00 40 06/23/18 23:36 72 28 40 06/23/18 23:12 73 06/23/18 23:00 74 26 144/75 (98) 96 06/23/18 22:00 72 25 147/60 (89) 99 06/23/18 21:09 74 28 40 06/23/18 21:00 75 25 128/88 (101) 96 06/23/18 20:00 Mechanical Ventilator 06/23/18 20:00 99.6 75 25 120/66 (84) 97 99.6 06/23/18 20:00 40 06/23/18 19:20 72 06/23/18 19:09 71 28 40 06/23/18 19:00 71 25 145/58 (87) 98 06/23/18 19:00 40 06/23/18 18:00 62 27 127/58 (81) 98 06/23/18 17:40 76 34 40 06/23/18 17:00 76 27 115/55 (75) 96 06/23/18 16:00 74 06/23/18 16:00 40 06/23/18 16:00 Mechanical Ventilator 06/23/18 16:00 98.4 84 24 106/74 (85) 97 98.4 06/23/18 15:24 75 25 40 Critical Care - Subjective ROS Limited/Unobtainable: Yes Condition: stable FI02: 40 Vent Support Breath Rate: 20 Vent Support Mode: AC Vent Tidal Volume: 450 Sputum Amount: Small PEEP: 5.0 PIP: 26 Tube Feeding Amount: 55 I&O: Intake and Output 06/23/18 06/24/18 19:00 07:00 Intake Total 1038.7225 ml 1572.363 ml Output Total 980 ml 815 ml Balance 58.7225 ml 757.363 ml IV Total 708.7225 ml 822.363 ml Tube Feeding 330 ml 660 ml Other 90 ml Output Urine Total 980 ml 815 ml # Bowel Movements 4 ET-Tube: 7.0 ET Position: 21 Umang Boothe MD Jun 24, 2018 15:05
[2018-06-24] MEDS ORDERED: Tubing IV Secondary IV ONE ×2 (15:47→16:26)
[2018-06-24] MEDS: rOPINIRole 0.25mg tab ORAL SCH (20:10)
[2018-06-24] MEDS: Dyna-Hex 2% Top Sol 2oz TOPIC SCH (20:10)
[2018-06-25] VITALS (24 sets, daily range): BP systolic 114–162; BP diastolic 47–102
[2018-06-25] MEDS: Vancomycin 1.5 GM/D5W 250ML IVPB SCH (06:13)
[2018-06-25] MEDS ORDERED: Heparin 25,000u/D5W 500ml 500 ML IV SCH (07:15)
[2018-06-25] MEDS ORDERED: Heparin 5000 units/ml inj IV SCH (07:15)
[2018-06-25] MEDS: Pantoprazole Inj IVP SCH (09:44)
[2018-06-25] MEDS ORDERED: Tubing IV Secondary IV ONE (11:03)
[2018-06-25] MEDS ORDERED: NS 275ml ONE (11:03)
--- NOTE | 2018-06-25 13:20 | Pulmonolgy Critical Care Note ---
Critical Care - Asmt/Plan Problems: (1) Acute respiratory failure with hypoxemia (2) Pulmonary embolism (3) Respiratory distress (4) Pulmonary fibrosis, unspecified Assessment/Plan: Assessment/Plan Assessment: 83 y/o female w/ pulmonary fibrosis, cervical spinal stenosis with compression fractures and hx of fusion admitted with acute on chronic hypoxemic respiratory failure and acute hypercapnic respiratory failure due to large R- sided pulmonary embolism. Noted leukocytosis and potential consolidation on CT but may be difficult to ascertain from her pulmonary fibrosis. No fevers. Will need respiratory support and close monitoring of hemodynamics and low threshold to treat with antibiotics. Problem List: 1. Acute on chronic hypoxemic and acute hypercapnic respiratory failure 2. Large R-sided pulmonary emboli & R fem DVT 3. Potential consolidation LLL 4. Leukocytosis 5. Idiopathic pulmonary fibrosis 6. Hyperkalemia 7. Cervical spinal stenosis with compression fractures 8. bacteremia Plan: -CXR -Weaning trials -Will need TRACH -Titrate down FiO2 and PEEP as able -IV[facility] -Monitor leukocytosis -Abx per ID, F/U Cx's -Monitor volumes, SLIV, lasix 40 IV x 1 today -NGTF's -DNAR CC Time: 35 minutes Critical Care - Objective Last 24 Hour Vital Signs Date Time Temp Pulse Resp B/P (MAP) Pulse Ox O2 Delivery O2 Flow Rate FiO2 06/25/18 13:00 71 28 147/58 (87) 98 06/25/18 12:46 71 30 40 06/25/18 12:00 40 06/25/18 12:00 78 06/25/18 12:00 99.3 71 27 140/63 (88) 98 99.3 06/25/18 12:00 Mechanical Ventilator 06/25/18 11:00 74 24 148/66 (93) 93 06/25/18 10:44 59 20 40 06/25/18 10:00 60 26 141/65 (90) 94 06/25/18 09:00 Mechanical Ventilator 06/25/18 09:00 61 28 133/53 (79) 99 06/25/18 08:53 71 28 40 06/25/18 08:51 97 06/25/18 08:00 Mechanical Ventilator 06/25/18 08:00 40 06/25/18 08:00 74 06/25/18 08:00 100.6 74 19 114/47 (69) 98 100.6 06/25/18 07:15 100.6 06/25/18 07:14 56 20 40 06/25/18 07:00 79 20 125/49 (74) 99 06/25/18 06:45 100.2 06/25/18 06:00 99.9 76 25 149/52 (84) 99 99.9 06/25/18 05:08 81 27 40 06/25/18 05:00 75 20 156/59 (91) 99 06/25/18 04:00 75 06/25/18 04:00 40 06/25/18 04:00 Mechanical Ventilator 06/25/18 04:00 100.2 74 21 156/59 (91) 97 100.2 06/25/18 03:16 71 24 40 06/25/18 03:00 74 24 154/68 (96) 99 06/25/18 02:00 70 20 147/74 (98) 99 06/25/18 01:04 68 22 40 06/25/18 01:00 73 18 162/65 (97) 99 06/25/18 00:00 40 06/25/18 00:00 90 06/25/18 00:00 99.6 76 20 155/64 (94) 99 99.6 06/25/18 00:00 Mechanical Ventilator 06/24/18 23:00 99.7 74 18 150/65 (93) 99 99.7 06/24/18 22:42 60 20 40 06/24/18 22:00 87 19 145/70 (95) 99 06/24/18 21:00 80 21 161/69 (99) 99 06/24/18 20:52 67 23 40 06/24/18 20:10 101.3 06/24/18 20:00 40 06/24/18 20:00 Mechanical Ventilator 06/24/18 20:00 101.3 72 23 168/72 (104) 97 101.3 06/24/18 20:00 88 06/24/18 19:24 79 29 40 06/24/18 19:00 77 19 150/76 (100) 98 06/24/18 18:00 76 19 138/65 (89) 98 06/24/18 17:16 72 26 40 06/24/18 17:00 76 19 145/72 (96) 98 06/24/18 16:00 Mechanical Ventilator 06/24/18 16:00 99.1 79 19 147/78 (101) 98 99.1 06/24/18 16:00 40 06/24/18 16:00 79 06/24/18 15:00 77 19 115/59 (77) 98 06/24/18 14:51 70 24 40 06/24/18 14:00 76 19 135/59 (84) 98 Status: awake, other - intubed, NGT Condition: grave HEENT: atraumatic, normocephalic Lungs: rhonchi Heart: HR/BP stable Abdomen: soft, non-tender, active bowel sounds Extremities: no C/C/E Blood Sugars: BS controlled Critical Care - Subjective ROS Limited/Unobtainable: Yes ICU Day: 12 Intubation Day: 12 Interval Events: Failed SBT Condition: grave IV Access: central - R IJ EKG Rhythm: Sinus Rhythm FI02: 40 Vent Support Breath Rate: 20 Vent Support Mode: IMV/SIMV Vent Tidal Volume: 450 Sputum Amount: Small PEEP: 5.0 PIP: 25 Fluids: SLIV Drips: IVUH Tube Feeding Amount: 55 I&O: Intake and Output 06/24/18 06/25/18 19:00 07:00 Intake Total 750 ml 1236.4 ml Output Total 715 ml 635 ml Balance 35 ml 601.4 ml IV Total 90 ml 576.4 ml Tube Feeding 660 ml 660 ml Output Urine Total 715 ml 635 ml # Bowel Movements 4 1 Subjective: RYLIE ET-Tube: 7.0 ET Position: 21 Labs: Laboratory Tests Test 06/24/18 21:00 06/25/18 04:51 06/25/18 12:45 Activated Partial Thromboplast Time > 150 SEC (23-33) *H 42 SEC (23-33) H Pending José Luis Piedra MD Jun 25, 2018 13:20
[2018-06-25] MEDS ORDERED: Heparin 2000 units/Ns 1000ml INJ PRN (16:00)
[2018-06-25] MEDS ORDERED: Lidocaine 1% Plain 30 ml INJ PRN (16:02)
--- NOTE | 2018-06-25 16:08 | Diagnostic Imaging Report ---
Indication: Dyspnea Comparison: 06/21/2018 A single view chest radiograph was obtained. Findings: Tubes and lines are satisfactory and the unchanged. Heart size is stable. Left pleural effusion and interstitial edema present. Bones are osteopenic. IMPRESSION: No significant change from the prior study. Suspected mild interstitial edema and left pleural effusion
--- NOTE | 2018-06-25 17:49 | Infectious Diseases Prog Note ---
Assessment/Plan Assessment/Plan ASSESSMENT AND PLAN: 1. 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 pna, pseudomonas/ enterococcus uti, PE, ? reactive leukocytosis - vancomycin, ciprofloxacin and flagyl - day # 9 antibiotics, plan on 10 day treatment course - day # 5 diflucan for possible fungemia, plan on 7 day treatment course - leukocytosis improved, patient more alert - CT abdomen and pelvis - no abscess or obvious infection - f/u labs and cultures - monitor chest x-ray - icu, supportive care - d/w RN - doubt endocarditis, echo without vegetation mentioned - surveillance blood cultures negative - d/w family 2. Pulmonary fibrosis. 3. Respiratory failure, on vent. 4. Intensive care unit. 5. History of spinal surgery. 6. Cervical and lumbar spine disc disease. 7. History of prednisone use in the past. 8. History of hypertension per the records. 9. Questionable history of cerebrovascular accident per the records. 10. Past medical history is noted. 11. Allergies to acetaminophen, codeine, hydrocodone, and penicillins and other medication is chlorpheniramine. 12. Family history is noncontributory. 13. Social history is negative. 14. MAR was noted. 15. Case was discussed with RN. 16. ICU care. 17. Continue treatment per primary consultants. Subjective Constitutional: Reports: other - more alert, + vent ; Denies: fever HEENT: Reports: congestion Respiratory: Reports: shortness of breath Cardiovascular: Denies: chest pain Gastrointestinal/Abdominal: Denies: nausea, vomiting, diarrhea Genitourinary: Reports: other - + wilson Neurologic: Denies: headache Psychiatric: Denies: depression Skin: Denies: rash Hematologic: Denies: bleeding Musculoskeletal: Denies: pain Allergies: Coded Allergies: ACETAMINOPHEN (Verified Allergy, Unknown, 06/14/18) CHLORPHENIRAMINE (Verified Allergy, Unknown, 06/14/18) CODEINE (Verified Allergy, Unknown, 06/14/18) HYDROCODONE (Verified Allergy, Unknown, 06/14/18) PENICILLINS (Verified Allergy, Unknown, 06/14/18) Objective Vital Signs Last 24 Hour Vital Signs Date Time Temp Pulse Resp B/P (MAP) Pulse Ox O2 Delivery O2 Flow Rate FiO2 06/25/18 17:01 84 32 40 06/25/18 17:00 80 24 138/47 (77) 96 06/25/18 16:00 100.4 75 24 127/52 (77) 95 100.4 06/25/18 16:00 78 06/25/18 16:00 Mechanical Ventilator 06/25/18 16:00 40 06/25/18 15:20 74 25 40 06/25/18 15:00 78 23 140/47 (78) 96 06/25/18 14:00 71 23 148/62 (90) 96 06/25/18 13:00 71 28 147/58 (87) 98 06/25/18 12:46 71 30 40 06/25/18 12:00 40 06/25/18 12:00 78 06/25/18 12:00 99.3 71 27 140/63 (88) 98 99.3 06/25/18 12:00 Mechanical Ventilator 06/25/18 11:00 74 24 148/66 (93) 93 06/25/18 10:44 59 20 40 06/25/18 10:00 60 26 141/65 (90) 94 06/25/18 09:00 Mechanical Ventilator 06/25/18 09:00 61 28 133/53 (79) 99 06/25/18 08:53 71 28 40 06/25/18 08:51 97 06/25/18 08:00 Mechanical Ventilator 06/25/18 08:00 40 06/25/18 08:00 74 06/25/18 08:00 100.6 74 19 114/47 (69) 98 100.6 06/25/18 07:15 100.6 06/25/18 07:14 56 20 40 06/25/18 07:00 79 20 125/49 (74) 99 06/25/18 06:45 100.2 06/25/18 06:00 99.9 76 25 149/52 (84) 99 99.9 06/25/18 05:08 81 27 40 06/25/18 05:00 75 20 156/59 (91) 99 06/25/18 04:00 75 06/25/18 04:00 40 06/25/18 04:00 Mechanical Ventilator 06/25/18 04:00 100.2 74 21 156/59 (91) 97 100.2 06/25/18 03:16 71 24 40 06/25/18 03:00 74 24 154/68 (96) 99 06/25/18 02:00 70 20 147/74 (98) 99 06/25/18 01:04 68 22 40 06/25/18 01:00 73 18 162/65 (97) 99 06/25/18 00:00 40 06/25/18 00:00 90 06/25/18 00:00 99.6 76 20 155/64 (94) 99 99.6 06/25/18 00:00 Mechanical Ventilator 06/24/18 23:00 99.7 74 18 150/65 (93) 99 99.7 06/24/18 22:42 60 20 40 06/24/18 22:00 87 19 145/70 (95) 99 06/24/18 21:00 80 21 161/69 (99) 99 06/24/18 20:52 67 23 40 06/24/18 20:10 101.3 06/24/18 20:00 40 06/24/18 20:00 Mechanical Ventilator 06/24/18 20:00 101.3 72 23 168/72 (104) 97 101.3 06/24/18 20:00 88 06/24/18 19:24 79 29 40 06/24/18 19:00 77 19 150/76 (100) 98 06/24/18 18:00 76 19 138/65 (89) 98 Height (Feet): 5 Height (Inches): 5.00 Weight (Pounds): 195 General Appearance: other - + vent, more alert HEENT: normocephalic, atraumatic, anicteric Respiratory/Chest: crackles/rales, rhonchi - bilaterally Cardiovascular: normal rate, regular rhythm, no gallop/murmur, no JVD Abdomen: normal bowel sounds, soft, non tender, no organomegaly, non distended Genitourinary: other - + wilson - urine clear Extremities: no cyanosis Skin: no rash Neurologic/Psychiatric: 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 Equivocal right ventricular dilatation in the setting of generalized cardiomegaly could indicate right heart strain although this is uncertain Extensive left lung volume loss and possible consolidation Nonspecific bilateral interstitial septal thickening Right jugular venous catheter and endotracheal tube in good position Multiple vertebral body compression fractures. Age indeterminate 8 millimeter left adrenal adenoma Chest x-ray - 06/19 - Findings: Stable satisfactory positions of endotracheal and nasogastric tubes. Right jugular central venous catheter remains in stable satisfactory position. Linear opacities at the left lung base are stable. No definite infiltrates or congestion. Blunting of left costophrenic sulcus is stable, could indicate a small pleural effusion. Degenerative changes of both shoulders again noted. Impression: Unchanged, over one day, findings as above. CT - abdomen and pelvis: IMPRESSION: Extensive diverticulosis of the colon. No definite acute diverticulitis appreciated. Multiple bilateral renal cysts. Atherosclerotic vascular disease Left basilar atelectasis versus scarring. Small umbilical hernia containing fat Wilson catheter in good position. NG tube in good position Old L2 vertebral fracture. Generalized spondylosis and osteopenia. Chest -x -ray - Findings: Interstitial prominence again demonstrated. Cardiomegaly is again demonstrated unchanged. Tubes and lines are stable. IMPRESSION: No change from the prior exam. No acute findings Chest x-ray - 06/25/18 - Findings: Tubes and lines are satisfactory and the unchanged. Heart size is stable. Left pleural effusion and interstitial edema present. Bones are osteopenic. IMPRESSION: No significant change from the prior study. Suspected mild interstitial edema and left pleural effusion Microbiology Date/Time Source Procedure Growth Status 06/20/18 22:00 Blood Blood Culture - Preliminary NO GROWTH AFTER 4 DAYS Resulted 06/16/18 15:10 Sputum Induced Gram Stain - Final Complete 06/16/18 15:10 Sputum Induced Sputum Culture - Final NORMAL UPPER RESPIRATORY SOO PRESENT Complete 06/20/18 22:00 Urine,Clean Catch Urine Culture - Final NO GROWTH AFTER 48 HOURS Complete 06/14/18 21:00 Rectum VRE Culture - Final NO VANCOMYCIN RESISTANT ENTEROCOCCUS ... Complete 06/14/18 21:00 Rectum - Final NO CARBAPENEM-RESISTANT ENTEROBACTERI... Complete Labs Test 06/22/18 20:20 06/23/18 03:50 06/23/18 07:45 06/24/18 04:00 Activated Partial Thromboplast Time 57 SEC (23-33) 91 SEC (23-33) 98 SEC (23-33) Sodium Level 135 MMOL/L (136-145) 136 MMOL/L (136-145) Potassium Level 3.6 MMOL/L (3.5-5.1) 3.6 MMOL/L (3.5-5.1) Chloride Level 100 MMOL/L (98-107) 102 MMOL/L (98-107) Carbon Dioxide Level 30 MMOL/L (21-32) 30 MMOL/L (21-32) Anion Gap 5 mmol/L (5-15) 4 mmol/L (5-15) Blood Urea Nitrogen 19 mg/dL (7-18) 20 mg/dL (7-18) Creatinine 0.9 MG/DL (0.55-1.30) 1.0 MG/DL (0.55-1.30) Estimat Glomerular Filtration Rate mL/min (>60) mL/min (>60) Glucose Level 141 MG/DL (74-106) 132 MG/DL (74-106) Calcium Level 8.0 MG/DL (8.5-10.1) 8.2 MG/DL (8.5-10.1) Vancomycin Level Trough 12.2 ug/mL (5.0-12.0) White Blood Count 18.3 K/UL (4.8-10.8) Red Blood Count 3.51 M/UL (4.20-5.40) Hemoglobin 9.8 G/DL (12.0-16.0) Hematocrit 29.7 % (37.0-47.0) Mean Corpuscular Volume 85 FL (80-99) Mean Corpuscular Hemoglobin 27.9 PG (27.0-31.0) Mean Corpuscular Hemoglobin Concent 33.0 G/DL (32.0-36.0) Red Cell Distribution Width 16.2 % (11.6-14.8) Platelet Count 447 K/UL (150-450) Mean Platelet Volume 10.1 FL (6.5-10.1) Neutrophils (%) (Auto) % (45.0-75.0) Lymphocytes (%) (Auto) % (20.0-45.0) Monocytes (%) (Auto) % (1.0-10.0) Eosinophils (%) (Auto) % (0.0-3.0) Basophils (%) (Auto) % (0.0-2.0) Differential Total Cells Counted 100 Neutrophils % (Manual) 52 % (45-75) Lymphocytes % (Manual) 14 % (20-45) Monocytes % (Manual) 31 % (1-10) Eosinophils % (Manual) 1 % (0-3) Basophils % (Manual) 0 % (0-2) Band Neutrophils 2 % (0-8) Platelet Estimate Adequate Platelet Morphology Giant Platelets Occasional Hypochromasia 1+ Anisocytosis 2+ Test 06/24/18 12:00 06/24/18 21:00 06/25/18 04:51 06/25/18 12:45 Activated Partial Thromboplast Time 39 SEC (23-33) > 150 SEC (23-33) 42 SEC (23-33) 90 SEC (23-33) Laboratory Tests Test 06/24/18 21:00 06/25/18 04:51 06/25/18 12:45 Activated Partial Thromboplast Time > 150 SEC (23-33) *H 42 SEC (23-33) H 90 SEC (23-33) H Current Medications Medications (Trade) Dose Ordered Sig/Missy Route PRN Reason Start Time Stop Time Status Last Admin Dose Admin Acetaminophen (Tylenol) 650 mg Q4H PRN ORAL Mild Pain (Pain Scale 1-3) 06/14/18 23:15 07/14/18 23:14 06/25/18 06:45 Chlorhexidine Gluconate (Maria Elena-Hex 2%) 1 applic DAILY@2000 TOPIC 06/16/18 20:00 07/16/18 19:59 06/24/18 20:10 Ciprofloxacin 200 ml @ 200 mls/hr Q12HR IV 06/23/18 21:00 06/30/18 20:59 06/25/18 09:44 Dextrose (Dextrose 50%) 25 ml Q30M PRN IV Hypoglycemia 06/14/18 23:15 07/14/18 23:14 Dextrose (Dextrose 50%) 50 ml Q30M PRN IV Hypoglycemia 06/14/18 23:15 07/14/18 23:14 Fluconazole/ Sodium Chloride 100 ml @ 100 mls/hr Q24H IV 06/21/18 18:00 06/28/18 17:59 06/24/18 18:17 Heparin Sodium/ Dextrose 500 ml @ 32.4 mls/hr ADJUST PER PROTOCOL IV 06/25/18 07:15 07/25/18 07:14 06/25/18 07:26 Heparin Sodium/ Sodium Chloride (Heparin 2000 units/Ns 1000ml premix) 2,000 unit ONCE PRN INJ PICC 06/25/18 16:00 06/25/18 23:59 Lidocaine HCl (Xylocaine 1% 30ml) 30 ml ONCE PRN INJ PICC 06/25/18 16:02 06/25/18 23:59 Metronidazole 100 ml @ 100 mls/hr Q8HR IVPB 06/21/18 22:00 06/28/18 21:59 06/25/18 14:13 Ondansetron HCl (Zofran) 4 mg Q4H PRN IVP Nausea & Vomiting 06/16/18 17:45 07/16/18 17:44 06/24/18 03:15 Pantoprazole (Protonix) 40 mg DAILY IVP 06/16/18 21:00 07/17/18 08:59 06/25/18 09:44 Ropinirole HCl (Requip) 0.25 mg BEDTIME ORAL 06/21/18 21:00 07/21/18 20:59 06/24/18 20:10 Vancomycin HCl (Vanco rx to dose) 1 ea DAILY PRN MISC Per rx protocol 06/16/18 07:45 07/16/18 07:44 Vancomycin HCl/ Dextrose 250 ml @ 125 mls/hr Q24H IVPB 06/24/18 06:00 06/29/18 05:59 06/25/18 06:13 Artur Rodriguez MD Jun 25, 2018 17:49
[2018-06-25] MEDS: Dyna-Hex 2% Top Sol 2oz TOPIC SCH (19:52)
[2018-06-25] MEDS ORDERED: Dyna-Hex 2% Top Sol 2oz TOPIC SCH (20:00)
[2018-06-25] MEDS: rOPINIRole 0.25mg tab ORAL SCH (20:33)
--- NOTE | 2018-06-25 21:17 | Internal Med Progress Note ---
Subjective Physician Name Umang Contreras Attending Physician Umang Contreras MD Current Medications Medications (Trade) Dose Ordered Sig/Missy Route PRN Reason Start Time Stop Time Status Last Admin Dose Admin Acetaminophen (Tylenol) 650 mg Q4H PRN ORAL Mild Pain (Pain Scale 1-3) 06/14/18 23:15 07/14/18 23:14 06/25/18 20:34 Chlorhexidine Gluconate (Maria Elena-Hex 2%) 1 applic DAILY@2000 TOPIC 06/16/18 20:00 07/16/18 19:59 06/25/18 19:52 Ciprofloxacin 200 ml @ 200 mls/hr Q12HR IV 06/23/18 21:00 06/30/18 20:59 06/25/18 20:33 Dextrose (Dextrose 50%) 25 ml Q30M PRN IV Hypoglycemia 06/14/18 23:15 07/14/18 23:14 Dextrose (Dextrose 50%) 50 ml Q30M PRN IV Hypoglycemia 06/14/18 23:15 07/14/18 23:14 Fluconazole/ Sodium Chloride 100 ml @ 100 mls/hr Q24H IV 06/21/18 18:00 06/28/18 17:59 06/25/18 18:20 Heparin Sodium/ Dextrose 500 ml @ 32.4 mls/hr ADJUST PER PROTOCOL IV 06/25/18 07:15 07/25/18 07:14 06/25/18 07:26 Heparin Sodium/ Sodium Chloride (Heparin 2000 units/Ns 1000ml premix) 2,000 unit ONCE PRN INJ PICC 06/25/18 16:00 06/25/18 23:59 Lidocaine HCl (Xylocaine 1% 30ml) 30 ml ONCE PRN INJ PICC 06/25/18 16:02 06/25/18 23:59 Metronidazole 100 ml @ 100 mls/hr Q8HR IVPB 06/21/18 22:00 06/28/18 21:59 06/25/18 14:13 Ondansetron HCl (Zofran) 4 mg Q4H PRN IVP Nausea & Vomiting 06/16/18 17:45 07/16/18 17:44 06/24/18 03:15 Pantoprazole (Protonix) 40 mg DAILY IVP 06/16/18 21:00 07/17/18 08:59 06/25/18 09:44 Ropinirole HCl (Requip) 0.25 mg BEDTIME ORAL 06/21/18 21:00 07/21/18 20:59 06/25/18 20:33 Vancomycin HCl (Vanco rx to dose) 1 ea DAILY PRN MISC Per rx protocol 06/16/18 07:45 07/16/18 07:44 Vancomycin HCl/ Dextrose 250 ml @ 125 mls/hr Q24H IVPB 06/24/18 06:00 06/29/18 05:59 06/25/18 06:13 Allergies: Coded Allergies: ACETAMINOPHEN (Verified Allergy, Unknown, 06/14/18) CHLORPHENIRAMINE (Verified Allergy, Unknown, 06/14/18) CODEINE (Verified Allergy, Unknown, 06/14/18) HYDROCODONE (Verified Allergy, Unknown, 06/14/18) PENICILLINS (Verified Allergy, Unknown, 06/14/18) Subjective intubated on fiO2 40% PEEP 5 temp 100 on tube feeds restraints bc trying to pull NGT agitated last night ROS unobtainable Objective Last Vital Signs Date Time Temp Pulse Resp B/P (MAP) Pulse Ox O2 Delivery O2 Flow Rate FiO2 06/25/18 20:37 84 27 40 06/25/18 20:34 100.8 06/25/18 18:00 145/62 (89) 95 06/25/18 16:00 Mechanical Ventilator Laboratory Tests Test 06/25/18 04:51 06/25/18 12:45 Activated Partial Thromboplast Time 42 SEC (23-33) H 90 SEC (23-33) H Intake and Output 06/24/18 06/25/18 19:00 07:00 Intake Total 750 ml 1461.4 ml Output Total 715 ml 635 ml Balance 35 ml 826.4 ml IV Total 90 ml 801.4 ml Tube Feeding 660 ml 660 ml Output Urine Total 715 ml 635 ml # Bowel Movements 4 1 Objective GENERAL: The patient is intubated. She is awake. HEENT: Normocephalic/atraumatic. NGT NECK: Patient has a right IJ. There is no JVD noted. LUNGS: Decreased breath sounds bilaterally. Some crackles. CARDIOVASCULAR: Tachycardic. Regular rhythm. ABDOMEN: Soft, nontender. EXTREMITIES: No clubbing, cyanosis, or edema. Assessment/Plan Assessment/Plan ASSESSMENT AND PLAN: 1. Acute hypoxic/hypercapnic respiratory failure secondary to right pulmonary artery embolism. 2. Pulmonary fibrosis. 3. Severe central spinal stenosis of L3-L4 and L4-L5. 4. Leukocytosis-unclear etiology. The patient was being tapered off prednisone recently. 5. History of old compression fractures of T5 and L2. 6. History of thrombocytosis. 7. elevated troponin 2/2 R ventricular strain 8. Leukocytosis - possibly secondary to acute 9. UTI, Psuedomonas 10. Staph hominis Bacteremia PLAN: 1. ICU 2. weaning trials ; hold TF while on wean trials 3. heparin drip 4. TTE reviewed. no R ventricular dilation 5. Pulmonary consult 6. NG tube ; continue tube feeds 7. Weaning per Associate Professor Of Forestry ; CXR today shows interstitial edema; Lasix 20mg IV Q day + PRN 8. Follow up cultures 9. abx - cipro, fluconazole, flagyl and Vanco 10. ID consult 11. POLST completed - DNR (no Chest compressions, intubation and pressors ok). 12. CT Abdomen Pelvis w/Contrast (06/20) - reviewed. no acute process. diverticulosis. DNR DVT px - Heparin g++ DR LAMA COVERING 06/23-06/24 Umang Contreras MD Jun 25, 2018 21:17
[2018-06-26] VITALS (24 sets, daily range): BP systolic 99–160; BP diastolic 49–127
[2018-06-26 04:12] LABS: HEMATOCRIT 28.2 % (37.0-47.0); HEMOGLOBIN 9.6 G/DL (12.0-16.0); MEAN CORPUSCULAR VOLUME 83 FL (80-99); PLATELET COUNT 388 K/UL (150-450); RED BLOOD COUNT 3.39 M/UL (4.20-5.40); RED CELL DISTRIBUTION WIDTH 15.5 % (11.6-14.8); WHITE BLOOD COUNT 19.6 K/UL (4.8-10.8)
[2018-06-26 04:35] LABS: ANION GAP 4 mmol/L (5-15); BLOOD UREA NITROGEN 26 mg/dL (7-18); CALCIUM 8.2 MG/DL (8.5-10.1); CARBON DIOXIDE 33 MMOL/L (21-32); CHLORIDE 99 MMOL/L (98-107); CREATININE 1.3 MG/DL (0.55-1.30); POTASSIUM 3.4 MMOL/L (3.5-5.1); SODIUM 136 MMOL/L (136-145)
[2018-06-26] MEDS: Vancomycin 1.5 GM/D5W 250ML IVPB SCH (05:35)
[2018-06-26] MEDS: Heparin 25,000u/D5W 500ml 500 ML IV SCH (06:03)
--- NOTE | 2018-06-26 08:36 | Pulmonolgy Critical Care Note ---
Critical Care - Asmt/Plan Problems: (1) Acute respiratory failure with hypoxemia (2) Pulmonary embolism (3) Respiratory distress (4) Pulmonary fibrosis, unspecified Assessment/Plan: Assessment/Plan Assessment: 83 y/o female w/ pulmonary fibrosis, cervical spinal stenosis with compression fractures and hx of fusion admitted with acute on chronic hypoxemic respiratory failure and acute hypercapnic respiratory failure due to large R- sided pulmonary embolism. Noted leukocytosis and potential consolidation on CT but may be difficult to ascertain from her pulmonary fibrosis. No fevers. Will need respiratory support and close monitoring of hemodynamics and low threshold to treat with antibiotics. Problem List: 1. Acute on chronic hypoxemic and acute hypercapnic respiratory failure 2. Large R-sided pulmonary emboli & R fem DVT 3. Potential consolidation LLL 4. Leukocytosis 5. Idiopathic pulmonary fibrosis 6. Hyperkalemia 7. Cervical spinal stenosis with compression fractures 8. bacteremia Plan: -CXR noted, mild interstitial edema -Weaning trials --> SBT today -May need TRACH -Titrate down FiO2 and PEEP as able -[facility] -Monitor leukocytosis -Abx per ID, F/U Cx's -Monitor volumes, SLIV -NGTF's - hold for possible extubation -DNAR CC Time: 35 minutes Critical Care - Objective Last 24 Hour Vital Signs Date Time Temp Pulse Resp B/P (MAP) Pulse Ox O2 Delivery O2 Flow Rate FiO2 06/26/18 07:00 81 23 148/60 (89) 95 06/26/18 06:50 67 20 40 06/26/18 06:00 79 25 133/90 (104) 06/26/18 05:29 84 26 40 06/26/18 05:00 78 22 141/58 (85) 95 06/26/18 04:00 99.8 78 24 137/55 (82) 95 99.8 06/26/18 04:00 40 06/26/18 04:00 Mechanical Ventilator 06/26/18 03:22 78 26 40 06/26/18 03:02 63 06/26/18 03:00 65 20 131/49 (76) 95 06/26/18 02:00 75 22 135/60 (85) 95 06/26/18 01:15 75 26 40 06/26/18 01:00 74 22 144/59 (87) 95 06/26/18 00:00 40 06/26/18 00:00 Mechanical Ventilator 10/9/18 00:00 99.5 75 23 130/64 (86) 95 99.5 06/25/18 23:50 75 06/25/18 23:17 75 26 40 06/25/18 23:00 71 17 142/69 (93) 97 06/25/18 22:00 78 22 136/62 (86) 97 06/25/18 21:04 100.0 06/25/18 21:00 100.0 80 24 153/69 (97) 96 100.0 06/25/18 20:37 84 27 40 06/25/18 20:34 100.8 06/25/18 20:00 40 06/25/18 20:00 100.8 83 24 134/102 (113) 96 100.8 06/25/18 20:00 Mechanical Ventilator 06/25/18 19:59 82 06/25/18 19:05 87 26 40 06/25/18 19:00 84 24 150/65 (93) 96 06/25/18 18:00 81 20 145/62 (89) 95 06/25/18 17:01 84 32 40 06/25/18 17:00 80 24 138/47 (77) 96 06/25/18 16:00 100.4 75 24 127/52 (77) 95 100.4 06/25/18 16:00 78 06/25/18 16:00 Mechanical Ventilator 06/25/18 16:00 40 06/25/18 15:20 74 25 40 06/25/18 15:00 78 23 140/47 (78) 96 06/25/18 14:00 71 23 148/62 (90) 96 06/25/18 13:00 71 28 147/58 (87) 98 06/25/18 12:46 71 30 40 06/25/18 12:00 40 06/25/18 12:00 78 06/25/18 12:00 99.3 71 27 140/63 (88) 98 99.3 06/25/18 12:00 Mechanical Ventilator 06/25/18 11:00 74 24 148/66 (93) 93 06/25/18 10:44 59 20 40 06/25/18 10:00 60 26 141/65 (90) 94 06/25/18 09:00 Mechanical Ventilator 10/8/18 09:00 61 28 133/53 (79) 99 06/25/18 08:53 71 28 40 06/25/18 08:51 97 Status: awake, other - on vent Condition: improving HEENT: atraumatic, normocephalic Lungs: rhonchi Heart: HR/BP stable Abdomen: soft, non-tender, active bowel sounds Extremities: no C/C/E Critical Care - Subjective ROS Limited/Unobtainable: Yes ICU Day: 13 Intubation Day: 13 Interval Events: Miguel A PS 10 Condition: critical IV Access: central EKG Rhythm: Sinus Rhythm FI02: 40 Vent Support Breath Rate: 20 Vent Support Mode: AC Vent Tidal Volume: 450 Sputum Amount: Small PEEP: 5.0 PIP: 26 Tube Feeding Amount: 55 I&O: Intake and Output 06/25/18 06/26/18 19:00 07:00 Intake Total 1557.6 ml 1646.0 ml Output Total 1025 ml 1220 ml Balance 532.6 ml 426.0 ml IV Total 897.6 ml 936.0 ml Tube Feeding 660 ml 660 ml Other 50 ml Output Urine Total 1025 ml 1220 ml # Bowel Movements 6 2 Subjective: RYLIE CXR: Mild PVC ET-Tube: 7.0 ET Position: 21 Labs: Laboratory Tests Test 06/25/18 12:45 06/26/18 04:00 Activated Partial Thromboplast Time 90 SEC (23-33) H 131 SEC (23-33) H White Blood Count 19.6 K/UL (4.8-10.8) H Red Blood Count 3.39 M/UL (4.20-5.40) L Hemoglobin 9.6 G/DL (12.0-16.0) L Hematocrit 28.2 % (37.0-47.0) L Mean Corpuscular Volume 83 FL (80-99) Mean Corpuscular Hemoglobin 28.4 PG (27.0-31.0) Mean Corpuscular Hemoglobin Concent 34.1 G/DL (32.0-36.0) Red Cell Distribution Width 15.5 % (11.6-14.8) H Platelet Count 388 K/UL (150-450) Mean Platelet Volume 9.1 FL (6.5-10.1) Neutrophils (%) (Auto) % (45.0-75.0) Lymphocytes (%) (Auto) % (20.0-45.0) Monocytes (%) (Auto) % (1.0-10.0) Eosinophils (%) (Auto) % (0.0-3.0) Basophils (%) (Auto) % (0.0-2.0) Differential Total Cells Counted 100 Neutrophils % (Manual) 64 % (45-75) Lymphocytes % (Manual) 17 % (20-45) L Monocytes % (Manual) 17 % (1-10) H Eosinophils % (Manual) 1 % (0-3) Basophils % (Manual) 1 % (0-2) Band Neutrophils 0 % (0-8) Platelet Estimate Adequate Platelet Morphology Normal Hypochromasia 2+ Anisocytosis 1+ Spherocytes 1+ Sodium Level 136 MMOL/L (136-145) Potassium Level 3.4 MMOL/L (3.5-5.1) L Chloride Level 99 MMOL/L (98-107) Carbon Dioxide Level 33 MMOL/L (21-32) H Anion Gap 4 mmol/L (5-15) L Blood Urea Nitrogen 26 mg/dL (7-18) H Creatinine 1.3 MG/DL (0.55-1.30) Estimat Glomerular Filtration Rate mL/min (>60) Glucose Level 123 MG/DL (74-106) H Calcium Level 8.2 MG/DL (8.5-10.1) L José Luis Piedra MD Jun 26, 2018 08:36
[2018-06-26] MEDS: Pantoprazole Inj IVP SCH (08:44)
[2018-06-26] MEDS ORDERED: Midazolam 2mg/2ml Inj IVP SCH (09:00)
[2018-06-26] MEDS ORDERED: Heparin 2000 units/Ns 1000ml INJ SCH (11:00)
[2018-06-26] MEDS ORDERED: Lidocaine 1% Plain 30 ml INJ SCH (11:00)
--- NOTE | 2018-06-26 14:09 | Diagnostic Imaging Report ---
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 The left upper extremity was prepped with alcohol. All elements of maximal sterile barrier technique were followed including usage of a cap, mask, sterile gown, sterile gloves, hand hygiene and a large sterile sheet. Sonographic evaluation of the upper extremity was performed demonstrating a patent and compressible basilic vein. Access was obtained under real-time ultrasound guidance (with utilization of sterile gel and sterile probe cover) and digital image was saved and archived. An .018 wire was introduced. Needle exchanged for a 5 Yi peel-away sheath. Measurements were obtained. A 5 Yi dual-lumen Power PICC line catheter was cut to 42 cm and introduced over the wire. Peel-away sheath and wire were removed.Catheter was secured to the skin using 2-0 Prolene suture. Both ports aspirate and flush easily. Post procedure chest x-ray demonstrates good position of the PICC line catheter within the SVC. Impression: Successful placement of an upper extremity PICC line catheter
--- NOTE | 2018-06-26 17:10 | Internal Med Progress Note ---
Subjective Physician Name Umang Contreras Attending Physician Umang Contreras MD Current Medications Medications (Trade) Dose Ordered Sig/Missy Route PRN Reason Start Time Stop Time Status Last Admin Dose Admin Acetaminophen (Tylenol) 650 mg Q4H PRN ORAL Mild Pain (Pain Scale 1-3) 06/14/18 23:15 07/14/18 23:14 06/25/18 20:34 Chlorhexidine Gluconate (Maria Elena-Hex 2%) 1 applic DAILY@2000 TOPIC 06/16/18 20:00 07/16/18 19:59 06/25/18 19:52 Dextrose (Dextrose 50%) 25 ml Q30M PRN IV Hypoglycemia 06/14/18 23:15 07/14/18 23:14 Dextrose (Dextrose 50%) 50 ml Q30M PRN IV Hypoglycemia 06/14/18 23:15 07/14/18 23:14 Fluconazole/ Sodium Chloride 100 ml @ 100 mls/hr Q24H IV 06/21/18 18:00 06/28/18 17:59 06/25/18 18:20 Furosemide (Lasix) 20 mg DAILY IV 06/26/18 09:00 07/26/18 08:59 06/26/18 08:44 Heparin Sodium/ Dextrose 500 ml @ 27 mls/hr ADJUST PER PROTOCOL IV 06/26/18 06:00 07/26/18 05:59 06/26/18 06:03 Ondansetron HCl (Zofran) 4 mg Q4H PRN IVP Nausea & Vomiting 06/16/18 17:45 07/16/18 17:44 06/24/18 03:15 Pantoprazole (Protonix) 40 mg DAILY IVP 06/16/18 21:00 07/17/18 08:59 06/26/18 08:44 Ropinirole HCl (Requip) 0.25 mg BEDTIME ORAL 06/21/18 21:00 07/21/18 20:59 06/25/18 20:33 Allergies: Coded Allergies: ACETAMINOPHEN (Verified Allergy, Unknown, 06/14/18) CHLORPHENIRAMINE (Verified Allergy, Unknown, 06/14/18) CODEINE (Verified Allergy, Unknown, 06/14/18) HYDROCODONE (Verified Allergy, Unknown, 06/14/18) PENICILLINS (Verified Allergy, Unknown, 06/14/18) Subjective intubated on fiO2 40% PEEP 5 tolerated SBT x 20 min on tube feeds + diarrhea restraints bc trying to pull NGT ROS unobtainable Objective Last Vital Signs Date Time Temp Pulse Resp B/P (MAP) Pulse Ox O2 Delivery O2 Flow Rate FiO2 06/26/18 16:50 79 26 40 06/26/18 16:00 Mechanical Ventilator 06/26/18 16:00 141/56 (84) 96 06/26/18 15:00 98.1 98.1 Laboratory Tests Test 06/26/18 04:00 06/26/18 12:16 White Blood Count 19.6 K/UL (4.8-10.8) H Red Blood Count 3.39 M/UL (4.20-5.40) L Hemoglobin 9.6 G/DL (12.0-16.0) L Hematocrit 28.2 % (37.0-47.0) L Mean Corpuscular Volume 83 FL (80-99) Mean Corpuscular Hemoglobin 28.4 PG (27.0-31.0) Mean Corpuscular Hemoglobin Concent 34.1 G/DL (32.0-36.0) Red Cell Distribution Width 15.5 % (11.6-14.8) H Platelet Count 388 K/UL (150-450) Mean Platelet Volume 9.1 FL (6.5-10.1) Neutrophils (%) (Auto) % (45.0-75.0) Lymphocytes (%) (Auto) % (20.0-45.0) Monocytes (%) (Auto) % (1.0-10.0) Eosinophils (%) (Auto) % (0.0-3.0) Basophils (%) (Auto) % (0.0-2.0) Differential Total Cells Counted 100 Neutrophils % (Manual) 64 % (45-75) Lymphocytes % (Manual) 17 % (20-45) L Monocytes % (Manual) 17 % (1-10) H Eosinophils % (Manual) 1 % (0-3) Basophils % (Manual) 1 % (0-2) Band Neutrophils 0 % (0-8) Platelet Estimate Adequate Platelet Morphology Normal Hypochromasia 2+ Anisocytosis 1+ Spherocytes 1+ Activated Partial Thromboplast Time 131 SEC (23-33) H 80 SEC (23-33) H Sodium Level 136 MMOL/L (136-145) Potassium Level 3.4 MMOL/L (3.5-5.1) L Chloride Level 99 MMOL/L (98-107) Carbon Dioxide Level 33 MMOL/L (21-32) H Anion Gap 4 mmol/L (5-15) L Blood Urea Nitrogen 26 mg/dL (7-18) H Creatinine 1.3 MG/DL (0.55-1.30) Estimat Glomerular Filtration Rate mL/min (>60) Glucose Level 123 MG/DL (74-106) H Calcium Level 8.2 MG/DL (8.5-10.1) L Intake and Output 06/25/18 06/26/18 19:00 07:00 Intake Total 1557.6 ml 1646.0 ml Output Total 1025 ml 1220 ml Balance 532.6 ml 426.0 ml IV Total 897.6 ml 936.0 ml Tube Feeding 660 ml 660 ml Other 50 ml Output Urine Total 1025 ml 1220 ml # Bowel Movements 6 2 Objective GENERAL: The patient is intubated. She is awake. HEENT: Normocephalic/atraumatic. NGT NECK: Patient has a right IJ. There is no JVD noted. LUNGS: Decreased breath sounds bilaterally. Some crackles. CARDIOVASCULAR: Tachycardic. Regular rhythm. ABDOMEN: Soft, nontender. EXTREMITIES: No clubbing, cyanosis, or edema. Assessment/Plan Assessment/Plan ASSESSMENT AND PLAN: 1. Acute hypoxic/hypercapnic respiratory failure secondary to right pulmonary artery embolism. 2. Pulmonary fibrosis. 3. Severe central spinal stenosis of L3-L4 and L4-L5. 4. Leukocytosis-unclear etiology. The patient was being tapered off prednisone recently. 5. History of old compression fractures of T5 and L2. 6. History of thrombocytosis. 7. elevated troponin 2/2 R ventricular strain 8. Leukocytosis - possibly secondary to acute 9. UTI, Psuedomonas 10. Staph hominis Bacteremia 11. diarrhea PLAN: 1. ICU 2. weaning trials ; hold TF while on wean trials 3. heparin drip 4. TTE reviewed. no R ventricular dilation 5. Pulmonary consult 6. NG tube ; continue tube feeds 7. 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 Follow up cultures 9. abx - cipro, fluconazole, flagyl and Vanco 10. ID consult 11. POLST completed - DNR (no Chest compressions, intubation and pressors ok). 12. CT Abdomen Pelvis w/Contrast (06/20) - reviewed. no acute process. diverticulosis. 13. check C diff DNR DVT px - Heparin g++ DR LAMA COVERING 06/23-06/24 Umang Contreras MD Jun 26, 2018 17:10
[2018-06-26] MEDS: Dyna-Hex 2% Top Sol 2oz TOPIC SCH (20:05)
[2018-06-26] MEDS: rOPINIRole 0.25mg tab ORAL SCH (20:43)
[2018-06-26] MEDS ORDERED: LORazepam Inj 2mg/ml 1ml IV ONE (22:30)
[2018-06-27] VITALS (23 sets, daily range): BP systolic 113–165; BP diastolic 49–74
[2018-06-27] MEDS: Heparin 25,000u/D5W 500ml 500 ML IV SCH ×2 (02:16→20:41)
[2018-06-27 05:09] LABS: HEMATOCRIT 28.3 % (37.0-47.0); HEMOGLOBIN 9.3 G/DL (12.0-16.0); MEAN CORPUSCULAR VOLUME 84 FL (80-99); PLATELET COUNT 400 K/UL (150-450); RED BLOOD COUNT 3.35 M/UL (4.20-5.40); RED CELL DISTRIBUTION WIDTH 16.3 % (11.6-14.8); WHITE BLOOD COUNT 18.4 K/UL (4.8-10.8)
[2018-06-27 05:24] LABS: ANION GAP 6 mmol/L (5-15); BLOOD UREA NITROGEN 34 mg/dL (7-18); CALCIUM 8.3 MG/DL (8.5-10.1); CARBON DIOXIDE 32 MMOL/L (21-32); CHLORIDE 99 MMOL/L (98-107); CREATININE 1.4 MG/DL (0.55-1.30); POTASSIUM 3.9 MMOL/L (3.5-5.1); SODIUM 137 MMOL/L (136-145)
--- NOTE | 2018-06-27 08:51 | Pulmonolgy Critical Care Note ---
Critical Care - Asmt/Plan Problems: (1) Acute respiratory failure with hypoxemia (2) Pulmonary embolism (3) Respiratory distress (4) Pulmonary fibrosis, unspecified Assessment/Plan: Assessment/Plan Assessment: 83 y/o female w/ pulmonary fibrosis, cervical spinal stenosis with compression fractures and hx of fusion admitted with acute on chronic hypoxemic respiratory failure and acute hypercapnic respiratory failure due to large R- sided pulmonary embolism. Noted leukocytosis and potential consolidation on CT but may be difficult to ascertain from her pulmonary fibrosis. No fevers. Will need respiratory support and close monitoring of hemodynamics and low threshold to treat with antibiotics. Problem List: 1. Acute on chronic hypoxemic and acute hypercapnic respiratory failure 2. Large R-sided pulmonary emboli & R fem DVT 3. Potential consolidation LLL 4. Leukocytosis 5. Idiopathic pulmonary fibrosis 6. Hyperkalemia 7. Cervical spinal stenosis with compression fractures 8. bacteremia Plan: -Weaning trials --> SBT again today, may attempt extubation to BiPAP later -May need TRACH, D/W family -Titrate down FiO2 and PEEP as able -[facility] -Monitor leukocytosis -Abx per ID, F/U Cx's -Monitor volumes, SLIV -NGTF's - hold for possible extubation -DNAR CC Time: 35 minutes Critical Care - Objective Last 24 Hour Vital Signs Date Time Temp Pulse Resp B/P (MAP) Pulse Ox O2 Delivery O2 Flow Rate FiO2 06/27/18 07:13 81 20 40 06/27/18 07:00 62 20 146/52 (83) 97 06/27/18 06:00 60 20 160/60 (93) 97 06/27/18 05:28 71 21 40 06/27/18 05:00 72 20 152/67 (95) 97 06/27/18 04:00 98.7 71 20 148/54 (85) 97 98.7 06/27/18 04:00 66 06/27/18 04:00 Mechanical Ventilator 06/27/18 04:00 40 06/27/18 03:00 79 23 156/62 (93) 96 06/27/18 02:50 72 24 40 06/27/18 02:00 75 157/68 (97) 97 06/27/18 01:16 75 25 40 06/27/18 01:00 76 21 157/64 (95) 97 06/27/18 00:00 98.3 76 20 144/57 (86) 97 98.3 06/27/18 00:00 40 06/27/18 00:00 Mechanical Ventilator 06/27/18 00:00 68 06/26/18 23:00 62 22 143/57 (85) 97 06/26/18 22:44 71 20 40 06/26/18 22:00 76 20 160/64 (96) 97 06/26/18 21:08 87 26 40 06/26/18 21:00 77 20 150/60 (90) 97 06/26/18 20:00 65 06/26/18 20:00 Mechanical Ventilator 06/26/18 20:00 40 06/26/18 20:00 99.0 72 22 160/52 (88) 96 99.0 06/26/18 19:11 72 27 40 06/26/18 19:00 75 24 151/127 (135) 96 06/26/18 19:00 73 24 140/100 (113) 97 06/26/18 19:00 150/80 (103) 06/26/18 18:00 73 24 140/100 (113) 97 06/26/18 18:00 77 29 143/58 (86) 97 06/26/18 17:00 71 20 141/56 (84) 96 06/26/18 17:00 73 24 140/100 (113) 97 06/26/18 16:50 79 26 40 06/26/18 16:00 40 06/26/18 16:00 Mechanical Ventilator 06/26/18 16:00 71 20 141/56 (84) 96 06/26/18 15:30 75 06/26/18 15:00 98.1 76 21 146/55 (85) 95 98.1 06/26/18 14:42 75 26 40 06/26/18 14:00 73 21 135/58 (83) 95 06/26/18 13:00 99.8 64 20 99/78 (85) 93 99.8 06/26/18 13:00 63 20 40 06/26/18 12:00 Mechanical Ventilator 06/26/18 12:00 66 19 146/60 (88) 94 06/26/18 11:26 74 06/26/18 11:21 78 29 40 06/26/18 11:00 66 21 123/50 (74) 95 06/26/18 11:00 80 24 137/61 (86) 91 06/26/18 10:00 66 21 123/50 (74) 95 06/26/18 09:05 40 06/26/18 09:03 78 33 40 06/26/18 09:00 72 41 143/70 (94) 94 Status: awake, other - intubagted Condition: critical HEENT: atraumatic, normocephalic Lungs: rhonchi Heart: HR/BP stable Abdomen: soft, non-tender, active bowel sounds Extremities: no C/C/E, other Decubiti: location - perineal, stage - DTU Blood Sugars: BS controlled Critical Care - Subjective ROS Limited/Unobtainable: Yes ICU Day: 13 Intubation Day: 13 Interval Events: S/P PICC Failed SBT Condition: grave IV Access: PICC EKG Rhythm: Sinus Rhythm FI02: 40 Vent Support Breath Rate: 20 Vent Support Mode: AC Vent Tidal Volume: 450 Sputum Amount: Scant PEEP: 5.0 PIP: 29 Drips: [facility] Tube Feeding Amount: 55 Residuals: 0 I&O: Intake and Output 06/26/18 06/27/18 19:00 07:00 Intake Total 1499 ml 922.8 ml Output Total 1040 ml 880 ml Balance 459 ml 42.8 ml Free Water 50 ml IV Total 689 ml 262.8 ml Tube Feeding 660 ml 660 ml Other 100 ml Output Urine Total 1040 ml 880 ml # Bowel Movements 3 4 Subjective: RYLIE ET-Tube: 7.0 ET Position: 21 Labs: Laboratory Tests Test 06/26/18 12:16 06/27/18 04:50 Activated Partial Thromboplast Time 80 SEC (23-33) H 68 SEC (23-33) H White Blood Count 18.4 K/UL (4.8-10.8) H Red Blood Count 3.35 M/UL (4.20-5.40) L Hemoglobin 9.3 G/DL (12.0-16.0) L Hematocrit 28.3 % (37.0-47.0) L Mean Corpuscular Volume 84 FL (80-99) Mean Corpuscular Hemoglobin 27.7 PG (27.0-31.0) Mean Corpuscular Hemoglobin Concent 32.8 G/DL (32.0-36.0) Red Cell Distribution Width 16.3 % (11.6-14.8) H Platelet Count 400 K/UL (150-450) Mean Platelet Volume 10.1 FL (6.5-10.1) Neutrophils (%) (Auto) % (45.0-75.0) Lymphocytes (%) (Auto) % (20.0-45.0) Monocytes (%) (Auto) % (1.0-10.0) Eosinophils (%) (Auto) % (0.0-3.0) Basophils (%) (Auto) % (0.0-2.0) Differential Total Cells Counted 100 Neutrophils % (Manual) 61 % (45-75) Lymphocytes % (Manual) 6 % (20-45) L Monocytes % (Manual) 27 % (1-10) H Eosinophils % (Manual) 1 % (0-3) Basophils % (Manual) 1 % (0-2) Band Neutrophils 4 % (0-8) Platelet Estimate Increased H Platelet Morphology Normal Hypochromasia 1+ Anisocytosis 1+ Sodium Level 137 MMOL/L (136-145) Potassium Level 3.9 MMOL/L (3.5-5.1) Chloride Level 99 MMOL/L (98-107) Carbon Dioxide Level 32 MMOL/L (21-32) Anion Gap 6 mmol/L (5-15) Blood Urea Nitrogen 34 mg/dL (7-18) H Creatinine 1.4 MG/DL (0.55-1.30) H Estimat Glomerular Filtration Rate mL/min (>60) Glucose Level 120 MG/DL (74-106) H Calcium Level 8.3 MG/DL (8.5-10.1) José Luis Duarte MD Jun 27, 2018 08:51
[2018-06-27] MEDS: Pantoprazole Inj IVP SCH (09:24)
--- NOTE | 2018-06-27 12:34 | Diagnostic Imaging Report ---
Indication: Dyspnea Comparison: 06/25/2018 A single view chest radiograph was obtained. Findings: Interstitial edema is suspected. The heart is enlarged. There is evidence of a left pleural effusion. Endotracheal tube is in good position. Nasogastric tube may be present and if so projects over the upper esophagus. Please correlate clinically. If the patient has a nasogastric tube inserted, suggest pulling the tube. PICC line is present and stable. IMPRESSION: Question presence of a nasogastric tube. The tube may be within the upper esophagus. Correlate clinically. Congestive heart failure suspected
--- NOTE | 2018-06-27 15:37 | Infectious Diseases Prog Note ---
Assessment/Plan Assessment/Plan ASSESSMENT AND PLAN: 1. 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 planner internship bacteremia, line new when + blood cultures, fevers, ? pna, pseudomonas/enterococcus uti, PE, ? reactive leukocytosis - s/p 10 days vancomycin, ciprofloxacin and flagyl - day # 7 diflucan for possible fungemia, plan on 7 day treatment course discontinue diflucan - leukocytosis improved, patient more alert - CT abdomen and pelvis - no abscess or obvious infection - monitor labs, leukocytosis and temperatures - monitor chest x-ray - culture off abx febrile or leukocytosis worsens - icu, supportive care - d/w RN - doubt endocarditis, echo without vegetation mentioned - surveillance blood cultures negative - d/w RN 2. Pulmonary fibrosis. 3. Respiratory failure, on vent. 4. Intensive care unit. 5. History of spinal surgery. 6. Cervical and lumbar spine disc disease. 7. History of prednisone use in the past. 8. History of hypertension per the records. 9. Questionable history of cerebrovascular accident per the records. 10. Past medical history is noted. 11. Allergies to acetaminophen, codeine, hydrocodone, and penicillins and other medication is chlorpheniramine. 12. Family history is noncontributory. 13. Social history is negative. 14. MAR was noted. 15. Case was discussed with RN. 16. ICU care. 17. Continue treatment per primary consultants. Subjective Constitutional: Reports: fever - lgt , fatigue, other - extubated, on bipap HEENT: Reports: congestion Respiratory: Reports: shortness of breath Cardiovascular: Denies: chest pain Gastrointestinal/Abdominal: Denies: nausea, vomiting, diarrhea Genitourinary: Reports: other - + wilson Neurologic: Denies: headache Psychiatric: Denies: depression Skin: Denies: rash Hematologic: Denies: bleeding Musculoskeletal: Denies: pain Allergies: Coded Allergies: ACETAMINOPHEN (Verified Allergy, Unknown, 06/14/18) CHLORPHENIRAMINE (Verified Allergy, Unknown, 06/14/18) CODEINE (Verified Allergy, Unknown, 06/14/18) HYDROCODONE (Verified Allergy, Unknown, 06/14/18) PENICILLINS (Verified Allergy, Unknown, 06/14/18) Objective Vital Signs Last 24 Hour Vital Signs Date Time Temp Pulse Resp B/P (MAP) Pulse Ox O2 Delivery O2 Flow Rate FiO2 06/27/18 14:35 60 36 97 Facial 45 06/27/18 14:00 55 19 152/63 (92) 97 06/27/18 13:00 67 32 136/60 (85) 95 06/27/18 12:59 58 27 97 Facial 45 06/27/18 12:55 45.0 06/27/18 12:53 45 06/27/18 12:06 82 35 93 Facial 35 06/27/18 12:00 Bi-pap 06/27/18 12:00 35.0 06/27/18 12:00 99.6 87 35 148/67 (94) 98 99.6 06/27/18 11:46 71 06/27/18 11:06 88 36 40 06/27/18 11:00 72 33 135/57 (83) 94 06/27/18 10:00 84 40 153/64 (93) 95 06/27/18 09:40 40 06/27/18 09:25 40 06/27/18 09:00 83 29 149/65 (93) 95 06/27/18 08:46 92 06/27/18 08:46 83 34 40 06/27/18 08:45 40 06/27/18 08:05 59 06/27/18 08:00 Mechanical Ventilator 06/27/18 08:00 40 06/27/18 08:00 68 20 153/55 (87) 95 06/27/18 07:13 81 20 40 06/27/18 07:00 62 20 146/52 (83) 97 06/27/18 06:00 60 20 160/60 (93) 97 06/27/18 05:28 71 21 40 06/27/18 05:00 72 20 152/67 (95) 97 06/27/18 04:00 98.7 71 20 148/54 (85) 97 98.7 06/27/18 04:00 66 06/27/18 04:00 Mechanical Ventilator 06/27/18 04:00 40 06/27/18 03:00 79 23 156/62 (93) 96 06/27/18 02:50 72 24 40 06/27/18 02:00 75 157/68 (97) 97 06/27/18 01:16 75 25 40 06/27/18 01:00 76 21 157/64 (95) 97 06/27/18 00:00 98.3 76 20 144/57 (86) 97 98.3 06/27/18 00:00 40 06/27/18 00:00 Mechanical Ventilator 06/27/18 00:00 68 06/26/18 23:00 62 22 143/57 (85) 97 06/26/18 22:44 71 20 40 06/26/18 22:00 76 20 160/64 (96) 97 06/26/18 21:08 87 26 40 06/26/18 21:00 77 20 150/60 (90) 97 06/26/18 20:00 65 06/26/18 20:00 Mechanical Ventilator 06/26/18 20:00 40 06/26/18 20:00 99.0 72 22 160/52 (88) 96 99.0 06/26/18 19:11 72 27 40 06/26/18 19:00 75 24 151/127 (135) 96 06/26/18 19:00 73 24 140/100 (113) 97 06/26/18 19:00 150/80 (103) 06/26/18 18:00 73 24 140/100 (113) 97 06/26/18 18:00 77 29 143/58 (86) 97 06/26/18 17:00 71 20 141/56 (84) 96 06/26/18 17:00 73 24 140/100 (113) 97 06/26/18 16:50 79 26 40 06/26/18 16:00 40 06/26/18 16:00 Mechanical Ventilator 06/26/18 16:00 71 20 141/56 (84) 96 06/26/18 15:30 75 Height (Feet): 5 Height (Inches): 5.00 Weight (Pounds): 198 General Appearance: no acute distress HEENT: normocephalic, atraumatic, anicteric, mucous membranes moist Respiratory/Chest: lungs clear, normal breath sounds, rhonchi - bilaterally, other - on bipap Cardiovascular: normal rate, regular rhythm, no gallop/murmur Abdomen: soft, non tender, no organomegaly, non distended Genitourinary: other - + wilson - urine clear Extremities: no cyanosis Skin: no rash Neurologic/Psychiatric: panel installer II-XII grossly normal, alert, responsive Lymphatic: no neck adenopathy Musculoskeletal: no effusion Objective CT chest: Impression: Extensive right lung pulmonary emboli. Equivocal right ventricular dilatation in the setting of generalized cardiomegaly could indicate right heart strain although this is uncertain Extensive left lung volume loss and possible consolidation Nonspecific bilateral interstitial septal thickening Right jugular venous catheter and endotracheal tube in good position Multiple vertebral body compression fractures. Age indeterminate 8 millimeter left adrenal adenoma Chest x-ray - 06/19 - Findings: Stable satisfactory positions of endotracheal and nasogastric tubes. Right jugular central venous catheter remains in stable satisfactory position. Linear opacities at the left lung base are stable. No definite infiltrates or congestion. Blunting of left costophrenic sulcus is stable, could indicate a small pleural effusion. Degenerative changes of both shoulders again noted. Impression: Unchanged, over one day, findings as above. CT - abdomen and pelvis: IMPRESSION: Extensive diverticulosis of the colon. No definite acute diverticulitis appreciated. Multiple bilateral renal cysts. Atherosclerotic vascular disease Left basilar atelectasis versus scarring. Small umbilical hernia containing fat Wilson catheter in good position. NG tube in good position Old L2 vertebral fracture. Generalized spondylosis and osteopenia. Chest -x -ray - Findings: Interstitial prominence again demonstrated. Cardiomegaly is again demonstrated unchanged. Tubes and lines are stable. IMPRESSION: No change from the prior exam. No acute findings Chest x-ray - 06/25/18 - Findings: Tubes and lines are satisfactory and the unchanged. Heart size is stable. Left pleural effusion and interstitial edema present. Bones are osteopenic. IMPRESSION: No significant change from the prior study. Suspected mild interstitial edema and left pleural effusion Chest x-ray - 06/27/18 Findings: Interstitial edema is suspected. The heart is enlarged. There is evidence of a left pleural effusion. Endotracheal tube is in good position. Nasogastric tube may be present and if so projects over the upper esophagus. Please correlate clinically. If the patient has a nasogastric tube inserted, suggest pulling the tube. PICC line is present and stable. IMPRESSION: Question presence of a nasogastric tube. The tube may be within the upper esophagus. Correlate clinically. Microbiology Date/Time Source Procedure Growth Status 06/20/18 22:00 Blood Blood Culture - Final NO GROWTH AFTER 5 DAYS Complete 06/16/18 15:10 Sputum Induced Gram Stain - Final Complete 06/16/18 15:10 Sputum Induced Sputum Culture - Final NORMAL UPPER RESPIRATORY SOO PRESENT Complete 06/26/18 18:00 Stool Clostridium difficile Toxin Assay - Final Complete 06/20/18 22:00 Urine,Clean Catch Urine Culture - Final NO GROWTH AFTER 48 HOURS Complete 06/14/18 21:00 Rectum VRE Culture - Final NO VANCOMYCIN RESISTANT ENTEROCOCCUS ... Complete 06/14/18 21:00 Rectum - Final NO CARBAPENEM-RESISTANT ENTEROBACTERI... Complete Microbiology Date/Time Source Procedure Growth Status 06/26/18 18:00 Stool Clostridium difficile Toxin Assay - Final Complete Laboratory Tests Test 06/27/18 04:50 06/27/18 10:14 White Blood Count 18.4 K/UL (4.8-10.8) H Red Blood Count 3.35 M/UL (4.20-5.40) L Hemoglobin 9.3 G/DL (12.0-16.0) L Hematocrit 28.3 % (37.0-47.0) L Mean Corpuscular Volume 84 FL (80-99) Mean Corpuscular Hemoglobin 27.7 PG (27.0-31.0) Mean Corpuscular Hemoglobin Concent 32.8 G/DL (32.0-36.0) Red Cell Distribution Width 16.3 % (11.6-14.8) H Platelet Count 400 K/UL (150-450) Mean Platelet Volume 10.1 FL (6.5-10.1) Neutrophils (%) (Auto) % (45.0-75.0) Lymphocytes (%) (Auto) % (20.0-45.0) Monocytes (%) (Auto) % (1.0-10.0) Eosinophils (%) (Auto) % (0.0-3.0) Basophils (%) (Auto) % (0.0-2.0) Differential Total Cells Counted 100 Neutrophils % (Manual) 61 % (45-75) Lymphocytes % (Manual) 6 % (20-45) L Monocytes % (Manual) 27 % (1-10) H Eosinophils % (Manual) 1 % (0-3) Basophils % (Manual) 1 % (0-2) Band Neutrophils 4 % (0-8) Platelet Estimate Increased H Platelet Morphology Normal Hypochromasia 1+ Anisocytosis 1+ Activated Partial Thromboplast Time 68 SEC (23-33) H Sodium Level 137 MMOL/L (136-145) Potassium Level 3.9 MMOL/L (3.5-5.1) Chloride Level 99 MMOL/L (98-107) Carbon Dioxide Level 32 MMOL/L (21-32) Anion Gap 6 mmol/L (5-15) Blood Urea Nitrogen 34 mg/dL (7-18) H Creatinine 1.4 MG/DL (0.55-1.30) H Estimat Glomerular Filtration Rate mL/min (>60) Glucose Level 120 MG/DL (74-106) H Calcium Level 8.3 MG/DL (8.5-10.1) L Arterial Blood pH 7.390 (7.350-7.450) Arterial Blood Partial Pressure CO2 57.1 mmHg (35.0-45.0) *H Arterial Blood Partial Pressure O2 75.8 mmHg (75.0-100.0) Arterial Blood HCO3 34.5 mmol/L (22.0-26.0) H Arterial Blood Oxygen Saturation 93.7 % (95-100) L Arterial Blood Base Excess 8.3 (-2-2) H Zane Test Positive Current Medications Medications (Trade) Dose Ordered Sig/Missy Route PRN Reason Start Time Stop Time Status Last Admin Dose Admin Acetaminophen (Tylenol) 650 mg Q4H PRN ORAL Mild Pain (Pain Scale 1-3) 06/14/18 23:15 07/14/18 23:14 06/27/18 09:28 Chlorhexidine Gluconate (Maria Elena-Hex 2%) 1 applic DAILY@2000 TOPIC 06/16/18 20:00 07/16/18 19:59 06/26/18 20:05 Dextrose (Dextrose 50%) 25 ml Q30M PRN IV Hypoglycemia 06/14/18 23:15 07/14/18 23:14 Dextrose (Dextrose 50%) 50 ml Q30M PRN IV Hypoglycemia 06/14/18 23:15 07/14/18 23:14 Fluconazole/ Sodium Chloride 100 ml @ 100 mls/hr Q24H IV 06/21/18 18:00 06/28/18 17:59 06/26/18 17:23 Heparin Sodium/ Dextrose 500 ml @ 27 mls/hr ADJUST PER PROTOCOL IV 06/26/18 06:00 07/26/18 05:59 06/27/18 02:16 Ondansetron HCl (Zofran) 4 mg Q4H PRN IVP Nausea & Vomiting 06/16/18 17:45 07/16/18 17:44 06/24/18 03:15 Pantoprazole (Protonix) 40 mg DAILY IVP 06/16/18 21:00 07/17/18 08:59 06/27/18 09:24 Ropinirole HCl (Requip) 0.25 mg BEDTIME ORAL 06/21/18 21:00 07/21/18 20:59 06/26/18 20:43 Artur Rodriguez MD Jun 27, 2018 15:37
--- NOTE | 2018-06-27 19:07 | Internal Med Progress Note ---
Subjective Physician Name Umang Contreras Attending Physician Umang Contreras MD Current Medications Medications (Trade) Dose Ordered Sig/Missy Route PRN Reason Start Time Stop Time Status Last Admin Dose Admin Acetaminophen (Tylenol) 650 mg Q4H PRN ORAL Mild Pain (Pain Scale 1-3) 06/14/18 23:15 07/14/18 23:14 06/27/18 18:34 Chlorhexidine Gluconate (Maria Elena-Hex 2%) 1 applic DAILY@2000 TOPIC 06/16/18 20:00 07/16/18 19:59 06/26/18 20:05 Dextrose (Dextrose 50%) 25 ml Q30M PRN IV Hypoglycemia 06/14/18 23:15 07/14/18 23:14 Dextrose (Dextrose 50%) 50 ml Q30M PRN IV Hypoglycemia 06/14/18 23:15 07/14/18 23:14 Fluconazole/ Sodium Chloride 100 ml @ 100 mls/hr Q24H IV 06/21/18 18:00 06/28/18 17:59 06/27/18 17:38 Heparin Sodium/ Dextrose 500 ml @ 27 mls/hr ADJUST PER PROTOCOL IV 06/26/18 06:00 07/26/18 05:59 06/27/18 02:16 Ondansetron HCl (Zofran) 4 mg Q4H PRN IVP Nausea & Vomiting 06/16/18 17:45 07/16/18 17:44 06/24/18 03:15 Pantoprazole (Protonix) 40 mg DAILY IVP 06/16/18 21:00 07/17/18 08:59 06/27/18 09:24 Ropinirole HCl (Requip) 0.25 mg BEDTIME ORAL 06/21/18 21:00 07/21/18 20:59 06/26/18 20:43 Allergies: Coded Allergies: ACETAMINOPHEN (Verified Allergy, Unknown, 06/14/18) CHLORPHENIRAMINE (Verified Allergy, Unknown, 06/14/18) CODEINE (Verified Allergy, Unknown, 06/14/18) HYDROCODONE (Verified Allergy, Unknown, 06/14/18) PENICILLINS (Verified Allergy, Unknown, 06/14/18) Subjective extubated on full face BIPAP +diarrhea tmax 100 12 pt ROS neg except above positives Objective Last Vital Signs Date Time Temp Pulse Resp B/P (MAP) Pulse Ox O2 Delivery O2 Flow Rate FiO2 06/27/18 19:00 60 27 153/68 (96) 97 06/27/18 18:00 99.5 99.5 06/27/18 16:56 Full Face 45 06/27/18 12:55 45.0 Laboratory Tests Test 06/27/18 04:50 06/27/18 10:14 White Blood Count 18.4 K/UL (4.8-10.8) H Red Blood Count 3.35 M/UL (4.20-5.40) L Hemoglobin 9.3 G/DL (12.0-16.0) L Hematocrit 28.3 % (37.0-47.0) L Mean Corpuscular Volume 84 FL (80-99) Mean Corpuscular Hemoglobin 27.7 PG (27.0-31.0) Mean Corpuscular Hemoglobin Concent 32.8 G/DL (32.0-36.0) Red Cell Distribution Width 16.3 % (11.6-14.8) H Platelet Count 400 K/UL (150-450) Mean Platelet Volume 10.1 FL (6.5-10.1) Neutrophils (%) (Auto) % (45.0-75.0) Lymphocytes (%) (Auto) % (20.0-45.0) Monocytes (%) (Auto) % (1.0-10.0) Eosinophils (%) (Auto) % (0.0-3.0) Basophils (%) (Auto) % (0.0-2.0) Differential Total Cells Counted 100 Neutrophils % (Manual) 61 % (45-75) Lymphocytes % (Manual) 6 % (20-45) L Monocytes % (Manual) 27 % (1-10) H Eosinophils % (Manual) 1 % (0-3) Basophils % (Manual) 1 % (0-2) Band Neutrophils 4 % (0-8) Platelet Estimate Increased H Platelet Morphology Normal Hypochromasia 1+ Anisocytosis 1+ Activated Partial Thromboplast Time 68 SEC (23-33) H Sodium Level 137 MMOL/L (136-145) Potassium Level 3.9 MMOL/L (3.5-5.1) Chloride Level 99 MMOL/L (98-107) Carbon Dioxide Level 32 MMOL/L (21-32) Anion Gap 6 mmol/L (5-15) Blood Urea Nitrogen 34 mg/dL (7-18) H Creatinine 1.4 MG/DL (0.55-1.30) H Estimat Glomerular Filtration Rate mL/min (>60) Glucose Level 120 MG/DL (74-106) H Calcium Level 8.3 MG/DL (8.5-10.1) L Arterial Blood pH 7.390 (7.350-7.450) Arterial Blood Partial Pressure CO2 57.1 mmHg (35.0-45.0) *H Arterial Blood Partial Pressure O2 75.8 mmHg (75.0-100.0) Arterial Blood HCO3 34.5 mmol/L (22.0-26.0) H Arterial Blood Oxygen Saturation 93.7 % (95-100) L Arterial Blood Base Excess 8.3 (-2-2) H Zane Test Positive Microbiology Date/Time Source Procedure Growth Status 06/26/18 18:00 Stool Clostridium difficile Toxin Assay - Final Complete Intake and Output 06/26/18 06/27/18 19:00 07:00 Intake Total 1499 ml 922.8 ml Output Total 1040 ml 880 ml Balance 459 ml 42.8 ml Free Water 50 ml IV Total 689 ml 262.8 ml Tube Feeding 660 ml 660 ml Other 100 ml Output Urine Total 1040 ml 880 ml # Bowel Movements 3 4 Objective GENERAL: BIPAP. She is awake. HEENT: Normocephalic/atraumatic. NGT NECK: Patient has a right IJ. There is no JVD noted. LUNGS: Decreased breath sounds bilaterally. Some crackles. CARDIOVASCULAR: Tachycardic. Regular rhythm. ABDOMEN: Soft, nontender. EXTREMITIES: No clubbing, cyanosis, or edema. Assessment/Plan Assessment/Plan ASSESSMENT AND PLAN: 1. Acute hypoxic/hypercapnic respiratory failure secondary to right pulmonary artery embolism. 2. Pulmonary fibrosis. 3. Severe central spinal stenosis of L3-L4 and L4-L5. 4. Leukocytosis-unclear etiology. The patient was being tapered off prednisone recently. 5. History of old compression fractures of T5 and L2. 6. History of thrombocytosis. 7. elevated troponin 2/2 R ventricular strain 8. Leukocytosis - possibly secondary to acute 9. UTI, Psuedomonas 10. Staph hominis Bacteremia 11. diarrhea PLAN: 1. ICU 2. BIPAP 3. heparin drip 4. TTE reviewed. no R ventricular dilation 5. Pulmonary consult 6. NG tube 7. swallow eval in AM 8. Follow up cultures 9. abx - cipro, fluconazole, flagyl and Vanco 10. ID consult 11. POLST completed - DNR (no Chest compressions, intubation and pressors ok). 12. CT Abdomen Pelvis w/Contrast (06/20) - reviewed. no acute process. diverticulosis. 13. imodium prn diarrhea DNR DVT px - Heparin g++ DR LAMA COVERING 06/23-06/24 Umang Contreras MD Jun 27, 2018 19:07
[2018-06-27] MEDS ORDERED: Loperamide 2mg cap ORAL PRN (19:15)
[2018-06-27] MEDS: Dyna-Hex 2% Top Sol 2oz TOPIC SCH (19:49)
[2018-06-27] MEDS: rOPINIRole 0.25mg tab ORAL SCH (20:39)
[2018-06-28] VITALS (24 sets, daily range): BP systolic 122–169; BP diastolic 46–103
[2018-06-28 04:23] LABS: HEMATOCRIT 28.1 % (37.0-47.0); HEMOGLOBIN 9.3 G/DL (12.0-16.0); MEAN CORPUSCULAR VOLUME 84 FL (80-99); PLATELET COUNT 414 K/UL (150-450); RED BLOOD COUNT 3.33 M/UL (4.20-5.40); RED CELL DISTRIBUTION WIDTH 16.2 % (11.6-14.8); WHITE BLOOD COUNT 16.1 K/UL (4.8-10.8)
[2018-06-28 04:40] LABS: ALANINE AMINOTRANSFERASE 16 U/L (12-78); ALBUMIN 2.2 G/DL (3.4-5.0); ALBUMIN/GLOBULIN RATIO 0.6 (1.0-2.7); ALKALINE PHOSPHATASE 73 U/L (46-116); ANION GAP 7 mmol/L (5-15); ASPARTATE AMINO TRANSFERASE 16 U/L (15-37); BILIRUBIN,TOTAL 0.3 MG/DL (0.2-1.0); BLOOD UREA NITROGEN 34 mg/dL (7-18); CALCIUM 8.5 MG/DL (8.5-10.1); CARBON DIOXIDE 30 MMOL/L (21-32); CHLORIDE 101 MMOL/L (98-107); CREATININE 1.5 MG/DL (0.55-1.30); POTASSIUM 3.8 MMOL/L (3.5-5.1); SODIUM 138 MMOL/L (136-145)
[2018-06-28] MEDS ORDERED: Heparin 25,000u/D5W 500ml 500 ML IV SCH ×3 (05:30→21:12)
[2018-06-28] MEDS: Pantoprazole Inj IVP SCH (08:23)
[2018-06-28] MEDS: Heparin 25,000u/D5W 500ml 500 ML IV SCH ×2 (14:51→21:02)
[2018-06-28] MEDS ORDERED: Tubing IV Secondary IV ONE (15:21)
[2018-06-28] MEDS ORDERED: NS 275ml ONE (15:21)
[2018-06-28] MEDS ORDERED: Albuterol/Ipratropium 3ml neb HHN PRN (15:42)
--- NOTE | 2018-06-28 15:42 | Pulmonolgy Critical Care Note ---
Critical Care - Asmt/Plan Problems: (1) Acute respiratory failure with hypoxemia (2) Pulmonary embolism (3) Respiratory distress (4) Pulmonary fibrosis, unspecified Assessment/Plan: Assessment/Plan Assessment: 83 y/o female w/ pulmonary fibrosis, cervical spinal stenosis with compression fractures and hx of fusion admitted with acute on chronic hypoxemic respiratory failure and acute hypercapnic respiratory failure due to large R- sided pulmonary embolism. Noted leukocytosis and potential consolidation on CT but may be difficult to ascertain from her pulmonary fibrosis. No fevers. Will need respiratory support and close monitoring of hemodynamics and low threshold to treat with antibiotics. Problem List: 1. Acute on chronic hypoxemic and acute hypercapnic respiratory failure - EXTUBATED 06/27 2. Large R-sided pulmonary emboli & R fem DVT 3. Potential consolidation LLL 4. Leukocytosis, improving slowly 5. Idiopathic pulmonary fibrosis 6. KAROL 7. Cervical spinal stenosis with compression fractures 8. PsA UTI 9. S hominis BSI Plan: -Optimize pulmonary hygiene/mobilize as tolerated -Titrate down FiO2 to keep SaO2 > 92% -PRN HHN's -BiPAP 15/5 qHS and PRN -IVUH -Monitor leukocytosis -Off Abx per ID, continue Flucon -Monitor volumes and renal function, SLIV -Advance diet per NUTRITIONAL SERVICES DIRECTOR with STRICT aspiration precautions, F/u VSS -DNAR, intubation ok per family -Observe in ICU O/N, if stable will consider downgrading luis felipe CC Time: 35 minutes Critical Care - Objective Last 24 Hour Vital Signs Date Time Temp Pulse Resp B/P (MAP) Pulse Ox O2 Delivery O2 Flow Rate FiO2 06/28/18 15:00 67 22 158/67 (97) 99 06/28/18 14:00 62 34 141/54 (83) 97 06/28/18 13:00 62 39 139/103 (115) 94 06/28/18 12:00 14.0 55 06/28/18 12:00 Bi-pap 06/28/18 12:00 50 06/28/18 12:00 98.7 62 36 166/59 (94) 96 98.7 06/28/18 11:00 70 21 153/79 (103) 97 06/28/18 10:00 66 38 166/67 (100) 98 06/28/18 09:04 54 36 100 Full Face 45 06/28/18 09:00 66 32 169/74 (105) 98 06/28/18 08:00 45.0 06/28/18 08:00 50 06/28/18 08:00 Bi-pap 06/28/18 08:00 99.3 53 31 150/54 (86) 97 99.3 06/28/18 07:07 65 31 97 Full Face 45 06/28/18 07:00 67 27 122/65 (84) 95 06/28/18 06:00 44 27 135/48 (77) 96 06/28/18 05:05 56 27 96 Full Face 45 06/28/18 05:00 99.3 62 25 139/46 (77) 96 99.3 06/28/18 04:00 Bi-pap 06/28/18 04:00 45.0 06/28/18 04:00 58 06/28/18 04:00 58 30 139/46 (77) 96 06/28/18 03:13 60 36 96 Full Face 45 06/28/18 03:00 52 25 139/46 (77) 94 06/28/18 02:00 57 29 154/84 (107) 96 06/28/18 01:15 66 29 97 Full Face 45 06/28/18 01:00 60 29 160/60 (93) 96 06/28/18 00:00 45.0 06/28/18 00:00 Bi-pap 06/28/18 00:00 99.2 62 25 156/63 (94) 95 99.2 06/28/18 00:00 62 06/27/18 23:08 61 31 95 Full Face 45 06/27/18 23:00 56 27 161/66 (97) 96 06/27/18 22:00 61 24 165/69 (101) 96 06/27/18 21:28 63 34 96 Full Face 45 06/27/18 21:00 99.6 59 33 150/71 (97) 98 99.6 06/27/18 20:00 45.0 06/27/18 20:00 Bi-pap 06/27/18 20:00 58 06/27/18 20:00 63 24 113/49 (70) 96 06/27/18 19:10 61 35 98 Full Face 45 06/27/18 19:00 60 27 153/68 (96) 97 06/27/18 18:00 99.5 62 32 157/55 (89) 100 99.5 06/27/18 17:00 65 24 157/55 (89) 95 06/27/18 16:56 66 35 98 Full Face 45 06/27/18 16:00 100.1 67 22 155/74 (101) 97 100.1 06/27/18 16:00 Bi-pap Bi-pap 06/27/18 15:57 61 Status: awake Condition: improving HEENT: atraumatic, normocephalic Lungs: rhonchi - scattered Heart: HR/BP stable Abdomen: soft, non-tender, active bowel sounds Extremities: no C/C/E Micro: Microbiology Date/Time Source Procedure Growth Status 06/26/18 18:00 Stool Clostridium difficile Toxin Assay - Final Complete Blood Sugars: BS not controlled Critical Care - Subjective ROS Limited/Unobtainable: Yes ICU Day: 14 Intubation Day: Extubated Interval Events: Extubated to BiPAP, on VM now, awake and alert Condition: improving IV Access: PICC EKG Rhythm: Sinus Rhythm FI02: 55 Vent Support Breath Rate: 20 Vent Support Mode: BiLevel Vent Tidal Volume: 450 Sputum Amount: None PEEP: 5.0 PIP: 18 Secretions: N/A Fluids: SLIV Drips: IVUH Tube Feeding Amount: 55 I&O: Intake and Output 06/27/18 06/28/18 19:00 07:00 Intake Total 721 ml 274.2 ml Output Total 545 ml 405 ml Balance 176 ml -130.8 ml IV Total 451 ml 274.2 ml Tube Feeding 220 ml Other 50 ml Output Urine Total 545 ml 405 ml # Bowel Movements 2 Subjective: Better, no cough, no SO, no F/C Passed NUTRITIONAL SERVICES DIRECTOR for puree but needs VSS CXR: Chronic interstitial changes, small L pleural effusion ET-Tube: 7.0 ET Position: 21 Labs: Laboratory Tests Test 06/28/18 04:00 06/28/18 11:30 White Blood Count 16.1 K/UL (4.8-10.8) H Red Blood Count 3.33 M/UL (4.20-5.40) L Hemoglobin 9.3 G/DL (12.0-16.0) L Hematocrit 28.1 % (37.0-47.0) L Mean Corpuscular Volume 84 FL (80-99) Mean Corpuscular Hemoglobin 28.1 PG (27.0-31.0) Mean Corpuscular Hemoglobin Concent 33.3 G/DL (32.0-36.0) Red Cell Distribution Width 16.2 % (11.6-14.8) H Platelet Count 414 K/UL (150-450) Mean Platelet Volume 10.6 FL (6.5-10.1) H Neutrophils (%) (Auto) % (45.0-75.0) Lymphocytes (%) (Auto) % (20.0-45.0) Monocytes (%) (Auto) % (1.0-10.0) Eosinophils (%) (Auto) % (0.0-3.0) Basophils (%) (Auto) % (0.0-2.0) Differential Total Cells Counted 100 Neutrophils % (Manual) 64 % (45-75) Lymphocytes % (Manual) 10 % (20-45) L Monocytes % (Manual) 23 % (1-10) H Eosinophils % (Manual) 1 % (0-3) Basophils % (Manual) 1 % (0-2) Band Neutrophils 1 % (0-8) Platelet Estimate Adequate Platelet Morphology Normal Anisocytosis 1+ Activated Partial Thromboplast Time 111 SEC (23-33) H > 150 SEC (23-33) *H Sodium Level 138 MMOL/L (136-145) Potassium Level 3.8 MMOL/L (3.5-5.1) Chloride Level 101 MMOL/L (98-107) Carbon Dioxide Level 30 MMOL/L (21-32) Anion Gap 7 mmol/L (5-15) Blood Urea Nitrogen 34 mg/dL (7-18) H Creatinine 1.5 MG/DL (0.55-1.30) H Estimat Glomerular Filtration Rate mL/min (>60) Glucose Level 103 MG/DL (74-106) Calcium Level 8.5 MG/DL (8.5-10.1) Total Bilirubin 0.3 MG/DL (0.2-1.0) Aspartate Amino Transf (AST/SGOT) 16 U/L (15-37) Alanine Aminotransferase (ALT/SGPT) 16 U/L (12-78) Alkaline Phosphatase 73 U/L (46-116) Total Protein 6.2 G/DL (6.4-8.2) L Albumin 2.2 G/DL (3.4-5.0) L Globulin 4.0 g/dL Albumin/Globulin Ratio 0.6 (1.0-2.7) L José Luis Piedra MD Jun 28, 2018 15:42
--- NOTE | 2018-06-28 17:16 | Internal Med Progress Note ---
Subjective Physician Name Umang Contreras Attending Physician Umang Contreras MD Current Medications Medications (Trade) Dose Ordered Sig/Missy Route PRN Reason Start Time Stop Time Status Last Admin Dose Admin Acetaminophen (Tylenol) 650 mg Q4H PRN ORAL Mild Pain (Pain Scale 1-3) 06/14/18 23:15 07/14/18 23:14 06/28/18 11:42 Albuterol/ Ipratropium (Albuterol/ Ipratropium) 3 ml Q4H PRN HHN Shortness of Breath 06/28/18 15:42 07/03/18 15:41 Chlorhexidine Gluconate (Maria Elena-Hex 2%) 1 applic DAILY@2000 TOPIC 06/16/18 20:00 07/16/18 19:59 06/27/18 19:49 Dextrose (Dextrose 50%) 25 ml Q30M PRN IV Hypoglycemia 06/14/18 23:15 07/14/18 23:14 Dextrose (Dextrose 50%) 50 ml Q30M PRN IV Hypoglycemia 06/14/18 23:15 07/14/18 23:14 Fluconazole/ Sodium Chloride 100 ml @ 100 mls/hr Q24H IV 06/21/18 18:00 06/28/18 17:59 06/27/18 17:38 Heparin Sodium/ Dextrose 500 ml @ 14.37 mls/ hr ADJUST PER PROTOCOL IV 06/28/18 14:30 07/28/18 13:59 06/28/18 14:51 Loperamide HCl (Imodium) 4 mg TIDPRN PRN ORAL Diarrhea 06/27/18 19:15 07/27/18 19:14 06/28/18 11:42 Ondansetron HCl (Zofran) 4 mg Q4H PRN IVP Nausea & Vomiting 06/16/18 17:45 07/16/18 17:44 06/24/18 03:15 Pantoprazole (Protonix) 40 mg DAILY IVP 06/16/18 21:00 07/17/18 08:59 06/28/18 08:23 Ropinirole HCl (Requip) 0.25 mg BEDTIME ORAL 06/21/18 21:00 07/21/18 20:59 06/27/18 20:39 Allergies: Coded Allergies: ACETAMINOPHEN (Verified Allergy, Unknown, 06/14/18) CHLORPHENIRAMINE (Verified Allergy, Unknown, 06/14/18) CODEINE (Verified Allergy, Unknown, 06/14/18) HYDROCODONE (Verified Allergy, Unknown, 06/14/18) PENICILLINS (Verified Allergy, Unknown, 06/14/18) Subjective on 6L mild SOB passed swallow eval afebrile 12 pt ROS neg except above positives Objective Last Vital Signs Date Time Temp Pulse Resp B/P (MAP) Pulse Ox O2 Delivery O2 Flow Rate FiO2 06/28/18 15:00 67 22 158/67 (97) 99 06/28/18 12:00 14.0 55 06/28/18 12:00 Bi-pap 06/28/18 12:00 98.7 98.7 Laboratory Tests Test 06/28/18 04:00 06/28/18 11:30 06/28/18 15:47 White Blood Count 16.1 K/UL (4.8-10.8) H Red Blood Count 3.33 M/UL (4.20-5.40) L Hemoglobin 9.3 G/DL (12.0-16.0) L Hematocrit 28.1 % (37.0-47.0) L Mean Corpuscular Volume 84 FL (80-99) Mean Corpuscular Hemoglobin 28.1 PG (27.0-31.0) Mean Corpuscular Hemoglobin Concent 33.3 G/DL (32.0-36.0) Red Cell Distribution Width 16.2 % (11.6-14.8) H Platelet Count 414 K/UL (150-450) Mean Platelet Volume 10.6 FL (6.5-10.1) H Neutrophils (%) (Auto) % (45.0-75.0) Lymphocytes (%) (Auto) % (20.0-45.0) Monocytes (%) (Auto) % (1.0-10.0) Eosinophils (%) (Auto) % (0.0-3.0) Basophils (%) (Auto) % (0.0-2.0) Differential Total Cells Counted 100 Neutrophils % (Manual) 64 % (45-75) Lymphocytes % (Manual) 10 % (20-45) L Monocytes % (Manual) 23 % (1-10) H Eosinophils % (Manual) 1 % (0-3) Basophils % (Manual) 1 % (0-2) Band Neutrophils 1 % (0-8) Platelet Estimate Adequate Platelet Morphology Normal Anisocytosis 1+ Activated Partial Thromboplast Time 111 SEC (23-33) H > 150 SEC (23-33) *H Sodium Level 138 MMOL/L (136-145) Potassium Level 3.8 MMOL/L (3.5-5.1) Chloride Level 101 MMOL/L (98-107) Carbon Dioxide Level 30 MMOL/L (21-32) Anion Gap 7 mmol/L (5-15) Blood Urea Nitrogen 34 mg/dL (7-18) H Creatinine 1.5 MG/DL (0.55-1.30) H Estimat Glomerular Filtration Rate mL/min (>60) Glucose Level 103 MG/DL (74-106) Calcium Level 8.5 MG/DL (8.5-10.1) Total Bilirubin 0.3 MG/DL (0.2-1.0) Aspartate Amino Transf (AST/SGOT) 16 U/L (15-37) Alanine Aminotransferase (ALT/SGPT) 16 U/L (12-78) Alkaline Phosphatase 73 U/L (46-116) Total Protein 6.2 G/DL (6.4-8.2) L Albumin 2.2 G/DL (3.4-5.0) L Globulin 4.0 g/dL Albumin/Globulin Ratio 0.6 (1.0-2.7) L Arterial Blood pH 7.410 (7.350-7.450) Arterial Blood Partial Pressure CO2 53.4 mmHg (35.0-45.0) H Arterial Blood Partial Pressure O2 83.2 mmHg (75.0-100.0) Arterial Blood HCO3 33.1 mmol/L (22.0-26.0) H Arterial Blood Oxygen Saturation 95.3 % (95-100) Arterial Blood Base Excess 7.3 (-2-2) H Zane Test Positive Microbiology Date/Time Source Procedure Growth Status 06/26/18 18:00 Stool Clostridium difficile Toxin Assay - Final Complete Intake and Output 06/27/18 06/28/18 19:00 07:00 Intake Total 721 ml 274.2 ml Output Total 545 ml 405 ml Balance 176 ml -130.8 ml IV Total 451 ml 274.2 ml Tube Feeding 220 ml Other 50 ml Output Urine Total 545 ml 405 ml # Bowel Movements 2 Objective GENERAL: BIPAP. She is awake. HEENT: Normocephalic/atraumatic. NECK: Patient has a right IJ. There is no JVD noted. LUNGS: Decreased breath sounds bilaterally. Some crackles. CARDIOVASCULAR: Tachycardic. Regular rhythm. ABDOMEN: Soft, nontender. EXTREMITIES: No clubbing, cyanosis, or edema. Assessment/Plan Assessment/Plan ASSESSMENT AND PLAN: 1. Acute hypoxic/hypercapnic respiratory failure secondary to right pulmonary artery embolism. 2. Pulmonary fibrosis. 3. Severe central spinal stenosis of L3-L4 and L4-L5. 4. Leukocytosis-unclear etiology. The patient was being tapered off prednisone recently. 5. History of old compression fractures of T5 and L2. 6. History of thrombocytosis. 7. elevated troponin 2/2 R ventricular strain 8. Leukocytosis - possibly secondary to acute 9. UTI, Psuedomonas 10. Staph hominis Bacteremia 11. diarrhea PLAN: 1. ICU 2. titrate O2 to keep SpO2 > 92%; BIPAP prn 3. heparin drip 4. TTE reviewed. no R ventricular dilation 5. Pulmonary consult 6. start Puree diet 7. passed swallow evaluation; 8. Follow up cultures 9. abx - fluconazole 03/24 10. ID consult 11. POLST completed - DNR (no Chest compressions, intubation and pressors ok). 12. CT Abdomen Pelvis w/Contrast (06/20) - reviewed. no acute process. diverticulosis. 13. imodium prn diarrhea DNR DVT px - Heparin g++ DR LAMA COVERING 06/30-07/01 Umang Contreras MD Jun 28, 2018 17:16
[2018-06-28] MEDS: Dyna-Hex 2% Top Sol 2oz TOPIC SCH (20:00)
[2018-06-28] MEDS: rOPINIRole 0.25mg tab ORAL SCH (20:47)
[2018-06-28] MEDS ORDERED: TraZODone 50mg tab ORAL SCH (21:00)
[2018-06-28] MEDS ORDERED: Heparin 5000 units/ml inj IV SCH (21:11)
[2018-06-29] VITALS (24 sets, daily range): BP systolic 109–181; BP diastolic 32–95
[2018-06-29] MEDS ORDERED: Heparin 25,000u/D5W 500ml 500 ML IV SCH ×3 (04:00→20:15)
--- NOTE | 2018-06-29 08:26 | Pulmonolgy Critical Care Note ---
Critical Care - Asmt/Plan Problems: (1) Acute respiratory failure with hypoxemia (2) Pulmonary embolism (3) Respiratory distress (4) Pulmonary fibrosis, unspecified Assessment/Plan: Assessment/Plan Assessment: 83 y/o female w/ pulmonary fibrosis, cervical spinal stenosis with compression fractures and hx of fusion admitted with acute on chronic hypoxemic respiratory failure and acute hypercapnic respiratory failure due to large R- sided pulmonary embolism. Noted leukocytosis and potential consolidation on CT but may be difficult to ascertain from her pulmonary fibrosis. No fevers. Will need respiratory support and close monitoring of hemodynamics and low threshold to treat with antibiotics. Problem List: 1. Acute on chronic hypoxemic and acute hypercapnic respiratory failure - EXTUBATED 06/27 2. Large R-sided pulmonary emboli & R fem DVT 3. Potential consolidation LLL 4. Leukocytosis, improving slowly 5. Idiopathic pulmonary fibrosis 6. KAROL 7. Cervical spinal stenosis with compression fractures 8. PsA UTI 9. S hominis BSI Plan: -Optimize pulmonary hygiene/mobilize as tolerated -Titrate down FiO2 to keep SaO2 > 92% -PRN HHN's -BiPAP 15/5 qHS and PRN - ENCOURAGE NOCTURNAL COMPLIANCE -IV[facility] -Monitor leukocytosis -Off Abx per ID -Monitor volumes and renal function, SLIV -Advance diet per LOAN PROCESSING SUPERVISOR with STRICT aspiration precautions, F/u VSS -DNAR, intubation ok per family -Can transfer to [facility] Time: 35 minutes Critical Care - Objective Last 24 Hour Vital Signs Date Time Temp Pulse Resp B/P (MAP) Pulse Ox O2 Delivery O2 Flow Rate FiO2 06/29/18 07:04 Nasal Cannula 4.0 36 06/29/18 07:04 94 30 Nasal Cannula 4.0 36 06/29/18 07:04 88 Nasal Cannula 4.0 36 06/29/18 07:00 92 36 172/82 (112) 91 06/29/18 06:00 83 36 169/74 (105) 91 06/29/18 05:00 89 45 156/75 (102) 81 06/29/18 04:00 4.0 06/29/18 04:00 Bi-pap 06/29/18 04:00 63 06/29/18 04:00 99.1 86 25 151/57 (88) 92 99.1 06/29/18 03:00 82 38 144/58 (86) 81 06/29/18 02:00 76 36 164/76 (105) 88 06/29/18 01:00 73 34 148/70 (96) 91 06/29/18 00:00 68 06/29/18 00:00 99.6 77 25 132/32 (65) 92 99.6 06/29/18 00:00 Bi-pap 06/29/18 00:00 4.0 06/28/18 23:00 71 34 146/58 (87) 91 06/28/18 22:00 77 34 143/56 (85) 92 06/28/18 21:17 99.7 06/28/18 21:00 82 28 155/91 (112) 91 06/28/18 20:47 100.2 06/28/18 20:00 100.2 78 44 151/72 (98) 95 100.2 06/28/18 20:00 4.0 06/28/18 20:00 62 06/28/18 20:00 Bi-pap 06/28/18 19:10 96 Nasal Cannula 4.0 36 06/28/18 19:10 Nasal Cannula 4.0 36 06/28/18 19:10 73 32 Nasal Cannula 4.0 36 06/28/18 19:00 77 30 157/66 (96) 94 06/28/18 18:00 78 34 154/66 (95) 94 06/28/18 17:00 68 35 160/63 (95) 94 06/28/18 16:00 98.9 64 36 159/62 (94) 97 98.9 06/28/18 16:00 14.0 55 06/28/18 16:00 60 06/28/18 16:00 Bi-pap 06/28/18 15:00 67 22 158/67 (97) 99 06/28/18 14:00 62 34 141/54 (83) 97 06/28/18 13:00 62 39 139/103 (115) 94 06/28/18 12:00 14.0 55 06/28/18 12:00 Bi-pap 06/28/18 12:00 50 06/28/18 12:00 98.7 62 36 166/59 (94) 96 98.7 06/28/18 11:00 70 21 153/79 (103) 97 06/28/18 10:00 Nasal Cannula 4.0 06/28/18 10:00 66 38 166/67 (100) 98 06/28/18 10:00 94 Nasal Cannula 4.0 06/28/18 09:04 54 36 100 Full Face 45 06/28/18 09:00 66 32 169/74 (105) 98 Status: awake Condition: improving HEENT: atraumatic, normocephalic Lungs: rhonchi Heart: HR/BP stable Abdomen: soft, non-tender, active bowel sounds Extremities: no C/C/E Micro: Microbiology Date/Time Source Procedure Growth Status 06/26/18 18:00 Stool Clostridium difficile Toxin Assay - Final Complete Blood Sugars: BS controlled Critical Care - Subjective ROS Limited/Unobtainable: Yes ICU Day: 15 Intubation Day: H/A Interval Events: Refused BiPAP, on 4L NC, periods of tacypnea, no cough, no wheezing, no F/C Passed LO[employer] 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, lawrence puree Condition: improving IV Access: PICC EKG Rhythm: Sinus Rhythm FI02: 36 Vent Support Breath Rate: 20 Vent Support Mode: BiLevel Vent Tidal Volume: 450 Sputum Amount: None PEEP: 5.0 PIP: 18 Fluids: SLIV Drips: IV[facility] Tube Feeding Amount: 55 I&O: Intake and Output 06/28/18 06/29/18 19:00 07:00 Intake Total 262.37 ml 215.548 ml Output Total 625 ml 650 ml Balance -362.63 ml -434.452 ml Intake Oral 140 ml IV Total 122.37 ml 215.548 ml Output Urine Total 625 ml 650 ml # Bowel Movements 5 ET-Tube: 7.0 ET Position: 21 Labs: Laboratory Tests Test 06/28/18 11:30 06/28/18 15:47 06/28/18 20:25 06/29/18 03:05 Activated Partial Thromboplast Time > 150 SEC (23-33) *H 35 SEC (23-33) H 101 SEC (23-33) H Arterial Blood pH 7.410 (7.350-7.450) Arterial Blood Partial Pressure CO2 53.4 mmHg (35.0-45.0) H Arterial Blood Partial Pressure O2 83.2 mmHg (75.0-100.0) Arterial Blood HCO3 33.1 mmol/L (22.0-26.0) H Arterial Blood Oxygen Saturation 95.3 % (95-100) Arterial Blood Base Excess 7.3 (-2-2) H Zane Test Positive José Luis Piedra MD Jun 29, 2018 08:26
[2018-06-29] MEDS: Pantoprazole Inj IVP SCH (09:39)
--- NOTE | 2018-06-29 10:40 | Diagnostic Imaging Report ---
Indication: Dyspnea Comparison: 06/27/2018 A single view chest radiograph was obtained. Findings: Evidence of interstitial edema with prominent vascularity and heart size. Mild the left upper pleural effusion may be present. IMPRESSION: Suspected mild interstitial edema
[2018-06-29] MEDS ORDERED: Heparin 5000 units/ml inj IV SCH (12:45)
[2018-06-29] MEDS ORDERED: Tubing IV Secondary IV ONE (15:29)
[2018-06-29] MEDS ORDERED: NS 275ml ONE (15:29)
--- NOTE | 2018-06-29 17:31 | Infectious Diseases Prog Note ---
Assessment/Plan Assessment/Plan ASSESSMENT AND PLAN: 1. 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 pna, pseudomonas/enterococcus uti, PE, ? reactive leukocytosis - s/p 10 days vancomycin, ciprofloxacin and flagyl - s/p treatment diflucan for presumptive fungemia - leukocytosis improved, patient more alert, fever curve better - CT abdomen and pelvis - no abscess or obvious infection - monitor labs, leukocytosis and temperatures - monitor chest x-ray - culture off abx febrile or leukocytosis worsens - icu, supportive care - d/w RN - doubt endocarditis, echo without vegetation mentioned - surveillance blood cultures negative - d/w RN 2. Pulmonary fibrosis. 3. Respiratory failure, on vent. 4. Intensive care unit. 5. History of spinal surgery. 6. Cervical and lumbar spine disc disease. 7. History of prednisone use in the past. 8. History of hypertension per the records. 9. Questionable history of cerebrovascular accident per the records. 10. Past medical history is noted. 11. Allergies to acetaminophen, codeine, hydrocodone, and penicillins and other medication is chlorpheniramine. 12. Family history is noncontributory. 13. Social history is negative. 14. MAR was noted. 15. Case was discussed with RN. 16. ICU care. 17. Continue treatment per primary consultants. Subjective Constitutional: Reports: fatigue, other - lgt yesterday ; Denies: fever HEENT: Reports: congestion - less Respiratory: Reports: shortness of breath - less Cardiovascular: Denies: chest pain Gastrointestinal/Abdominal: Denies: nausea, vomiting, diarrhea Genitourinary: Reports: other - + wilson ; Denies: dysuria, hematuria, frequency Psychiatric: Denies: depression, anxiety Skin: Denies: rash Hematologic: Denies: bleeding Musculoskeletal: Denies: pain Allergies: Coded Allergies: ACETAMINOPHEN (Verified Allergy, Unknown, 06/14/18) CHLORPHENIRAMINE (Verified Allergy, Unknown, 06/14/18) CODEINE (Verified Allergy, Unknown, 06/14/18) HYDROCODONE (Verified Allergy, Unknown, 06/14/18) PENICILLINS (Verified Allergy, Unknown, 06/14/18) Objective Vital Signs Last 24 Hour Vital Signs Date Time Temp Pulse Resp B/P (MAP) Pulse Ox O2 Delivery O2 Flow Rate FiO2 06/29/18 17:00 88 34 141/83 (102) 91 06/29/18 16:00 97.5 79 35 129/82 (98) 93 97.5 06/29/18 16:00 4.0 06/29/18 16:00 82 06/29/18 16:00 Bi-pap 06/29/18 15:00 86 33 156/66 (96) 93 06/29/18 14:00 88 36 148/71 (96) 93 06/29/18 13:00 87 41 152/52 (85) 96 06/29/18 12:00 92 06/29/18 12:00 Bi-pap 06/29/18 12:00 97.4 84 33 139/50 (79) 99 97.4 06/29/18 12:00 4.0 06/29/18 11:00 94 29 152/52 (85) 93 06/29/18 10:00 84 34 109/82 (91) 90 06/29/18 09:00 86 35 150/70 (96) 87 06/29/18 08:00 98.7 78 30 154/68 (96) 95 98.7 06/29/18 08:00 87 06/29/18 08:00 4.0 06/29/18 08:00 Bi-pap 06/29/18 07:04 Nasal Cannula 4.0 36 06/29/18 07:04 94 30 Nasal Cannula 4.0 36 06/29/18 07:04 88 Nasal Cannula 4.0 36 06/29/18 07:00 92 36 172/82 (112) 91 06/29/18 06:00 83 36 169/74 (105) 91 06/29/18 05:00 89 45 156/75 (102) 81 06/29/18 04:00 4.0 06/29/18 04:00 Bi-pap 06/29/18 04:00 63 06/29/18 04:00 99.1 86 25 151/57 (88) 92 99.1 06/29/18 03:00 82 38 144/58 (86) 81 06/29/18 02:00 76 36 164/76 (105) 88 06/29/18 01:00 73 34 148/70 (96) 91 06/29/18 00:00 68 06/29/18 00:00 99.6 77 25 132/32 (65) 92 99.6 06/29/18 00:00 Bi-pap 06/29/18 00:00 4.0 06/28/18 23:00 71 34 146/58 (87) 91 06/28/18 22:00 77 34 143/56 (85) 92 06/28/18 21:17 99.7 06/28/18 21:00 82 28 155/91 (112) 91 06/28/18 20:47 100.2 06/28/18 20:00 100.2 78 44 151/72 (98) 95 100.2 06/28/18 20:00 4.0 06/28/18 20:00 62 06/28/18 20:00 Bi-pap 06/28/18 19:10 96 Nasal Cannula 4.0 36 06/28/18 19:10 Nasal Cannula 4.0 36 06/28/18 19:10 73 32 Nasal Cannula 4.0 36 06/28/18 19:00 77 30 157/66 (96) 94 06/28/18 18:00 78 34 154/66 (95) 94 Height (Feet): 5 Height (Inches): 5.00 Weight (Pounds): 199 General Appearance: no acute distress, other - mild sob HEENT: normocephalic, atraumatic, anicteric, mucous membranes moist Respiratory/Chest: crackles/rales, rhonchi - bilaterally Cardiovascular: normal rate, regular rhythm, no gallop/murmur, no JVD Abdomen: normal bowel sounds, soft, non tender, no organomegaly, non distended Genitourinary: other - + wilson - urine clear Extremities: no cyanosis Skin: no rash Neurologic/Psychiatric: ammonia still operator II-XII grossly normal, alert, responsive Lymphatic: no neck adenopathy Musculoskeletal: no effusion Objective CT chest: Impression: Extensive right lung pulmonary emboli. Equivocal right ventricular dilatation in the setting of generalized cardiomegaly could indicate right heart strain although this is uncertain Extensive left lung volume loss and possible consolidation Nonspecific bilateral interstitial septal thickening Right jugular venous catheter and endotracheal tube in good position Multiple vertebral body compression fractures. Age indeterminate 8 millimeter left adrenal adenoma Chest x-ray - 06/19 - Findings: Stable satisfactory positions of endotracheal and nasogastric tubes. Right jugular central venous catheter remains in stable satisfactory position. Linear opacities at the left lung base are stable. No definite infiltrates or congestion. Blunting of left costophrenic sulcus is stable, could indicate a small pleural effusion. Degenerative changes of both shoulders again noted. Impression: Unchanged, over one day, findings as above. CT - abdomen and pelvis: IMPRESSION: Extensive diverticulosis of the colon. No definite acute diverticulitis appreciated. Multiple bilateral renal cysts. Atherosclerotic vascular disease Left basilar atelectasis versus scarring. Small umbilical hernia containing fat Wilson catheter in good position. NG tube in good position Old L2 vertebral fracture. Generalized spondylosis and osteopenia. Chest -x -ray - Findings: Interstitial prominence again demonstrated. Cardiomegaly is again demonstrated unchanged. Tubes and lines are stable. IMPRESSION: No change from the prior exam. No acute findings Chest x-ray - 06/25/18 - Findings: Tubes and lines are satisfactory and the unchanged. Heart size is stable. Left pleural effusion and interstitial edema present. Bones are osteopenic. IMPRESSION: No significant change from the prior study. Suspected mild interstitial edema and left pleural effusion Chest x-ray - 06/27/18 Findings: Interstitial edema is suspected. The heart is enlarged. There is evidence of a left pleural effusion. Endotracheal tube is in good position. Nasogastric tube may be present and if so projects over the upper esophagus. Please correlate clinically. If the patient has a nasogastric tube inserted, suggest pulling the tube. PICC line is present and stable. IMPRESSION: Question presence of a nasogastric tube. The tube may be within the upper esophagus. Correlate clinically. Chest x-ray - 06/29/18 - A single view chest radiograph was obtained. Findings: Evidence of interstitial edema with prominent vascularity and heart size. Mild the left upper pleural effusion may be present. IMPRESSION: Suspected mild interstitial edema Microbiology Date/Time Source Procedure Growth Status 06/20/18 22:00 Blood Blood Culture - Final NO GROWTH AFTER 5 DAYS Complete 06/16/18 15:10 Sputum Induced Gram Stain - Final Complete 06/16/18 15:10 Sputum Induced Sputum Culture - Final NORMAL UPPER RESPIRATORY SOO PRESENT Complete 06/26/18 18:00 Stool Clostridium difficile Toxin Assay - Final Complete 06/20/18 22:00 Urine,Clean Catch Urine Culture - Final NO GROWTH AFTER 48 HOURS Complete 06/14/18 21:00 Rectum VRE Culture - Final NO VANCOMYCIN RESISTANT ENTEROCOCCUS ... Complete 06/14/18 21:00 Rectum - Final NO CARBAPENEM-RESISTANT ENTEROBACTERI... Complete Microbiology Date/Time Source Procedure Growth Status 06/26/18 18:00 Stool Clostridium difficile Toxin Assay - Final Complete Labs Test 06/27/18 04:50 06/27/18 10:14 06/28/18 04:00 06/28/18 11:30 White Blood Count 18.4 K/UL (4.8-10.8) 16.1 K/UL (4.8-10.8) Red Blood Count 3.35 M/UL (4.20-5.40) 3.33 M/UL (4.20-5.40) Hemoglobin 9.3 G/DL (12.0-16.0) 9.3 G/DL (12.0-16.0) Hematocrit 28.3 % (37.0-47.0) 28.1 % (37.0-47.0) Mean Corpuscular Volume 84 FL (80-99) 84 FL (80-99) Mean Corpuscular Hemoglobin 27.7 PG (27.0-31.0) 28.1 PG (27.0-31.0) Mean Corpuscular Hemoglobin Concent 32.8 G/DL (32.0-36.0) 33.3 G/DL (32.0-36.0) Red Cell Distribution Width 16.3 % (11.6-14.8) 16.2 % (11.6-14.8) Platelet Count 400 K/UL (150-450) 414 K/UL (150-450) Mean Platelet Volume 10.1 FL (6.5-10.1) 10.6 FL (6.5-10.1) Neutrophils (%) (Auto) % (45.0-75.0) % (45.0-75.0) Lymphocytes (%) (Auto) % (20.0-45.0) % (20.0-45.0) Monocytes (%) (Auto) % (1.0-10.0) % (1.0-10.0) Eosinophils (%) (Auto) % (0.0-3.0) % (0.0-3.0) Basophils (%) (Auto) % (0.0-2.0) % (0.0-2.0) Differential Total Cells Counted 100 100 Neutrophils % (Manual) 61 % (45-75) 64 % (45-75) Lymphocytes % (Manual) 6 % (20-45) 10 % (20-45) Monocytes % (Manual) 27 % (1-10) 23 % (1-10) Eosinophils % (Manual) 1 % (0-3) 1 % (0-3) Basophils % (Manual) 1 % (0-2) 1 % (0-2) Band Neutrophils 4 % (0-8) 1 % (0-8) Platelet Estimate Increased Adequate Platelet Morphology Normal Normal Hypochromasia 1+ Anisocytosis 1+ 1+ Activated Partial Thromboplast Time 68 SEC (23-33) 111 SEC (23-33) > 150 SEC (23-33) Sodium Level 137 MMOL/L (136-145) 138 MMOL/L (136-145) Potassium Level 3.9 MMOL/L (3.5-5.1) 3.8 MMOL/L (3.5-5.1) Chloride Level 99 MMOL/L (98-107) 101 MMOL/L (98-107) Carbon Dioxide Level 32 MMOL/L (21-32) 30 MMOL/L (21-32) Anion Gap 6 mmol/L (5-15) 7 mmol/L (5-15) Blood Urea Nitrogen 34 mg/dL (7-18) 34 mg/dL (7-18) Creatinine 1.4 MG/DL (0.55-1.30) 1.5 MG/DL (0.55-1.30) Estimat Glomerular Filtration Rate mL/min (>60) mL/min (>60) Glucose Level 120 MG/DL (74-106) 103 MG/DL (74-106) Calcium Level 8.3 MG/DL (8.5-10.1) 8.5 MG/DL (8.5-10.1) Arterial Blood pH 7.390 (7.350-7.450) Arterial Blood Partial Pressure CO2 57.1 mmHg (35.0-45.0) Arterial Blood Partial Pressure O2 75.8 mmHg (75.0-100.0) Arterial Blood HCO3 34.5 mmol/L (22.0-26.0) Arterial Blood Oxygen Saturation 93.7 % (95-100) Arterial Blood Base Excess 8.3 (-2-2) Zane Test Positive Total Bilirubin 0.3 MG/DL (0.2-1.0) Aspartate Amino Transf (AST/SGOT) 16 U/L (15-37) Alanine Aminotransferase (ALT/SGPT) 16 U/L (12-78) Alkaline Phosphatase 73 U/L (46-116) Total Protein 6.2 G/DL (6.4-8.2) Albumin 2.2 G/DL (3.4-5.0) Globulin 4.0 g/dL Albumin/Globulin Ratio 0.6 (1.0-2.7) Test 06/28/18 15:47 06/28/18 20:25 06/29/18 03:05 06/29/18 11:10 Arterial Blood pH 7.410 (7.350-7.450) Arterial Blood Partial Pressure CO2 53.4 mmHg (35.0-45.0) Arterial Blood Partial Pressure O2 83.2 mmHg (75.0-100.0) Arterial Blood HCO3 33.1 mmol/L (22.0-26.0) Arterial Blood Oxygen Saturation 95.3 % (95-100) Arterial Blood Base Excess 7.3 (-2-2) Zane Test Positive Activated Partial Thromboplast Time 35 SEC (23-33) 101 SEC (23-33) 44 SEC (23-33) Laboratory Tests Test 06/28/18 20:25 06/29/18 03:05 06/29/18 11:10 Activated Partial Thromboplast Time 35 SEC (23-33) H 101 SEC (23-33) H 44 SEC (23-33) H Current Medications Medications (Trade) Dose Ordered Sig/Missy Route PRN Reason Start Time Stop Time Status Last Admin Dose Admin Acetaminophen (Tylenol) 650 mg Q4H PRN ORAL Mild Pain (Pain Scale 1-3) 06/14/18 23:15 07/14/18 23:14 06/28/18 20:47 Albuterol/ Ipratropium (Albuterol/ Ipratropium) 3 ml Q4H PRN HHN Shortness of Breath 06/28/18 15:42 07/03/18 15:41 Chlorhexidine Gluconate (Maria Elena-Hex 2%) 1 applic DAILY@2000 TOPIC 06/16/18 20:00 07/16/18 19:59 06/28/18 20:00 Dextrose (Dextrose 50%) 25 ml Q30M PRN IV Hypoglycemia 06/14/18 23:15 07/14/18 23:14 Dextrose (Dextrose 50%) 50 ml Q30M PRN IV Hypoglycemia 06/14/18 23:15 07/14/18 23:14 Haloperidol Lactate (Haldol) 5 mg Q6H PRN IM Agitation 06/29/18 13:45 07/29/18 13:44 Heparin Sodium/ Dextrose 500 ml @ 25.147 mls/ hr ADJUST PER PROTOCOL IV 06/29/18 12:45 07/29/18 12:44 06/29/18 13:00 Loperamide HCl (Imodium) 4 mg TIDPRN PRN ORAL Diarrhea 06/27/18 19:15 07/27/18 19:14 06/28/18 11:42 Ondansetron HCl (Zofran) 4 mg Q4H PRN IVP Nausea & Vomiting 06/16/18 17:45 07/16/18 17:44 06/24/18 03:15 Pantoprazole (Protonix) 40 mg DAILY IVP 06/16/18 21:00 07/17/18 08:59 06/29/18 09:39 Quetiapine Fumarate (SEROquel) 25 mg BEDTIME ORAL 06/29/18 21:00 07/29/18 20:59 Ropinirole HCl (Requip) 0.25 mg BEDTIME ORAL 06/21/18 21:00 07/21/18 20:59 06/28/18 20:47 Artur Rodriguez MD Jun 29, 2018 17:31
--- NOTE | 2018-06-29 19:21 | Internal Med Progress Note ---
Subjective Physician Name Umang Contreras Attending Physician Umang Contreras MD Current Medications Medications (Trade) Dose Ordered Sig/Missy Route PRN Reason Start Time Stop Time Status Last Admin Dose Admin Acetaminophen (Tylenol) 650 mg Q4H PRN ORAL Mild Pain (Pain Scale 1-3) 06/14/18 23:15 07/14/18 23:14 06/28/18 20:47 Albuterol/ Ipratropium (Albuterol/ Ipratropium) 3 ml Q4H PRN HHN Shortness of Breath 06/28/18 15:42 07/03/18 15:41 Chlorhexidine Gluconate (Maria Elena-Hex 2%) 1 applic DAILY@2000 TOPIC 06/16/18 20:00 07/16/18 19:59 06/28/18 20:00 Dextrose (Dextrose 50%) 25 ml Q30M PRN IV Hypoglycemia 06/14/18 23:15 07/14/18 23:14 Dextrose (Dextrose 50%) 50 ml Q30M PRN IV Hypoglycemia 06/14/18 23:15 07/14/18 23:14 Haloperidol Lactate (Haldol) 5 mg Q6H PRN IM Agitation 06/29/18 13:45 07/29/18 13:44 Heparin Sodium/ Dextrose 500 ml @ 17.962 mls/ hr ADJUST PER PROTOCOL IV 06/29/18 20:15 07/29/18 20:14 Loperamide HCl (Imodium) 4 mg TIDPRN PRN ORAL Diarrhea 06/27/18 19:15 07/27/18 19:14 06/28/18 11:42 Ondansetron HCl (Zofran) 4 mg Q4H PRN IVP Nausea & Vomiting 06/16/18 17:45 07/16/18 17:44 06/24/18 03:15 Pantoprazole (Protonix) 40 mg DAILY IVP 06/16/18 21:00 07/17/18 08:59 06/29/18 09:39 Quetiapine Fumarate (SEROquel) 25 mg BEDTIME ORAL 06/29/18 21:00 07/29/18 20:59 Ropinirole HCl (Requip) 0.25 mg BEDTIME ORAL 06/21/18 21:00 07/21/18 20:59 06/28/18 20:47 Allergies: Coded Allergies: ACETAMINOPHEN (Verified Allergy, Unknown, 06/14/18) CHLORPHENIRAMINE (Verified Allergy, Unknown, 06/14/18) CODEINE (Verified Allergy, Unknown, 06/14/18) HYDROCODONE (Verified Allergy, Unknown, 06/14/18) PENICILLINS (Verified Allergy, Unknown, 06/14/18) Subjective on full face bipap O2 sat 94% On 45% Fio2 tolerating diet afebrile 12 pt ROS neg except above positives Objective Last Vital Signs Date Time Temp Pulse Resp B/P (MAP) Pulse Ox O2 Delivery O2 Flow Rate FiO2 06/29/18 19:17 91 43 93 Full Face 45 06/29/18 19:12 4.0 06/29/18 18:00 174/95 (121) 06/29/18 16:00 97.5 97.5 Laboratory Tests Test 06/28/18 20:25 06/29/18 03:05 06/29/18 11:10 06/29/18 18:15 Activated Partial Thromboplast Time 35 SEC (23-33) H 101 SEC (23-33) H 44 SEC (23-33) H > 150 SEC (23-33) *H Intake and Output 06/28/18 06/29/18 19:00 07:00 Intake Total 262.37 ml 215.548 ml Output Total 625 ml 650 ml Balance -362.63 ml -434.452 ml Intake Oral 140 ml IV Total 122.37 ml 215.548 ml Output Urine Total 625 ml 650 ml # Bowel Movements 5 Objective GENERAL: BIPAP. She is awake. HEENT: Normocephalic/atraumatic. NECK: Patient has a right IJ. There is no JVD noted. LUNGS: Decreased breath sounds bilaterally. Some crackles. CARDIOVASCULAR: Tachycardic. Regular rhythm. ABDOMEN: Soft, nontender. EXTREMITIES: No clubbing, cyanosis, or edema. Assessment/Plan Assessment/Plan ASSESSMENT AND PLAN: 1. Acute hypoxic/hypercapnic respiratory failure secondary to right pulmonary artery embolism. 2. Pulmonary fibrosis. 3. Severe central spinal stenosis of L3-L4 and L4-L5. 4. Leukocytosis-unclear etiology. The patient was being tapered off prednisone recently. 5. History of old compression fractures of T5 and L2. 6. History of thrombocytosis. 7. elevated troponin 2/2 R ventricular strain 8. Leukocytosis - possibly secondary to acute 9. UTI, Psuedomonas 10. Staph hominis Bacteremia 11. diarrhea PLAN: 1. ICU 2. titrate O2 to keep SpO2 > 92%; BIPAP prn 3. heparin drip 4. TTE reviewed. no R ventricular dilation 5. Pulmonary consult 6. start Puree diet 7. passed swallow evaluation; 8. Follow up cultures 9. abx - off 10. ID consult 11. POLST completed - DNR (no Chest compressions, intubation and pressors ok). 12. CT Abdomen Pelvis w/Contrast (06/20) - reviewed. no acute process. diverticulosis. 13. imodium prn diarrhea 14. can transfer to PCU 15. gabapentin prn anxiety DNR DVT px - Heparin g++ DR LAMA COVERING 06/30-07/01 Umang Contreras MD Jun 29, 2018 19:21
[2018-06-29] MEDS: Dyna-Hex 2% Top Sol 2oz TOPIC SCH (20:09)
[2018-06-29] MEDS: rOPINIRole 0.25mg tab ORAL SCH (20:12)
--- NOTE | 2018-06-29 21:30 | Progress Note ---
DATE: 06/29/2018 SUBJECTIVE: The patient has been more agitated. Has waxing and waning consciousness, not engaging in any evaluation. Has episodes of agitation per charge nurse of ICU. The patient needed p.r.n. medications. The patient was started on Seroquel p.r.n. The patient also been noted that she is on trazodone. MENTAL STATUS EXAMINATION: The patient has waxing and waning consciousness. Confused. Disoriented. Mood is agitated. Affect is flat. Thought process, there is a paucity of thought content. Thought content, no suicidal or homicidal ideation. ASSESSMENT: Encephalopathy due to metallic disorder or toxin. PLAN: 1. We will discontinue the trazodone. 2. Start the patient on Seroquel 25 mg at bedtime. 3. Haldol 5 mg q.6 hours p.r.n. for agitation. 4. We will continue to follow and readjust the medications. Christine Vela M.D. DR: RACHID JOB#: [id number] CC:
[2018-06-29] MEDS: Haloperidol 5mg/ml Inj IM PRN (21:39)
[2018-06-30] VITALS (24 sets, daily range): BP systolic 109–182; BP diastolic 55–91
[2018-06-30] MEDS ORDERED: Heparin 5000 units/ml inj IV ONE (02:45)
[2018-06-30] MEDS ORDERED: Heparin 25,000u/D5W 500ml 500 ML IV SCH (02:45)
[2018-06-30] MEDS: Haloperidol 5mg/ml Inj IM PRN ×2 (03:40→13:15)
[2018-06-30 06:24] LABS: HEMATOCRIT 30.1 % (37.0-47.0); HEMOGLOBIN 9.5 G/DL (12.0-16.0); MEAN CORPUSCULAR VOLUME 86 FL (80-99); PLATELET COUNT 503 K/UL (150-450); RED BLOOD COUNT 3.49 M/UL (4.20-5.40); RED CELL DISTRIBUTION WIDTH 16.2 % (11.6-14.8); WHITE BLOOD COUNT 18.7 K/UL (4.8-10.8)
[2018-06-30 06:28] LABS: ANION GAP 8 mmol/L (5-15); BLOOD UREA NITROGEN 28 mg/dL (7-18); CALCIUM 8.1 MG/DL (8.5-10.1); CARBON DIOXIDE 33 MMOL/L (21-32); CHLORIDE 102 MMOL/L (98-107); CREATININE 1.7 MG/DL (0.55-1.30); POTASSIUM 4.1 MMOL/L (3.5-5.1); SODIUM 142 MMOL/L (136-145)
[2018-06-30] MEDS: Pantoprazole Inj IVP SCH (09:00)
[2018-06-30] MEDS ORDERED: NS 275ml ONE (10:38)
[2018-06-30] MEDS: Heparin 25,000u/D5W 500ml 500 ML IV SCH ×2 (10:58→18:30)
[2018-06-30] MEDS: Metoprolol 5mg/5ml Inj IVP PRN (13:26)
--- NOTE | 2018-06-30 16:42 | General Progress Note ---
Assessment/Plan Problem List: (1) Pulmonary embolism ICD Codes: I26.99 - Other pulmonary embolism without acute cor pulmonale SNOMED: 34833833 (2) Pulmonary fibrosis, unspecified ICD Codes: J84.10 - Pulmonary fibrosis, unspecified SNOMED: 37852449 (3) Acute respiratory failure with hypoxemia ICD Codes: J96.01 - Acute respiratory failure with hypoxia SNOMED: 253017552 Assessment/Plan PRN Morphin rate control continue BIPAP follow labs Discussed with RN Subjective Allergies: Coded Allergies: ACETAMINOPHEN (Verified Allergy, Unknown, 06/14/18) CHLORPHENIRAMINE (Verified Allergy, Unknown, 06/14/18) CODEINE (Verified Allergy, Unknown, 06/14/18) HYDROCODONE (Verified Allergy, Unknown, 06/14/18) PENICILLINS (Verified Allergy, Unknown, 06/14/18) Subjective on BIPAP Objective Last 24 Hour Vital Signs Date Time Temp Pulse Resp B/P (MAP) Pulse Ox O2 Delivery O2 Flow Rate FiO2 06/30/18 16:00 45.0 06/30/18 16:00 98.8 102 36 168/69 (102) 98 98.8 06/30/18 16:00 85 06/30/18 16:00 Bi-pap 06/30/18 15:18 97 38 96 Full Face 45 06/30/18 15:00 105 35 157/77 (103) 98 06/30/18 14:00 88 31 132/68 (89) 98 06/30/18 13:26 157 165/72 06/30/18 13:15 178/77 06/30/18 13:00 150 30 182/90 (120) 98 06/30/18 12:55 129 39 97 Full Face 45 06/30/18 12:11 91 35 94 5.0 40 06/30/18 12:00 100 06/30/18 12:00 Bi-pap 06/30/18 12:00 45.0 06/30/18 12:00 99.0 130 34 157/72 (100) 98 99.0 06/30/18 11:00 150 30 140/68 (92) 98 06/30/18 10:00 70 30 137/67 (90) 98 06/30/18 09:12 69 39 96 Full Face 45 06/30/18 09:00 74 35 130/60 (83) 98 06/30/18 08:00 71 06/30/18 08:00 45.0 06/30/18 08:00 Bi-pap 06/30/18 08:00 98.9 71 34 125/66 (85) 93 98.9 06/30/18 07:00 70 41 137/59 (85) 97 06/30/18 06:31 Bi-pap 45 06/30/18 06:31 95 Bi-pap 45 06/30/18 06:31 96 26 Bi-pap 45 06/30/18 06:31 67 38 96 Full Face 45 06/30/18 06:00 67 28 120/66 (84) 96 06/30/18 05:25 97 41 95 Full Face 45 06/30/18 05:00 67 31 110/55 (73) 96 06/30/18 04:00 92 06/30/18 04:00 Bi-pap 06/30/18 04:00 99.6 77 34 121/63 (82) 93 99.6 06/30/18 04:00 45.0 06/30/18 03:12 104 44 96 Full Face 45 06/30/18 03:00 80 39 133/74 (93) 96 06/30/18 02:00 99.8 06/30/18 02:00 100.2 84 42 128/62 (84) 95 100.2 06/30/18 01:30 100.2 06/30/18 01:19 100 49 95 Full Face 45 06/30/18 01:00 114 44 156/89 (111) 93 06/30/18 00:00 Bi-pap 06/30/18 00:00 96 06/30/18 00:00 45.0 06/30/18 00:00 98.6 93 43 140/65 (90) 95 98.6 06/29/18 23:00 114 44 156/89 (111) 93 06/29/18 22:50 102 46 93 Full Face 45 06/29/18 22:00 117 37 151/82 (105) 85 06/29/18 21:02 99 44 90 Full Face 45 06/29/18 21:00 105 40 177/95 (122) 88 06/29/18 20:00 45.0 06/29/18 20:00 Nasal Cannula 4.0 06/29/18 20:00 93 06/29/18 20:00 96 34 181/93 (122) 96 06/29/18 19:17 91 43 93 Full Face 45 06/29/18 19:12 89 Nasal Cannula 4.0 36 06/29/18 19:12 Nasal Cannula 4.0 36 06/29/18 19:11 106 36 Nasal Cannula 4.0 36 06/29/18 19:00 98.0 81 35 178/84 (115) 93 98.0 06/29/18 18:00 90 32 174/95 (121) 91 06/29/18 17:00 88 34 141/83 (102) 91 Intake and Output 06/29/18 06/30/18 19:00 07:00 Intake Total 465.545 ml 190.398 ml Output Total 825 ml 645 ml Balance -359.455 ml -454.602 ml Intake Oral 250 ml IV Total 215.545 ml 190.398 ml Output Urine Total 825 ml 645 ml Laboratory Tests 06/29/18 18:15: Activated Partial Thromboplast Time > 150*H 06/30/18 02:10: Activated Partial Thromboplast Time 46H 06/30/18 04:30: White Blood Count 18.7H, Red Blood Count 3.49L, Hemoglobin 9.5L, Hematocrit 30.1L, Mean Corpuscular Volume 86, Mean Corpuscular Hemoglobin 27.2, Mean Corpuscular Hemoglobin Concent 31.6L, Red Cell Distribution Width 16.2H, Platelet Count 503H, Mean Platelet Volume 9.0, Neutrophils (%) (Auto) , Lymphocytes (%) (Auto) , Monocytes (%) (Auto) , Eosinophils (%) (Auto) , Basophils (%) (Auto) , Differential Total Cells Counted 100, Neutrophils % ( Manual) 62, Lymphocytes % (Manual) 9L, Monocytes % (Manual) 26H, Eosinophils % ( Manual) 0, Basophils % (Manual) 0, Band Neutrophils 3, Platelet Estimate IncreasedH, Platelet Morphology See comment, Giant Platelets 2+, Hypochromasia 1 +, Anisocytosis 1+, Sodium Level 142, Potassium Level 4.1, Chloride Level 102, Carbon Dioxide Level 33H, Anion Gap 8, Blood Urea Nitrogen 28H, Creatinine 1.7H , Estimat Glomerular Filtration Rate , Glucose Level 137H, Calcium Level 8.1L 06/30/18 09:00: Activated Partial Thromboplast Time 127H Height (Feet): 5 Height (Inches): 5.00 Weight (Pounds): 198 Cardiovascular: normal rate Respiratory/Chest: rhonchi - bilaterally Edema: 1+ Generalized Cristobal Humphrey MD Jun 30, 2018 16:42
[2018-06-30] MEDS: Morphine Sulfate 2mg/ml Inj IVP PRN ×3 (16:49→23:41)
--- NOTE | 2018-06-30 16:59 | Pulmonolgy Critical Care Note ---
Critical Care - Asmt/Plan Assessment/Plan: Assessment/Plan Assessment: 83 y/o female w/ pulmonary fibrosis, cervical spinal stenosis with compression fractures and hx of fusion admitted with acute on chronic hypoxemic respiratory failure and acute hypercapnic respiratory failure due to large R- sided pulmonary embolism. Noted leukocytosis and potential consolidation on CT but may be difficult to ascertain from her pulmonary fibrosis. No fevers. Will need respiratory support and close monitoring of hemodynamics and low threshold to treat with antibiotics. Problem List: 1. Acute on chronic hypoxemic and acute hypercapnic respiratory failure - EXTUBATED 06/27 2. Large R-sided pulmonary emboli & R fem DVT 3. Potential consolidation LLL 4. Leukocytosis, improving slowly 5. Idiopathic pulmonary fibrosis 6. KAROL 7. Cervical spinal stenosis with compression fractures 8. PsA UTI 9. S hominis BSI Plan: -family/patient to decide on level of care-patient is expressing to her daughter she does not want intubation or bipap at this time. 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 Discussed with: nurses Critical Care - Objective Last 24 Hour Vital Signs Date Time Temp Pulse Resp B/P (MAP) Pulse Ox O2 Delivery O2 Flow Rate FiO2 06/30/18 16:00 45.0 06/30/18 16:00 98.8 102 36 168/69 (102) 98 98.8 06/30/18 16:00 85 06/30/18 16:00 Bi-pap 06/30/18 15:18 97 38 96 Full Face 45 06/30/18 15:00 105 35 157/77 (103) 98 06/30/18 14:00 88 31 132/68 (89) 98 06/30/18 13:26 157 165/72 06/30/18 13:15 178/77 06/30/18 13:00 150 30 182/90 (120) 98 06/30/18 12:55 129 39 97 Full Face 45 06/30/18 12:11 91 35 94 5.0 40 06/30/18 12:00 100 06/30/18 12:00 Bi-pap 06/30/18 12:00 45.0 06/30/18 12:00 99.0 130 34 157/72 (100) 98 99.0 06/30/18 11:00 150 30 140/68 (92) 98 06/30/18 10:00 70 30 137/67 (90) 98 06/30/18 09:12 69 39 96 Full Face 45 06/30/18 09:00 74 35 130/60 (83) 98 06/30/18 08:00 71 06/30/18 08:00 45.0 06/30/18 08:00 Bi-pap 06/30/18 08:00 98.9 71 34 125/66 (85) 93 98.9 06/30/18 07:00 70 41 137/59 (85) 97 06/30/18 06:31 Bi-pap 45 06/30/18 06:31 95 Bi-pap 45 06/30/18 06:31 96 26 Bi-pap 45 06/30/18 06:31 67 38 96 Full Face 45 06/30/18 06:00 67 28 120/66 (84) 96 06/30/18 05:25 97 41 95 Full Face 45 06/30/18 05:00 67 31 110/55 (73) 96 06/30/18 04:00 92 06/30/18 04:00 Bi-pap 06/30/18 04:00 99.6 77 34 121/63 (82) 93 99.6 06/30/18 04:00 45.0 06/30/18 03:12 104 44 96 Full Face 45 06/30/18 03:00 80 39 133/74 (93) 96 06/30/18 02:00 99.8 06/30/18 02:00 100.2 84 42 128/62 (84) 95 100.2 06/30/18 01:30 100.2 06/30/18 01:19 100 49 95 Full Face 45 06/30/18 01:00 114 44 156/89 (111) 93 06/30/18 00:00 Bi-pap 06/30/18 00:00 96 06/30/18 00:00 45.0 06/30/18 00:00 98.6 93 43 140/65 (90) 95 98.6 06/29/18 23:00 114 44 156/89 (111) 93 06/29/18 22:50 102 46 93 Full Face 45 06/29/18 22:00 117 37 151/82 (105) 85 06/29/18 21:02 99 44 90 Full Face 45 06/29/18 21:00 105 40 177/95 (122) 88 06/29/18 20:00 45.0 06/29/18 20:00 Nasal Cannula 4.0 06/29/18 20:00 93 06/29/18 20:00 96 34 181/93 (122) 96 06/29/18 19:17 91 43 93 Full Face 45 06/29/18 19:12 89 Nasal Cannula 4.0 36 06/29/18 19:12 Nasal Cannula 4.0 36 06/29/18 19:11 106 36 Nasal Cannula 4.0 36 06/29/18 19:00 98.0 81 35 178/84 (115) 93 98.0 06/29/18 18:00 90 32 174/95 (121) 91 06/29/18 17:00 88 34 141/83 (102) 91 Status: awake Condition: critical Lungs: rhonchi Heart: HR/BP stable Abdomen: soft, non-tender Extremities: edema Critical Care - Subjective ROS Limited/Unobtainable: Yes Condition: critical EKG Rhythm: Sinus Tachycardia FI02: 45 Vent Support Breath Rate: 20 Vent Support Mode: BiLevel Vent Tidal Volume: 450 Sputum Amount: None PEEP: 5.0 PIP: 18 Tube Feeding Amount: 55 I&O: Intake and Output 06/29/18 06/30/18 19:00 07:00 Intake Total 465.545 ml 190.398 ml Output Total 825 ml 645 ml Balance -359.455 ml -454.602 ml Intake Oral 250 ml IV Total 215.545 ml 190.398 ml Output Urine Total 825 ml 645 ml Subjective: was on FM but more tachypnes now on bipap she is telling her daughter she doesn't want bipap or to be intubated moderate distress tolerating tf positive uop no bleeding no fever ET-Tube: 7.0 ET Position: 21 Labs: Current Medications Medications (Trade) Dose Ordered Sig/Missy Route PRN Reason Start Time Stop Time Status Last Admin Dose Admin Acetaminophen (Tylenol) 650 mg Q4H PRN ORAL Mild Pain (Pain Scale 1-3) 06/14/18 23:15 07/14/18 23:14 06/30/18 01:30 Albuterol/ Ipratropium (Albuterol/ Ipratropium) 3 ml Q4H PRN HHN Shortness of Breath 06/28/18 15:42 07/03/18 15:41 Chlorhexidine Gluconate (Maria Elena-Hex 2%) 1 applic DAILY@2000 TOPIC 06/16/18 20:00 07/16/18 19:59 06/30/18 20:50 Dextrose (Dextrose 50%) 25 ml Q30M PRN IV Hypoglycemia 06/14/18 23:15 07/14/18 23:14 Dextrose (Dextrose 50%) 50 ml Q30M PRN IV Hypoglycemia 06/14/18 23:15 07/14/18 23:14 Gabapentin (Neurontin) 300 mg Q12HR ORAL 06/29/18 21:00 07/29/18 20:59 06/29/18 20:10 Haloperidol Lactate (Haldol) 5 mg Q6H PRN IM Agitation 06/29/18 13:45 07/29/18 13:44 06/30/18 13:15 Heparin Sodium/ Dextrose 500 ml @ 26.943 mls/ hr ADJUST PER PROTOCOL IV 06/30/18 10:50 07/30/18 10:49 06/30/18 18:30 Hydralazine HCl (Apresoline) 10 mg Q6HR PRN IV SBP > 160mmHg 06/29/18 21:30 07/29/18 21:29 06/30/18 13:15 Loperamide HCl (Imodium) 4 mg TIDPRN PRN ORAL Diarrhea 06/27/18 19:15 07/27/18 19:14 06/28/18 11:42 Metoprolol Tartrate (Lopressor) 5 mg Q3H PRN IVP PULSE > 100 bpm 06/30/18 13:15 07/30/18 13:14 06/30/18 13:26 Morphine Sulfate (Morphine Sulfate) 2 mg Q2H PRN IVP PAIN 4-10 06/30/18 16:30 07/07/18 16:29 06/30/18 20:50 Ondansetron HCl (Zofran) 4 mg Q4H PRN IVP Nausea & Vomiting 06/16/18 17:45 07/16/18 17:44 06/24/18 03:15 Pantoprazole (Protonix) 40 mg DAILY IVP 06/16/18 21:00 07/17/18 08:59 06/30/18 09:00 Quetiapine Fumarate (SEROquel) 25 mg BEDTIME ORAL 06/29/18 21:00 07/29/18 20:59 06/29/18 20:12 Ropinirole HCl (Requip) 0.25 mg BEDTIME ORAL 06/21/18 21:00 07/21/18 20:59 06/29/18 20:12 Laboratory Tests Test 06/30/18 02:10 06/30/18 04:30 06/30/18 09:00 06/30/18 17:08 Activated Partial Thromboplast Time 46 SEC (23-33) H 127 SEC (23-33) H 50 SEC (23-33) H White Blood Count 18.7 K/UL (4.8-10.8) H Red Blood Count 3.49 M/UL (4.20-5.40) L Hemoglobin 9.5 G/DL (12.0-16.0) L Hematocrit 30.1 % (37.0-47.0) L Mean Corpuscular Volume 86 FL (80-99) Mean Corpuscular Hemoglobin 27.2 PG (27.0-31.0) Mean Corpuscular Hemoglobin Concent 31.6 G/DL (32.0-36.0) L Red Cell Distribution Width 16.2 % (11.6-14.8) H Platelet Count 503 K/UL (150-450) H Mean Platelet Volume 9.0 FL (6.5-10.1) Neutrophils (%) (Auto) % (45.0-75.0) Lymphocytes (%) (Auto) % (20.0-45.0) Monocytes (%) (Auto) % (1.0-10.0) Eosinophils (%) (Auto) % (0.0-3.0) Basophils (%) (Auto) % (0.0-2.0) Differential Total Cells Counted 100 Neutrophils % (Manual) 62 % (45-75) Lymphocytes % (Manual) 9 % (20-45) L Monocytes % (Manual) 26 % (1-10) H Eosinophils % (Manual) 0 % (0-3) Basophils % (Manual) 0 % (0-2) Band Neutrophils 3 % (0-8) Platelet Estimate Increased H Platelet Morphology See comment Giant Platelets 2+ Hypochromasia 1+ Anisocytosis 1+ Sodium Level 142 MMOL/L (136-145) Potassium Level 4.1 MMOL/L (3.5-5.1) Chloride Level 102 MMOL/L (98-107) Carbon Dioxide Level 33 MMOL/L (21-32) H Anion Gap 8 mmol/L (5-15) Blood Urea Nitrogen 28 mg/dL (7-18) H Creatinine 1.7 MG/DL (0.55-1.30) H Estimat Glomerular Filtration Rate mL/min (>60) Glucose Level 137 MG/DL (74-106) H Calcium Level 8.1 MG/DL (8.5-10.1) Patricia Panda DO Jun 30, 2018 16:59
[2018-06-30] MEDS: rOPINIRole 0.25mg tab ORAL SCH (20:50)
[2018-06-30] MEDS: Dyna-Hex 2% Top Sol 2oz TOPIC SCH (20:50)
--- NOTE | 2018-06-30 23:37 | General Progress Note ---
Assessment/Plan Assessment/Plan Encephalopathy due to metallic disorder or toxin. Seroquel 25 mg at bedtime. 3. Haldol 5 mg q.6 hours p.r.n. for agitation. 4. We will continue to follow and readjust the medications. Subjective Neurologic/Psychiatric: Reports: anxiety Allergies: Coded Allergies: ACETAMINOPHEN (Verified Allergy, Unknown, 06/14/18) CHLORPHENIRAMINE (Verified Allergy, Unknown, 06/14/18) CODEINE (Verified Allergy, Unknown, 06/14/18) HYDROCODONE (Verified Allergy, Unknown, 06/14/18) PENICILLINS (Verified Allergy, Unknown, 06/14/18) Subjective waxing and waning of consciousness Objective Last 24 Hour Vital Signs Date Time Temp Pulse Resp B/P (MAP) Pulse Ox O2 Delivery O2 Flow Rate FiO2 06/30/18 23:00 99 47 109/69 (82) 92 06/30/18 22:00 91 44 158/69 (98) 95 06/30/18 21:22 104 49 93 Full Face 45 06/30/18 21:00 104 38 161/64 (96) 91 06/30/18 20:00 110 06/30/18 20:00 45.0 06/30/18 20:00 99.3 110 43 167/91 (116) 93 99.3 06/30/18 20:00 Bi-pap 06/30/18 19:32 92 Bi-pap 45 06/30/18 19:32 91 31 Bi-pap 45 06/30/18 19:32 95 41 93 Full Face 45 06/30/18 19:32 Bi-pap 45 06/30/18 19:00 98 30 164/72 (102) 99 06/30/18 18:00 102 34 140/70 (93) 99 06/30/18 17:08 90 36 98 Full Face 45 06/30/18 17:00 105 34 144/74 (97) 99 06/30/18 16:00 45.0 06/30/18 16:00 98.8 102 36 168/69 (102) 98 98.8 06/30/18 16:00 85 06/30/18 16:00 Bi-pap 06/30/18 15:18 97 38 96 Full Face 45 06/30/18 15:00 105 35 157/77 (103) 98 06/30/18 14:00 88 31 132/68 (89) 98 06/30/18 13:26 157 165/72 06/30/18 13:15 178/77 06/30/18 13:00 150 30 182/90 (120) 98 06/30/18 12:55 129 39 97 Full Face 45 06/30/18 12:11 91 35 94 5.0 40 06/30/18 12:00 100 06/30/18 12:00 Bi-pap 06/30/18 12:00 45.0 06/30/18 12:00 99.0 130 34 157/72 (100) 98 99.0 06/30/18 11:00 150 30 140/68 (92) 98 06/30/18 10:00 70 30 137/67 (90) 98 06/30/18 09:12 69 39 96 Full Face 45 06/30/18 09:00 74 35 130/60 (83) 98 06/30/18 08:00 71 06/30/18 08:00 45.0 06/30/18 08:00 Bi-pap 06/30/18 08:00 98.9 71 34 125/66 (85) 93 98.9 06/30/18 07:00 70 41 137/59 (85) 97 06/30/18 06:31 Bi-pap 45 06/30/18 06:31 95 Bi-pap 45 06/30/18 06:31 96 26 Bi-pap 45 06/30/18 06:31 67 38 96 Full Face 45 06/30/18 06:00 67 28 120/66 (84) 96 06/30/18 05:25 97 41 95 Full Face 45 06/30/18 05:00 67 31 110/55 (73) 96 06/30/18 04:00 92 06/30/18 04:00 Bi-pap 06/30/18 04:00 99.6 77 34 121/63 (82) 93 99.6 06/30/18 04:00 45.0 06/30/18 03:12 104 44 96 Full Face 45 06/30/18 03:00 80 39 133/74 (93) 96 06/30/18 02:00 99.8 06/30/18 02:00 100.2 84 42 128/62 (84) 95 100.2 06/30/18 01:30 100.2 06/30/18 01:19 100 49 95 Full Face 45 06/30/18 01:00 114 44 156/89 (111) 93 06/30/18 00:00 Bi-pap 06/30/18 00:00 96 06/30/18 00:00 45.0 06/30/18 00:00 98.6 93 43 140/65 (90) 95 98.6 Intake and Output 06/29/18 06/30/18 19:00 07:00 Intake Total 465.545 ml 190.398 ml Output Total 825 ml 645 ml Balance -359.455 ml -454.602 ml Intake Oral 250 ml IV Total 215.545 ml 190.398 ml Output Urine Total 825 ml 645 ml Laboratory Tests 06/30/18 02:10: Activated Partial Thromboplast Time 46H 06/30/18 04:30: White Blood Count 18.7H, Red Blood Count 3.49L, Hemoglobin 9.5L, Hematocrit 30.1L, Mean Corpuscular Volume 86, Mean Corpuscular Hemoglobin 27.2, Mean Corpuscular Hemoglobin Concent 31.6L, Red Cell Distribution Width 16.2H, Platelet Count 503H, Mean Platelet Volume 9.0, Neutrophils (%) (Auto) , Lymphocytes (%) (Auto) , Monocytes (%) (Auto) , Eosinophils (%) (Auto) , Basophils (%) (Auto) , Differential Total Cells Counted 100, Neutrophils % ( Manual) 62, Lymphocytes % (Manual) 9L, Monocytes % (Manual) 26H, Eosinophils % ( Manual) 0, Basophils % (Manual) 0, Band Neutrophils 3, Platelet Estimate IncreasedH, Platelet Morphology See comment, Giant Platelets 2+, Hypochromasia 1 +, Anisocytosis 1+, Sodium Level 142, Potassium Level 4.1, Chloride Level 102, Carbon Dioxide Level 33H, Anion Gap 8, Blood Urea Nitrogen 28H, Creatinine 1.7H , Estimat Glomerular Filtration Rate , Glucose Level 137H, Calcium Level 8.1L 06/30/18 09:00: Activated Partial Thromboplast Time 127H 06/30/18 17:08: Activated Partial Thromboplast Time 50H Height (Feet): 5 Height (Inches): 5.00 Weight (Pounds): 198 General Appearance: no apparent distress, confused, agitated Christine Vela MD Jun 30, 2018 23:37
[2018-07-01] VITALS (28 sets, daily range): BP systolic 113–159; BP diastolic 50–102
[2018-07-01 06:21] LABS: HEMATOCRIT 32.7 % (37.0-47.0); HEMOGLOBIN 10.4 G/DL (12.0-16.0); MEAN CORPUSCULAR VOLUME 86 FL (80-99); PLATELET COUNT 618 K/UL (150-450); RED CELL DISTRIBUTION WIDTH 16.4 % (11.6-14.8); WHITE BLOOD COUNT 20.1 K/UL (4.8-10.8)
[2018-07-01 06:32] LABS: ANION GAP 8 mmol/L (5-15); BLOOD UREA NITROGEN 26 mg/dL (7-18); CALCIUM 8.8 MG/DL (8.5-10.1); CARBON DIOXIDE 32 MMOL/L (21-32); CHLORIDE 103 MMOL/L (98-107); CREATININE 1.6 MG/DL (0.55-1.30); POTASSIUM 3.6 MMOL/L (3.5-5.1); SODIUM 143 MMOL/L (136-145)
[2018-07-01] MEDS: Heparin 25,000u/D5W 500ml 500 ML IV SCH (08:27)
[2018-07-01] MEDS: Pantoprazole Inj IVP SCH (08:27)
[2018-07-01] MEDS: Morphine Sulfate 2mg/ml Inj IVP PRN ×2 (08:28→21:32)
--- NOTE | 2018-07-01 10:20 | Consultation ---
History of Present Illness General Date patient seen: Jul 01, 2018 Time patient seen: 10:13 Chief Complaint: Dyspnea/Respdistress Referring physician: Dr. Umang Contreras Reason for Consultation: Respiratory failure Present Illness HPI 83 y/o female w/ pulmonary fibrosis, cervical spinal stenosis with compression fractures and hx of fusion admitted with acute on chronic hypoxemic respiratory failure and acute hypercapnic respiratory failure due to large R-sided pulmonary embolism. Cardiology consulted for atrial fibrillation. Currently on heparin gtt. Allergies: Coded Allergies: ACETAMINOPHEN (Verified Allergy, Unknown, 06/14/18) CHLORPHENIRAMINE (Verified Allergy, Unknown, 06/14/18) CODEINE (Verified Allergy, Unknown, 06/14/18) HYDROCODONE (Verified Allergy, Unknown, 06/14/18) PENICILLINS (Verified Allergy, Unknown, 06/14/18) Medication History Scheduled Alendronate Sodium* (Fosamax*), 70 MG ORAL ONCE A WEEK, (Reported) Amlodipine Besylate/Benazepril 5-20 Mg* (Amlodipine-Benazepril 5-20 Mg*), 1 CAP ORAL DAILY, (Reported) Aspirin* (Aspir 81*), 81 MG ORAL DAILY, (Reported) Diclofenac Sod* (Voltaren*), 75 MG ORAL BID, (Reported) Fluticasone Propionate (Flonase Allergy Relief), 50 MCG NS DAILY, (Reported) Gabapentin* (Gabapentin*), 300 MG ORAL THREE TIMES A DAY, (Reported) Gluc Perez/Chondro Perez A/Vit C/Mn (Glucosamine Chondroitin Tab), 2 EACH PO BID, ( Reported) Omeprazole Magnesium (Prilosec Otc), 20 MG ORAL BEFORE LUNCH, (Reported) Ropinirole Hcl* (Requip*), 0.25 MG ORAL HS, (Reported) Sennosides (Senokot), 17.2 MG PO BEDTIME, (Reported) Tamsulosin Hcl (Tamsulosin Hcl*), 0.4 MG ORAL DAILY, (Reported) Scheduled PRN Acetaminophen* (Acetaminophen 325MG Tablet*), 1,000 MG ORAL Q8HR PRN for Prn Headache/Temp > 101, (Reported) Clonidine Hcl* (Catapres*), 0.1 MG ORAL EVERY 6 HOURS PRN for SBP>160, (Reported ) Docusate Sodium* (Colace*), 100 MG ORAL DAILY PRN for Constipation, (Reported) Polyethylene Glycol 3350* (Miralax*), 17 GM ORAL DAILY PRN for Constipation, ( Reported) Simethicone* (Simethicone*), 80 MG ORAL Q8H PRN for GAS PAIN, (Reported) Tramadol Hcl* (Ultram*), 50 MG ORAL Q6H PRN for For Pain, (Reported) Patient History Healthcare decision maker Daughter, Deven Bertrand Resuscitation status Do Not Resuscitate Advanced Directive on File No Review of Systems Constitutional: Reports: malaise, weakness Eye: Reports: no symptoms ENT: Reports: no symptoms Respiratory: Reports: shortness of breath, stridor, wheezing, [place] Cardiovascular: Reports: no symptoms Gastrointestinal: Reports: no symptoms Genitourinary: Reports: no symptoms Musculoskeletal: Reports: no symptoms Skin: Reports: no symptoms Psychiatric: Reports: no symptoms Neurological: Reports: no symptoms Endocrine: Reports: no symptoms Hematologic/Lymphatic: Reports: no symptoms Physical Exam General Appearance: no apparent distress, mild distress Lines, tubes and drains: peripheral HEENT: normocephalic, atraumatic, anicteric, mucous membranes moist, no JVD Neck: non-tender, normal alignment, supple, normal inspection Respiratory/Chest: chest wall non-tender, respiratory distress, accessory muscle use, crackles/rales, rhonchi - bilaterally, expiratory wheezing, pleural rub Cardiovascular/Chest: normal peripheral pulses, tachycardia, arrhythmia Abdomen: normal bowel sounds, non tender, soft, no organomegaly, no mass Extremities: normal range of motion, non-tender Skin Exam: normal pigmentation, warm/dry 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, motor weakness, sensory deficit, disoriented, unresponsiveness Last 24 Hour Vital Signs Date Time Temp Pulse Resp B/P (MAP) Pulse Ox O2 Delivery O2 Flow Rate FiO2 07/01/18 09:00 110 41 152/75 (100) 92 07/01/18 08:58 98.5 07/01/18 08:33 120 53 93 Facial 45 07/01/18 08:28 98.5 07/01/18 08:27 168/102 07/01/18 08:16 Facial 07/01/18 08:00 108 07/01/18 08:00 98.5 108 35 136/55 (82) 94 98.5 07/01/18 08:00 Bi-pap 07/01/18 08:00 45.0 07/01/18 07:00 107 49 148/102 (117) 91 07/01/18 06:50 110 47 93 Full Face 45 07/01/18 06:49 Bi-pap 45 07/01/18 06:49 89 Bi-pap 45 07/01/18 06:49 111 49 Bi-pap 45 07/01/18 06:00 106 46 159/54 (89) 92 07/01/18 05:17 102 46 93 Full Face 45 07/01/18 05:00 107 46 154/77 (102) 92 07/01/18 04:00 45.0 07/01/18 04:00 98.5 79 40 126/55 (78) 94 98.5 07/01/18 04:00 Bi-pap 07/01/18 04:00 82 07/01/18 03:13 84 38 94 Full Face 45 07/01/18 03:00 86 39 121/52 (75) 94 07/01/18 02:00 92 43 148/85 (106) 93 07/01/18 01:25 97 48 94 Full Face 45 07/01/18 01:00 92 39 136/68 (90) 95 07/01/18 00:00 91 07/01/18 00:00 Bi-pap 07/01/18 00:00 45.0 07/01/18 00:00 98.9 91 43 138/59 (85) 94 98.9 06/30/18 23:34 97 46 93 Full Face 45 06/30/18 23:00 99 47 109/69 (82) 92 06/30/18 22:00 91 44 158/69 (98) 95 06/30/18 21:22 104 49 93 Full Face 45 06/30/18 21:00 104 38 161/64 (96) 91 06/30/18 20:00 110 06/30/18 20:00 45.0 06/30/18 20:00 99.3 110 43 167/91 (116) 93 99.3 06/30/18 20:00 Bi-pap 06/30/18 19:32 92 Bi-pap 45 06/30/18 19:32 91 31 Bi-pap 45 06/30/18 19:32 95 41 93 Full Face 45 06/30/18 19:32 Bi-pap 45 06/30/18 19:00 98 30 164/72 (102) 99 06/30/18 18:00 102 34 140/70 (93) 99 06/30/18 17:08 90 36 98 Full Face 45 06/30/18 17:00 105 34 144/74 (97) 99 06/30/18 16:00 45.0 06/30/18 16:00 98.8 102 36 168/69 (102) 98 98.8 06/30/18 16:00 85 06/30/18 16:00 Bi-pap 06/30/18 15:18 97 38 96 Full Face 45 06/30/18 15:00 105 35 157/77 (103) 98 06/30/18 14:00 88 31 132/68 (89) 98 06/30/18 13:26 157 165/72 06/30/18 13:15 178/77 06/30/18 13:00 150 30 182/90 (120) 98 06/30/18 12:55 129 39 97 Full Face 45 06/30/18 12:11 91 35 94 5.0 40 06/30/18 12:00 100 06/30/18 12:00 Bi-pap 06/30/18 12:00 45.0 06/30/18 12:00 99.0 130 34 157/72 (100) 98 99.0 06/30/18 11:00 150 30 140/68 (92) 98 Intake and Output 06/30/18 07/01/18 19:00 07:00 Intake Total 165.249 ml 323.316 ml Output Total 540 ml 425 ml Balance -374.751 ml -101.684 ml IV Total 165.249 ml 323.316 ml Output Urine Total 540 ml 425 ml Laboratory Tests Test 06/30/18 17:08 07/01/18 00:17 07/01/18 06:04 Activated Partial Thromboplast Time 50 SEC (23-33) H 88 SEC (23-33) H 83 SEC (23-33) H White Blood Count 20.1 K/UL (4.8-10.8) H Red Blood Count 3.80 M/UL (4.20-5.40) L Hemoglobin 10.4 G/DL (12.0-16.0) L Hematocrit 32.7 % (37.0-47.0) L Mean Corpuscular Volume 86 FL (80-99) Mean Corpuscular Hemoglobin 27.4 PG (27.0-31.0) Mean Corpuscular Hemoglobin Concent 31.9 G/DL (32.0-36.0) L Red Cell Distribution Width 16.4 % (11.6-14.8) H Platelet Count 618 K/UL (150-450) H Mean Platelet Volume 9.9 FL (6.5-10.1) Neutrophils (%) (Auto) % (45.0-75.0) Lymphocytes (%) (Auto) % (20.0-45.0) Monocytes (%) (Auto) % (1.0-10.0) Eosinophils (%) (Auto) % (0.0-3.0) Basophils (%) (Auto) % (0.0-2.0) Differential Total Cells Counted 100 Neutrophils % (Manual) 55 % (45-75) Lymphocytes % (Manual) 14 % (20-45) L Monocytes % (Manual) 29 % (1-10) H Eosinophils % (Manual) 0 % (0-3) Basophils % (Manual) 0 % (0-2) Band Neutrophils 2 % (0-8) Platelet Estimate Increased H Platelet Morphology Giant Platelets 1+ Hypochromasia 1+ Anisocytosis 2+ Sodium Level 143 MMOL/L (136-145) Potassium Level 3.6 MMOL/L (3.5-5.1) Chloride Level 103 MMOL/L (98-107) Carbon Dioxide Level 32 MMOL/L (21-32) Anion Gap 8 mmol/L (5-15) Blood Urea Nitrogen 26 mg/dL (7-18) H Creatinine 1.6 MG/DL (0.55-1.30) H Estimat Glomerular Filtration Rate mL/min (>60) Glucose Level 110 MG/DL (74-106) H Calcium Level 8.8 MG/DL (8.5-10.1) Height (Feet): 5 Height (Inches): 5.00 Weight (Pounds): 201 Medications Current Medications Medications (Trade) Dose Ordered Sig/Missy Route PRN Reason Start Time Stop Time Status Last Admin Dose Admin Acetaminophen (Tylenol) 650 mg Q4H PRN ORAL Mild Pain (Pain Scale 1-3) 06/14/18 23:15 07/14/18 23:14 06/30/18 01:30 Albuterol/ Ipratropium (Albuterol/ Ipratropium) 3 ml Q4H PRN HHN Shortness of Breath 06/28/18 15:42 07/03/18 15:41 Chlorhexidine Gluconate (Maria Elena-Hex 2%) 1 applic DAILY@2000 TOPIC 06/16/18 20:00 07/16/18 19:59 06/30/18 20:50 Dextrose (Dextrose 50%) 25 ml Q30M PRN IV Hypoglycemia 06/14/18 23:15 07/14/18 23:14 Dextrose (Dextrose 50%) 50 ml Q30M PRN IV Hypoglycemia 06/14/18 23:15 07/14/18 23:14 Gabapentin (Neurontin) 300 mg Q12HR ORAL 06/29/18 21:00 07/29/18 20:59 06/29/18 20:10 Haloperidol Lactate (Haldol) 5 mg Q6H PRN IM Agitation 06/29/18 13:45 07/29/18 13:44 06/30/18 13:15 Heparin Sodium/ Dextrose 500 ml @ 26.943 mls/ hr ADJUST PER PROTOCOL IV 06/30/18 10:50 07/30/18 10:49 07/01/18 08:27 Hydralazine HCl (Apresoline) 10 mg Q6HR PRN IV SBP > 160mmHg 06/29/18 21:30 07/29/18 21:29 07/01/18 08:27 Loperamide HCl (Imodium) 4 mg TIDPRN PRN ORAL Diarrhea 06/27/18 19:15 07/27/18 19:14 06/28/18 11:42 Metoprolol Tartrate (Lopressor) 5 mg Q3H PRN IVP PULSE > 100 bpm 06/30/18 13:15 07/30/18 13:14 06/30/18 13:26 Morphine Sulfate (Morphine Sulfate) 2 mg Q2H PRN IVP PAIN 4-10 06/30/18 16:30 07/07/18 16:29 07/01/18 08:28 Ondansetron HCl (Zofran) 4 mg Q4H PRN IVP Nausea & Vomiting 06/16/18 17:45 07/16/18 17:44 06/24/18 03:15 Pantoprazole (Protonix) 40 mg DAILY IVP 06/16/18 21:00 07/17/18 08:59 07/01/18 08:27 Quetiapine Fumarate (SEROquel) 25 mg BEDTIME ORAL 06/29/18 21:00 07/29/18 20:59 06/29/18 20:12 Ropinirole HCl (Requip) 0.25 mg BEDTIME ORAL 06/21/18 21:00 07/21/18 20:59 06/29/18 20:12 Assessment/Plan Status: stable Assessment/Plan Assessment 1. Acute on chronic hypoxemic and acute hypercapnic respiratory failure - EXTUBATED 06/27 2. Large R-sided pulmonary emboli & R fem DVT 3. Potential consolidation LLL 4. Leukocytosis, improving slowly 5. Idiopathic pulmonary fibrosis 6. KAROL 7. Cervical spinal stenosis with compression fractures 8. PsA UTI 9. S hominis BSI 10. Atrial fibrillation Plan: Supportive care Continue anticoagulation for AFIB -> Transition to NOAC TTE reviewed, no RV dilation or failure from PE, Left ventricular ejection fraction estimated to be 60-65%. Continue pulmonary support, DNR/DNI Transfer to SLIME Aspiration precautions Rate control AFIB: Metoprolol 50 BID if tolerating PO, otherwise continue IV push to achieve rate <110 no indication for cardioversion, hemodynamically stable. Umang Jackson MD Jul 01, 2018 10:20
[2018-07-01] MEDS: Metoprolol 5mg/5ml Inj IVP PRN (11:06)
--- NOTE | 2018-07-01 13:27 | General Progress Note ---
Assessment/Plan Problem List: (1) Pulmonary embolism ICD Codes: I26.99 - Other pulmonary embolism without acute cor pulmonale SNOMED: 41402695 (2) Pulmonary fibrosis, unspecified ICD Codes: J84.10 - Pulmonary fibrosis, unspecified SNOMED: 28116013 (3) Acute respiratory failure with hypoxemia ICD Codes: J96.01 - Acute respiratory failure with hypoxia SNOMED: 908484527 Assessment/Plan PRN Morphin rate control continue BIPAP follow labs Discussed with RN DNR and DNI Subjective Allergies: Coded Allergies: ACETAMINOPHEN (Verified Allergy, Unknown, 06/14/18) CHLORPHENIRAMINE (Verified Allergy, Unknown, 06/14/18) CODEINE (Verified Allergy, Unknown, 06/14/18) HYDROCODONE (Verified Allergy, Unknown, 06/14/18) PENICILLINS (Verified Allergy, Unknown, 06/14/18) Subjective on BIPAP Objective Last 24 Hour Vital Signs Date Time Temp Pulse Resp B/P (MAP) Pulse Ox O2 Delivery O2 Flow Rate FiO2 07/01/18 12:50 116 35 88 07/01/18 11:06 126 148/68 07/01/18 10:43 126 52 92 Facial 45 07/01/18 10:00 105 39 148/68 (94) 92 07/01/18 09:00 110 41 152/75 (100) 92 07/01/18 08:58 98.5 07/01/18 08:33 120 53 93 Facial 45 07/01/18 08:28 98.5 07/01/18 08:27 168/102 07/01/18 08:16 Facial 07/01/18 08:00 108 07/01/18 08:00 98.5 108 35 136/55 (82) 94 98.5 07/01/18 08:00 Bi-pap 07/01/18 08:00 45.0 07/01/18 07:00 107 49 148/102 (117) 91 07/01/18 06:50 110 47 93 Full Face 45 07/01/18 06:49 Bi-pap 45 07/01/18 06:49 89 Bi-pap 45 07/01/18 06:49 111 49 Bi-pap 45 07/01/18 06:00 106 46 159/54 (89) 92 07/01/18 05:17 102 46 93 Full Face 45 07/01/18 05:00 107 46 154/77 (102) 92 07/01/18 04:00 45.0 07/01/18 04:00 98.5 79 40 126/55 (78) 94 98.5 07/01/18 04:00 Bi-pap 07/01/18 04:00 82 07/01/18 03:13 84 38 94 Full Face 45 07/01/18 03:00 86 39 121/52 (75) 94 07/01/18 02:00 92 43 148/85 (106) 93 07/01/18 01:25 97 48 94 Full Face 45 07/01/18 01:00 92 39 136/68 (90) 95 07/01/18 00:00 91 07/01/18 00:00 Bi-pap 07/01/18 00:00 45.0 07/01/18 00:00 98.9 91 43 138/59 (85) 94 98.9 06/30/18 23:34 97 46 93 Full Face 45 06/30/18 23:00 99 47 109/69 (82) 92 06/30/18 22:00 91 44 158/69 (98) 95 06/30/18 21:22 104 49 93 Full Face 45 06/30/18 21:00 104 38 161/64 (96) 91 06/30/18 20:00 110 06/30/18 20:00 45.0 06/30/18 20:00 99.3 110 43 167/91 (116) 93 99.3 06/30/18 20:00 Bi-pap 06/30/18 19:32 92 Bi-pap 45 06/30/18 19:32 91 31 Bi-pap 45 06/30/18 19:32 95 41 93 Full Face 45 06/30/18 19:32 Bi-pap 45 06/30/18 19:00 98 30 164/72 (102) 99 06/30/18 18:00 102 34 140/70 (93) 99 06/30/18 17:08 90 36 98 Full Face 45 06/30/18 17:00 105 34 144/74 (97) 99 06/30/18 16:00 45.0 06/30/18 16:00 98.8 102 36 168/69 (102) 98 98.8 06/30/18 16:00 85 06/30/18 16:00 Bi-pap 06/30/18 15:18 97 38 96 Full Face 45 06/30/18 15:00 105 35 157/77 (103) 98 06/30/18 14:00 88 31 132/68 (89) 98 06/30/18 13:26 157 165/72 Intake and Output 06/30/18 07/01/18 19:00 07:00 Intake Total 165.249 ml 323.316 ml Output Total 540 ml 425 ml Balance -374.751 ml -101.684 ml IV Total 165.249 ml 323.316 ml Output Urine Total 540 ml 425 ml Laboratory Tests 06/30/18 17:08: Activated Partial Thromboplast Time 50H 07/01/18 00:17: Activated Partial Thromboplast Time 88H 07/01/18 06:04: Activated Partial Thromboplast Time 83H, White Blood Count 20.1H, Red Blood Count 3.80L, Hemoglobin 10.4L, Hematocrit 32.7L, Mean Corpuscular Volume 86, Mean Corpuscular Hemoglobin 27.4, Mean Corpuscular Hemoglobin Concent 31.9L, Red Cell Distribution Width 16.4H, Platelet Count 618H, Mean Platelet Volume 9.9 , Neutrophils (%) (Auto) , Lymphocytes (%) (Auto) , Monocytes (%) (Auto) , Eosinophils (%) (Auto) , Basophils (%) (Auto) , Differential Total Cells Counted 100, Neutrophils % (Manual) 55, Lymphocytes % (Manual) 14L, Monocytes % (Manual) 29H, Eosinophils % (Manual) 0, Basophils % (Manual) 0, Band Neutrophils 2, Platelet Estimate IncreasedH, Platelet Morphology , Giant Platelets 1+, Hypochromasia 1+, Anisocytosis 2+, Sodium Level 143, Potassium Level 3.6, Chloride Level 103, Carbon Dioxide Level 32, Anion Gap 8, Blood Urea Nitrogen 26H, Creatinine 1.6H, Estimat Glomerular Filtration Rate , Glucose Level 110H, Calcium Level 8.8 Height (Feet): 5 Height (Inches): 5.00 Weight (Pounds): 201 Cardiovascular: normal rate Respiratory/Chest: rhonchi - bilaterally Edema: 2+ Generalized Cristobal Humphrey MD Jul 01, 2018 13:27
--- NOTE | 2018-07-01 15:59 | Pulmonolgy Critical Care Note ---
Critical Care - Asmt/Plan Assessment/Plan: Assessment/Plan Assessment: 83 y/o female w/ pulmonary fibrosis, cervical spinal stenosis with compression fractures and hx of fusion admitted with acute on chronic hypoxemic respiratory failure and acute hypercapnic respiratory failure due to large R- sided pulmonary embolism. Noted leukocytosis and potential consolidation on CT but may be difficult to ascertain from her pulmonary fibrosis. No fevers. Will need respiratory support and close monitoring of hemodynamics and low threshold to treat with antibiotics. Problem List: 1. Acute on chronic hypoxemic and acute hypercapnic respiratory failure - EXTUBATED 06/27 2. Large R-sided pulmonary emboli & R fem DVT 3. Potential consolidation LLL 4. Leukocytosis, improving slowly 5. Idiopathic pulmonary fibrosis 6. KAROL 7. Cervical spinal stenosis with compression fractures 8. PsA UTI 9. S hominis BSI 10. refusing bipap and intubation Plan: -patient is expressing to her daughter she does not want intubation or bipap at this time. pt is DNR -Optimize pulmonary hygiene/mobilize as tolerated -Titrate down FiO2 to keep SaO2 > 92% -BiPAP 15/5 qHS and PRN encouraged -IVU -Off Abx per ID -Continue ICu at this time CC Time: 65 minutes Critical Care - Objective Last 24 Hour Vital Signs Date Time Temp Pulse Resp B/P (MAP) Pulse Ox O2 Delivery O2 Flow Rate FiO2 07/01/18 15:00 98 40 123/53 (76) 92 07/01/18 14:09 159 50 93 Facial 45 07/01/18 14:00 98.4 108 35 139/60 (86) 94 98.4 07/01/18 13:00 116 46 149/72 (97) 92 07/01/18 12:50 116 35 88 07/01/18 12:00 114 46 139/62 (87) 92 07/01/18 12:00 Bi-pap 07/01/18 12:00 45.0 07/01/18 12:00 111 07/01/18 11:06 126 148/68 07/01/18 11:00 98 44 158/83 (108) 92 07/01/18 10:43 126 52 92 Facial 45 07/01/18 10:00 105 39 148/68 (94) 92 07/01/18 09:00 110 41 152/75 (100) 07/01/18 08:58 98.5 07/01/18 08:33 120 53 93 Facial 45 07/01/18 08:28 98.5 07/01/18 08:27 168/102 07/01/18 08:16 Facial 07/01/18 08:00 108 07/01/18 08:00 98.5 108 35 136/55 (82) 94 98.5 07/01/18 08:00 Bi-pap 07/01/18 08:00 45.0 07/01/18 07:00 107 49 148/102 (117) 91 07/01/18 06:50 110 47 93 Full Face 45 07/01/18 06:49 Bi-pap 45 07/01/18 06:49 89 Bi-pap 45 07/01/18 06:49 111 49 Bi-pap 45 07/01/18 06:00 106 46 159/54 (89) 92 07/01/18 05:17 102 46 93 Full Face 45 07/01/18 05:00 107 46 154/77 (102) 92 07/01/18 04:00 45.0 07/01/18 04:00 98.5 79 40 126/55 (78) 94 98.5 07/01/18 04:00 Bi-pap 07/01/18 04:00 82 07/01/18 03:13 84 38 94 Full Face 45 07/01/18 03:00 86 39 121/52 (75) 94 07/01/18 02:00 92 43 148/85 (106) 93 07/01/18 01:25 97 48 94 Full Face 45 07/01/18 01:00 92 39 136/68 (90) 95 07/01/18 00:00 91 07/01/18 00:00 Bi-pap 07/01/18 00:00 45.0 07/01/18 00:00 98.9 91 43 138/59 (85) 94 98.9 06/30/18 23:34 97 46 93 Full Face 45 06/30/18 23:00 99 47 109/69 (82) 92 06/30/18 22:00 91 44 158/69 (98) 95 06/30/18 21:22 104 49 93 Full Face 45 06/30/18 21:00 104 38 161/64 (96) 91 06/30/18 20:00 110 10/13/18 20:00 45.0 06/30/18 20:00 99.3 110 43 167/91 (116) 93 99.3 06/30/18 20:00 Bi-pap 06/30/18 19:32 92 Bi-pap 45 06/30/18 19:32 91 31 Bi-pap 45 06/30/18 19:32 95 41 93 Full Face 45 06/30/18 19:32 Bi-pap 45 06/30/18 19:00 98 30 164/72 (102) 99 06/30/18 18:00 102 34 140/70 (93) 99 06/30/18 17:08 90 36 98 Full Face 45 06/30/18 17:00 105 34 144/74 (97) 99 06/30/18 16:00 45.0 06/30/18 16:00 98.8 102 36 168/69 (102) 98 98.8 06/30/18 16:00 85 06/30/18 16:00 Bi-pap Condition: critical Lungs: rhonchi Heart: HR/BP stable Abdomen: soft, non-tender, active bowel sounds Extremities: edema Critical Care - Subjective ROS Limited/Unobtainable: Yes Condition: critical FI02: 45 Vent Support Breath Rate: 20 Vent Support Mode: BiLevel Vent Tidal Volume: 450 Sputum Amount: None PEEP: 5.0 PIP: 18 Tube Feeding Amount: 55 I&O: Intake and Output 06/30/18 07/01/18 19:00 07:00 Intake Total 165.249 ml 323.316 ml Output Total 540 ml 425 ml Balance -374.751 ml -101.684 ml IV Total 165.249 ml 323.316 ml Output Urine Total 540 ml 425 ml Subjective: refusing to wear bipap severe distress positive uop no bleeding no fever ET-Tube: 7.0 ET Position: 21 Labs: Current Medications Medications (Trade) Dose Ordered Sig/Missy Route PRN Reason Start Time Stop Time Status Last Admin Dose Admin Acetaminophen (Tylenol) 650 mg Q4H PRN ORAL Mild Pain (Pain Scale 1-3) 06/14/18 23:15 07/14/18 23:14 06/30/18 01:30 Albuterol/ Ipratropium (Albuterol/ Ipratropium) 3 ml Q4H PRN HHN Shortness of Breath 06/28/18 15:42 07/03/18 15:41 Aztreonam 0.5 gm/ Dextrose 55 ml @ 110 mls/hr Q8H IVPB 07/01/18 20:00 07/08/18 19:59 Chlorhexidine Gluconate (Maria Elena-Hex 2%) 1 applic DAILY@2000 TOPIC 06/16/18 20:00 07/16/18 19:59 06/30/18 20:50 Dextrose (Dextrose 50%) 25 ml Q30M PRN IV Hypoglycemia 06/14/18 23:15 07/14/18 23:14 Dextrose (Dextrose 50%) 50 ml Q30M PRN IV Hypoglycemia 06/14/18 23:15 07/14/18 23:14 Esmolol HCl 250 ml @ 0 mls/hr Q24H IV 07/01/18 14:00 07/31/18 13:59 07/01/18 14:26 Gabapentin (Neurontin) 300 mg Q12HR ORAL 06/29/18 21:00 07/29/18 20:59 06/29/18 20:10 Haloperidol Lactate (Haldol) 5 mg Q6H PRN IM Agitation 06/29/18 13:45 07/29/18 13:44 06/30/18 13:15 Heparin Sodium/ Dextrose 500 ml @ 26.943 mls/ hr ADJUST PER PROTOCOL IV 06/30/18 10:50 07/30/18 10:49 07/01/18 08:27 Hydralazine HCl (Apresoline) 10 mg Q6HR PRN IV SBP > 160mmHg 06/29/18 21:30 07/29/18 21:29 07/01/18 08:27 Linezolid 300 ml @ 300 mls/hr Q12H IVPB 07/01/18 18:00 07/08/18 17:59 Loperamide HCl (Imodium) 4 mg TIDPRN PRN ORAL Diarrhea 06/27/18 19:15 07/27/18 19:14 06/28/18 11:42 Metoprolol Tartrate (Lopressor) 5 mg Q3H PRN IVP PULSE > 100 bpm 06/30/18 13:15 07/30/18 13:14 07/01/18 11:06 Metoprolol Tartrate (Lopressor) 50 mg Q12HR ORAL 07/01/18 21:00 07/31/18 20:59 Metronidazole 100 ml @ 100 mls/hr Q8H IVPB 07/01/18 17:00 07/08/18 16:59 Morphine Sulfate (Morphine Sulfate) 2 mg Q2H PRN IVP PAIN 4-10 06/30/18 16:30 07/07/18 16:29 07/01/18 08:28 Ondansetron HCl (Zofran) 4 mg Q4H PRN IVP Nausea & Vomiting 06/16/18 17:45 07/16/18 17:44 06/24/18 03:15 Pantoprazole (Protonix) 40 mg DAILY IVP 06/16/18 21:00 07/17/18 08:59 07/01/18 08:27 Quetiapine Fumarate (SEROquel) 25 mg BEDTIME ORAL 06/29/18 21:00 07/29/18 20:59 06/29/18 20:12 Ropinirole HCl (Requip) 0.25 mg BEDTIME ORAL 06/21/18 21:00 07/21/18 20:59 06/29/18 20:12 Laboratory Tests Test 06/30/18 17:08 07/01/18 00:17 07/01/18 06:04 Activated Partial Thromboplast Time 50 SEC (23-33) H 88 SEC (23-33) H 83 SEC (23-33) H White Blood Count 20.1 K/UL (4.8-10.8) H Red Blood Count 3.80 M/UL (4.20-5.40) L Hemoglobin 10.4 G/DL (12.0-16.0) L Hematocrit 32.7 % (37.0-47.0) L Mean Corpuscular Volume 86 FL (80-99) Mean Corpuscular Hemoglobin 27.4 PG (27.0-31.0) Mean Corpuscular Hemoglobin Concent 31.9 G/DL (32.0-36.0) L Red Cell Distribution Width 16.4 % (11.6-14.8) H Platelet Count 618 K/UL (150-450) H Mean Platelet Volume 9.9 FL (6.5-10.1) Neutrophils (%) (Auto) % (45.0-75.0) Lymphocytes (%) (Auto) % (20.0-45.0) Monocytes (%) (Auto) % (1.0-10.0) Eosinophils (%) (Auto) % (0.0-3.0) Basophils (%) (Auto) % (0.0-2.0) Differential Total Cells Counted 100 Neutrophils % (Manual) 55 % (45-75) Lymphocytes % (Manual) 14 % (20-45) L Monocytes % (Manual) 29 % (1-10) H Eosinophils % (Manual) 0 % (0-3) Basophils % (Manual) 0 % (0-2) Band Neutrophils 2 % (0-8) Platelet Estimate Increased H Platelet Morphology Giant Platelets 1+ Hypochromasia 1+ Anisocytosis 2+ Sodium Level 143 MMOL/L (136-145) Potassium Level 3.6 MMOL/L (3.5-5.1) Chloride Level 103 MMOL/L (98-107) Carbon Dioxide Level 32 MMOL/L (21-32) Anion Gap 8 mmol/L (5-15) Blood Urea Nitrogen 26 mg/dL (7-18) H Creatinine 1.6 MG/DL (0.55-1.30) H Estimat Glomerular Filtration Rate mL/min (>60) Glucose Level 110 MG/DL (74-106) H Calcium Level 8.8 MG/DL (8.5-10.1) Patricia Colmenares DO Jul 01, 2018 15:59
--- NOTE | 2018-07-01 16:10 | Infectious Diseases Prog Note ---
Assessment/Plan Assessment/Plan ASSESSMENT AND PLAN: 1. 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 pna, hx pseudomonas/enterococcus uti, PE, ? reactive leukocytosis, c.diff. - negative - leukocytosis worsening, ? nosocomial infection, ? septic - start aztreonam, zyvox and flagyl - re-culture patient - CT abdomen and pelvis - no abscess or obvious infection - monitor labs, leukocytosis and temperatures - monitor chest x-ray - icu, supportive care - d/w RN - doubt endocarditis, echo without vegetation mentioned 2. Pulmonary fibrosis. 3. Respiratory failure, on vent. 4. Intensive care unit. 5. History of spinal surgery. 6. Cervical and lumbar spine disc disease. 7. History of prednisone use in the past. 8. History of hypertension per the records. 9. Questionable history of cerebrovascular accident per the records. 10. Past medical history is noted. 11. Allergies to acetaminophen, codeine, hydrocodone, and penicillins and other medication is chlorpheniramine. 12. Family history is noncontributory. 13. Social history is negative. 14. MAR was noted. 15. Case was discussed with RN. 16. ICU care. 17. Continue treatment per primary consultants. Subjective Constitutional: Reports: fatigue, other - refusing bipap; Denies: fever HEENT: Reports: congestion Respiratory: Reports: shortness of breath Cardiovascular: Denies: chest pain Gastrointestinal/Abdominal: Denies: nausea, vomiting Genitourinary: Reports: other - + wilson Neurologic: Reports: other - generalized weakness Psychiatric: Denies: depression Skin: Denies: rash Hematologic: Denies: bleeding Musculoskeletal: Denies: pain Allergies: Coded Allergies: ACETAMINOPHEN (Verified Allergy, Unknown, 06/14/18) CHLORPHENIRAMINE (Verified Allergy, Unknown, 06/14/18) CODEINE (Verified Allergy, Unknown, 06/14/18) HYDROCODONE (Verified Allergy, Unknown, 06/14/18) PENICILLINS (Verified Allergy, Unknown, 06/14/18) Objective Vital Signs Last 24 Hour Vital Signs Date Time Temp Pulse Resp B/P (MAP) Pulse Ox O2 Delivery O2 Flow Rate FiO2 07/01/18 15:00 98 40 123/53 (76) 92 07/01/18 14:09 159 50 93 Facial 45 07/01/18 14:00 98.4 108 35 139/60 (86) 94 98.4 07/01/18 13:00 116 46 149/72 (97) 92 07/01/18 12:50 116 35 88 07/01/18 12:00 114 46 139/62 (87) 92 07/01/18 12:00 Bi-pap 07/01/18 12:00 45.0 07/01/18 12:00 111 07/01/18 11:06 126 148/68 07/01/18 11:00 98 44 158/83 (108) 92 07/01/18 10:43 126 52 92 Facial 45 07/01/18 10:00 105 39 148/68 (94) 92 07/01/18 09:00 110 41 152/75 (100) 92 07/01/18 08:58 98.5 07/01/18 08:33 120 53 93 Facial 45 07/01/18 08:28 98.5 07/01/18 08:27 168/102 07/01/18 08:16 Facial 07/01/18 08:00 108 07/01/18 08:00 98.5 108 35 136/55 (82) 94 98.5 07/01/18 08:00 Bi-pap 07/01/18 08:00 45.0 07/01/18 07:00 107 49 148/102 (117) 91 07/01/18 06:50 110 47 93 Full Face 45 07/01/18 06:49 Bi-pap 45 07/01/18 06:49 89 Bi-pap 45 07/01/18 06:49 111 49 Bi-pap 45 07/01/18 06:00 106 46 159/54 (89) 92 07/01/18 05:17 102 46 93 Full Face 45 07/01/18 05:00 107 46 154/77 (102) 92 07/01/18 04:00 45.0 07/01/18 04:00 98.5 79 40 126/55 (78) 94 98.5 07/01/18 04:00 Bi-pap 07/01/18 04:00 82 07/01/18 03:13 84 38 94 Full Face 45 07/01/18 03:00 86 39 121/52 (75) 94 07/01/18 02:00 92 43 148/85 (106) 93 07/01/18 01:25 97 48 94 Full Face 45 07/01/18 01:00 92 39 136/68 (90) 95 07/01/18 00:00 91 07/01/18 00:00 Bi-pap 07/01/18 00:00 45.0 07/01/18 00:00 98.9 91 43 138/59 (85) 94 98.9 06/30/18 23:34 97 46 93 Full Face 45 06/30/18 23:00 99 47 109/69 (82) 92 06/30/18 22:00 91 44 158/69 (98) 95 06/30/18 21:22 104 49 93 Full Face 45 06/30/18 21:00 104 38 161/64 (96) 91 06/30/18 20:00 110 06/30/18 20:00 45.0 06/30/18 20:00 99.3 110 43 167/91 (116) 93 99.3 06/30/18 20:00 Bi-pap 06/30/18 19:32 92 Bi-pap 45 06/30/18 19:32 91 31 Bi-pap 45 06/30/18 19:32 95 41 93 Full Face 45 06/30/18 19:32 Bi-pap 45 06/30/18 19:00 98 30 164/72 (102) 99 06/30/18 18:00 102 34 140/70 (93) 99 06/30/18 17:08 90 36 98 Full Face 45 06/30/18 17:00 105 34 144/74 (97) 99 06/30/18 16:00 45.0 06/30/18 16:00 98.8 102 36 168/69 (102) 98 98.8 06/30/18 16:00 85 06/30/18 16:00 Bi-pap Height (Feet): 5 Height (Inches): 5.00 Weight (Pounds): 201 General Appearance: other - + sob, no bipap HEENT: normocephalic, atraumatic, anicteric, mucous membranes moist, EOMI, supple, no JVD Respiratory/Chest: crackles/rales, rhonchi - bilaterally Cardiovascular: normal rate, regular rhythm, no gallop/murmur, no JVD Abdomen: normal bowel sounds, soft, non tender, no organomegaly, non distended Genitourinary: other - + wilson - urine Extremities: no cyanosis Skin: no rash 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 Equivocal right ventricular dilatation in the setting of generalized cardiomegaly could indicate right heart strain although this is uncertain Extensive left lung volume loss and possible consolidation Nonspecific bilateral interstitial septal thickening Right jugular venous catheter and endotracheal tube in good position Multiple vertebral body compression fractures. Age indeterminate 8 millimeter left adrenal adenoma Chest x-ray - 06/19 - Findings: Stable satisfactory positions of endotracheal and nasogastric tubes. Right jugular central venous catheter remains in stable satisfactory position. Linear opacities at the left lung base are stable. No definite infiltrates or congestion. Blunting of left costophrenic sulcus is stable, could indicate a small pleural effusion. Degenerative changes of both shoulders again noted. Impression: Unchanged, over one day, findings as above. CT - abdomen and pelvis: IMPRESSION: Extensive diverticulosis of the colon. No definite acute diverticulitis appreciated. Multiple bilateral renal cysts. Atherosclerotic vascular disease Left basilar atelectasis versus scarring. Small umbilical hernia containing fat Wilson catheter in good position. NG tube in good position Old L2 vertebral fracture. Generalized spondylosis and osteopenia. Chest -x -ray - Findings: Interstitial prominence again demonstrated. Cardiomegaly is again demonstrated unchanged. Tubes and lines are stable. IMPRESSION: No change from the prior exam. No acute findings Chest x-ray - 06/25/18 - Findings: Tubes and lines are satisfactory and the unchanged. Heart size is stable. Left pleural effusion and interstitial edema present. Bones are osteopenic. IMPRESSION: No significant change from the prior study. Suspected mild interstitial edema and left pleural effusion Chest x-ray - 06/27/18 Findings: Interstitial edema is suspected. The heart is enlarged. There is evidence of a left pleural effusion. Endotracheal tube is in good position. Nasogastric tube may be present and if so projects over the upper esophagus. Please correlate clinically. If the patient has a nasogastric tube inserted, suggest pulling the tube. PICC line is present and stable. IMPRESSION: Question presence of a nasogastric tube. The tube may be within the upper esophagus. Correlate clinically. Chest x-ray - 06/29/18 - A single view chest radiograph was obtained. Findings: Evidence of interstitial edema with prominent vascularity and heart size. Mild the left upper pleural effusion may be present. IMPRESSION: Suspected mild interstitial edema Microbiology Date/Time Source Procedure Growth Status 06/20/18 22:00 Blood Blood Culture - Final NO GROWTH AFTER 5 DAYS Complete 06/16/18 15:10 Sputum Induced Gram Stain - Final Complete 06/16/18 15:10 Sputum Induced Sputum Culture - Final NORMAL UPPER RESPIRATORY SOO PRESENT Complete 06/26/18 18:00 Stool Clostridium difficile Toxin Assay - Final Complete 06/20/18 22:00 Urine,Clean Catch Urine Culture - Final NO GROWTH AFTER 48 HOURS Complete 06/14/18 21:00 Rectum VRE Culture - Final NO VANCOMYCIN RESISTANT ENTEROCOCCUS ... Complete 06/14/18 21:00 Rectum - Final NO CARBAPENEM-RESISTANT ENTEROBACTERI... Complete Laboratory Tests Test 06/30/18 17:08 07/01/18 00:17 07/01/18 06:04 Activated Partial Thromboplast Time 50 SEC (23-33) H 88 SEC (23-33) H 83 SEC (23-33) H White Blood Count 20.1 K/UL (4.8-10.8) H Red Blood Count 3.80 M/UL (4.20-5.40) L Hemoglobin 10.4 G/DL (12.0-16.0) L Hematocrit 32.7 % (37.0-47.0) L Mean Corpuscular Volume 86 FL (80-99) Mean Corpuscular Hemoglobin 27.4 PG (27.0-31.0) Mean Corpuscular Hemoglobin Concent 31.9 G/DL (32.0-36.0) L Red Cell Distribution Width 16.4 % (11.6-14.8) H Platelet Count 618 K/UL (150-450) H Mean Platelet Volume 9.9 FL (6.5-10.1) Neutrophils (%) (Auto) % (45.0-75.0) Lymphocytes (%) (Auto) % (20.0-45.0) Monocytes (%) (Auto) % (1.0-10.0) Eosinophils (%) (Auto) % (0.0-3.0) Basophils (%) (Auto) % (0.0-2.0) Differential Total Cells Counted 100 Neutrophils % (Manual) 55 % (45-75) Lymphocytes % (Manual) 14 % (20-45) L Monocytes % (Manual) 29 % (1-10) H Eosinophils % (Manual) 0 % (0-3) Basophils % (Manual) 0 % (0-2) Band Neutrophils 2 % (0-8) Platelet Estimate Increased H Platelet Morphology Giant Platelets 1+ Hypochromasia 1+ Anisocytosis 2+ Sodium Level 143 MMOL/L (136-145) Potassium Level 3.6 MMOL/L (3.5-5.1) Chloride Level 103 MMOL/L (98-107) Carbon Dioxide Level 32 MMOL/L (21-32) Anion Gap 8 mmol/L (5-15) Blood Urea Nitrogen 26 mg/dL (7-18) H Creatinine 1.6 MG/DL (0.55-1.30) H Estimat Glomerular Filtration Rate mL/min (>60) Glucose Level 110 MG/DL (74-106) H Calcium Level 8.8 MG/DL (8.5-10.1) Current Medications Medications (Trade) Dose Ordered Sig/Missy Route PRN Reason Start Time Stop Time Status Last Admin Dose Admin Acetaminophen (Tylenol) 650 mg Q4H PRN ORAL Mild Pain (Pain Scale 1-3) 06/14/18 23:15 07/14/18 23:14 06/30/18 01:30 Albuterol/ Ipratropium (Albuterol/ Ipratropium) 3 ml Q4H PRN HHN Shortness of Breath 06/28/18 15:42 07/03/18 15:41 Chlorhexidine Gluconate (Maria Elena-Hex 2%) 1 applic DAILY@1999 TOPIC 06/16/18 20:00 07/16/18 19:59 06/30/18 20:50 Dextrose (Dextrose 50%) 25 ml Q30M PRN IV Hypoglycemia 06/14/18 23:15 07/14/18 23:14 Dextrose (Dextrose 50%) 50 ml Q30M PRN IV Hypoglycemia 06/14/18 23:15 07/14/18 23:14 Esmolol HCl 250 ml @ 0 mls/hr Q24H IV 07/01/18 14:00 07/31/18 13:59 07/01/18 14:26 Gabapentin (Neurontin) 300 mg Q12HR ORAL 06/29/18 21:00 07/29/18 20:59 06/29/18 20:10 Haloperidol Lactate (Haldol) 5 mg Q6H PRN IM Agitation 06/29/18 13:45 07/29/18 13:44 06/30/18 13:15 Heparin Sodium/ Dextrose 500 ml @ 26.943 mls/ hr ADJUST PER PROTOCOL IV 06/30/18 10:50 07/30/18 10:49 07/01/18 08:27 Hydralazine HCl (Apresoline) 10 mg Q6HR PRN IV SBP > 160mmHg 06/29/18 21:30 07/29/18 21:29 07/01/18 08:27 Loperamide HCl (Imodium) 4 mg TIDPRN PRN ORAL Diarrhea 06/27/18 19:15 07/27/18 19:14 06/28/18 11:42 Metoprolol Tartrate (Lopressor) 5 mg Q3H PRN IVP PULSE > 100 bpm 06/30/18 13:15 07/30/18 13:14 07/01/18 11:06 Metoprolol Tartrate (Lopressor) 50 mg Q12HR ORAL 07/01/18 21:00 07/31/18 20:59 Morphine Sulfate (Morphine Sulfate) 2 mg Q2H PRN IVP PAIN 4-10 06/30/18 16:30 07/07/18 16:29 07/01/18 08:28 Ondansetron HCl (Zofran) 4 mg Q4H PRN IVP Nausea & Vomiting 06/16/18 17:45 07/16/18 17:44 06/24/18 03:15 Pantoprazole (Protonix) 40 mg DAILY IVP 06/16/18 21:00 07/17/18 08:59 07/01/18 08:27 Quetiapine Fumarate (SEROquel) 25 mg BEDTIME ORAL 06/29/18 21:00 07/29/18 20:59 06/29/18 20:12 Ropinirole HCl (Requip) 0.25 mg BEDTIME ORAL 06/21/18 21:00 07/21/18 20:59 06/29/18 20:12 Artur Rodriguez MD Jul 01, 2018 16:10
[2018-07-01] MEDS: Haloperidol 5mg/ml Inj IM PRN (17:49)
[2018-07-01] MEDS: Dyna-Hex 2% Top Sol 2oz TOPIC SCH (20:02)
[2018-07-01] MEDS: Aztreonam Inj 0.5 GM in D5W 55 ML IVPB SCH (20:05)
[2018-07-01] MEDS: Metoprolol Tartrate 50mg tab ORAL SCH (20:39)
[2018-07-01] MEDS: rOPINIRole 0.25mg tab ORAL SCH (20:40)
[2018-07-01 21:09] LABS: APPEARANCE,URINE CLOUDY; BILIRUBIN, URINE NEGATIVE (NEGATIVE); COLOR,URINE AMBER; GLUCOSE, URINE (UA) NEGATIVE (NEGATIVE); KETONES,URINE NEGATIVE (NEGATIVE); LEUKOCYTE ESTERASE ,URINE 1+ (NEGATIVE); NITRITE,URINE NEGATIVE (NEGATIVE); PH,URINE 5 (4.5-8.0); PROTEIN,URINE 2+ (NEGATIVE); UROBILINOGEN,URINE NORMAL MG/DL (0.0-1.0)
[2018-07-02] VITALS (38 sets, daily range): BP systolic 55–152; BP diastolic 39–67
[2018-07-02] MEDS: Heparin 25,000u/D5W 500ml 500 ML IV SCH (03:15)
[2018-07-02] MEDS: Aztreonam Inj 0.5 GM in D5W 55 ML IVPB SCH ×2 (03:38→14:23)
[2018-07-02 05:20] LABS: HEMATOCRIT 29.4 % (37.0-47.0); HEMOGLOBIN 9.4 G/DL (12.0-16.0); MEAN CORPUSCULAR VOLUME 87 FL (80-99); PLATELET COUNT 551 K/UL (150-450); RED BLOOD COUNT 3.37 M/UL (4.20-5.40); RED CELL DISTRIBUTION WIDTH 16.4 % (11.6-14.8); WHITE BLOOD COUNT 19.9 K/UL (4.8-10.8)
[2018-07-02 05:24] LABS: ANION GAP 6 mmol/L (5-15); BLOOD UREA NITROGEN 32 mg/dL (7-18); CALCIUM 8.4 MG/DL (8.5-10.1); CARBON DIOXIDE 34 MMOL/L (21-32); CHLORIDE 101 MMOL/L (98-107); CREATININE 1.7 MG/DL (0.55-1.30); POTASSIUM 3.9 MMOL/L (3.5-5.1); SODIUM 141 MMOL/L (136-145)
--- NOTE | 2018-07-02 10:23 | Cardiology Progress Note ---
Assessment/Plan Status: stable Assessment/Plan Assessment 1. Acute on chronic hypoxemic and acute hypercapnic respiratory failure - EXTUBATED 06/27 2. Large R-sided pulmonary emboli & R fem DVT 3. Potential consolidation LLL 4. Leukocytosis, improving slowly 5. Idiopathic pulmonary fibrosis 6. KAROL 7. Cervical spinal stenosis with compression fractures 8. PsA UTI 9. S hominis BSI 10. Atrial fibrillation Plan: Supportive care Esmolol prn tachycardia Continue anticoagulation for AFIB -> Transition to NOAC TTE reviewed, no RV dilation or failure from PE, Left ventricular ejection fraction estimated to be 60-65%. Continue pulmonary support, DNR/DNI Transfer to SLIME Aspiration precautions Rate control AFIB: Metoprolol 50 BID if tolerating PO, otherwise continue IV push to achieve rate <110 no indication for cardioversion, hemodynamically stable. Comfort care measures Subjective Cardiovascular: Reports: no symptoms Respiratory: Reports: shortness of breath, SOB at rest, stridor Gastrointestinal/Abdominal: Reports: no symptoms Genitourinary: Reports: no symptoms Subjective No acute events, esmolol has controlled heart rate, planning comfort care measures. Patient tachypnic and on BiPAP Objective Last 24 Hour Vital Signs Date Time Temp Pulse Resp B/P (MAP) Pulse Ox O2 Delivery O2 Flow Rate FiO2 07/02/18 08:30 71 20 96 Facial 50 07/02/18 08:00 50 07/02/18 07:20 68 22 94 Facial 50 07/02/18 07:11 95 33 Bi-pap 15.0 50 07/02/18 07:11 88 Bi-pap 15.0 50 07/02/18 07:11 Bi-pap 15.0 50 07/02/18 07:00 68 34 111/46 (67) 94 07/02/18 06:30 73 35 131/56 (81) 93 07/02/18 06:00 77 34 140/53 (82) 85 07/02/18 05:56 77 37 84 Facial 100 07/02/18 05:30 84 45 130/55 (80) 83 07/02/18 05:00 74 41 123/58 (79) 88 07/02/18 04:30 74 41 124/55 (78) 87 07/02/18 04:03 74 07/02/18 04:00 Nasal Cannula 3.0 07/02/18 04:00 3.0 07/02/18 04:00 99.0 74 41 123/54 (77) 89 99.0 07/02/18 03:30 74 41 119/52 (74) 89 07/02/18 03:00 77 41 120/53 (75) 88 07/02/18 02:30 75 42 124/54 (77) 90 07/02/18 02:00 75 43 129/47 (74) 90 07/02/18 01:30 78 42 126/61 (82) 90 07/02/18 01:00 88 43 115/56 (75) 90 07/02/18 00:30 81 42 113/46 (68) 89 07/02/18 00:19 74 07/02/18 00:00 Nasal Cannula 3.0 07/02/18 00:00 97.8 84 43 118/41 (66) 88 97.8 07/02/18 00:00 3.0 07/01/18 23:30 88 45 131/63 (85) 88 07/01/18 23:00 85 42 125/69 (87) 88 07/01/18 22:30 90 43 124/69 (87) 87 07/01/18 22:09 97.8 07/01/18 22:00 92 41 128/63 (84) 85 07/01/18 21:32 97.7 07/01/18 21:30 95 41 116/50 (72) 86 07/01/18 21:00 94 44 114/51 (72) 90 07/01/18 20:39 120 114/57 07/01/18 20:30 112 46 114/57 (76) 89 07/01/18 20:00 Nasal Cannula 3.0 07/01/18 20:00 94 07/01/18 20:00 97.7 90 46 129/59 (82) 85 97.7 07/01/18 20:00 3.0 07/01/18 19:00 85 36 126/62 (83) 87 07/01/18 18:57 92 44 Nasal Cannula 4.0 36 07/01/18 18:57 88 Nasal Cannula 4.0 36 07/01/18 18:57 Nasal Cannula 4.0 36 07/01/18 18:00 80 36 120/67 (84) 88 07/01/18 17:00 94 36 116/67 (83) 88 07/01/18 16:00 Nasal Cannula 3.0 07/01/18 16:00 92 35 113/60 (77) 94 07/01/18 16:00 98 07/01/18 16:00 3.0 07/01/18 15:00 98 40 123/53 (76) 92 07/01/18 14:09 159 50 93 Facial 45 07/01/18 14:00 98.4 108 35 139/60 (86) 94 98.4 07/01/18 13:00 116 46 149/72 (97) 92 07/01/18 12:50 116 35 88 07/01/18 12:00 114 46 139/62 (87) 92 07/01/18 12:00 Bi-pap 07/01/18 12:00 45.0 07/01/18 12:00 111 07/01/18 11:06 126 148/68 07/01/18 11:00 98 44 158/83 (108) 92 07/01/18 10:43 126 52 92 Facial 45 General Appearance: no apparent distress, lethargic EENT: PERRL/EOMI, normal ENT inspection Neck: non-tender, normal alignment, supple, normal inspection, no JVD Rhythm: NSR Cardiovascular: normal peripheral pulses, normal rate, tachycardia, arrhythmia Respiratory/Chest: chest wall non-tender, accessory muscle use, crackles/rales , rhonchi - bilaterally Abdomen: normal bowel sounds, non tender, soft Extremities: normal range of motion, non-tender Neurologic: abnormal CN, motor weakness, sensory deficit, disoriented Intake and Output 07/01/18 07/02/18 19:00 07:00 Intake Total 793.027 ml 1211.207 ml Output Total 480 ml 325 ml Balance 313.027 ml 886.207 ml Intake Oral 50 ml IV Total 793.027 ml 1161.207 ml Output Urine Total 480 ml 325 ml Laboratory Tests Test 07/01/18 20:30 07/02/18 04:37 Urine Color Darcy Urine Appearance Cloudy Urine pH 5 (4.5-8.0) Urine Specific [place] 1.020 (1.005-1.035) Urine Protein 2+ (NEGATIVE) H Urine Glucose (UA) Negative (NEGATIVE) Urine Ketones Negative (NEGATIVE) Urine Blood 1+ (NEGATIVE) H Urine Nitrite Negative (NEGATIVE) Urine Bilirubin Negative (NEGATIVE) Urine Ictotest Negative (NEGATIVE) Urine Urobilinogen Normal MG/DL (0.0-1.0) Urine Leukocyte Esterase 1+ (NEGATIVE) H Urine RBC 2-4 /HPF (0 - 2) H Urine WBC 5-10 /HPF (0 - 2) H Urine Squamous Epithelial Cells Many /LPF (NONE/OCC) H Urine Amorphous Sediment Moderate /LPF (NONE) H Urine Bacteria Moderate /HPF (NONE) H Urine Yeast Few /HPF (NONE) H White Blood Count 19.9 K/UL (4.8-10.8) H Red Blood Count 3.37 M/UL (4.20-5.40) L Hemoglobin 9.4 G/DL (12.0-16.0) L Hematocrit 29.4 % (37.0-47.0) L Mean Corpuscular Volume 87 FL (80-99) Mean Corpuscular Hemoglobin 28.0 PG (27.0-31.0) Mean Corpuscular Hemoglobin Concent 32.1 G/DL (32.0-36.0) Red Cell Distribution Width 16.4 % (11.6-14.8) H Platelet Count 551 K/UL (150-450) H Mean Platelet Volume 9.8 FL (6.5-10.1) Neutrophils (%) (Auto) % (45.0-75.0) Lymphocytes (%) (Auto) % (20.0-45.0) Monocytes (%) (Auto) % (1.0-10.0) Eosinophils (%) (Auto) % (0.0-3.0) Basophils (%) (Auto) % (0.0-2.0) Differential Total Cells Counted 100 Neutrophils % (Manual) 72 % (45-75) Lymphocytes % (Manual) 14 % (20-45) L Monocytes % (Manual) 12 % (1-10) H Eosinophils % (Manual) 0 % (0-3) Basophils % (Manual) 1 % (0-2) Band Neutrophils 1 % (0-8) Platelet Estimate Increased H Platelet Morphology See comment Giant Platelets 1+ Red Blood Cell Morphology Normal Activated Partial Thromboplast Time 83 SEC (23-33) H Sodium Level 141 MMOL/L (136-145) Potassium Level 3.9 MMOL/L (3.5-5.1) Chloride Level 101 MMOL/L (98-107) Carbon Dioxide Level 34 MMOL/L (21-32) H Anion Gap 6 mmol/L (5-15) Blood Urea Nitrogen 32 mg/dL (7-18) H Creatinine 1.7 MG/DL (0.55-1.30) H Estimat Glomerular Filtration Rate mL/min (>60) Glucose Level 144 MG/DL (74-106) H Calcium Level 8.4 MG/DL (8.5-10.1) L Umang Jackson MD Jul 02, 2018 10:23
[2018-07-02] MEDS: Pantoprazole Inj IVP SCH (10:30)
[2018-07-02] MEDS: Metoprolol Tartrate 50mg tab ORAL SCH (10:55)
--- NOTE | 2018-07-02 11:20 | Diagnostic Imaging Report ---
Indication: Cough Comparison: 06/29/2018 A single view chest radiograph was obtained. Findings: Increasing interstitial edema demonstrated compared to the prior study. Heart is enlarged. There may be a left pleural effusion as the left hemidiaphragm is now not visualized. PICC line again noted unchanged. The tip projects over the left innominate vein. IMPRESSION: Interstitial pulmonary edema slightly worse Suspected left pleural effusion
--- NOTE | 2018-07-02 12:49 | Pulmonolgy Critical Care Note ---
Critical Care - Asmt/Plan Problems: (1) Acute respiratory failure with hypoxemia (2) Pulmonary embolism (3) Respiratory distress (4) Pulmonary fibrosis, unspecified Assessment/Plan: Assessment/Plan Assessment: 83 y/o female w/ pulmonary fibrosis, cervical spinal stenosis with compression fractures and hx of fusion admitted with acute on chronic hypoxemic respiratory failure and acute hypercapnic respiratory failure due to large R- sided pulmonary embolism. Noted leukocytosis and potential consolidation on CT but may be difficult to ascertain from her pulmonary fibrosis. No fevers. Will need respiratory support and close monitoring of hemodynamics and low threshold to treat with antibiotics. Problem List: 1. Acute on chronic hypoxemic and acute hypercapnic respiratory failure - EXTUBATED 06/27 2. Large R-sided pulmonary emboli & R fem DVT 3. Potential consolidation LLL 4. Leukocytosis, improving slowly 5. Idiopathic pulmonary fibrosis 6. KAROL 7. Cervical spinal stenosis with compression fractures 8. PsA UTI 9. S hominis BSI 10. A fib Plan: -Optimize pulmonary hygiene/mobilize as tolerated -Titrate down FiO2 to keep SaO2 > 92% -PRN HHN's -BiPAP 15/5 qHS and PRN -IVUH -Monitor leukocytosis -Abx (Aztreonam/Flagy) per ID -Monitor volumes and renal function, SLIV, lasix 20 IV x 1 -NPO, advance diet is arousable and stable off BiPAP -DNAR/DNI, continue to discuss GOC, set up family meeting CC Time: 35 minutes Critical Care - Objective Last 24 Hour Vital Signs Date Time Temp Pulse Resp B/P (MAP) Pulse Ox O2 Delivery O2 Flow Rate FiO2 07/02/18 11:00 144 37 121/51 (74) 89 07/02/18 10:55 88 134/54 07/02/18 10:30 82 34 134/53 (80) 90 07/02/18 10:00 77 36 130/55 (80) 94 07/02/18 09:30 78 35 113/52 (72) 94 07/02/18 09:00 72 34 124/48 (73) 94 07/02/18 08:30 79 33 140/55 (83) 92 07/02/18 08:30 71 20 96 Facial 50 07/02/18 08:00 50 07/02/18 08:00 97.6 81 36 127/50 (75) 93 97.6 10/15/18 08:00 Bi-pap 50.0 07/02/18 07:30 66 33 106/44 (64) 95 07/02/18 07:20 68 22 94 Facial 50 07/02/18 07:11 95 33 Bi-pap 15.0 50 07/02/18 07:11 88 Bi-pap 15.0 50 07/02/18 07:11 Bi-pap 15.0 50 07/02/18 07:00 68 34 111/46 (67) 94 07/02/18 06:30 73 35 131/56 (81) 93 07/02/18 06:00 77 34 140/53 (82) 85 07/02/18 05:56 77 37 84 Facial 100 07/02/18 05:30 84 45 130/55 (80) 83 07/02/18 05:00 74 41 123/58 (79) 88 07/02/18 04:30 74 41 124/55 (78) 87 07/02/18 04:03 74 07/02/18 04:00 Nasal Cannula 3.0 07/02/18 04:00 3.0 07/02/18 04:00 99.0 74 41 123/54 (77) 89 99.0 07/02/18 03:30 74 41 119/52 (74) 89 07/02/18 03:00 77 41 120/53 (75) 88 07/02/18 02:30 75 42 124/54 (77) 90 07/02/18 02:00 75 43 129/47 (74) 90 07/02/18 01:30 78 42 126/61 (82) 90 07/02/18 01:00 88 43 115/56 (75) 90 07/02/18 00:30 81 42 113/46 (68) 89 07/02/18 00:19 74 07/02/18 00:00 Nasal Cannula 3.0 07/02/18 00:00 97.8 84 43 118/41 (66) 88 97.8 07/02/18 00:00 3.0 07/01/18 23:30 88 45 131/63 (85) 88 07/01/18 23:00 85 42 125/69 (87) 88 07/01/18 22:30 90 43 124/69 (87) 87 07/01/18 22:09 97.8 10/14/18 22:00 92 41 128/63 (84) 85 07/01/18 21:32 97.7 07/01/18 21:30 95 41 116/50 (72) 86 07/01/18 21:00 94 44 114/51 (72) 90 07/01/18 20:39 120 114/57 07/01/18 20:30 112 46 114/57 (76) 89 07/01/18 20:00 Nasal Cannula 3.0 07/01/18 20:00 94 07/01/18 20:00 97.7 90 46 129/59 (82) 85 97.7 07/01/18 20:00 3.0 07/01/18 19:00 85 36 126/62 (83) 87 07/01/18 18:57 92 44 Nasal Cannula 4.0 36 07/01/18 18:57 88 Nasal Cannula 4.0 36 07/01/18 18:57 Nasal Cannula 4.0 36 07/01/18 18:00 80 36 120/67 (84) 88 07/01/18 17:00 94 36 116/67 (83) 88 07/01/18 16:00 Nasal Cannula 3.0 07/01/18 16:00 92 35 113/60 (77) 94 07/01/18 16:00 98 07/01/18 16:00 3.0 07/01/18 15:00 98 40 123/53 (76) 92 07/01/18 14:09 159 50 93 Facial 45 07/01/18 14:00 98.4 108 35 139/60 (86) 94 98.4 07/01/18 13:00 116 46 149/72 (97) 92 07/01/18 12:50 116 35 88 Status: somnolent Condition: critical HEENT: atraumatic, normocephalic Lungs: clear Heart: HR/BP stable Abdomen: soft, non-tender, active bowel sounds Extremities: no C/C/E Critical Care - Subjective ROS Limited/Unobtainable: Yes ICU Day: 15 Intubation Day: N/A Interval Events: Refused BiPAP yesterday, destated this am now somnolent on BiPAP No cough, no distress Condition: critical IV Access: PICC EKG Rhythm: Atrial Fibrillation FI02: 50 Vent Support Breath Rate: 20 Vent Support Mode: BiLevel Vent Tidal Volume: 450 Sputum Amount: None PEEP: 5.0 PIP: 18 Drips: IVUH, esmolol Tube Feeding Amount: 55 I&O: Intake and Output 07/01/18 07/02/18 19:00 07:00 Intake Total 793.027 ml 1211.207 ml Output Total 480 ml 325 ml Balance 313.027 ml 886.207 ml Intake Oral 50 ml IV Total 793.027 ml 1161.207 ml Output Urine Total 480 ml 325 ml Subjective: RYLIE CXR: PVC ET-Tube: 7.0 ET Position: 21 Labs: Laboratory Tests Test 07/01/18 20:30 07/02/18 04:37 Urine Color Darcy Urine Appearance Cloudy Urine pH 5 (4.5-8.0) Urine Specific [place] 1.020 (1.005-1.035) Urine Protein 2+ (NEGATIVE) H Urine Glucose (UA) Negative (NEGATIVE) Urine Ketones Negative (NEGATIVE) Urine Blood 1+ (NEGATIVE) H Urine Nitrite Negative (NEGATIVE) Urine Bilirubin Negative (NEGATIVE) Urine Ictotest Negative (NEGATIVE) Urine Urobilinogen Normal MG/DL (0.0-1.0) Urine Leukocyte Esterase 1+ (NEGATIVE) H Urine RBC 2-4 /HPF (0 - 2) H Urine WBC 5-10 /HPF (0 - 2) H Urine Squamous Epithelial Cells Many /LPF (NONE/OCC) H Urine Amorphous Sediment Moderate /LPF (NONE) H Urine Bacteria Moderate /HPF (NONE) H Urine Yeast Few /HPF (NONE) H White Blood Count 19.9 K/UL (4.8-10.8) H Red Blood Count 3.37 M/UL (4.20-5.40) L Hemoglobin 9.4 G/DL (12.0-16.0) L Hematocrit 29.4 % (37.0-47.0) L Mean Corpuscular Volume 87 FL (80-99) Mean Corpuscular Hemoglobin 28.0 PG (27.0-31.0) Mean Corpuscular Hemoglobin Concent 32.1 G/DL (32.0-36.0) Red Cell Distribution Width 16.4 % (11.6-14.8) H Platelet Count 551 K/UL (150-450) H Mean Platelet Volume 9.8 FL (6.5-10.1) Neutrophils (%) (Auto) % (45.0-75.0) Lymphocytes (%) (Auto) % (20.0-45.0) Monocytes (%) (Auto) % (1.0-10.0) Eosinophils (%) (Auto) % (0.0-3.0) Basophils (%) (Auto) % (0.0-2.0) Differential Total Cells Counted 100 Neutrophils % (Manual) 72 % (45-75) Lymphocytes % (Manual) 14 % (20-45) L Monocytes % (Manual) 12 % (1-10) H Eosinophils % (Manual) 0 % (0-3) Basophils % (Manual) 1 % (0-2) Band Neutrophils 1 % (0-8) Platelet Estimate Increased H Platelet Morphology See comment Giant Platelets 1+ Red Blood Cell Morphology Normal Activated Partial Thromboplast Time 83 SEC (23-33) H Sodium Level 141 MMOL/L (136-145) Potassium Level 3.9 MMOL/L (3.5-5.1) Chloride Level 101 MMOL/L (98-107) Carbon Dioxide Level 34 MMOL/L (21-32) H Anion Gap 6 mmol/L (5-15) Blood Urea Nitrogen 32 mg/dL (7-18) H Creatinine 1.7 MG/DL (0.55-1.30) H Estimat Glomerular Filtration Rate mL/min (>60) Glucose Level 144 MG/DL (74-106) H Calcium Level 8.4 MG/DL (8.5-10.1) L José Luis Piedra MD Jul 02, 2018 12:49
--- NOTE | 2018-07-02 19:36 | Internal Med Progress Note ---
Subjective Physician Name Umang Contreras Attending Physician Umang Contreras MD Current Medications Medications (Trade) Dose Ordered Sig/Missy Route PRN Reason Start Time Stop Time Status Last Admin Dose Admin Albuterol/ Ipratropium (Albuterol/ Ipratropium) 3 ml Q4H PRN HHN Shortness of Breath 06/28/18 15:42 07/03/18 15:41 Chlorhexidine Gluconate (Maria Elena-Hex 2%) 1 applic DAILY@2000 TOPIC 06/16/18 20:00 07/16/18 19:59 07/01/18 20:02 Lorazepam (Ativan 2mg/ml 1ml) 1 mg Q2H PRN IV Shortness of Breath 07/02/18 19:00 07/09/18 18:59 Morphine Sulfate (Morphine Sulfate) 2 mg Q2H PRN IVP Shortness of breath 07/02/18 19:00 07/07/18 18:59 Allergies: Coded Allergies: ACETAMINOPHEN (Verified Allergy, Unknown, 06/14/18) CHLORPHENIRAMINE (Verified Allergy, Unknown, 06/14/18) CODEINE (Verified Allergy, Unknown, 06/14/18) HYDROCODONE (Verified Allergy, Unknown, 06/14/18) PENICILLINS (Verified Allergy, Unknown, 06/14/18) Subjective encephalopathic on 4L O2 on comfort care 12 pt ROS neg except above positives Objective Last Vital Signs Date Time Temp Pulse Resp B/P (MAP) Pulse Ox O2 Delivery O2 Flow Rate FiO2 07/02/18 19:17 95 Nasal Cannula 4.0 36 07/02/18 19:16 75 30 07/02/18 18:00 131/52 (78) 07/02/18 17:00 97.8 97.8 Laboratory Tests Test 07/01/18 20:30 07/02/18 04:37 Urine Color Darcy Urine Appearance Cloudy Urine pH 5 (4.5-8.0) Urine Specific [place] 1.020 (1.005-1.035) Urine Protein 2+ (NEGATIVE) H Urine Glucose (UA) Negative (NEGATIVE) Urine Ketones Negative (NEGATIVE) Urine Blood 1+ (NEGATIVE) H Urine Nitrite Negative (NEGATIVE) Urine Bilirubin Negative (NEGATIVE) Urine Ictotest Negative (NEGATIVE) Urine Urobilinogen Normal MG/DL (0.0-1.0) Urine Leukocyte Esterase 1+ (NEGATIVE) H Urine RBC 2-4 /HPF (0 - 2) H Urine WBC 5-10 /HPF (0 - 2) H Urine Squamous Epithelial Cells Many /LPF (NONE/OCC) H Urine Amorphous Sediment Moderate /LPF (NONE) H Urine Bacteria Moderate /HPF (NONE) H Urine Yeast Few /HPF (NONE) H White Blood Count 19.9 K/UL (4.8-10.8) H Red Blood Count 3.37 M/UL (4.20-5.40) L Hemoglobin 9.4 G/DL (12.0-16.0) L Hematocrit 29.4 % (37.0-47.0) L Mean Corpuscular Volume 87 FL (80-99) Mean Corpuscular Hemoglobin 28.0 PG (27.0-31.0) Mean Corpuscular Hemoglobin Concent 32.1 G/DL (32.0-36.0) Red Cell Distribution Width 16.4 % (11.6-14.8) H Platelet Count 551 K/UL (150-450) H Mean Platelet Volume 9.8 FL (6.5-10.1) Neutrophils (%) (Auto) % (45.0-75.0) Lymphocytes (%) (Auto) % (20.0-45.0) Monocytes (%) (Auto) % (1.0-10.0) Eosinophils (%) (Auto) % (0.0-3.0) Basophils (%) (Auto) % (0.0-2.0) Differential Total Cells Counted 100 Neutrophils % (Manual) 72 % (45-75) Lymphocytes % (Manual) 14 % (20-45) L Monocytes % (Manual) 12 % (1-10) H Eosinophils % (Manual) 0 % (0-3) Basophils % (Manual) 1 % (0-2) Band Neutrophils 1 % (0-8) Platelet Estimate Increased H Platelet Morphology See comment Giant Platelets 1+ Red Blood Cell Morphology Normal Activated Partial Thromboplast Time 83 SEC (23-33) H Sodium Level 141 MMOL/L (136-145) Potassium Level 3.9 MMOL/L (3.5-5.1) Chloride Level 101 MMOL/L (98-107) Carbon Dioxide Level 34 MMOL/L (21-32) H Anion Gap 6 mmol/L (5-15) Blood Urea Nitrogen 32 mg/dL (7-18) H Creatinine 1.7 MG/DL (0.55-1.30) H Estimat Glomerular Filtration Rate mL/min (>60) Glucose Level 144 MG/DL (74-106) H Calcium Level 8.4 MG/DL (8.5-10.1) L Intake and Output 07/01/18 07/02/18 19:00 07:00 Intake Total 793.027 ml 1211.207 ml Output Total 480 ml 325 ml Balance 313.027 ml 886.207 ml Intake Oral 50 ml IV Total 793.027 ml 1161.207 ml Output Urine Total 480 ml 325 ml Objective GENERAL: BIPAP. She is awake. HEENT: Normocephalic/atraumatic. NECK: Patient has a right IJ. There is no JVD noted. LUNGS: Decreased breath sounds bilaterally. Some crackles. CARDIOVASCULAR: Tachycardic. Regular rhythm. ABDOMEN: Soft, nontender. EXTREMITIES: No clubbing, cyanosis, or edema. Assessment/Plan Assessment/Plan ASSESSMENT AND PLAN: 1. Acute hypoxic/hypercapnic respiratory failure secondary to right pulmonary artery embolism. 2. Pulmonary fibrosis. 3. Severe central spinal stenosis of L3-L4 and L4-L5. 4. Leukocytosis-unclear etiology. The patient was being tapered off prednisone recently. 5. History of old compression fractures of T5 and L2. 6. History of thrombocytosis. 7. elevated troponin 2/2 R ventricular strain 8. Leukocytosis - possibly secondary to acute 9. UTI, Psuedomonas 10. Staph hominis Bacteremia 11. diarrhea PLAN: 1. ICU 2. O2 3. heparin drip 4. TTE reviewed. no R ventricular dilation 5. Pulmonary consult 6. NPO 7. comfort care 8. Follow up cultures 9. abx - off 10. ID consult 11. POLST completed - DNR DNI/DNR discussed w/ family at bedside DVT px - Heparin g++ Umang Contreras MD Jul 02, 2018 19:36
[2018-07-02] MEDS: Morphine Sulfate 2mg/ml Inj IVP PRN ×2 (19:40→22:40)
[2018-07-02] MEDS: Dyna-Hex 2% Top Sol 2oz TOPIC SCH (19:47)
--- NOTE | 2018-07-02 20:33 | Infectious Diseases Prog Note ---
Assessment/Plan Assessment/Plan ASSESSMENT AND PLAN: 1. 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 line infection, hx surgical supplies sterilizer bacteremia, fevers, ? pna, hx pseudomonas/enterococcus uti, PE, ? reactive leukocytosis, c.diff. - negative - leukocytosis worsening, ? nosocomial infection, ? septic - patient now comfort care, antibiotics discontinued - d/w RN - will sign off 2. Pulmonary fibrosis. 3. Respiratory failure, on vent. 4. Intensive care unit. 5. History of spinal surgery. 6. Cervical and lumbar spine disc disease. 7. History of prednisone use in the past. 8. History of hypertension per the records. 9. Questionable history of cerebrovascular accident per the records. 10. Past medical history is noted. 11. Allergies to acetaminophen, codeine, hydrocodone, and penicillins and other medication is chlorpheniramine. 12. Family history is noncontributory. 13. Social history is negative. 14. MAR was noted. 15. Case was discussed with RN. 16. ICU care. 17. Continue treatment per primary consultants. Subjective Constitutional: Reports: other - patient now comfort care, antibiotics discontinued, currently in icu ; Denies: fever, fatigue HEENT: Reports: congestion Respiratory: Reports: shortness of breath Cardiovascular: Denies: chest pain Gastrointestinal/Abdominal: Denies: nausea, vomiting, diarrhea Genitourinary: Reports: other - no wilson Neurologic: Denies: headache Psychiatric: Reports: other - na Skin: Denies: rash Hematologic: Denies: bleeding Musculoskeletal: Denies: pain Allergies: Coded Allergies: ACETAMINOPHEN (Verified Allergy, Unknown, 06/14/18) CHLORPHENIRAMINE (Verified Allergy, Unknown, 06/14/18) CODEINE (Verified Allergy, Unknown, 06/14/18) HYDROCODONE (Verified Allergy, Unknown, 06/14/18) PENICILLINS (Verified Allergy, Unknown, 06/14/18) Objective Vital Signs Last 24 Hour Vital Signs Date Time Temp Pulse Resp B/P (MAP) Pulse Ox O2 Delivery O2 Flow Rate FiO2 07/02/18 20:00 79 07/02/18 20:00 99.0 78 36 150/65 (93) 91 99.0 07/02/18 20:00 3.0 07/02/18 20:00 Nasal Cannula 3.0 07/02/18 19:17 95 Nasal Cannula 4.0 36 07/02/18 19:17 Nasal Cannula 4.0 36 07/02/18 19:16 75 30 Nasal Cannula 4.0 36 07/02/18 19:00 79 41 152/67 (95) 93 07/02/18 18:00 72 36 131/52 (78) 96 07/02/18 17:10 72 33 96 07/02/18 17:00 97.8 64 33 122/44 (70) 94 97.8 07/02/18 16:43 61 07/02/18 16:00 50 07/02/18 16:00 63 33 109/44 (65) 94 07/02/18 16:00 Bi-pap 50.0 07/02/18 15:30 62 33 117/44 (68) 95 07/02/18 15:00 60 33 116/44 (68) 95 07/02/18 14:40 64 26 95 Facial 50 07/02/18 14:00 59 31 109/45 (66) 95 07/02/18 13:00 98.4 61 31 115/46 (69) 95 98.4 07/02/18 12:56 82 20 96 Facial 50 07/02/18 12:30 69 33 111/40 (63) 94 07/02/18 12:00 50 07/02/18 12:00 72 07/02/18 12:00 67 35 104/43 (63) 94 07/02/18 12:00 Bi-pap 50.0 07/02/18 11:30 75 35 98/39 (58) 93 07/02/18 11:10 120 24 95 Facial 50 07/02/18 11:00 144 37 121/51 (74) 89 07/02/18 10:55 88 134/54 07/02/18 10:30 82 34 134/53 (80) 90 07/02/18 10:00 77 36 130/55 (80) 94 07/02/18 09:30 78 35 113/52 (72) 94 07/02/18 09:00 72 34 124/48 (73) 94 07/02/18 08:30 79 33 140/55 (83) 92 07/02/18 08:30 71 20 96 Facial 50 07/02/18 08:00 50 07/02/18 08:00 71 07/02/18 08:00 97.6 81 36 127/50 (75) 93 97.6 10/15/18 08:00 Bi-pap 50.0 07/02/18 07:30 66 33 106/44 (64) 95 07/02/18 07:20 68 22 94 Facial 50 07/02/18 07:11 95 33 Bi-pap 15.0 50 07/02/18 07:11 88 Bi-pap 15.0 50 07/02/18 07:11 Bi-pap 15.0 50 07/02/18 07:00 68 34 111/46 (67) 94 07/02/18 06:30 73 35 131/56 (81) 93 07/02/18 06:00 77 34 140/53 (82) 85 07/02/18 05:56 77 37 84 Facial 100 07/02/18 05:30 84 45 130/55 (80) 83 07/02/18 05:00 74 41 123/58 (79) 88 07/02/18 04:30 74 41 124/55 (78) 87 07/02/18 04:03 74 07/02/18 04:00 Nasal Cannula 3.0 07/02/18 04:00 3.0 07/02/18 04:00 99.0 74 41 123/54 (77) 89 99.0 07/02/18 03:30 74 41 119/52 (74) 89 07/02/18 03:00 77 41 120/53 (75) 88 07/02/18 02:30 75 42 124/54 (77) 90 07/02/18 02:00 75 43 129/47 (74) 90 07/02/18 01:30 78 42 126/61 (82) 90 07/02/18 01:00 88 43 115/56 (75) 90 07/02/18 00:30 81 42 113/46 (68) 89 07/02/18 00:19 74 07/02/18 00:00 Nasal Cannula 3.0 07/02/18 00:00 97.8 84 43 118/41 (66) 88 97.8 07/02/18 00:00 3.0 07/01/18 23:30 88 45 131/63 (85) 88 07/01/18 23:00 85 42 125/69 (87) 88 07/01/18 22:30 90 43 124/69 (87) 87 07/01/18 22:09 97.8 10/14/18 22:00 92 41 128/63 (84) 85 07/01/18 21:32 97.7 07/01/18 21:30 95 41 116/50 (72) 86 07/01/18 21:00 94 44 114/51 (72) 90 07/01/18 20:39 120 114/57 07/01/18 20:30 112 46 114/57 (76) 89 Height (Feet): 5 Height (Inches): 5.00 Weight (Pounds): 191 General Appearance: no acute distress HEENT: normocephalic, atraumatic, anicteric Respiratory/Chest: crackles/rales, rhonchi - bilaterally Cardiovascular: normal rate, regular rhythm, no gallop/murmur, no JVD Abdomen: normal bowel sounds, soft, non tender, no organomegaly, non distended Genitourinary: other - + wilson Extremities: no cyanosis Skin: no rash 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 Equivocal right ventricular dilatation in the setting of generalized cardiomegaly could indicate right heart strain although this is uncertain Extensive left lung volume loss and possible consolidation Nonspecific bilateral interstitial septal thickening Right jugular venous catheter and endotracheal tube in good position Multiple vertebral body compression fractures. Age indeterminate 8 millimeter left adrenal adenoma Chest x-ray - 06/19 - Findings: Stable satisfactory positions of endotracheal and nasogastric tubes. Right jugular central venous catheter remains in stable satisfactory position. Linear opacities at the left lung base are stable. No definite infiltrates or congestion. Blunting of left costophrenic sulcus is stable, could indicate a small pleural effusion. Degenerative changes of both shoulders again noted. Impression: Unchanged, over one day, findings as above. CT - abdomen and pelvis: IMPRESSION: Extensive diverticulosis of the colon. No definite acute diverticulitis appreciated. Multiple bilateral renal cysts. Atherosclerotic vascular disease Left basilar atelectasis versus scarring. Small umbilical hernia containing fat Wilson catheter in good position. NG tube in good position Old L2 vertebral fracture. Generalized spondylosis and osteopenia. Chest -x -ray - Findings: Interstitial prominence again demonstrated. Cardiomegaly is again demonstrated unchanged. Tubes and lines are stable. IMPRESSION: No change from the prior exam. No acute findings Chest x-ray - 06/25/18 - Findings: Tubes and lines are satisfactory and the unchanged. Heart size is stable. Left pleural effusion and interstitial edema present. Bones are osteopenic. IMPRESSION: No significant change from the prior study. Suspected mild interstitial edema and left pleural effusion Chest x-ray - 06/27/18 Findings: Interstitial edema is suspected. The heart is enlarged. There is evidence of a left pleural effusion. Endotracheal tube is in good position. Nasogastric tube may be present and if so projects over the upper esophagus. Please correlate clinically. If the patient has a nasogastric tube inserted, suggest pulling the tube. PICC line is present and stable. IMPRESSION: Question presence of a nasogastric tube. The tube may be within the upper esophagus. Correlate clinically. Chest x-ray - 06/29/18 - A single view chest radiograph was obtained. Findings: Evidence of interstitial edema with prominent vascularity and heart size. Mild the left upper pleural effusion may be present. IMPRESSION: Suspected mild interstitial edema Chest x-ray - 07/02 - Increasing interstitial edema demonstrated compared to the prior study. Heart is enlarged. There may be a left pleural effusion as the left hemidiaphragm is now not visualized. PICC line again noted unchanged. The tip projects over the left innominate vein. IMPRESSION: Interstitial pulmonary edema slightly worse Suspected left pleural effusion Microbiology Date/Time Source Procedure Growth Status 06/20/18 22:00 Blood Blood Culture - Final NO GROWTH AFTER 5 DAYS Complete 06/16/18 15:10 Sputum Induced Gram Stain - Final Complete 06/16/18 15:10 Sputum Induced Sputum Culture - Final NORMAL UPPER RESPIRATORY SOO PRESENT Complete 06/26/18 18:00 Stool Clostridium difficile Toxin Assay - Final Complete 06/20/18 22:00 Urine,Clean Catch Urine Culture - Final NO GROWTH AFTER 48 HOURS Complete 06/14/18 21:00 Rectum VRE Culture - Final NO VANCOMYCIN RESISTANT ENTEROCOCCUS ... Complete 06/14/18 21:00 Rectum - Final NO CARBAPENEM-RESISTANT ENTEROBACTERI... Complete Laboratory Tests Test 07/01/18 20:30 07/02/18 04:37 Urine Color Darcy Urine Appearance Cloudy Urine pH 5 (4.5-8.0) Urine Specific [place] 1.020 (1.005-1.035) Urine Protein 2+ (NEGATIVE) H Urine Glucose (UA) Negative (NEGATIVE) Urine Ketones Negative (NEGATIVE) Urine Blood 1+ (NEGATIVE) H Urine Nitrite Negative (NEGATIVE) Urine Bilirubin Negative (NEGATIVE) Urine Ictotest Negative (NEGATIVE) Urine Urobilinogen Normal MG/DL (0.0-1.0) Urine Leukocyte Esterase 1+ (NEGATIVE) H Urine RBC 2-4 /HPF (0 - 2) H Urine WBC 5-10 /HPF (0 - 2) H Urine Squamous Epithelial Cells Many /LPF (NONE/OCC) H Urine Amorphous Sediment Moderate /LPF (NONE) H Urine Bacteria Moderate /HPF (NONE) H Urine Yeast Few /HPF (NONE) H White Blood Count 19.9 K/UL (4.8-10.8) H Red Blood Count 3.37 M/UL (4.20-5.40) L Hemoglobin 9.4 G/DL (12.0-16.0) L Hematocrit 29.4 % (37.0-47.0) L Mean Corpuscular Volume 87 FL (80-99) Mean Corpuscular Hemoglobin 28.0 PG (27.0-31.0) Mean Corpuscular Hemoglobin Concent 32.1 G/DL (32.0-36.0) Red Cell Distribution Width 16.4 % (11.6-14.8) H Platelet Count 551 K/UL (150-450) H Mean Platelet Volume 9.8 FL (6.5-10.1) Neutrophils (%) (Auto) % (45.0-75.0) Lymphocytes (%) (Auto) % (20.0-45.0) Monocytes (%) (Auto) % (1.0-10.0) Eosinophils (%) (Auto) % (0.0-3.0) Basophils (%) (Auto) % (0.0-2.0) Differential Total Cells Counted 100 Neutrophils % (Manual) 72 % (45-75) Lymphocytes % (Manual) 14 % (20-45) L Monocytes % (Manual) 12 % (1-10) H Eosinophils % (Manual) 0 % (0-3) Basophils % (Manual) 1 % (0-2) Band Neutrophils 1 % (0-8) Platelet Estimate Increased H Platelet Morphology See comment Giant Platelets 1+ Red Blood Cell Morphology Normal Activated Partial Thromboplast Time 83 SEC (23-33) H Sodium Level 141 MMOL/L (136-145) Potassium Level 3.9 MMOL/L (3.5-5.1) Chloride Level 101 MMOL/L (98-107) Carbon Dioxide Level 34 MMOL/L (21-32) H Anion Gap 6 mmol/L (5-15) Blood Urea Nitrogen 32 mg/dL (7-18) H Creatinine 1.7 MG/DL (0.55-1.30) H Estimat Glomerular Filtration Rate mL/min (>60) Glucose Level 144 MG/DL (74-106) H Calcium Level 8.4 MG/DL (8.5-10.1) L Current Medications Medications (Trade) Dose Ordered Sig/Missy Route PRN Reason Start Time Stop Time Status Last Admin Dose Admin Albuterol/ Ipratropium (Albuterol/ Ipratropium) 3 ml Q4H PRN HHN Shortness of Breath 06/28/18 15:42 07/03/18 15:41 Chlorhexidine Gluconate (Maria Elena-Hex 2%) 1 applic DAILY@2000 TOPIC 06/16/18 20:00 07/16/18 19:59 07/02/18 19:47 Lorazepam (Ativan 2mg/ml 1ml) 1 mg Q2H PRN IV Shortness of Breath 07/02/18 19:00 07/09/18 18:59 Morphine Sulfate (Morphine Sulfate) 2 mg Q2H PRN IVP Shortness of breath 07/02/18 19:00 07/07/18 18:59 07/02/18 19:40 Artur Rodriguez MD Jul 02, 2018 20:32
--- NOTE | 2018-07-02 21:41 | General Progress Note ---
Assessment/Plan Status: stable, progressing Assessment/Plan Encephalopathy due to metallic disorder or toxin. 1.Seroquel 25 mg at bedtime. 3. Haldol 5 mg q.6 hours p.r.n. for agitation. 4. We will continue to follow and readjust the medications. Subjective Date patient seen: Jul 02, 2018 Neurologic/Psychiatric: Reports: anxiety, depressed, emotional problems Allergies: Coded Allergies: ACETAMINOPHEN (Verified Allergy, Unknown, 06/14/18) CHLORPHENIRAMINE (Verified Allergy, Unknown, 06/14/18) CODEINE (Verified Allergy, Unknown, 06/14/18) HYDROCODONE (Verified Allergy, Unknown, 06/14/18) PENICILLINS (Verified Allergy, Unknown, 06/14/18) Subjective waxing and waning of consciousness Objective Last 24 Hour Vital Signs Date Time Temp Pulse Resp B/P (MAP) Pulse Ox O2 Delivery O2 Flow Rate FiO2 07/02/18 21:00 94 36 148/67 (94) 91 07/02/18 20:00 79 07/02/18 20:00 99.0 78 36 150/65 (93) 91 99.0 07/02/18 20:00 3.0 07/02/18 20:00 Nasal Cannula 3.0 07/02/18 19:17 95 Nasal Cannula 4.0 36 07/02/18 19:17 Nasal Cannula 4.0 36 07/02/18 19:16 75 30 Nasal Cannula 4.0 36 07/02/18 19:00 79 41 152/67 (95) 93 07/02/18 18:00 72 36 131/52 (78) 96 07/02/18 17:10 72 33 96 07/02/18 17:00 97.8 64 33 122/44 (70) 94 97.8 07/02/18 16:43 61 07/02/18 16:00 50 07/02/18 16:00 63 33 109/44 (65) 94 07/02/18 16:00 Bi-pap 50.0 07/02/18 15:30 62 33 117/44 (68) 95 07/02/18 15:00 60 33 116/44 (68) 95 07/02/18 14:40 64 26 95 Facial 50 07/02/18 14:00 59 31 109/45 (66) 95 07/02/18 13:00 98.4 61 31 115/46 (69) 95 98.4 07/02/18 12:56 82 20 96 Facial 50 07/02/18 12:30 69 33 111/40 (63) 94 07/02/18 12:00 50 07/02/18 12:00 72 07/02/18 12:00 67 35 104/43 (63) 94 07/02/18 12:00 Bi-pap 50.0 07/02/18 11:30 75 35 98/39 (58) 93 07/02/18 11:10 120 24 95 Facial 50 07/02/18 11:00 144 37 121/51 (74) 89 07/02/18 10:55 88 134/54 07/02/18 10:30 82 34 134/53 (80) 90 07/02/18 10:00 77 36 130/55 (80) 94 07/02/18 09:30 78 35 113/52 (72) 94 07/02/18 09:00 72 34 124/48 (73) 94 07/02/18 08:30 79 33 140/55 (83) 92 07/02/18 08:30 71 20 96 Facial 50 07/02/18 08:00 50 07/02/18 08:00 71 07/02/18 08:00 97.6 81 36 127/50 (75) 93 97.6 07/02/18 08:00 Bi-pap 50.0 07/02/18 07:30 66 33 106/44 (64) 95 07/02/18 07:20 68 22 94 Facial 50 07/02/18 07:11 95 33 Bi-pap 15.0 50 07/02/18 07:11 88 Bi-pap 15.0 50 07/02/18 07:11 Bi-pap 15.0 50 07/02/18 07:00 68 34 111/46 (67) 94 07/02/18 06:30 73 35 131/56 (81) 93 07/02/18 06:00 77 34 140/53 (82) 85 07/02/18 05:56 77 37 84 Facial 100 07/02/18 05:30 84 45 130/55 (80) 83 07/02/18 05:00 74 41 123/58 (79) 88 07/02/18 04:30 74 41 124/55 (78) 87 07/02/18 04:03 74 07/02/18 04:00 Nasal Cannula 3.0 07/02/18 04:00 3.0 07/02/18 04:00 99.0 74 41 123/54 (77) 89 99.0 07/02/18 03:30 74 41 119/52 (74) 89 07/02/18 03:00 77 41 120/53 (75) 88 07/02/18 02:30 75 42 124/54 (77) 90 07/02/18 02:00 75 43 129/47 (74) 90 07/02/18 01:30 78 42 126/61 (82) 90 07/02/18 01:00 88 43 115/56 (75) 90 07/02/18 00:30 81 42 113/46 (68) 89 07/02/18 00:19 74 07/02/18 00:00 Nasal Cannula 3.0 07/02/18 00:00 97.8 84 43 118/41 (66) 88 97.8 07/02/18 00:00 3.0 07/01/18 23:30 88 45 131/63 (85) 88 07/01/18 23:00 85 42 125/69 (87) 88 07/01/18 22:30 90 43 124/69 (87) 87 07/01/18 22:09 97.8 07/01/18 22:00 92 41 128/63 (84) 85 Intake and Output 07/01/18 07/02/18 19:00 07:00 Intake Total 793.027 ml 1211.207 ml Output Total 480 ml 325 ml Balance 313.027 ml 886.207 ml Intake Oral 50 ml IV Total 793.027 ml 1161.207 ml Output Urine Total 480 ml 325 ml Laboratory Tests 07/02/18 04:37: White Blood Count 19.9H, Red Blood Count 3.37L, Hemoglobin 9.4L, Hematocrit 29.4L, Mean Corpuscular Volume 87, Mean Corpuscular Hemoglobin 28.0, Mean Corpuscular Hemoglobin Concent 32.1, Red Cell Distribution Width 16.4H, Platelet Count 551H, Mean Platelet Volume 9.8, Neutrophils (%) (Auto) , Lymphocytes (%) (Auto) , Monocytes (%) (Auto) , Eosinophils (%) (Auto) , Basophils (%) (Auto) , Differential Total Cells Counted 100, Neutrophils % ( Manual) 72, Lymphocytes % (Manual) 14L, Monocytes % (Manual) 12H, Eosinophils % (Manual) 0, Basophils % (Manual) 1, Band Neutrophils 1, Platelet Estimate IncreasedH, Platelet Morphology See comment, Giant Platelets 1+, Red Blood Cell Morphology Normal, Activated Partial Thromboplast Time 83H, Sodium Level 141, Potassium Level 3.9, Chloride Level 101, Carbon Dioxide Level 34H, Anion Gap 6, Blood Urea Nitrogen 32H, Creatinine 1.7H, Estimat Glomerular Filtration Rate , Glucose Level 144H, Calcium Level 8.4L Height (Feet): 5 Height (Inches): 5.00 Weight (Pounds): 191 General Appearance: confused, agitated Christine Vela MD Jul 02, 2018 21:41
--- NOTE | 2018-07-02 21:45 | Psych Consult Progress Note ---
Psych Consult Progress Note Consult 07/01/18 the pt still has episodes of agitation waxing and waning of consciousness Vital Signs Last 24 Hour Vital Signs Date Time Temp Pulse Resp B/P (MAP) Pulse Ox O2 Delivery O2 Flow Rate FiO2 07/02/18 21:00 94 36 148/67 (94) 91 07/02/18 20:00 79 07/02/18 20:00 99.0 78 36 150/65 (93) 91 99.0 07/02/18 20:00 3.0 07/02/18 20:00 Nasal Cannula 3.0 07/02/18 19:17 95 Nasal Cannula 4.0 36 07/02/18 19:17 Nasal Cannula 4.0 36 07/02/18 19:16 75 30 Nasal Cannula 4.0 36 07/02/18 19:00 79 41 152/67 (95) 93 07/02/18 18:00 72 36 131/52 (78) 96 07/02/18 17:10 72 33 96 07/02/18 17:00 97.8 64 33 122/44 (70) 94 97.8 07/02/18 16:43 61 07/02/18 16:00 50 07/02/18 16:00 63 33 109/44 (65) 94 07/02/18 16:00 Bi-pap 50.0 07/02/18 15:30 62 33 117/44 (68) 95 07/02/18 15:00 60 33 116/44 (68) 95 07/02/18 14:40 64 26 95 Facial 50 07/02/18 14:00 59 31 109/45 (66) 95 07/02/18 13:00 98.4 61 31 115/46 (69) 95 98.4 07/02/18 12:56 82 20 96 Facial 50 07/02/18 12:30 69 33 111/40 (63) 94 07/02/18 12:00 50 07/02/18 12:00 72 07/02/18 12:00 67 35 104/43 (63) 94 07/02/18 12:00 Bi-pap 50.0 07/02/18 11:30 75 35 98/39 (58) 93 07/02/18 11:10 120 24 95 Facial 50 07/02/18 11:00 144 37 121/51 (74) 89 07/02/18 10:55 88 134/54 07/02/18 10:30 82 34 134/53 (80) 90 07/02/18 10:00 77 36 130/55 (80) 94 07/02/18 09:30 78 35 113/52 (72) 94 07/02/18 09:00 72 34 124/48 (73) 94 07/02/18 08:30 79 33 140/55 (83) 92 07/02/18 08:30 71 20 96 Facial 50 07/02/18 08:00 50 07/02/18 08:00 71 07/02/18 08:00 97.6 81 36 127/50 (75) 93 97.6 07/02/18 08:00 Bi-pap 50.0 07/02/18 07:30 66 33 106/44 (64) 95 07/02/18 07:20 68 22 94 Facial 50 07/02/18 07:11 95 33 Bi-pap 15.0 50 07/02/18 07:11 88 Bi-pap 15.0 50 07/02/18 07:11 Bi-pap 15.0 50 07/02/18 07:00 68 34 111/46 (67) 94 07/02/18 06:30 73 35 131/56 (81) 93 07/02/18 06:00 77 34 140/53 (82) 85 07/02/18 05:56 77 37 84 Facial 100 07/02/18 05:30 84 45 130/55 (80) 83 07/02/18 05:00 74 41 123/58 (79) 88 07/02/18 04:30 74 41 124/55 (78) 87 07/02/18 04:03 74 07/02/18 04:00 Nasal Cannula 3.0 07/02/18 04:00 3.0 07/02/18 04:00 99.0 74 41 123/54 (77) 89 99.0 07/02/18 03:30 74 41 119/52 (74) 89 07/02/18 03:00 77 41 120/53 (75) 88 07/02/18 02:30 75 42 124/54 (77) 90 07/02/18 02:00 75 43 129/47 (74) 90 07/02/18 01:30 78 42 126/61 (82) 90 07/02/18 01:00 88 43 115/56 (75) 90 07/02/18 00:30 81 42 113/46 (68) 89 07/02/18 00:19 74 07/02/18 00:00 Nasal Cannula 3.0 07/02/18 00:00 97.8 84 43 118/41 (66) 88 97.8 07/02/18 00:00 3.0 07/01/18 23:30 88 45 131/63 (85) 88 07/01/18 23:00 85 42 125/69 (87) 88 07/01/18 22:30 90 43 124/69 (87) 87 07/01/18 22:09 97.8 07/01/18 22:00 92 41 128/63 (84) 85 Labs Laboratory Tests Test 07/02/18 04:37 White Blood Count 19.9 K/UL (4.8-10.8) H Red Blood Count 3.37 M/UL (4.20-5.40) L Hemoglobin 9.4 G/DL (12.0-16.0) L Hematocrit 29.4 % (37.0-47.0) L Mean Corpuscular Volume 87 FL (80-99) Mean Corpuscular Hemoglobin 28.0 PG (27.0-31.0) Mean Corpuscular Hemoglobin Concent 32.1 G/DL (32.0-36.0) Red Cell Distribution Width 16.4 % (11.6-14.8) H Platelet Count 551 K/UL (150-450) H Mean Platelet Volume 9.8 FL (6.5-10.1) Neutrophils (%) (Auto) % (45.0-75.0) Lymphocytes (%) (Auto) % (20.0-45.0) Monocytes (%) (Auto) % (1.0-10.0) Eosinophils (%) (Auto) % (0.0-3.0) Basophils (%) (Auto) % (0.0-2.0) Differential Total Cells Counted 100 Neutrophils % (Manual) 72 % (45-75) Lymphocytes % (Manual) 14 % (20-45) L Monocytes % (Manual) 12 % (1-10) H Eosinophils % (Manual) 0 % (0-3) Basophils % (Manual) 1 % (0-2) Band Neutrophils 1 % (0-8) Platelet Estimate Increased H Platelet Morphology See comment Giant Platelets 1+ Red Blood Cell Morphology Normal Activated Partial Thromboplast Time 83 SEC (23-33) H Sodium Level 141 MMOL/L (136-145) Potassium Level 3.9 MMOL/L (3.5-5.1) Chloride Level 101 MMOL/L (98-107) Carbon Dioxide Level 34 MMOL/L (21-32) H Anion Gap 6 mmol/L (5-15) Blood Urea Nitrogen 32 mg/dL (7-18) H Creatinine 1.7 MG/DL (0.55-1.30) H Estimat Glomerular Filtration Rate mL/min (>60) Glucose Level 144 MG/DL (74-106) H Calcium Level 8.4 MG/DL (8.5-10.1) L Medications Current Medications Medications (Trade) Dose Ordered Sig/Missy Route PRN Reason Start Time Stop Time Status Last Admin Dose Admin Albuterol/ Ipratropium (Albuterol/ Ipratropium) 3 ml Q4H PRN HHN Shortness of Breath 06/28/18 15:42 07/03/18 15:41 Chlorhexidine Gluconate (Maria Elena-Hex 2%) 1 applic DAILY@2000 TOPIC 06/16/18 20:00 07/16/18 19:59 07/02/18 19:47 Lorazepam (Ativan 2mg/ml 1ml) 1 mg Q2H PRN IV Shortness of Breath 07/02/18 19:00 07/09/18 18:59 Morphine Sulfate (Morphine Sulfate) 2 mg Q2H PRN IVP Shortness of breath 07/02/18 19:00 07/07/18 18:59 07/02/18 19:40 Problems: (1) Encephalopathy due to metabolic factor or toxin Status: Acute Assessment & Plan: Encephalopathy due to metallic disorder or toxin. 1.Seroquel 25 mg at bedtime. 3. Haldol 5 mg q.6 hours p.r.n. for agitation. 4. We will continue to follow and readjust the medications. Christine Vela MD Jul 02, 2018 21:45
[2018-07-02] MEDS: LORazepam Inj 2mg/ml 1ml IV PRN (23:41)
[2018-07-03] VITALS (9 sets, daily range): BP systolic 41–120; BP diastolic 25–46
[2018-07-03] MEDS: Morphine Sulfate 2mg/ml Inj IVP PRN ×2 (01:20→06:37)
[2018-07-03] MEDS: LORazepam Inj 2mg/ml 1ml IV PRN (03:09)
[2018-07-03] MEDS ORDERED: Tubing IV Secondary IV ONE (07:33)
[2018-07-03] MEDS ORDERED: NS 275ml ONE (07:33)
--- NOTE | 2018-07-05 11:30 | Discharge Summary ---
DATE OF ADMISSION: 06/14/2018 SUMMARY DATE OF : 07/03/2018 REASON FOR ADMISSION: 1. Shortness of breath. 2. Pulmonary embolism. SIGNIFICANT FINDINGS: Right pulmonary artery embolism on CT. PROCEDURES PERFORMED: Intubation, right IJ. 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 She was noted to be hypoxic with O2 saturation of 77% on 2 liters. She had a CT angiogram of chest in the Emergency Room showing right pulmonary artery embolism. The patient was intubated and transferred to ICU. The patient was started on heparin drip. She was also seen by Pulmonary Medicine. After prolong intubation, the patient was extubated successfully with a BiPAP. However, the patient remained hypercapnic and it was difficult to transition to nasal cannula. between Pulmonary Medicine and family, the patient was transitioned to comfort care, daughter's wishes. The patient also stated that she did not want to have the BiPAP on and further understood the risks. CAUSE OF : Hypoxic/hypercapnic respiratory failure secondary to pulmonary embolism. .: 1. Hypoxic/hypercapnic respiratory distress secondary to pulmonary embolism. 2. Cervical degenerative disk disease. 3. Under[place] pulmonary disease. Umang Contreras MD DR: JOSEFA JOB#: [id number] CC:
--- NOTE | 2018-07-06 04:15 | Discharge Summary ---
DATE OF ADMISSION: 06/14/2018 DATE OF DISCHARGE: 07/03/2018 INCOMPLETE DICTATION: DISCHARGE/ NOTE: HISTORY OF PRESENT ILLNESS: Umang Contreras MD DR: MANAN JOB#: [id number] CC:
== END 2018-07-03 07:34 | disposition expired | DRG 870 ==
LOC: EDBD 17:21 → EMR 17:58 → ICU 19:00 → EDBEDREQ 19:10
DX: A41.89 Other specified sepsis (principal); I26.99 Other pulmonary embolism without acute cor pulmonale; J96.22 Acute and chronic respiratory failure with hypercapnia; J96.21 Acute and chronic respiratory failure with hypoxia; J18.9 Pneumonia, unspecified organism; G93.41 Metabolic encephalopathy; N39.0 Urinary tract infection, site not specified; N17.9 Acute kidney failure, unspecified; I82.411 Acute embolism and thrombosis of right femoral vein; I82.431 Acute embolism and thrombosis of right popliteal vein; J84.112 Idiopathic pulmonary fibrosis; Z98.1 Arthrodesis status; M48.061 Spinal stenosis, lumbar region without neurogenic claudication; M48.02 Spinal stenosis, cervical region; M50.30 Other cervical disc degeneration, unspecified cervical region; E87.5 Hyperkalemia; I48.91 Unspecified atrial fibrillation; Z51.5 Encounter for palliative care; R19.7 Diarrhea, unspecified
CPT/HCPCS: 36415; 36569; 36600; 71045; 71275; 74018; 74177; 76937; 80048; 80053; 80150; 80202; 81001; 81003; 82550; 82553; 82803; 83605; 83880; 84484; 85007; 85025; 85730; 87040; 87070; 87081; 87086; 87181; 87205; 87324; 93005; 93306; 93970; 94002; 94003; 94640; 94660; 94664; 94760; 99291; J2250; J2405; J7620; J8499